=== PATIENT | female | born 1935 | race Caucasian/White ===

== ENCOUNTER 2023-10-03 23:45 | Inpatient (IN) | payer OTHER, SELFPAY ==
[2023-10-03 19:28] VITALS: BP 111/61; BMI 28.6
[2023-10-03 19:31] VITALS: BP 111/61
[2023-10-03 19:58] LABS: % Basophils 0.4 % (0-2); % Eosinophils 1.3 % (0-6); % Immature Granulocytes 0.6 % (0-0.5); % Monocytes 6.9 % (1.7-9.3); % Neutrophils 74.8 % (42.2-75.2); Absolute Eosinophils 0.1 10^3/uL (0-0.7); Absolute Lymphocytes 0.8 10^3/uL (1.2-3.4); Absolute Monocytes 0.3 10^3/uL (0.1-0.6); Absolute Neutrophils 3.6 10^3/uL (1.4-6.5); Hematocrit 34.6 % (37.0-47.0); Hemoglobin 11.5 g/dL (12.0-16.0); Mean Corp Hgb Conc. 33.2 g/dL (33.0-37.0); Mean Corpuscular Hgb 32.3 pg (27.0-31.0); Mean Corpuscular Volume 97.2 fL (81.0-99.0); Mean Platelet Volume 11.4 fL (7.4-10.4); Nucleated Red Blood Cells % 0 %; Platelet Count 108 10^3/uL (130-400); Red Blood Cell Count 3.56 10^6/uL (4.20-5.40); Red Cell Dist. Width 15.3 % (11.5-14.5); White Blood Cell Count 4.8 10^3/uL (4.8-10.8)
[2023-10-03 20:00] VITALS: BP 101/45
[2023-10-03 20:07] LABS: ALT (SGPT) 45 U/L (0-35); AST (SGOT) 56 U/L (14-36); Albumin 3.4 g/dl (3.5-5.0); Alkaline Phosphatase 165 U/L (38-126); Blood Urea Nitrogen 25 mg/dl (7-17); Carbon Dioxide 32 mmol/L (22-30); Chloride 105 mmol/L (98-107); Estimated Creatinine Clearance 69 ml/min; Glucose 90 mg/dl (70-99); Sodium 139 mmol/L (135-145); Total Bilirubin 1.1 mg/dl (0.2-1.3); Total Protein 5.9 g/dl (6.3-8.2); eGFR > 60.00
[2023-10-03 20:33] LABS: Lactic Acid 0.9 mmol/L (0.7-2.0)
[2023-10-03 20:56] VITALS: BP 100/68
[2023-10-03 21:15] LABS: Urine Albumin Negative (Neg - Trace); Urine Bilirubin Negative (Negative); Urine Character Clear (Clear); Urine Color Yellow; Urine Glucose Negative (Negative); Urine Ketone Trace (Negative); Urine Leukocyte Negative (Negative); Urine Nitrite Negative (Negative); Urine Occult Blood Negative (Negative); Urine Specific Gravity 1.025 (<1.030); Urine Urobilinogen 4+ (Neg - 1+)
[2023-10-03 21:28] LABS: Free T4 1.29 ng/dl (0.78-2.19)
[2023-10-03 22:15] VITALS: BP 99/76
[2023-10-03 22:57] LABS: COVID-19 Antigen Negative (Negative)
[2023-10-03 23:01] VITALS: BP 92/78
--- NOTE | 2023-10-03 23:19 | ED.GENMED ---
History of Present Illness
General
Chief Complaint: Change in Mental Status
Source: patient and family
Exam Limitations: none
Time Seen by Provider: 10/03/23 19:54
Nursing documentation reviewed up to this point in time: agreed with
Travel History
Have you had any contact with someone who has COVID-19?: Unable to Answer
Do you have any symptoms of coronavirus? Fever > 100 degrees, chills, cough, shortness of breath, sore throat, loss of taste or smell, muscle aches, or headache?: Unable to Answer
History of Present Illness
History of Present Illness:
88-year-old female presents emergency department due to altered mental status, hallucinating. She has a history of hallucinations, but is seeing different things now, and has declined over the past few days.
Past History
Past History
ED Past Medical History: Arrthythmia (Atrial fibrillation), Cancer (CLL), CHF and Other (Sleep apnea, uses CPAP at night, colon polyps, arthritis, shingles, chronic lymphocytic leukemia, skin cancers)
ED Past Surgical History: Cholecystectomy, Orthopedic (Left TKR) and Other (Lysis of adhesions)
Social History
Tobacco: Non-smoker
Alcohol: Occasional
Drug: None
Personal:
Living: alone
Employment: Employed
Review of Systems
Review of Systems
Allergies reviewed?: Yes
Unable to obtain full review of systems at this time due to: other (Altered mental status)
All Other Systems: Not applicable
Phy Exam
Physical Exam
Physical Exam:
Physical Exam
General: Temperature 92.6
Neck: supple. no meningeal signs. normal posterior pharynx
Heart: s1/s2 regular rate and rhythm, no murmur. equal radial
pulses.
HEENT: Pupils equal round reactive to light, EOMI
Lungs: no acute respiratory distress. clear bilaterally
Abdomen: normal bowel sounds. not tender. no CVAT
Neuro: alert and oriented to person and place. no focal neurological deficits cranial nerves II through XII intact
Skin: no rash
Psychiatric: well kept. interactive and cooperative
Extremities: no edema. no calf tenderness. negative homans. good distal pulses
Course
Orders/Labs/Results
Orders:
Orders
10/03/23 19:43
Complete Blood Count/With Diff Urgent
Comprehensive Metabolic Panel Urgent
Free T4 Urgent
TSH Reflex To Free T4 Urgent
Comment: ADD ON
10/03/23 19:55
Werner Placement- Treatment ONCE
Reason for insertion: I&O's Critical Care
10/03/23 19:56
Add On- LAB Urgent
Tests Added?: tsh w/reflex t4
10/03/23 20:15
Lactic Acid Q4H
Comment: CANCEL 2nd LACTIC ACID IF 1st LACTIC ACID IS LESS THAN 2
Blood Culture Q30M
NORBERTO Source: Blood/Venous
Specimen Description:
10/03/23 20:27
Blood Culture Q30M
NORBERTO Source: Blood/Venous
Specimen Description:
10/03/23 21:07
Urinalysis Reflex To Culture Urgent
Date Specimen was Collected: 10/03/23
Time Specimen was Collected: 21:02
10/03/23 21:36
CR Chest Portable - 1 View Urgent
Comment:
Reason For Exam: hypothermia
Reason Study Needs to be Portable: Patient Unstable
10/03/23 22:21
COVID-19 Antigen Urgent
Source: Nasal Swab
Influenza A+B Rapid Molecular Urgent
NORBERTO Source: Nasal Swab
Specimen Description:
10/03/23 23:05
Admit/Transfer Patient As Directed
Co-Sign Provider:
Level of Care: Inpatient admission
Assign to:: Telemetry
Physician / Group: Nasir
Diagnosis: Hypothermia, Delirium
Reason for Telemetry: Arrhythmia
Date to Stop Telemetry: 10/06/23
Time to Stop Telemetry: 11:00
Reason for Hospitalization: Hypothermia, Delirium
Expected length of stay greater than two midnights?: Yes
ELOS- Estimated Length of Stay in days: 2
I certify the patient meets the requirements for IP care: Yes
10/03/23 23:08
Code Status As Directed
Resuscitation Status: Full Code
10/04/23 00:00
Lactic Acid Q4H
Comment: CANCEL 2nd LACTIC ACID IF 1st LACTIC ACID IS LESS THAN 2
10/06/23 11:00
DC Protocol for Telemetry ONCE
Abnormal Lab Results
10/03/23 10/03/23
19:43 21:07
RBC 3.56 L 10^6/uL
(4.20-5.40)
Hgb 11.5 L g/dL
(12.0-16.0)
Hct 34.6 L %
(37.0-47.0)
MCH 32.3 H pg
(27.0-31.0)
RDW 15.3 H %
(11.5-14.5)
Plt Count 108 L 10^3/uL
(130-400)
MPV 11.4 H fL
(7.4-10.4)
Absolute Lymphs (auto) 0.8 L 10^3/uL
(1.2-3.4)
Immature Gran % 0.6 H %
(0-0.5)
Lymphocytes % 16.0 L %
(20.5-51.1)
Carbon Dioxide 32 H mmol/L
(22-30)
BUN 25 H mg/dl
(7-17)
AST 56 H U/L
(14-36)
ALT 45 H U/L
(0-35)
Alkaline Phosphatase 165 H U/L
(38-126)
Total Protein 5.9 L g/dl
(6.3-8.2)
Albumin 3.4 L g/dl
(3.5-5.0)
TSH (Reflex) 13.30 H uIU/ml
(0.47-4.68)
Urine Ketones Trace A
(Negative)
Urine Urobilinogen 4+ A
(Neg - 1+)
10/03/23 19:43
10/03/23 19:43
Vital Signs
Initial and Last Documented VS:
Initial Vital Signs
Pulse Resp
63 19
10/03/23 19:27 10/03/23 19:27
Last Documented Vital Signs
Temp Pulse Resp BP Pulse Ox
92.6 F L 72 18 100/68 97
10/03/23 22:24 10/03/23 21:15 10/03/23 21:15 10/03/23 20:56 10/03/23 21:15
MDM/Problems Addressed
Differential Diagnosis Includes:
Sepsis, hypothyroidism
MDM/Problems Addressed:
88-year-old female with hypothermia, unclear etiology, altered mental status. Admit to hospitalist for further workup. No source of infection found.
Chronic conditions affecting care: Cardiomyopathy and Arrhythmia
Acute Exacerbation and/or Progression of Chronic Illness: Cardiomyopathy and Arrhythmia
*Radiology
Radiology exam reviewed: radiology read reviewed (Chest x-ray no acute findings)
*Pulse Oximetry
Patient hypoxic: no
*EKG
Interpreted by ED Provider?: NA
*Shoe Trimmer Interpretation
Rate: Shoe Trimmer- N/A
*Critical Care Note
Total Time (30-74mins, 75-104mins- exclusive of procedures): 30
comment:
Critical care statement: A total of 30 minutes of critical care time was provided for this patient. This includes management of unstable vital signs, evaluation of the patient at bedside, reviewing the patient's pertinent medical records, discussion
with consultants, review of old EKGs and review of pertinent medical records. This time with separate from time utilized to perform the aforementioned documented procedures
Data Reviewed
Review of Other/Old Records Reveals: Labs (Prior hemoglobin 12.3, prior TSH 0.7 2020)
Source: records
Patient Management
Social determinants of health affecting care: Living situation
Discussion with other providers: Hospitalist
Escalation/DeEscalation of care consider admission/obs:
Admit indicated
ED Attending Note
-
Portions of this chart may have been created with voice recognition software.� Occasional wrong word or��sound alike� substitutions may have occurred due to the inherent limitations of voice recognition software.
Discharge Plan
Departure
Patient Disposition: Admit
Date of Disposition: 10/03/23
Time of Disposition: 21:35
Admit to: ICU
Presentation/result/management discussed w/ accepting MD/DO: Hospitalist
Patient with high blood pressure during this ER visit?: No
Condition: Fair
Discharge Problem:
Hypothermia, Hypothyroidism
Prescriptions:
No Action
ascorbic acid (vitamin C) [Vitamin C] 500 MG tablet
500 mg PO DAILY Qty: 0
multivitamin with folic acid [Tab-A-Mandy] 1 TABLET tablet
1 tab PO DAILY Qty: 0
alendronate 70 MG tablet
70 mg PO MEMBRENO
Eliquis 5 MG tablet
5 mg PO BID Qty: 60 3RF
furosemide 40 MG tablet
40 mg PO DAILY Qty: 30 11RF
pyridoxine (vitamin B6) [Vitamin B-6] 100 MG tablet
100 mg PO DAILY
cholecalciferol (vitamin D3) 1,000 UNITS tablet
2,000 units PO DAILY
metoprolol succinate 50 MG tablet extended release 24 hr
50 mg PO BID Qty: 60 0RF
atorvastatin 10 mg Tablet
10 mg PO DAILY
PreserVision Lutein 226-90-0.8-5 mg Capsule
1 cap PO BID
amiodarone [Pacerone] 200 MG tablet
100 mg PO DAILY
clopidogrel 75 mg Tablet
75 mg PO DAILY Qty: 90 5RF
pantoprazole 40 mg Tablet,Delayed Release (Dr/Ec)
40 mg PO DAILY Qty: 90 5RF
calcium carbonate [Calcium 600] 600 mg calcium (1,500 mg) Tablet
600 mg PO BID
trazodone 50 mg Tablet
50 mg PO HS
Referrals:
UNKNOWN - PT DOES,NOT KNOW [Family Provider] -
Interventions
Interventions:
*Risk Screen - Suicide Last Done: 10/03/23 19:28
*General Assessment Last Done: 10/03/23 19:28
*Neglect/Abuse Screening Last Done: 10/03/23 19:28
ED- Fall Risk Assessment Last Done: 10/03/23 19:28
*ED COVID-19 Vaccine History Last Done: 10/03/23 19:28
ED- Neurological Assessment Last Done: 10/03/23 19:28
ED Swallowing Screen Last Done: 10/03/23 19:40
--- NOTE | 2023-10-03 23:38 | HPS.HSE ---
Family Physician
-
Family Physician: NOT KNOW UNKNOWN - PT DOES
Chief Complaint
-
Confusion
History of Present Illness
Patient is an 88y F with PMH significant for ASCVD, aortic stenosis, A-Fib and CHF who presents to ED for evaluation of confusion. History obtained from family via phone. Spoke with son and daughter who describe general decline in function
since January 2023. Patient lived on her own until 07/2023 when she moved in with her daughter. At that time, family noted that she had bouts of insomnia, hallucinations and confusion. These were very intermittent. Patient has had much more
significant decline over the past week or so - and especially over the past 4 days.
Patient had a fall at home about 2 weeks ago. As she developed increasing confusion, she was seen by her PCP and a CT scan, labs, etc were performed. These were essentially unremarkable.
Patient was then seen by Neurology (Dr. De La Rosa) and additional testing was ordered which has yet to be completed.
Patient began to have more consistent insomnia, hallucinations and sharp decline in cognition over the past several days.
last PM, she took her first dose of trazodone in an attempt to get some sleep. Today her symptoms seemed the same or worse and patient was brought to the ED for evaluation.
In the ED, patient is noted to be hypothermic with temp = 92.0. She is awake and interactive, but delirious and unable to answer questions appropriately.
Medical History
Past Medical History
Past Medical History: Reports Other
Additional Past Medical History:
ASCVD (CAD and CVA)
Severe Aortic Stenosis
Chronic HFpEF
Permanent Atrial Fibrillation
Hypothyroidism
CLL
Uterine Cancer (s/p surgery, chemo, XRT)
EFRAIN on CPAP
Past Surgical History: Reports Other
Additional Past Surgical History:
Complicated PTCA with Stents (08/2023)
JOSEPH
Cholecystectomy
Appendectomy
D&C
Bilateral TKA
Mohs Surgery
Social History
Tobacco: Former Smoker (Quit > 10 years ago.)
Alcohol: Occasional
Living: With Family
Family History
Family History: Other (Father: CAD, DM Brother: Prostate Cancer)
Allergies / Home Medications
Allergies reflects when Allergies were last updated in [facility].
Home Medications with original date entered in [facility]
Allergy/Medication List:
Allergies
Allergy/AdvReac Type Severity Reaction Status Date / Time
amoxicillin Allergy Nausea / Verified 10/03/23 19:40
Vomiting
loratadine [From Claritin] Allergy Nausea / Verified 10/03/23 19:40
Vomiting
Home Medications
ascorbic acid (vitamin C) 500 mg tablet (Vitamin C) 500 mg PO DAILY Supplement ##0 01/05/12
multivitamin with folic acid 400 mcg tablet (Tab-A-Mandy) 1 tab PO DAILY Supplement ##0 01/05/12
alendronate 70 mg tablet 70 mg PO MEMBRENO OSTEOPOROSIS 11/20/17
apixaban 5 mg tablet (Eliquis) 5 mg PO BID ##60 11/22/17
furosemide 40 mg tablet 40 mg PO DAILY #30 tabs 12/01/17
cholecalciferol (vitamin D3) 25 mcg (1,000 unit) tablet 2,000 units PO DAILY Supplement 05/18/21
pyridoxine (vitamin B6) 100 mg tablet (Vitamin B-6) 100 mg PO DAILY Supplement 05/18/21
metoprolol succinate 50 mg tablet,extended release 24 hr 50 mg PO BID #60 tabs 05/23/21
amiodarone 200 mg tablet (Pacerone) 100 mg PO DAILY 06/25/23
atorvastatin 10 mg tablet 10 mg PO DAILY 06/25/23
vit C 226 mg-vit E 90 mg-copper 0.8 mg-zinc oxide-lutein 5 mg capsule (PreserVision Lutein) 1 cap PO BID 06/25/23
clopidogrel 75 mg tablet 75 mg PO DAILY #90 tabs 08/22/23
pantoprazole 40 mg tablet,delayed release 40 mg PO DAILY #90 tabs 08/22/23
calcium carbonate 600 mg calcium (1,500 mg) tablet (Calcium) 600 mg PO BID 10/03/23
trazodone 50 mg tablet 50 mg PO HS 10/03/23
Review of Systems
-
History Source: Family
A 12 point ROS was completed and negative except as noted: Yes
Constitutional: Denies Fever
Respiratory: Denies Cough or Trouble Breathing
Cardiac: Denies Chest Pain or Palpitations
Abdomen/GI: Denies Nausea, Vomiting or Diarrhea
Neurological: Reports Weakness
Psych: Reports Dementia, Audio or Visual Hallucinations and Other (Insomnia, confusion)
Physical Exam
Vital Signs
Vital Signs
Temp Pulse Resp BP Pulse Ox
92.6 F L 80 20 92/78 94
10/03/23 22:24 10/03/23 23:15 10/03/23 23:15 10/03/23 23:01 10/03/23 23:15
Physical Exam
General: Other (88y F in no acute distress. Awake and interactive, but delirious and not able to appropriately answer questions. Follows some simple commands.)
HEENT: Other (Dry MM.)
Respiratory: Other (Decreased at bases - otherwise clear.)
Cardiac: S1/S2, Irregular Rhythm and Murmur (III/ JANNETTE)
GI: Soft, Non Tender, Non Distended and Normal Bowel Sounds
Musculoskeletal: No Clubbing, No Cyanosis, No Edema and Other (Some superficial crusted lesions to the LLE - No bleeding / discharge. Palpable cords posterior calf.)
Neuro: Awake; No Oriented
Psych: Apparent Dementia
Laboratory Results
-
10/03/23 19:43
10/03/23 19:43
Laboratory Results
Lactic Acid 0.9 mmol/L (0.7-2.0) 10/03/23 20:15
Total Bilirubin 1.1 mg/dl (0.2-1.3) 10/03/23 19:43
AST 56 U/L (14-36) H 10/03/23 19:43
ALT 45 U/L (0-35) H 10/03/23 19:43
Alkaline Phosphatase 165 U/L (38-126) H 10/03/23 19:43
Impression/Plan
-
A/P: Patient is an 88y F with PMH significant for ASCVD, CHF, and A-Fib who presents to ED for evaluation of progressive confusion and hallucinations.
Acute Delirium
Senile Dementia
- Admit for further evaluation and treatment.
- Seems as if chronic issue is present with more recent precipitous decline.
- Only new med is trazodone (started after symptoms worsened) - will hold for now.
- Had PTCA with stenting done in 08/2023, had fall about 2 weeks ago.
- CT head unremarkable on 09/26/23.
- No evidence of active infection or other systemic process.
- Check MR brain in the AM.
- Neurology evaluation for additional recommendations.
- Symptoms seem most c/w rapidly progressive form of dementia - rule out other possible etiologies.
- Follow for changes in exam.
- Quetiapine PRN for agitation.
- Adjust medications as needed to control symptoms / mood destabilization.
Hypothermia
Hypothyroidism
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
- TSH mildly increased with normal T4.
- Patient has a listed dx of hypothyroidism - but is on no medication.
- Begin T4 supplementation. Repeat TFTs in 4-6 weeks.
- ? mild hypothyroidism could explain hypothermia on its own.
ASCVD
Severe Aortic Stenosis
Permanent Atrial Fibrillation
- Stable. s/p recent coronary stents (08/2023).
- Continue current CV med regimen including Eliquis / Plavix.
- In the process of TAVR work-up - may need to re-evaluate this given apparent / significant progression in dementia.
COPD without Acute Exacerbation
EFRAIN on CPAP
- Stable. No wheezing on exam. No noted recent cough, etc.
- DuoNebs PRN.
- Continue usual CPAP at HS.
LE Skin Changes
LE Cords
- Wound Care eval for local care of superficial skin breakdown.
- Palpable cords on exam - patient is on Eliquis, but will check US to rule out DVT given exam findings.
DVT Prophylaxis: Continue Eliquis for now.
Code Status: Full
[2023-10-04] VITALS (9 sets, daily range): BP systolic 86–158; BP diastolic 47–103; PULSE 83–104; BMI 30.1
[2023-10-04] MEDS: NSS 500 IV (00:26)
--- NOTE | 2023-10-04 01:14 | PTCARENOTE ---
Pt received from ED to [id number]. Pt oriented to room and call [place].
[2023-10-04 01:52] LABS: Glucose - Point of Care 72 mg/dl (70-99)
[2023-10-04] MEDS: SYNTHROID 50 MCG PO (06:08)
[2023-10-04 06:45] LABS: Glucose - Point of Care 68 mg/dl (70-99)
[2023-10-04 07:55] LABS: Hematocrit 32.1 % (37.0-47.0); Hemoglobin 10.9 g/dL (12.0-16.0); Mean Corpuscular Hgb 32.2 pg (27.0-31.0); Mean Corpuscular Volume 94.7 fL (81.0-99.0); Platelet Count 108 10^3/uL (130-400); Red Blood Cell Count 3.39 10^6/uL (4.20-5.40); Red Cell Dist. Width 15.3 % (11.5-14.5); White Blood Cell Count 4.7 10^3/uL (4.8-10.8)
--- NOTE | 2023-10-04 08:15 | CON.NEURO4 ---
Addendum entered and electronically signed by Bony Obrien MD 10/04/23 14:53:
I saw and evaluated the patient I reviewed the note by Violeta Salcedo agree the findings the following comments:
88-year-old woman with a past ministry of atrial fibrillation, congestive heart failure, CLL, peripheral neuropathy presented to hospital because of confusion hallucinations and ambulatory dysfunction.
Patient has had some confusion and visual hallucinations starting at least 9 to 12 months ago. There has been significant insomnia at home and the patient takes trazodone for this. She follows with a local neurologist Dr. De La Rosa who is brought in both
lab testing, is pursuing EMG and MRI lumbar spine as well.
Patient was unable to tolerate MRI at this time is rather irritable and mildly agitated not cooperative with my questions.
Patient also had significant hypothermia in the ED
At baseline patient takes Eliquis 5 mg twice daily and clopidogrel 75 mg once a day.
Neurologic examination shows an awake and alert patient, irritated mild confusion, generally speaks in support phrases, cranial nerve shows mild dysarthria, midline gaze at rest, no facial asymmetry, patient not quite overt tremor is seen and no
motor asymmetry and spontaneous arms and legs seen.
CT head noncontrast shows moderate to severe microangiopathy and small lacunar infarcts in the cerebellum without acute abnormality or hemorrhage.
Assessment: Patient likely to have a vascular dementia versus Lewy body dementia given significant visual hallucinations along with confusion and cognitive deficit. A small stroke or metabolic abnormality or polypharmacy may have worsened things,
but also could be the case that this is the natural history of a progressive neurodegenerative disease. Hypothermia not entirely clear of the cause, thyroid function does not show severe derangement, patient not showing signs of sepsis.
Recommendations
-Continue the existing Eliquis and clopidogrel
-Reasonable to give 1 mg IV lorazepam to try and tolerate MRI brain, but if she is not able to tolerate with this dose then I would not provide further doses of benzodiazepines as this would likely worsen her mental status
-If agitation is a problem then for prefer Zyprexa or Seroquel as needed at low-dose to start rather than further benzodiazepines
Original Note:
Consultation - Neurology 4
-
CONSULTING PHYSICIAN: Dev Obrien MD
REFERRING PHYSICIAN: Hospitalists/Dr. Best
DICTATED BY: MICHELLE Ward
DATE/TIME OF REQUEST: 10/04/23
DATE/TIME OF CONSULTATION: 10/04/23
Reason for Consultation: Delirium
History of Present Illness:
This is an 88-year-old female who has presented to the hospital on 10/03/23 with report of increased confusion, hallucinations, and ambulatory dysfunction. This information is obtained from medical records as the patient is unable to provide any
information. Per medical records, patient has had multiple falls over the past two years. She has had increased confusion and visual hallucinations starting about one year ago. She has had difficultly ambulating and a shuffled gait since January 2023
and started using a rolling walker then. She moved in with her daughter in 07/2023 and has had intermittent episodes of insomnia, hallucinations, and confusion since then. Two weeks ago she had another fall at home with slight head trauma. She had a
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 She was evaluated by her outpatient
Neurologist Dr. De La Rosa, who ordered a CPK, aldolase, acetylcholine receptor antibodies, EMG, and MRI lumbar spine; but the EMG and MRI lumbar spine aren't scheduled until November. On 10/02/23 she took a trazodone and had worsened symptoms and insomnia,
prompting her family to bring her to the ER for evaluation. Rectal temperature on arrival was 92.6, no clear signs of infection. Patient is currently confused and agitated after MRI attempt, and she is unable to provide answers to most questions.
She is taking Eliquis 5mg BID and plavix 75mg daily for Afib and recent cardiac stent.
Past Medical History: Afib (Eliquis), CHF, ASCVD, aortic stenosis, dementia, CLL in remission, [place], hypothyroidism, bilateral carpal tunnel syndrome, peripheral polyneuropathy following chemotherapy, EFRAIN (cpap), osteoarthritis, right rotator cuff
tear, endometrial cancer,
Surgical History: Cardiac stent 08/2023, cholecystectomy, appendectomy, D&C, bilateral knee replacement, hysterectomy, Mohs
Family History: Reviewed and noncontributory.
Social History: Former tobacco, occasional alcohol, no illicit drug use.
Allergies: Amoxicillin, Loratadine.
Home Medications: See below.
Review of Symptoms:
Per the HPI. I am unable to obtain a complete review of systems�because of patient's inability to provide history.
Physical Exam:
The patient is afebrile, abdomen is nondistended, breathing is unlabored, skin is warm and dry, LLE scabbed, no edema.
Neurologic Examination:
The patient is awake and alert. Restless, anxious, agitated. She is able to follow a rare one-step command and answer a simple question. There is no aphasia or dysarthria. On cranial nerve assessment, pupils are 3 mm bilateral, round and reactive
to light and accommodation. [place] visual gaming and EOMS. There is no facial asymmetry. Hearing is intact bilaterally to normal conversation volume. [place] tongue palate and uvula. Moves all extremities spontaneously. No involuntary movement noted. [place]
sensation, double simultaneous, and coordination.
Lab Results: See below.
Neuro Imaging:
1. CT Head 09/26/23: There is no acute intracranial process. Mild to moderate diffuse volume loss. Moderate to severe leukoaraiosis. Small lacunar infarcts in the cerebellum unchanged.
Differentials for the patient's presentation include:
1. TME of unclear source in the setting of likely underlying vascular or Lewy body dementia
2. Small stroke possible
3. Hypothermia
4. Recent cardiac stent surgery
Recommendations:
-Provide lorazepam 1mg x1 prior to MRI brain noncontrast due to agitation/restlessness
-Would avoid benzodiazepines for sedation as much as possible. Seroquel or zyprexa PRN agitation.
-Continue home Eliquis and Plavix
-Neurological checks per unit guidelines.
-Needs outpatient neuropsychological testing
-Case management consult for home support for family.
-PT/OT/ST evaluations
-DVT prophylaxis
-Will follow pending results.
Discussed patient care with: Dr. Obrien, the patient
Vital Signs and Labs
-
Vital Signs and Labs:
Vital Signs
Temp Pulse Resp BP Pulse Ox
97.7 F 95 24 138/96 97
10/04/23 08:20 10/04/23 08:20 10/04/23 08:20 10/04/23 08:20 10/04/23 08:30
Lab Results
10/04/23 06:15
10/04/23 06:15
Sodium 139 mmol/L (135-145) 10/04/23 06:15
Potassium 4.2 mmol/L (3.5-5.1) 10/04/23 06:15
BUN 24 mg/dl (7-17) H 10/04/23 06:15
Glucose 63 mg/dl (70-99) L 10/04/23 06:15
Calcium 8.8 mg/dl (8.4-10.2) 10/04/23 06:15
Vitamin B12 685 pg/ml (239-931) 10/04/23 06:15
Medications
-
Active Medications
Generic Name Dose Route Start Last Admin
Trade Name Freq PRN Reason Stop Dose Admin
Acetaminophen 650 mg 10/04/23 02:16
Acetaminophen 325 Mg Tablet PO 11/01/23 02:15
Q4HPRN PRN
Mild Pain / Temp > 101
Albuterol/Ipratropium 3 ml 10/04/23 02:16
Ipratropium 0.5/Albuterol 3 Mg (3 Ml Ampul) INH 11/01/23 02:15
R Q4HPRN PRN
SOB
Protocol
Amiodarone HCl 100 mg 10/04/23 08:00 10/04/23 08:30
Amiodarone 100 Mg Tablet PO 11/01/23 07:59 100 mg
DAILY DEE Administration
Apixaban 5 mg 10/04/23 08:00 10/04/23 08:30
Apixaban (Eliquis) 5 Mg Tablet PO 11/01/23 07:59 5 mg
BID DEE Administration
Clopidogrel Bisulfate 75 mg 10/04/23 08:00 10/04/23 08:29
Clopidogrel 75 Mg Tablet PO 11/01/23 07:59 75 mg
DAILY DEE Administration
Dextrose 12.5 grams 10/04/23 06:50
Dextrose 50% (0.5 Grams/Ml) 50 Ml Syringe IV 11/01/23 06:49
[id number] PRN
for BS < 70
Levothyroxine Sodium 50 mcg 10/04/23 07:00 10/04/23 06:08
Levothyroxine 50 Mcg Tablet PO 11/01/23 06:59 50 mcg
DAILY AT 0700 DEE Administration
Lorazepam 1 mg 10/04/23 12:10
Lorazepam 2 Mg/Ml Vial IV 10/04/23 23:59
ONCE PRN
mri
Metoprolol Succinate 25 mg 10/04/23 08:00 10/04/23 08:29
Metoprolol 25 Mg Extended Release Tablet PO 11/01/23 07:59 25 mg
BID DEE Administration
Miconazole Nitrate 0 applic 10/04/23 08:00 10/04/23 08:29
Miconazole Powder Bottle TOPICAL 11/01/23 07:59 1 applic
BID DEE Administration
Quetiapine Fumarate 12.5 mg 10/04/23 02:16
Quetiapine 25 Mg Tablet PO 11/01/23 02:15
Q8HPRN PRN
Agitation
Sodium Chloride 0 flush 10/04/23 01:00
Sodium Chloride 0.9% (Flush) Syringe IV 11/01/23 00:59
PER PROTOCOL DEE
Sodium Chloride 0.5 ml 10/04/23 12:22
Nss (Pf) 10 Ml Vial For Ativan 1 Mg Dose IV 10/04/23 23:59
ONCE PRN
DILUTE LORAZEPAM
Home Medications
Medication Instructions Recorded
ascorbic acid (vitamin C) 500 mg 500 mg PO DAILY Supplement ##0 01/05/12
tablet (Vitamin C)
multivitamin with folic acid 400 1 tab PO DAILY Supplement ##0 01/05/12
mcg tablet (Tab-A-Mandy)
alendronate 70 mg tablet 70 mg PO MEMBRENO OSTEOPOROSIS 11/20/17
apixaban 5 mg tablet (Eliquis) 5 mg PO BID ##60 11/22/17
furosemide 40 mg tablet 40 mg PO DAILY #30 tabs 12/01/17
cholecalciferol (vitamin D3) 25 2,000 units PO DAILY Supplement 05/18/21
mcg (1,000 unit) tablet
pyridoxine (vitamin B6) 100 mg 100 mg PO DAILY Supplement 05/18/21
tablet (Vitamin B-6)
metoprolol succinate 50 mg 50 mg PO BID #60 tabs 05/23/21
tablet,extended release 24 hr
amiodarone 200 mg tablet (Pacerone) 100 mg PO DAILY Arrhythmia 06/25/23
atorvastatin 10 mg tablet 10 mg PO DAILY High Cholesterol 06/25/23
vit C 226 mg-vit E 90 mg-copper 1 cap PO BID Supplement 06/25/23
0.8 mg-zinc oxide-lutein 5 mg
capsule (PreserVision Lutein)
clopidogrel 75 mg tablet 75 mg PO DAILY #90 tabs 08/22/23
pantoprazole 40 mg tablet,delayed 40 mg PO DAILY #90 tabs 08/22/23
release
calcium carbonate 600 mg calcium 600 mg PO BID Supplement 10/03/23
(1,500 mg) tablet (Calcium)
trazodone 50 mg tablet 50 mg PO HS Sleep 10/03/23
[2023-10-04] MEDS: TOPROL XL 25 MG PO (08:29)
[2023-10-04] MEDS: PLAVIX 75 MG PO (08:29)
[2023-10-04] MEDS: DESENEX/MITRAZOL/ZEASORB 1 APPLIC TOPICAL ×2 (08:29→19:50)
[2023-10-04] MEDS: ELIQUIS 5 MG PO (08:30)
[2023-10-04] MEDS: PACERONE 100 MG PO (08:30)
--- NOTE | 2023-10-04 08:30 | PTCARENOTE ---
10/04- FBS=74. Patient not displaying any S/S of Hypoglycemia. No dextrose to be given at this time as per MD. Continue to monitor.
[2023-10-04 08:35] LABS: Glucose - Point of Care 74 mg/dl (70-99)
--- NOTE | 2023-10-04 08:35 | PTCARENOTE ---
10/04- Patient is cognitively unable to perform simple tasks like taking her pills. She eventually did without issue. But referred to speech for further eval. Advised Physician patient may be unable to regularly take oral medication at this time.
[2023-10-04 08:37] LABS: Blood Urea Nitrogen 24 mg/dl (7-17); Calcium 8.8 mg/dl (8.4-10.2); Carbon Dioxide 25 mmol/L (22-30); Chloride 110 mmol/L (98-107); Estimated Creatinine Clearance 64 ml/min; Glucose 63 mg/dl (70-99); Potassium 4.2 mmol/L (3.5-5.1); Sodium 139 mmol/L (135-145); eGFR > 60.00
[2023-10-04 09:54] LABS: Vitamin B12 685 pg/ml (239-931)
[2023-10-04 09:57] LABS: Cortisol, Random 12.8 ug/dl
--- NOTE | 2023-10-04 10:00 | WOUNDNOTE ---
SACRAL/COCCYX CREASE
--- NOTE | 2023-10-04 10:00 | WOUNDNOTE ---
[facility] RN note: Patient admitted with hypothermia, delirium. Gradual decline since January. Patient lives with her daughter.
See H&P for complete history.
PMH: ASCVD, aortic stenosis, a fib (Eliquis), CHF, CLL, uterine ca s/p JOSEPH, chemo, XRT, EFRAIN (CPAP), PTCA with stents, cholecystectomy, appendectomy, bilateral TKA, Mohs.
Wound Location and type/assessment: Patient admitted with: dermal LE wounds suspect r/t trauma, possible scratching and venous insufficiency. No to trace LE edema.+Hemosiderosis and varicosities. +Palpable pedal pulses. 05/16/23 Arterial Doppler R
FORREST 1.04, R toe .76; L FORREST 1.26, L toe .73. R plantar mid medical foot dry black/yellow callus. No drainage, no erythema. Sacral/coccyx MASD.
Appetite: currently NPO.
Pressure redistribution devices in place: [facility] Accumax. Patient tries to move legs out of bed at times as per nursing however, patient does not understand need for frequent turning. RICHIE Patel to coordinate switching bed to an air bed.
Plan: Dressing changed LLE. Silicone foam applied to R lateral calf. No sting skin prep applied to R plantar callus.
Will confirm orders with Dr. Voss; defer to hospitalist re: inpatient vs outpatient podiatry for callus removal. Discussed with RICHIE Hargrove.
Care plan to be updated and will follow as needed.
Recommend follow up at wound care center if needed upon discharge.
--- NOTE | 2023-10-04 10:00 | WOUNDNOTE ---
SALVADOR (R MEDIAL, L ANTERIOR)
--- NOTE | 2023-10-04 10:00 | WOUNDNOTE ---
R CALF (LATERAL)(with photo flash)
--- NOTE | 2023-10-04 10:00 | WOUNDNOTE ---
R PLANTAR FOOT (MID MEDIAL)
--- NOTE | 2023-10-04 10:00 | WOUNDNOTE ---
SALVADOR (with photo flash)
--- NOTE | 2023-10-04 10:07 | WOUNDNOTE ---
L CALF (MEDIAL LOWER)
[2023-10-04 12:34] LABS: Glucose - Point of Care 73 mg/dl (70-99)
--- NOTE | 2023-10-04 13:13 | W.PN.HOSP.TC ---
Today's Communication/Plan
-
f/u cultures
mri
neuro eval
Assessment / Plan
Assessment / Plan
Physical Exam
General: Other (88y F in no acute distress.� Awake and interactive, but delirious and not able to appropriately answer questions.� Follows some simple commands.)
HEENT: Other (Dry MM.)
Respiratory: Other (Decreased at bases - otherwise clear.)
Cardiac: S1/S2, Irregular Rhythm and Murmur (III/ JANNETTE)
GI: Soft, Non Tender, Non Distended and Normal Bowel Sounds
Musculoskeletal: No Clubbing, No Cyanosis, No Edema and Other (Some superficial crusted lesions to the LLE - No bleeding / discharge.� Palpable cords posterior calf.) Foot callous.
Neuro: Awake; No Oriented
Psych: Apparent Dementia
A/P:� Patient is an 88y F with PMH significant for ASCVD, CHF, and A-Fib who presents to ED for evaluation of progressive confusion and hallucinations.
Acute Delirium
Senile Dementia
�- Seems as if chronic issue is present with more recent precipitous decline.
�- Only new med is trazodone (started after symptoms worsened) - will hold for now.
�- Had PTCA with stenting done in 08/2023, had fall about 2 weeks ago.
�- No evidence of active infection or other systemic process. F/u Cultures
�- Check MR brain in the AM. - May need ativan prior
�- Neurology evaluation for additional recommendations.
�- Symptoms seem most c/w rapidly progressive form of dementia
�- Quetiapine PRN for agitation.
Hypothermia
Hypothyroidism
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
�- TSH mildly increased with normal T4.
�- Patient has a listed dx of hypothyroidism - but is on no medication.
�- Begin T4 supplementation.� Repeat TFTs in 4-6 weeks.
�- ? mild hypothyroidism could explain hypothermia on its own.
ASCVD
Severe Aortic Stenosis
Permanent Atrial Fibrillation
�- Stable.� s/p recent coronary stents (08/2023).
�- Continue current CV med regimen including Eliquis / Plavix.
�- In the process of TAVR work-up - may need to re-evaluate this given apparent / significant progression in dementia.
COPD without Acute Exacerbation
EFRAIN on CPAP
�- Stable.� No wheezing on exam.� No noted recent cough, etc.
�- DuoNebs PRN.
�- Continue usual CPAP at HS.
LE Skin Changes
LE Cords
�- Wound Care eval for local care of superficial skin breakdown.
�- Palpable cords on exam - patient is on Eliquis, but will check US to rule out DVT given exam findings.
Foot Callous
-f/u podiatry outpatient
DVT Prophylaxis:� Continue Eliquis for now.
Code Status:� Full
Anticipated Discharge: Within 24 hours
Subjective/Interval History
-
Date of Service: October 04, 2023
No acute events, patient unable to appropriately respond to any questions
Objective Data
-
Labs:
Laboratory Results
10/04/23
06:15
WBC 4.7 L
Hgb 10.9 L
Hct 32.1 L
Plt Count 108 L
Sodium 139
Potassium 4.2
Chloride 110 H
Carbon Dioxide 25
BUN 24 H
Creatinine 0.6
Glucose 63 L
Calcium 8.8
Vital Signs:
Vital Signs
Temp Pulse Resp BP Pulse Ox
97.7 F 95 24 138/96 97
10/04/23 08:20 10/04/23 08:20 10/04/23 08:20 10/04/23 08:20 10/04/23 08:30
I&O
10/03/23 10/04/23 10/05/23
06:59 06:59 06:59
Output Total 150 / 150
Balance -150 / -150
Review of Systems
-
History Source: Patient
All other systems: Not reviewed unless documented
Data Reviewed
-
Diagnostic Radiology: Image personally visualized and interpreted and Report Reviewed by me
CT Scan: Image personally visualized and interpreted and Report Reviewed by me
Labs: Labs Reviewed by me
--- NOTE | 2023-10-04 15:22 | WOUNDNOTE ---
[facility] RN note: Spoke with patient's daughter Maria Elena Whipple who stated the small dry black scabs on her legs are Basel cell cancer. And the open areas are more recent. Suggested to daughter to have patient follow up with her cut out and marking machine operator who is Dr. Carrizales.
Daughter thinks she last saw Dr. Carrizales last June. Colt also stated he is followed by Dr. Adkins (photographer lithographic) for her R plantar foot callus.
[2023-10-04 16:39] LABS: Glucose - Point of Care 62 mg/dl (70-99)
[2023-10-04] MEDS: DEXTROSE 50% SYRINGE 12.5 GRAMS IV (16:46)
[2023-10-04 17:20] LABS: Glucose - Point of Care 124 mg/dl (70-99)
[2023-10-04] MEDS: D5W 1000 IV (17:29)
[2023-10-04] MEDS: ELIQUIS PO (19:45)
[2023-10-04] MEDS: TOPROL XL PO (19:45)
--- NOTE | 2023-10-04 21:17 | W.PN.POD ---
Addendum entered and electronically signed by Jean-Claude Adkins DPM 10/05/23 10:07:
excisional debridement was performed on right foot lesion plantar aspect of navicular bone
all hyperkeratotic, devitalized tissue was excised with # 312 scalpel blade
callous tissue removed epidermis layer only. approx. 1'x3/4'
no drainage, no infection
no ulceration
Original Note:
Today's Communication
- Today's Communication
podiatry consult for discolored, thick callous bottom of right foot
Assessment / Plan
- -
large hyperkeratotic lesion sub navicular right foot
area pre-ulcerous
midtarsal osteoarthritis right foot
selective debridement of all callous tissue overlying plantar navicular
no viable tissue, no bleeding
Suggest: continue application of silicone border foam right foot daily
when ambulatory wear patient's orthopedic shoes with molded orthotics to accommodative
her bony deformity
followup in our office in 2 months
Subjective/Objective
- Subjective
88 y/o female presented to hospital with confusion, hallucinations, and ambulatory disfunction.
decline over last 6 months but significant last few days
PMH: afib ascvd cad cva chf peripheral neuropathy dementia
upon exam large callous noted per nursing bottom right foot
- Objective
Temp Pulse Resp BP Pulse Ox
97.7 F 95 20 138/96 96
10/04/23 08:20 10/04/23 08:20 10/04/23 19:35 10/04/23 08:20 10/04/23 19:35
10/04/23 06:15
10/04/23 06:15
Vital Signs and Lab results were reviewed.
large hyperkeratotic lesion plantar navicular right foot
chronic lesion from prominent plantar navicular due to complete
collapse of medial column of right foot
history of peripheral neuropathy and posterior tibial dysfunction
saenz hyperkeratotic tissue mixed with dark necrotic tissue under and surrounding callous
no sign of any infection or drainage
[2023-10-05 01:27] LABS: Glucose - Point of Care 99 mg/dl (70-99)
[2023-10-05 03:59] VITALS: BP 162/83
[2023-10-05] MEDS: ATIVAN 0.5 MG IV (04:18)
[2023-10-05] MEDS: NSS (PRESERVATIVE FREE) 0.25 ML IV (04:18)
--- NOTE | 2023-10-05 04:45 | PTCARENOTE ---
Pt very agitated, removing telemetry, pulling at romo cath and IV site. Pt with blood noted on teeth and lips but will not allow staff to perform any mouth care. Pt uncooperative and unable to take prn seroquel for agitation. House PROGRAM MANAGEMENT INTERN made aware
and order for IV ativan received. Pt medicated per order.
[2023-10-05 04:59] VITALS: BMI 29.2
[2023-10-05] MEDS: SYNTHROID PO (05:30)
[2023-10-05 05:56] LABS: Glucose - Point of Care 128 mg/dl (70-99)
[2023-10-05] MEDS: ELIQUIS PO ×2 (07:20→21:15)
[2023-10-05] MEDS: TOPROL XL PO (07:21)
[2023-10-05] MEDS: PACERONE PO (07:21)
[2023-10-05] MEDS: PLAVIX PO (07:21)
[2023-10-05 07:25] VITALS: BMI 29.2
--- NOTE | 2023-10-05 07:27 | PTCARENOTE ---
2/2- Patient is more confused, combative, attempts to bite. She has dried blood on her mouth, reportedly from last night from being combative that she will not allow this RN to clean. She is unable to take any PO medications at this time. Notified
Physician. Patient is AFib on Telemetry with HR=73.
--- NOTE | 2023-10-05 08:19 | W.PN.NEURO.1 ---
Addendum entered and electronically signed by Bony Obrien MD 10/05/23 12:14:
I saw and evaluate the patient reviewed the note by Violeta Salcedo agree the findings the following comments:
88-year-old woman with past medical history of dementia presented to hospital with increased confusion hallucinations and visual manner ambulatory dysfunction and hypothermia.
Brain MRI demonstrates no acute findings she has significant white matter microangiopathy in both hemispheres as well as chronic strokes as well as generalized atrophy and volume loss greatest in the temporal lobes.
Neurologic examination shows awake patient confused and agitated poorly cooperative, cranial nerve shows mild dysarthria no otherwise no significant cranial nerve abnormalities motor function is symmetric with no significant rigidity or parkinsonism
Assessment: Most likely progressing dementia with additional possible metabolic contributors of trazodone as well as hypothermia. Dementia is felt to be most likely a vascular type given significant microangiopathy and chronic strokes on the brain
MRI, it is common for vascular dementia to cooccur with Alzheimer's disease as well as the 2 most common forms of dementia.
Recommendations
-Minimize invasive interventions for the patient, attempt to keep awake during the day with some line stimulation to keep adequate sleep-wake cycle
-Antipsychotic as needed for agitation, avoid benzodiazepines
-Goals of care given significant neurologic disability from dementia
-No changes to the home regimen of Eliquis and clopidogrel
Will follow as needed call with questions and concerns
Original Note:
Today's Communication / Plan
-
.
Neuro Assessment/Plan
Assessment
This is an 88-year-old female who has presented to the hospital on 10/03/23 with report of increased confusion, hallucinations, and ambulatory dysfunction. On 10/02/23 she took a trazodone and had worsened symptoms and insomnia, prompting her family
to bring her to the ER for evaluation. Rectal temperature on arrival was 92.6, no clear signs of infection. She is taking Eliquis 5mg BID and plavix 75mg daily for Afib and recent cardiac stent 08/2023.
-MRI brain 10/05/23: Moderate diffuse cerebral and cerebellar volume loss (greatest in the temporal lobes) consistent with a chronic neurodegenerative disease (possibly Alzheimer's dementia). Severe white matter leukoaraiosis in the frontal and
parietal lobes. Multiple small chronic infarcts in both cerebellar hemispheres (left greater than right). Small chronic lacunar infarcts in the caudate nuclei. Moderate to large amount of fluid in the left mastoid air cells. Severe bilateral
hyperostosis frontalis interna. Severe discogenic degenerative disease in the cervical spine with multilevel disc-osteophyte complexes causing mild spinal cord compression and central canal stenosis.
I. Likely vascular or Lewy body dementia with acute encephalopathy possibly due to polypharmacy or just progression of disease.
II. Multiple chronic ischemic infarcts in bilateral cerebellar hemispheres and the caudate nuclei.
III.� Hypothermia, unclear cause
IV.� �Recent cardiac stent surgery
Plan
-Goals of care discussion to be had with patient's family.
-Would avoid benzodiazepines. Would use Seroquel or zyprexa PRN sparingly for agitation.
-Continue home Eliquis 5mg BID and Plavix 75mg daily.
-Neurological checks per unit guidelines.
-PT/OT/ST evaluations when/if able.
-DVT prophylaxis.
Subjective/Objective
Subjective Data
Date of Service: October 05, 2023
Patient agitation, combative overnight. Mouth with dried blood this morning from biting. Refusing medications. Very protective, resisting any exam efforts and not providing any answers to questions.
Objective Data
Vital Signs
Temp Pulse Resp BP Pulse Ox
97.5 F 80 20 162/83 97
10/05/23 03:59 10/05/23 03:59 10/05/23 03:59 10/05/23 03:59 10/05/23 03:59
Sodium 139 mmol/L (135-145) 10/04/23 06:15
Potassium 4.2 mmol/L (3.5-5.1) 10/04/23 06:15
BUN 24 mg/dl (7-17) H 10/04/23 06:15
Glucose 63 mg/dl (70-99) L 10/04/23 06:15
Calcium 8.8 mg/dl (8.4-10.2) 10/04/23 06:15
Vitamin B12 685 pg/ml (239-931) 10/04/23 06:15
Patient Allergies
amoxicillin Allergy (Verified 10/03/23 19:40)
Nausea / Vomiting
loratadine [From Claritin] Allergy (Verified 10/03/23 19:40)
Nausea / Vomiting
Review of Systems
-
Unable to obtain full review of systems at this time due to: Dementia and Patient Non-verbal
Physical Exam
-
General: Appears in Distress and Appears Chronically Ill
Eyes: Unable to Assess
HEENT: Normocephalic and Atraumatic
Neck: Unable to Assess
Respiratory: No Dyspnea
GI: Non-distended
Extremities: No Clubbing, No Cyanosis and No Edema
Psych: Agitated and Apparent Dementia
Extended Neurological Exam
Mood & Affect: Unable to Assess
Attention Span & Concentration: Unable to assess
Memory: Unable to Assess
Tremor: Hand Tremor Absent and Head Tremor Absent
Involuntary Movement: None
Speech: Unable to Assess
Cranial Nerve II: Left Eye: Unable to Assess
Cranial Nerve II: Right Eye: Unable to Assess
Cranial Nerves III, IV, : Extraocular Movement: Unable to Assess
Cranial Nerve V: Facial Sensation: Unable to Assess
Cranial Nerve VII: Facial Symmetry: Normal Facial Symmetry (at rest)
Cranial Nerve VIII: Hearing: Unable to Assess
Cranial Nerves IX, X: Palate Movement: Unable to Assess
Cranial Nerve XI: Shoulder Shrug: Unable to Assess
Cranial Nerve XII: Tongue Protusion: Unable to Assess
Muscle Strength, Overall: Spontaneously Moves (all extremities full strength)
Muscle Bulk & Tone: Increased Tone
Pronator Drift: Unable to Assess
Deep Tendon Reflexes: Unremarkable Throughout
Cold Sensation: Unable to Assess
Vibration Sensation: Unable to Assess
Touch Sensation: Withdrawal to Pain
Coordination: Unable to Assess
Babinski Sign: Absent Bilaterally
Gait & Station: Unable to Assess
Modified Forrest Score (MRS)
-
MRS Score:
Data Reviewed
-
CT Head: Report Reviewed and Image Reviewed
MRI Head: Report Reviewed and Image Reviewed
Labs: Report Reviewed
Lipid Profile: Report Reviewed
P2Y12: Report Reviewed
Reviewed with: Physician and Nurse
Medications
-
Active Medications
Generic Name Dose Route Start Last Admin
Trade Name Freq PRN Reason Stop Dose Admin
Acetaminophen 650 mg 10/04/23 02:16
Acetaminophen 325 Mg Tablet PO 11/01/23 02:15
Q4HPRN PRN
Mild Pain / Temp > 101
Albuterol/Ipratropium 3 ml 10/04/23 02:16
Ipratropium 0.5/Albuterol 3 Mg (3 Ml Ampul) INH 11/01/23 02:15
R Q4HPRN PRN
SOB
Protocol
Amiodarone HCl 100 mg 10/04/23 08:00 10/05/23 07:21
Amiodarone 100 Mg Tablet PO 11/01/23 07:59 Not Given
DAILY DEE
Apixaban 5 mg 10/04/23 08:00 10/05/23 07:20
Apixaban (Eliquis) 5 Mg Tablet PO 11/01/23 07:59 Not Given
BID DEE
Clopidogrel Bisulfate 75 mg 10/04/23 08:00 10/05/23 07:21
Clopidogrel 75 Mg Tablet PO 11/01/23 07:59 Not Given
DAILY DEE
Dextrose 12.5 grams 10/04/23 06:50 10/04/23 16:46
Dextrose 50% (0.5 Grams/Ml) 50 Ml Syringe IV 11/01/23 06:49 12.5 grams
[id number] PRN Administration
for BS < 70
Haloperidol Lactate 2 mg 10/05/23 08:59 10/05/23 09:46
Haloperidol 5 Mg/Ml 1 Ml Vial IV 11/02/23 08:57 2 mg
Q4HPRN PRN Administration
agitation
Dextrose 1,000 mls @ 50 mls/hr 10/04/23 17:00 10/04/23 17:29
D5w IV 1,000 mls
.Q20H DEE Administration
Levothyroxine Sodium 50 mcg 10/04/23 07:00 10/05/23 05:30
Levothyroxine 50 Mcg Tablet PO 11/01/23 06:59 Not Given
DAILY AT 0700 DEE
Metoprolol Succinate 25 mg 10/04/23 08:00 10/05/23 07:21
Metoprolol 25 Mg Extended Release Tablet PO 11/01/23 07:59 Not Given
BID DEE
Miconazole Nitrate 0 applic 10/04/23 08:00 10/05/23 11:17
Miconazole Powder Bottle TOPICAL 11/01/23 07:59 1 applic
BID DEE Administration
Quetiapine Fumarate 12.5 mg 10/04/23 02:16
Quetiapine 25 Mg Tablet PO 11/01/23 02:15
Q8HPRN PRN
Agitation
Sodium Chloride 0 flush 10/04/23 01:00
Sodium Chloride 0.9% (Flush) Syringe IV 11/01/23 00:59
PER PROTOCOL DEE
Home Medications
Medication Instructions Recorded
ascorbic acid (vitamin C) 500 mg 500 mg PO DAILY Supplement ##0 01/05/12
tablet (Vitamin C)
multivitamin with folic acid 400 1 tab PO DAILY Supplement ##0 01/05/12
mcg tablet (Tab-A-Mandy)
alendronate 70 mg tablet 70 mg PO MEMBRENO OSTEOPOROSIS 11/20/17
apixaban 5 mg tablet (Eliquis) 5 mg PO BID ##60 11/22/17
furosemide 40 mg tablet 40 mg PO DAILY #30 tabs 12/01/17
cholecalciferol (vitamin D3) 25 2,000 units PO DAILY Supplement 05/18/21
mcg (1,000 unit) tablet
pyridoxine (vitamin B6) 100 mg 100 mg PO DAILY Supplement 05/18/21
tablet (Vitamin B-6)
metoprolol succinate 50 mg 50 mg PO BID #60 tabs 05/23/21
tablet,extended release 24 hr
amiodarone 200 mg tablet (Pacerone) 100 mg PO DAILY Arrhythmia 06/25/23
atorvastatin 10 mg tablet 10 mg PO DAILY High Cholesterol 06/25/23
vit C 226 mg-vit E 90 mg-copper 1 cap PO BID Supplement 06/25/23
0.8 mg-zinc oxide-lutein 5 mg
capsule (PreserVision Lutein)
clopidogrel 75 mg tablet 75 mg PO DAILY #90 tabs 08/22/23
pantoprazole 40 mg tablet,delayed 40 mg PO DAILY #90 tabs 08/22/23
release
calcium carbonate 600 mg calcium 600 mg PO BID Supplement 10/03/23
(1,500 mg) tablet (Calcium)
trazodone 50 mg tablet 50 mg PO HS Sleep 10/03/23
[2023-10-05 08:28] LABS: Mean Corp Hgb Conc. 33.3 g/dL (33.0-37.0); Mean Corpuscular Volume 95.9 fL (81.0-99.0); Mean Platelet Volume 11.2 fL (7.4-10.4); Platelet Count 104 10^3/uL (130-400); Red Blood Cell Count 3.44 10^6/uL (4.20-5.40); Red Cell Dist. Width 15.6 % (11.5-14.5)
[2023-10-05 08:38] VITALS: BP 111/70
[2023-10-05 08:47] LABS: ALT (SGPT) 35 U/L (0-35); AST (SGOT) 45 U/L (14-36); Albumin 2.8 g/dl (3.5-5.0); Alkaline Phosphatase 143 U/L (38-126); Blood Urea Nitrogen 23 mg/dl (7-17); Calcium 8.3 mg/dl (8.4-10.2); Carbon Dioxide 26 mmol/L (22-30); Chloride 111 mmol/L (98-107); Estimated Creatinine Clearance 63 ml/min; Glucose 93 mg/dl (70-99); Potassium 3.7 mmol/L (3.5-5.1); Sodium 138 mmol/L (135-145); Total Bilirubin 1.2 mg/dl (0.2-1.3); Total Protein 5.1 g/dl (6.3-8.2); eGFR > 60.00
--- NOTE | 2023-10-05 09:43 | PN.CDI ---
CDI
- -
CDI:
Physician Documentation Request
Admit Date: 10/03/23 23:45
Dear Doctor Jed,
Please review the following and provide your response in the progress notes.
Clinical Indicators:
- 10/04 Podiatry note 'selective debridement of all callous tissue overlying plantar navicular'
- 'no viable tissue, no bleeding'
Could you provide, in the progress notes further clarification regarding the debridement.
Please specify the type of debridement performed:
1. Excisional Debridement - defined as removal by excision of devitalized tissue, necrosis or slough
2. Non-excisional debridement - defined as removal of devitalized tissue, necrosis or slough by such methods as irrigation, brushing, scrubbing or washing.
If the debridement was excisional, please also include:
1. Type of instrument used (#11 blade, #15 blade etc.)
2. What was excised (necrotic tissue, gangrenous tissue, slough etc.)
For excisional or non-excisional, please also include:
1. Depth of debridement (skin, subcutaneous tissue, fascia, muscle, bone etc)
2. Size and appearance of the wound (L, W, D, color of wound, drainage)
Use of terms such as suspected, likely, concern for, or probable (associated with a specific diagnosis that is being evaluated, monitored, or treated as if it exists) are acceptable and can be coded in the inpatient setting, when documented at the
time of discharge.
Thank you,
Michi Alexander RN
CDI Specialist
Please use your independent medical judgment in providing your response.
[2023-10-05] MEDS: DESENEX/MITRAZOL/ZEASORB TOPICAL (09:45)
[2023-10-05] MEDS: HALDOL 2 MG IV (09:46)
--- NOTE | 2023-10-05 10:12 | PTOTSP ---
Speech Therapy Initial Evaluation
Severe dysphagia i/s/o current altered mental status and baseline dementia. Oral defensiveness.
Continue NPO with meds via non-oral route. Strict aspiration precautions with oral care as needed. Consider short term enteral access via DHT if aligned with pt/family desires, per physician. ALIGNER following.
--- NOTE | 2023-10-05 11:00 | PTCARENOTE ---
2/2- Patient is lethargic and calmer since Haldol Administration. She was able to complete her MRI without issue. Upon return, completed EKG, wound care and some mouth care without issue. Patient became combative and attempted biting again with
mouth care.
[2023-10-05] MEDS: DESENEX/MITRAZOL/ZEASORB 1 APPLIC TOPICAL ×2 (11:17→21:15)
--- NOTE | 2023-10-05 11:30 | WOUNDNOTE ---
WO RN Note: Patient is on a [employer] air bed. Appreciate nursing switching patient's bed to an air bed yesterday. LE dressings changed. L medial calf wounds bakeshop cleaner. Patient seen by Dr. Adkins to pare down R plantar callus. Current wound care
appropriate. Knee high Tubigrip applied. Heels off bed with air chair cushion. Patient remains very confused. Discussed with RICHIE Hargrove. Will follow as needed.
--- NOTE | 2023-10-05 11:35 | WOUNDNOTE ---
WO RN Note: Patient is on a [employer] air bed. Appreciate nursing switching patient's bed to an air bed yesterday. LE dressings changed. L medial calf wounds die cleaner. Current wound care appropriate. Knee high Tubigrip applied. Heels off bed with
air chair cushion. Patient remains very confused. Discussed with RICHIE Hargrove. Will follow as needed.
--- NOTE | 2023-10-05 11:35 | WOUNDNOTE ---
R CALF/ANKLE (LATERAL)
--- NOTE | 2023-10-05 11:35 | WOUNDNOTE ---
L CALF (MEDIA LOWER)
--- NOTE | 2023-10-05 11:36 | WOUNDNOTE ---
R PLANTAR HEEL (s/p callus debridement by podiatry done yesterday)
[2023-10-05] MEDS: D5W 1000 IV (12:04)
--- NOTE | 2023-10-05 15:02 | W.PN.HOSP.TC ---
Today's Communication/Plan
-
GOC Convo
transitiong to IV meds if not tolerating PO
Assessment / Plan
Assessment / Plan
Physical Exam
General: Other (88y F in no acute distress.� Awake and interactive, but delirious and not able to appropriately answer questions.� Follows some simple commands.)
HEENT: Other (Dry MM.)
Respiratory: Other (Decreased at bases - otherwise clear.)
Cardiac: S1/S2, Irregular Rhythm and Murmur (III/ JANNETTE)
GI: Soft, Non Tender, Non Distended and Normal Bowel Sounds
Musculoskeletal: No Clubbing, No Cyanosis, No Edema and Other (Some superficial crusted lesions to the LLE - No bleeding / discharge.� Palpable cords posterior calf.) Foot callous.
Neuro: Awake; No Oriented
Psych: Apparent Dementia
A/P:� Patient is an 88y F with PMH significant for ASCVD, CHF, and A-Fib who presents to ED for evaluation of progressive confusion and hallucinations.
Acute Delirium
Senile Dementia
�- Seems as if chronic issue is present with more recent precipitous decline.
�- Only new med is trazodone (started after symptoms worsened) - will hold for now.
�- Had PTCA with stenting done in 08/2023, had fall about 2 weeks ago.
�- No evidence of active infection or other systemic process. F/u Cultures
�-MRI Brain - no acute cva - Moderate diffuse cerebral and cerebellar volume loss (greatest in the temporal lobes) consistent with a chronic neurodegenerative disease (possibly Alzheimer's dementia).
�- Neurology evaluation for additional recommendations.
�- Symptoms seem most c/w rapidly progressive form of dementia
�- Quetiapine PRN for agitation. Haldol if not taking PO
-Tentative GOC convo today
Hypothermia
Hypothyroidism
�- Unclear etiology, but suspect secondary to [employer] dysfunction.
�- TSH mildly increased with normal T4.
�- Patient has a listed dx of hypothyroidism - but is on no medication.
�- Begin T4 supplementation.� Repeat TFTs in 4-6 weeks.
�- ? mild hypothyroidism could explain hypothermia on its own.
ASCVD
Severe Aortic Stenosis
Permanent Atrial Fibrillation
�- Stable.� s/p recent coronary stents (08/2023).
�- Continue current CV med regimen including Eliquis / Plavix.
�- In the process of TAVR work-up - may need to re-evaluate this given apparent / significant progression in dementia.
-May need to switch to IV meds as not tolerating PO
COPD without Acute Exacerbation
EFRAIN on CPAP
�- Stable.� No wheezing on exam.� No noted recent cough, etc.
�- DuoNebs PRN.
�- Continue usual CPAP at HS.
LE Skin Changes
LE Cords
�- Wound Care eval for local care of superficial skin breakdown.
�- Palpable cords on exam - patient is on Eliquis, but will check US to rule out DVT given exam findings.
Foot Callous
-f/u podiatry
-excisional debridement was performed on right foot lesion plantar aspect of navicular bone
DVT Prophylaxis:� Continue Eliquis for now.
Code Status:� Full
Dispo: [facility] convo today
Total time spent on today's encounter was 54 minutes which included time spent in counseling the patient/family regarding diagnosis and treatment plan as listed above, goals of care, and symptom management. Case was discussed with nursing staff,
specialists, and care coordinators/case management. All labs and imaging personally reviewed by me. Remainder the time spent in detailed review of previous records, lab data, imaging, and other medical provider documentation.
Anticipated Discharge: Within 24 hours
Subjective/Interval History
-
Date of Service: October 05, 2023
patient not taking PO meds; combative
Objective Data
-
Labs:
Laboratory Results
10/05/23
08:03
WBC 7.0
Hgb 11.0 L
Hct 33.0 L
Plt Count 104 L
Sodium 138
Potassium 3.7
Chloride 111 H
Carbon Dioxide 26
BUN 23 H
Creatinine 0.6
Glucose 93
Calcium 8.3 L
Total Bilirubin 1.2
AST 45 H
ALT 35
Alkaline Phosphatase 143 H
Vital Signs:
Vital Signs
Temp Pulse Resp BP Pulse Ox
97.6 F 80 24 111/70 96
10/05/23 08:38 10/05/23 08:38 10/05/23 08:38 10/05/23 08:38 10/05/23 08:38
I&O
10/04/23 10/05/23 10/06/23
06:59 06:59 06:59
Intake Total 680 / 680
Output Total 150 / 150 650 / 650
Balance -150 / -150 30 / 30
Review of Systems
-
History Source: Patient
All other systems: Not reviewed unless documented
Data Reviewed
-
Diagnostic Radiology: Image personally visualized and interpreted and Report Reviewed by me
CT Scan: Image personally visualized and interpreted and Report Reviewed by me
Labs: Labs Reviewed by me
--- NOTE | 2023-10-05 15:10 | CM ---
Addendum entered by Concetta Hernandez 10/05/23 16:23:
Family met with physician and reviewed patient and they are agreeable to hospice, hospice options reviewed and they have selected [facility]. Referral sent to [facility].
Original Note:
er manager reviewed patient's chart and met with patient and patient has been staying with patient's daughter since Thanksgiving, in a one story home with 12 steps to enter home, patient was independent with adl's and used a walker with
ambulation, per daughter patient was requiring w/c. Patient has a prescription plan and patient uses [facility] pharmacy.
PCP: Dr. Payne
Plan; To follow with patient progress and assist with discharge planning.
[2023-10-05 15:48] VITALS: BP 91/56
[2023-10-05] MEDS: LOPRESSOR 5 MG IV (16:25)
[2023-10-05 16:47] LABS: Glucose - Point of Care 99 mg/dl (70-99)
[2023-10-05 19:29] VITALS: BP 107/56
[2023-10-05 23:07] VITALS: BP 117/71
[2023-10-05 23:30] LABS: Glucose - Point of Care 95 mg/dl (70-99)
[2023-10-06] MEDS: LOPRESSOR 5 MG IV ×2 (00:14→06:13)
[2023-10-06 03:08] VITALS: BP 121/81
[2023-10-06 03:54] VITALS: BMI 29.0
[2023-10-06] MEDS: D5W 1000 IV (06:15)
[2023-10-06 06:26] LABS: Glucose - Point of Care 79 mg/dl (70-99)
[2023-10-06 07:28] LABS: Hematocrit 36.3 % (37.0-47.0); Hemoglobin 11.8 g/dL (12.0-16.0); Mean Corp Hgb Conc. 32.5 g/dL (33.0-37.0); Mean Corpuscular Hgb 31.6 pg (27.0-31.0); Mean Corpuscular Volume 97.3 fL (81.0-99.0); Mean Platelet Volume 11.6 fL (7.4-10.4); Platelet Count 107 10^3/uL (130-400); Red Blood Cell Count 3.73 10^6/uL (4.20-5.40); Red Cell Dist. Width 15.5 % (11.5-14.5); White Blood Cell Count 6.7 10^3/uL (4.8-10.8)
[2023-10-06 07:47] VITALS: BP 102/69
[2023-10-06 07:48] LABS: ALT (SGPT) 34 U/L (0-35); AST (SGOT) 42 U/L (14-36); Albumin 2.9 g/dl (3.5-5.0); Alkaline Phosphatase 158 U/L (38-126); Blood Urea Nitrogen 16 mg/dl (7-17); Calcium 8.6 mg/dl (8.4-10.2); Carbon Dioxide 28 mmol/L (22-30); Chloride 107 mmol/L (98-107); Estimated Creatinine Clearance 62 ml/min; Glucose 89 mg/dl (70-99); Magnesium 2.1 mg/dl (1.6-2.3); Potassium 3.7 mmol/L (3.5-5.1); Sodium 137 mmol/L (135-145); Total Bilirubin 1.3 mg/dl (0.2-1.3); Total Protein 5.3 g/dl (6.3-8.2); eGFR > 60.00
[2023-10-06 11:37] VITALS: BP 104/71
[2023-10-06 11:49] LABS: Glucose - Point of Care 89 mg/dl (70-99)
[2023-10-06] MEDS: PACERONE 100 MG PO (11:51)
[2023-10-06] MEDS: ELIQUIS 5 MG PO ×2 (11:52→21:47)
[2023-10-06] MEDS: PLAVIX 75 MG PO (11:52)
--- NOTE | 2023-10-06 12:05 | W.PN.HOSP.TC ---
Today's Communication/Plan
-
hospice
can dc on meds if tolerates
Initiated Synthroid, change toprol to 25mg BID
Assessment / Plan
Assessment / Plan
Physical Exam
General: Other (88y F in no acute distress.� Awake and interactive, but delirious and not able to appropriately answer questions.� Follows some simple commands.)
HEENT: Other (Dry MM.)
Respiratory: Other (Decreased at bases - otherwise clear.)
Cardiac: S1/S2, Irregular Rhythm and Murmur (III/ JANNETTE)
GI: Soft, Non Tender, Non Distended and Normal Bowel Sounds
Musculoskeletal: No Clubbing, No Cyanosis, No Edema and Other (Some superficial crusted lesions to the LLE - No bleeding / discharge.� Palpable cords posterior calf.) Foot callous.
Neuro: Awake; No Oriented
Psych: Apparent Dementia
A/P:� Patient is an 88y F with PMH significant for ASCVD, CHF, and A-Fib who presents to ED for evaluation of progressive confusion and hallucinations.
Acute Delirium
Senile Dementia
�- Seems as if chronic issue is present with more recent precipitous decline.
�- Only new med is trazodone (started after symptoms worsened) - will hold for now.
�- Had PTCA with stenting done in 08/2023, had fall about 2 weeks ago.
�- No evidence of active infection or other systemic process. F/u Cultures
�-MRI Brain - no acute cva - Moderate diffuse cerebral and cerebellar volume loss (greatest in the temporal lobes) consistent with a chronic neurodegenerative disease (possibly Alzheimer's dementia).
�- Neurology evaluation for additional recommendations.
�- Symptoms seem most c/w rapidly progressive form of dementia
�- Quetiapine PRN for agitation. Haldol if not taking PO; DC on haldol BID prn
-Tentative [facility] convo agreed with hospice - - hospice consulted
Hypothermia
Hypothyroidism
�- Unclear etiology, but suspect secondary to [employer] MGR dysfunction.
�- TSH mildly increased with normal T4.
�- Patient has a listed dx of hypothyroidism - but is on no medication.
�- Begin T4 supplementation.� Repeat TFTs in 4-6 weeks if desired
�- ? mild hypothyroidism could explain hypothermia on its own.
ASCVD
Severe Aortic Stenosis
Permanent Atrial Fibrillation
�- Stable.� s/p recent coronary stents (08/2023).
�- Continue current CV med regimen including Eliquis / Plavix.
�- In the process of TAVR work-up - may need to re-evaluate this given apparent / significant progression in dementia.
-May need to switch to IV meds as not tolerating PO
COPD without Acute Exacerbation
EFRAIN on CPAP
�- Stable.� No wheezing on exam.� No noted recent cough, etc.
�- DuoNebs PRN.
�- Continue usual CPAP at HS.
LE Skin Changes
LE Cords
�- Wound Care eval for local care of superficial skin breakdown.
�- Palpable cords on exam - patient is on Eliquis, but will check US to rule out DVT given exam findings.
Foot Callous
-f/u podiatry
-excisional debridement was performed on right foot lesion plantar aspect of navicular bone
DVT Prophylaxis:� Continue Eliquis for now.
Code Status:� Full
Dispo: Hospice
More than 30 minutes spent in discharge including
Final examination of the patient
Summarizing hospital stay
Instructions for continuing care to all relevant caregivers
Preparation of discharge records, prescriptions, and referral forms
Total time spent (35 in minutes):
Anticipated Discharge: Today
Subjective/Interval History
-
Date of Service: October 06, 2023
bit more alert today
Objective Data
-
Labs:
Laboratory Results
10/06/23
06:17
WBC 6.7
Hgb 11.8 L
Hct 36.3 L
Plt Count 107 L
Sodium 137
Potassium 3.7
Chloride 107
Carbon Dioxide 28
BUN 16
Creatinine 0.5 L
Glucose 89
Calcium 8.6
Total Bilirubin 1.3
AST 42 H
ALT 34
Alkaline Phosphatase 158 H
Vital Signs:
Vital Signs
Temp Pulse Resp BP Pulse Ox
97.4 F 50 14 104/71 100
10/06/23 11:37 10/06/23 11:51 10/06/23 11:37 10/06/23 11:51 10/06/23 11:37
I&O
10/05/23 10/06/23 10/07/23
06:59 06:59 06:59
Intake Total 680 / 680 500 / 500
Output Total 650 / 650 1300 / 1300
Balance 30 / 30 -800 / -800
Review of Systems
-
History Source: Patient
All other systems: Not reviewed unless documented
Data Reviewed
-
Diagnostic Radiology: Image personally visualized and interpreted and Report Reviewed by me
CT Scan: Image personally visualized and interpreted and Report Reviewed by me
Labs: Labs Reviewed by me
--- NOTE | 2023-10-06 12:08 | W.DS.TRANS ---
DC Summary - Formula Bottler
-
Discharge Instructions:
Sleep Apnea Risk Intermediate
Discharge Diagnosis/Procedures
Acute Delirium
Senile Dementia
Activity As tolerated
Instructions:
Stand-Alone Forms:
Changes to Home Medications: Yes
Discharge Medications:
DC Medications w/original date entered in [employer]
ascorbic acid (vitamin C) 500 mg tablet (Vitamin C) 500 mg PO DAILY Supplement ##0 01/05/12
multivitamin with folic acid 400 mcg tablet (Tab-A-Mandy) 1 tab PO DAILY Supplement ##0 01/05/12
alendronate 70 mg tablet 70 mg PO MEMBRENO OSTEOPOROSIS 11/20/17
apixaban 5 mg tablet (Eliquis) 5 mg PO BID ##60 11/22/17
furosemide 40 mg tablet 40 mg PO DAILY #30 tabs 12/01/17
cholecalciferol (vitamin D3) 25 mcg (1,000 unit) tablet 2,000 units PO DAILY Supplement 05/18/21
pyridoxine (vitamin B6) 100 mg tablet (Vitamin B-6) 100 mg PO DAILY Supplement 05/18/21
amiodarone 200 mg tablet (Pacerone) 100 mg PO DAILY Arrhythmia 06/25/23
atorvastatin 10 mg tablet 10 mg PO DAILY High Cholesterol 06/25/23
vit C 226 mg-vit E 90 mg-copper 0.8 mg-zinc oxide-lutein 5 mg capsule (PreserVision Lutein) 1 cap PO BID Supplement 06/25/23
clopidogrel 75 mg tablet 75 mg PO DAILY #90 tabs 08/22/23
pantoprazole 40 mg tablet,delayed release 40 mg PO DAILY #90 tabs 08/22/23
calcium carbonate 600 mg calcium (1,500 mg) tablet (Calcium) 600 mg PO BID Supplement 10/03/23
levothyroxine 50 mcg tablet (Synthroid) 50 mcg PO DAILY #30 tabs 10/06/23
metoprolol succinate 25 mg tablet,extended release 24 hr 25 mg PO BID 30 days #60 tabs 10/06/23
miconazole nitrate 2 % topical powder 1 applic topical BID #85 grams 10/06/23
quetiapine 25 mg tablet 12.5 mg PO BID PRN Agitation #60 tabs 10/06/23
Home Medication Changes
levothyroxine 50 mcg tablet (Synthroid) 50 mcg PO DAILY #30 tabs 10/06/23
metoprolol succinate 25 mg tablet,extended release 24 hr 25 mg PO BID 30 days #60 tabs 10/06/23
miconazole nitrate 2 % topical powder 1 applic topical BID #85 grams 10/06/23
quetiapine 25 mg tablet 12.5 mg PO BID PRN Agitation #60 tabs 10/06/23
Pending Results: No
--- NOTE | 2023-10-06 12:34 | HOSPNOTE ---
Referral received. Patient is hospice appropriate. Spoke to patients daughter and son over the phone. They reviewed that patient has increased alertness as of last night and this morning. Daughter also reports patient is asking for food and drink
this am. Family has asked for a speech evaluation to provide diet order. They stated this would then determine placement for hospice, home vs SNF. Attending placed speech evaluation order. [place] text sent to speech therapy to evaluate geri. CM and
primary nurse aware. Will continue to follow for potential dc today once evaluated by speech.
--- NOTE | 2023-10-06 13:21 | PTOTSP ---
Dysphagia Follow Up
Chart reviewed. Being discharged to hospice services later today. Family requested speech re-evaluation to provide diet order re: patient currently NPO. Per chart review, patient asking for food and drink this morning.
Patient received lying in bed asleep. Agreeable to swallow re-assessment. Oriented to person and place. Pleasant. Xerostomia. Voice is soft at baseline.
Administered PO trials of mildly thick liquid via cup sip (IDDSI 2), thin liquid via straw (IDDSI 0), puree (IDDSI 4), and regular solid (IDDSI 0)
Oral phase: Good bolus acceptance of all trials this date, which is a change from initial swallow evaluation. Partial feeding assistance required at times. Prolonged, but functional mastication of regular solid with mild oral residue that required
verbal cues for thin liquid wash.
Pharyngeal phase: Cough x1 s/p trials of mildly thick liquid. No other s/s of aspiration or penetration observed. Denies s/s of globus sensation.
Given current transition to hospice services within the next day, recommend regular solids (IDDSI 7) and thin liquids (IDDSI 0). Consider opting for softer/easy to chew foods for endurance purposes. Meds whole in puree. Aspiration precautions. Full
supervision with meals.
--- NOTE | 2023-10-06 13:43 | HOSPNOTE ---
Addendum: Speech therapy saw patient and provided diet order. Spoke to son and daughter, they now are asking about patients ambulation status and have requested that PT evaluate patient. PT order has been placed and PT will attempt to see patient
today. CM, Attending, and Primary nurse updated. Also discussed with family about patient being ready for discharge, they do not feel patient is ready for discharge today. They also want to know ambulation status to determine if patient would return
to her apartment vs one of their homes with paid caregivers vs SNF. Explained hospice and its philosophy and coverage at home vs at SNF. Understanding verbalized. Will continue to follow and provide assistance.
--- NOTE | 2023-10-06 15:02 | CM ---
Patient family spoke with hospice nurse.
CM spoke with patients daughter, per daughter patient seems better today and not sure if she needs hospice.
Patient daughter requested speech eval today and would like her evaluated by PT/OT for final d/c plan.
Plan: home with hospice vs skilled rehab
[2023-10-06 15:38] VITALS: BP 88/48
[2023-10-06 17:51] LABS: Glucose - Point of Care 142 mg/dl (70-99)
[2023-10-06] MEDS: DESENEX/MITRAZOL/ZEASORB 1 APPLIC TOPICAL ×2 (18:35→21:53)
[2023-10-06 19:45] VITALS: BP 115/57
[2023-10-06] MEDS: TOPROL XL 25 MG PO (21:47)
[2023-10-06 21:55] LABS: Glucose - Point of Care 110 mg/dl (70-99)
[2023-10-06 23:52] VITALS: BP 108/55
[2023-10-07] VITALS (8 sets, daily range): BP systolic 90–164; BP diastolic 53–100; PULSE 83–100; O2SAT 96; BMI 29.2
[2023-10-07] MEDS: D5W 1000 IV (01:58)
[2023-10-07 07:30] LABS: Glucose - Point of Care 102 mg/dl (70-99)
[2023-10-07 08:00] LABS: ALT (SGPT) 34 U/L (0-35); AST (SGOT) 35 U/L (14-36); Albumin 2.9 g/dl (3.5-5.0); Alkaline Phosphatase 172 U/L (38-126); Blood Urea Nitrogen 12 mg/dl (7-17); Calcium 9.4 mg/dl (8.4-10.2); Carbon Dioxide 25 mmol/L (22-30); Chloride 105 mmol/L (98-107); Estimated Creatinine Clearance 63 ml/min; Glucose 109 mg/dl (70-99); Sodium 138 mmol/L (135-145); Total Bilirubin 1.3 mg/dl (0.2-1.3); Total Protein 5.4 g/dl (6.3-8.2); eGFR > 60.00
[2023-10-07] MEDS: PLAVIX 75 MG PO (09:46)
[2023-10-07] MEDS: TOPROL XL 25 MG PO ×2 (09:46→19:58)
[2023-10-07] MEDS: PACERONE 100 MG PO (09:46)
[2023-10-07] MEDS: ELIQUIS 5 MG PO ×2 (09:46→19:59)
[2023-10-07] MEDS: DESENEX/MITRAZOL/ZEASORB 1 APPLIC TOPICAL ×2 (09:47→20:00)
--- NOTE | 2023-10-07 10:48 | HOSPNOTE ---
Reviewed chart and see that PT evaluation is still pending. Also saw case management manager note from yesterday that stated family was not sure if hospice was even warranted. Will await PT evaluation and then follow up with family regarding plan of care. Will
plan to follow up tomorrow. Attending made aware and in agreement.
--- NOTE | 2023-10-07 12:22 | CM ---
CM continues to follow for d/c needs.
Hospice following.
PT/OT evals (P).
Plan: hospice vs home vs skilled rehab
--- NOTE | 2023-10-07 13:07 | W.PN.HOSP.TC ---
Today's Communication/Plan
-
pending placement
Assessment / Plan
Assessment / Plan
Physical Exam
General: Other (88y F in no acute distress.� Awake and interactive, but delirious and not able to appropriately answer questions.� Follows some simple commands.)
HEENT: Other (Dry MM.)
Respiratory: Other (Decreased at bases - otherwise clear.)
Cardiac: S1/S2, Irregular Rhythm and Murmur (III/ JANNETTE)
GI: Soft, Non Tender, Non Distended and Normal Bowel Sounds
Musculoskeletal: No Clubbing, No Cyanosis, No Edema and Other (Some superficial crusted lesions to the LLE - No bleeding / discharge.� Palpable cords posterior calf.) Foot callous.
Neuro: Awake; No Oriented
Psych: Apparent Dementia
A/P:� Patient is an 88y F with PMH significant for ASCVD, CHF, and A-Fib who presents to ED for evaluation of progressive confusion and hallucinations.
Acute Delirium
Senile Dementia
�- Seems as if chronic issue is present with more recent precipitous decline.
�- Only new med is trazodone (started after symptoms worsened) - will hold for now.
�- Had PTCA with stenting done in 08/2023, had fall about 2 weeks ago.
�- No evidence of active infection or other systemic process.
�-MRI Brain - no acute cva - Moderate diffuse cerebral and cerebellar volume loss (greatest in the temporal lobes) consistent with a chronic neurodegenerative disease (possibly Alzheimer's dementia).
�- Neurology evaluation for additional recommendations.
�- Symptoms seem most c/w rapidly progressive form of dementia
�- Quetiapine PRN for agitation. Haldol if not taking PO; DC on haldol BID prn
-Tentative [facility] convo agreed with hospice - - then retracted as patient now able to eat; Pending PT eval - anticipate SNF
Hypothermia
Hypothyroidism
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
�- TSH mildly increased with normal T4.
�- Patient has a listed dx of hypothyroidism - but is on no medication.
�- Begin T4 supplementation.� Repeat TFTs in 4-6 weeks if desired
�- ? mild hypothyroidism could explain hypothermia on its own.
ASCVD
Severe Aortic Stenosis
Permanent Atrial Fibrillation
�- Stable.� s/p recent coronary stents (08/2023).
�- Continue current CV med regimen including Eliquis / Plavix.
�- In the process of TAVR work-up - may need to re-evaluate this given apparent / significant progression in dementia.
-May need to switch to IV meds as not tolerating PO
COPD without Acute Exacerbation
EFRAIN on CPAP
�- Stable.� No wheezing on exam.� No noted recent cough, etc.
�- DuoNebs PRN.
�- Continue usual CPAP at HS.
LE Skin Changes
LE Cords
�- Wound Care eval for local care of superficial skin breakdown.
�- Palpable cords on exam - patient is on Eliquis, but will check US to rule out DVT given exam findings.
Foot Callous
-f/u podiatry
-excisional debridement was performed on right foot lesion plantar aspect of navicular bone
DVT Prophylaxis:� Continue Eliquis for now.
Code Status:� Full
Dispo: Family retracted Hospice as now eating; Pending PT and anticipate skilled placmeent
Anticipated Discharge: Within 24 hours
Subjective/Interval History
-
Date of Service: October 07, 2023
No acute events, sitting in bed
Objective Data
-
Labs:
Laboratory Results
10/07/23
06:38
Sodium 138
Potassium 4.0
Chloride 105
Carbon Dioxide 25
BUN 12
Creatinine 0.6
Glucose 109 H
Calcium 9.4
Total Bilirubin 1.3
AST 35
ALT 34
Alkaline Phosphatase 172 H
Vital Signs:
Vital Signs
Temp Pulse Resp BP Pulse Ox
98.0 F 86 16 107/62 96
10/07/23 11:20 10/07/23 11:20 10/07/23 11:20 10/07/23 11:20 10/07/23 11:20
I&O
10/06/23 10/07/23 10/08/23
06:59 06:59 06:59
Intake Total 500 / 500 1180 / 1180
Output Total 1300 / 1300 1000 / 1000
Balance -800 / -800 180 / 180
Review of Systems
-
History Source: Patient
All other systems: Not reviewed unless documented
Data Reviewed
-
Diagnostic Radiology: Image personally visualized and interpreted and Report Reviewed by me
CT Scan: Image personally visualized and interpreted and Report Reviewed by me
Labs: Labs Reviewed by me
[2023-10-07 18:55] LABS: Glucose - Point of Care 126 mg/dl (70-99)
[2023-10-07] MEDS: SEROQUEL 12.5 MG PO (22:20)
[2023-10-07 22:28] LABS: Glucose - Point of Care 111 mg/dl (70-99)
[2023-10-08] VITALS (9 sets, daily range): BP systolic 87–120; BP diastolic 49–70; BMI 29.1
[2023-10-08 07:54] LABS: Glucose - Point of Care 90 mg/dl (70-99)
[2023-10-08] MEDS: DESENEX/MITRAZOL/ZEASORB 1 APPLIC TOPICAL ×2 (08:35→19:41)
[2023-10-08] MEDS: ELIQUIS 5 MG PO ×2 (08:40→21:10)
[2023-10-08] MEDS: TOPROL XL 25 MG PO ×2 (08:41→21:10)
[2023-10-08] MEDS: PLAVIX 75 MG PO (08:41)
[2023-10-08] MEDS: PACERONE 100 MG PO (08:41)
--- NOTE | 2023-10-08 10:20 | W.PN.HOSP.TC ---
Addendum entered and electronically signed by Chucky Kitchen MD 10/08/23 17:57:
Addendum
d/w family at bed side
code status changed to DNR/DNI
family is aware that pt is in decline
will try IVF to help with dehydration as pt was sleeping all day and did not eat or drink
End
Original Note:
Today's Communication/Plan
-
.
Assessment / Plan
Assessment / Plan
Physical Exam
General: Other (88y F in no acute distress.� Awake and interactive, but delirious and not able to appropriately answer questions.� Follows some simple commands.)
HEENT: Other (Dry MM.)
Respiratory: Other (Decreased at bases - otherwise clear.)
Cardiac: S1/S2, Irregular Rhythm and Murmur (III/ JANNETTE)
GI: Soft, Non Tender, Non Distended and Normal Bowel Sounds
Musculoskeletal: No Clubbing, No Cyanosis, No Edema and Other (Some superficial crusted lesions to the LLE - No bleeding / discharge.� Palpable cords posterior calf.) Foot callous.
Neuro: Awake; No Oriented
Psych: Apparent Dementia
A/P:� Patient is an 88y F with PMH significant for ASCVD, CHF, and A-Fib who presents to ED for evaluation of progressive confusion and hallucinations.
Acute Delirium
Senile Dementia
�- Seems as if chronic issue is present with more recent precipitous decline.
�- Only new med is trazodone (started after symptoms worsened) - will hold for now.
�- Had PTCA with stenting done in 08/2023, had fall about 2 weeks ago.
�- No evidence of active infection or other systemic process.
�-MRI Brain - no acute cva - Moderate diffuse cerebral and cerebellar volume loss (greatest in the temporal lobes) consistent with a chronic neurodegenerative disease (possibly Alzheimer's dementia).
�- Neurology evaluation for additional recommendations.
�- Symptoms seem most c/w rapidly progressive form of dementia
�- Quetiapine PRN for agitation. Haldol if not taking PO; DC on haldol BID prn
-Tentative [facility] convo agreed with hospice - - then retracted as patient now able to eat; Pending PT eval - anticipate SNF
Hypothermia
Hypothyroidism
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
�- TSH mildly increased with normal T4.
�- Patient has a listed dx of hypothyroidism - but is on no medication.
�- Begin T4 supplementation.� Repeat TFTs in 4-6 weeks if desired
�- ? mild hypothyroidism could explain hypothermia on its own.
ASCVD
Severe Aortic Stenosis
Permanent Atrial Fibrillation
�- Stable.� s/p recent coronary stents (08/2023).
�- Continue current CV med regimen including Eliquis / Plavix.
�- In the process of TAVR work-up - may need to re-evaluate this given apparent / significant progression in dementia.
-May need to switch to IV meds as not tolerating PO
COPD without Acute Exacerbation
EFRAIN on CPAP
�- Stable.� No wheezing on exam.� No noted recent cough, etc.
�- DuoNebs PRN.
�- Continue usual CPAP at HS.
LE Skin Changes
LE Cords
�- Wound Care eval for local care of superficial skin breakdown.
�- Palpable cords on exam - patient is on Eliquis, but will check US to rule out DVT given exam findings.
Foot Callous
-f/u podiatry
-excisional debridement was performed on right foot lesion plantar aspect of navicular bone
DVT Prophylaxis:� Continue Eliquis for now.
Code Status:� Full
Dispo: Family retracted Hospice as now eating; Pending PT and anticipate skilled placmeent
Anticipated Discharge: Today
Subjective/Interval History
-
Date of Service: October 08, 2023
No chest pain
No sob
No fevers
Objective Data
-
Vital Signs:
Vital Signs
Temp Pulse Resp BP Pulse Ox
97.8 F 93 18 111/49 95
10/08/23 07:55 10/08/23 07:55 10/08/23 07:55 10/08/23 07:55 10/08/23 07:55
I&O
10/07/23 10/08/23 10/09/23
06:59 06:59 06:59
Intake Total 1180 / 1180 1080 / 1080
Output Total 1000 / 1000 2300 / 2300
Balance 180 / 180 -1220 / -1220
[2023-10-08 12:38] LABS: Glucose - Point of Care 80 mg/dl (70-99)
--- NOTE | 2023-10-08 12:48 | CM ---
Addendum entered by Kena Mendez 10/08/23 15:33:
CM met with daughter bedside, patients son on phone, discussed [facility] would like financial application if potential LTC resident. Daughter agreeable, CM awaiting email with financial application to give to daughter. Daughter provided email as well
([email or web address]) Patients family asking for additional referral to be sent to [place], CM will send in [facility]. Per daughter and son, they are agreeable to patient transitioning to LTC, however, if patient does well at SNF, daughter would have
patient return to her home and live with her. CM will continue to follow for discharge planning needs.
Plan; SNF pending accepting facility, will require auth, family to complete financial application for possible LTC
Original Note:
CM spoke with Roberta from [facility], unable to accept patient. CM spoke with patients daughter and son on the phone, updated in regards to [facility]. Daughter and son very hopeful for [facility], CM reached out to [facility] again,
unfortunately per [facility], not able to accept facility. Per Liz at [facility], would like to see a financial application if possible LTC resident. Patients daughter reports she will be at hospital later this afternoon, CM will discuss update with
patient/daughter. CM will continue to follow for discharge planning needs.
Plan; SNF pending accepting facility, will require auth.
--- NOTE | 2023-10-08 16:22 | PTCARENOTE ---
Addendum entered by Ivania Guadalupe RN 10/08/23 17:49:
Pt received 500ml NS bolus an B/P after is 94/56. Pt is talking some, but still with confused conversation. Dr Kitchen speaking with the family. Pt now a DNR.
Original Note:
When changing pt, pt noted to have a bloody stool heme(+) and urine has been blood tinged since yesterday at least. Pt's B/P at present 87/[address] Kitchen made aware.
[2023-10-08 16:43] LABS: Glucose - Point of Care 92 mg/dl (70-99)
[2023-10-08] MEDS: NSS 500 IV (17:06)
[2023-10-08] MEDS: LEVOTHROID 35 MCG IV (17:06)
[2023-10-08] MEDS: NSS 1000 IV (18:29)
[2023-10-08 21:39] LABS: Glucose - Point of Care 78 mg/dl (70-99)
[2023-10-09] VITALS (7 sets, daily range): BP systolic 94–127; BP diastolic 51–68; PULSE 76; O2SAT 95; BMI 28.8
[2023-10-09] MEDS: NSS 1000 IV ×2 (06:51→18:04)
[2023-10-09 07:48] LABS: Glucose - Point of Care 61 mg/dl (70-99)
[2023-10-09] MEDS: DEXTROSE 50% SYRINGE 12.5 GRAMS IV (07:48)
[2023-10-09] MEDS: DESENEX/MITRAZOL/ZEASORB 1 APPLIC TOPICAL ×2 (07:55→20:46)
[2023-10-09] MEDS: ELIQUIS 5 MG PO ×2 (07:58→20:44)
[2023-10-09] MEDS: PLAVIX 75 MG PO (07:59)
[2023-10-09] MEDS: TOPROL XL 25 MG PO (07:59)
[2023-10-09] MEDS: PACERONE 100 MG PO (07:59)
[2023-10-09 08:20] LABS: Glucose - Point of Care 107 mg/dl (70-99)
--- NOTE | 2023-10-09 08:51 | W.PN.HOSP.TC ---
Today's Communication/Plan
-
.
Assessment / Plan
Assessment / Plan
Physical Exam
General: Other (88y F in no acute distress.� Awake and interactive, but delirious and not able to appropriately answer questions.� Follows some simple commands.)
HEENT: Other (Dry MM.)
Respiratory: Other (Decreased at bases - otherwise clear.)
Cardiac: S1/S2, Irregular Rhythm and Murmur (III/ JANNETTE)
GI: Soft, Non Tender, Non Distended and Normal Bowel Sounds
Musculoskeletal: No Clubbing, No Cyanosis, No Edema and Other (Some superficial crusted lesions to the LLE - No bleeding / discharge.� Palpable cords posterior calf.) Foot callous.
Neuro: Awake; No Oriented
Psych: Apparent Dementia
A/P:� Patient is an 88y F with PMH significant for ASCVD, CHF, and A-Fib who presents to ED for evaluation of progressive confusion and hallucinations.
# Hypoglycemia, given dextrose
# Acute dehydration due to poor oral intake
she is more alert today with IVF
Acute Delirium
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
�- Only new med is trazodone (started after symptoms worsened) - will hold for now.
�- Had PTCA with stenting done in 08/2023, had fall about 2 weeks ago.
�- No evidence of active infection or other systemic process.
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
(possibly Alzheimer's dementia). Severe white matter leukoaraiosis in the frontal and parietal lobes.
�- Neurology evaluation for additional recommendations.
�- Symptoms seem most c/w rapidly progressive form of dementia
�- Quetiapine PRN for agitation. Haldol if not taking PO; DC on haldol BID prn
-Tentative [facility] convo agreed with hospice - - then retracted as patient now able to eat; Pending PT eval - anticipate SNF
Hypothermia
Hypothyroidism
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
�- TSH is increased with normal T4.
�- Patient has a listed dx of hypothyroidism - but is on no medication.
�- Begin T4 supplementation.� Repeat TFTs in 4-6 weeks if desired
- Normal cortisone in am
�- ? mild hypothyroidism could explain hypothermia on its own.
ASCVD
Severe Aortic Stenosis
Permanent Atrial Fibrillation
�- Stable.� s/p recent coronary stents (08/2023).
�- Continue current CV med regimen including Eliquis / Plavix.
�- In the process of TAVR work-up - may need to re-evaluate this given apparent / significant progression in dementia.
COPD without Acute Exacerbation
EFRAIN on CPAP
�- Stable.� No wheezing on exam.� No noted recent cough, etc.
�- DuoNebs PRN.
�- Continue usual CPAP at HS.
LE Skin Changes
LE Cords
�- Wound Care eval for local care of superficial skin breakdown.
�- Palpable cords on exam - patient is on Eliquis, US no DVT
Foot Callous
-f/u podiatry
-excisional debridement was performed on right foot lesion plantar aspect of navicular bone
DVT Prophylaxis:� Continue Eliquis for now.
Code Status:� DNR
Total time spent to see the patient, examine the patient on the floor, review data and lab results, discuss treatment plan with patient, family, and nursing staff around 55 minutes
Anticipated Discharge: Within 24 hours
Subjective/Interval History
-
Date of Service: October 09, 2023
More alert, answering questions
Objective Data
-
Labs:
Laboratory Results
10/09/23
08:27
WBC Pending
Hgb Pending
Hct Pending
Plt Count Pending
Sodium Pending
Potassium Pending
Chloride Pending
Carbon Dioxide Pending
BUN Pending
Creatinine Pending
Glucose Pending
Calcium Pending
Vital Signs:
Vital Signs
Temp Pulse Resp BP Pulse Ox
98.3 F 88 18 101/52 94
10/09/23 08:02 10/09/23 08:02 10/09/23 08:02 10/09/23 08:02 10/09/23 08:02
I&O
10/08/23 10/09/23 10/10/23
06:59 06:59 06:59
Intake Total 1080 / 1080 1660 / 1660
Output Total 2300 / 2300 700 / 700
Balance -1220 / -1220 960 / 960
[2023-10-09 09:31] LABS: Hematocrit 33.4 % (37.0-47.0); Hemoglobin 11.1 g/dL (12.0-16.0); Mean Corp Hgb Conc. 33.2 g/dL (33.0-37.0); Mean Corpuscular Hgb 32.4 pg (27.0-31.0); Mean Corpuscular Volume 97.4 fL (81.0-99.0); Mean Platelet Volume 11.1 fL (7.4-10.4); Platelet Count 112 10^3/uL (130-400); Red Blood Cell Count 3.43 10^6/uL (4.20-5.40); Red Cell Dist. Width 15.2 % (11.5-14.5)
[2023-10-09 09:58] LABS: Blood Urea Nitrogen 21 mg/dl (7-17); Calcium 8.3 mg/dl (8.4-10.2); Carbon Dioxide 23 mmol/L (22-30); Chloride 109 mmol/L (98-107); Estimated Creatinine Clearance 62 ml/min; Glucose 107 mg/dl (70-99); Potassium 3.7 mmol/L (3.5-5.1); Sodium 139 mmol/L (135-145); eGFR > 60.00
[2023-10-09 12:09] LABS: Glucose - Point of Care 165 mg/dl (70-99)
--- NOTE | 2023-10-09 14:29 | CM ---
Chart review, plan is for skilled placement at [facility], will need updated PT/OT notes, casework manager will also need financial application paperwork completed by family for skilled placement.
Plan; Skilled placement. Need updated PT/OT to obtain Auth.
[2023-10-09 17:00] LABS: Glucose - Point of Care 92 mg/dl (70-99)
[2023-10-09] MEDS: LEVOTHROID 35 MCG IV (17:09)
[2023-10-09] MEDS: TOPROL XL PO (20:41)
[2023-10-09 21:23] LABS: Glucose - Point of Care 107 mg/dl (70-99)
[2023-10-10] VITALS (7 sets, daily range): BP systolic 94–132; BP diastolic 53–77; PULSE 76–100; BMI 29.4
[2023-10-10] MEDS: NSS 1000 IV ×2 (05:23→17:35)
--- NOTE | 2023-10-10 06:04 | PTCARENOTE ---
Patient observed with foul smelling, light brown, soft stool in AM. Urine output is blood tinged. Provider notified. Pt. is in for a CBC/BMP this AM. Last hgb was 11.1., will monitor AM labs and follow up with AM nurse.
[2023-10-10 07:49] LABS: % Basophils 0.3 % (0-2); % Eosinophils 2.5 % (0-6); % Immature Granulocytes 0.9 % (0-0.5); % Monocytes 7.7 % (1.7-9.3); % Neutrophils 72.6 % (42.2-75.2); Absolute Eosinophils 0.2 10^3/uL (0-0.7); Absolute Immature Granulocytes 0.1 10^3/uL (0-0.05); Absolute Lymphocytes 1.1 10^3/uL (1.2-3.4); Absolute Monocytes 0.5 10^3/uL (0.1-0.6); Hematocrit 32.6 % (37.0-47.0); Hemoglobin 10.7 g/dL (12.0-16.0); Mean Corp Hgb Conc. 32.8 g/dL (33.0-37.0); Mean Corpuscular Hgb 31.9 pg (27.0-31.0); Mean Corpuscular Volume 97.3 fL (81.0-99.0); Mean Platelet Volume 10.5 fL (7.4-10.4); Nucleated Red Blood Cells % 0 %; Platelet Count 125 10^3/uL (130-400); Red Blood Cell Count 3.35 10^6/uL (4.20-5.40); Red Cell Dist. Width 15.1 % (11.5-14.5); White Blood Cell Count 6.9 10^3/uL (4.8-10.8)
[2023-10-10 08:12] LABS: Glucose - Point of Care 85 mg/dl (70-99)
[2023-10-10 08:27] LABS: Blood Urea Nitrogen 17 mg/dl (7-17); Calcium 8.1 mg/dl (8.4-10.2); Carbon Dioxide 26 mmol/L (22-30); Chloride 107 mmol/L (98-107); Estimated Creatinine Clearance 63 ml/min; Glucose 81 mg/dl (70-99); Potassium 3.8 mmol/L (3.5-5.1); Sodium 138 mmol/L (135-145); eGFR > 60.00
--- NOTE | 2023-10-10 08:31 | W.PN.HOSP.TC ---
Today's Communication/Plan
-
possible dc
Assessment / Plan
Assessment / Plan
Physical Exam
General: Other (88y F in no acute distress.� Awake and interactive, but delirious and not able to appropriately answer questions.� Follows some simple commands.)
HEENT: no deformities. Ectropion of both lower eyelids noted.
Respiratory: Other (Decreased at bases - otherwise clear.)
Cardiac: S1/S2, Irregular Rhythm and Murmur (III/ JANNETET)
GI: Soft, Non Tender, Non Distended and Normal Bowel Sounds
Musculoskeletal: No Clubbing, No Cyanosis, No Edema and Other (Some superficial crusted lesions to the LLE - No bleeding / discharge.� Palpable cords posterior calf.) Foot callous.
Neuro: Awake; No Oriented
Psych: Apparent Dementia, calm and no agitation.
A/P:� Patient is an 88y F with PMH significant for ASCVD, CHF, and A-Fib who presents to ED for evaluation of progressive confusion and hallucinations.
# Hypoglycemia, given dextrose
# Acute dehydration due to poor oral intake
she is more alert today with IVF
Acute Delirium
She is not agitated, pleasant, follows commands.
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
�- Only new med is trazodone (started after symptoms worsened) - will hold for now.
�- Had PTCA with stenting done in 08/2023, had fall about 2 weeks ago.
�- No evidence of active infection or other systemic process.
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
(possibly Alzheimer's dementia). Severe white matter leukoaraiosis in the frontal and parietal lobes.
�- Neurology evaluation for additional recommendations.
�- Symptoms seem most c/w rapidly progressive form of dementia
�- Quetiapine PRN for agitation. Haldol if not taking PO; DC on haldol BID prn
-Tentative [facility] convo agreed with hospice - - then retracted as patient now able to eat; Pending PT eval - anticipate SNF
Hypothermia
Hypothyroidism
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
�- TSH is increased with normal T4.
�- Patient has a listed dx of hypothyroidism - but is on no medication.
�- Begin T4 supplementation.� Repeat TFTs in 4-6 weeks if desired
- Normal cortisone in am
�- ? mild hypothyroidism could explain hypothermia on its own.
ASCVD
Severe Aortic Stenosis
Permanent Atrial Fibrillation
�- Stable.� s/p recent coronary stents (08/2023).
�- Continue current CV med regimen including Eliquis / Plavix.
�- In the process of TAVR work-up - may need to re-evaluate this given apparent / significant progression in dementia.
COPD without Acute Exacerbation
EFRAIN on CPAP
�- Stable.� No wheezing on exam.� No noted recent cough, etc.
�- DuoNebs PRN.
�- Continue usual CPAP at HS.
LE Skin Changes
LE Cords
�- Wound Care eval for local care of superficial skin breakdown.
�- Palpable cords on exam - patient is on Eliquis, US no DVT
Foot Callous
-f/u podiatry
-excisional debridement was performed on right foot lesion plantar aspect of navicular bone
DVT Prophylaxis:� Continue Eliquis for now.
Code Status:� DNR
Total time spent to see the patient, examine the patient on the floor, review data and lab results, discuss treatment plan with patient, family, and nursing staff around 45 minutes
Anticipated Discharge: Today
Subjective/Interval History
-
Date of Service: October 10, 2023
no fevers
no chest pain
no sob
Objective Data
-
Labs:
Laboratory Results
10/10/23
06:17
WBC 6.9
Hgb 10.7 L
Hct 32.6 L
Plt Count 125 L
Sodium 138
Potassium 3.8
Chloride 107
Carbon Dioxide 26
BUN 17
Creatinine 0.6
Glucose 81
Calcium 8.1 L
Vital Signs:
Vital Signs
Temp Pulse Resp BP Pulse Ox
98.3 F 87 18 96/51 95
10/10/23 03:22 10/09/23 23:41 10/10/23 03:22 10/09/23 23:41 10/10/23 03:22
I&O
10/09/23 10/10/23 10/11/23
06:59 06:59 06:59
Intake Total 1660 / 1660 1720 / 1720
Output Total 700 / 700 900 / 900
Balance 960 / 960 820 / 820
[2023-10-10] MEDS: DESENEX/MITRAZOL/ZEASORB 1 APPLIC TOPICAL ×2 (10:01→20:23)
[2023-10-10] MEDS: PLAVIX 75 MG PO (10:02)
[2023-10-10] MEDS: ELIQUIS 5 MG PO ×2 (10:02→20:24)
[2023-10-10] MEDS: TOPROL XL 25 MG PO ×2 (10:02→20:30)
[2023-10-10] MEDS: PACERONE 100 MG PO (10:03)
[2023-10-10 11:20] LABS: Glucose - Point of Care 137 mg/dl (70-99)
--- NOTE | 2023-10-10 13:02 | CM ---
Addendum entered by Concetta Hernandez 10/10/23 16:04:
Patient has been accepted at [facility] 2nd floor, patient will need Auth for skilled placement.
[facility]
Report [phone]

Original Note:
Chart reviewed and plan is a short skilled stay at [facility] and then home with patient's daughter. Patient's daughter was working for [employer] a private home care agency. Patient's daughter plans on taking care of patient after discharge from
rehab. Financial application completed and sent to [facility] for review. Referral also sent to [facility] but there are no beds.
Plan; Await determination from [facility] admissions.
[2023-10-10 16:43] LABS: Glucose - Point of Care 83 mg/dl (70-99)
[2023-10-10] MEDS: LEVOTHROID 35 MCG IV (17:36)
[2023-10-11 03:00] VITALS: BP 139/79
[2023-10-11 04:25] VITALS: BMI 29.4
[2023-10-11] MEDS: NSS 1000 IV (05:40)
[2023-10-11 07:00] VITALS: BP 132/73
--- NOTE | 2023-10-11 08:47 | W.PN.HOSP.TC ---
Today's Communication/Plan
-
dc
Assessment / Plan
Assessment / Plan
Physical Exam
General: Other (88y F in no acute distress.� Awake and interactive, but delirious and not able to appropriately answer questions.� Follows some simple commands.)
HEENT: no deformities. Ectropion of both lower eyelids noted.
Respiratory: Other (Decreased at bases - otherwise clear.)
Cardiac: S1/S2, Irregular Rhythm and Murmur (III/ JANNETTE)
GI: Soft, Non Tender, Non Distended and Normal Bowel Sounds
Musculoskeletal: No Clubbing, No Cyanosis, No Edema and Other (Some superficial crusted lesions to the LLE - No bleeding / discharge.� Palpable cords posterior calf.) Foot callous.
Neuro: Awake; No Oriented
Psych: Apparent Dementia, calm and no agitation.
A/P:� Patient is an 88y F with PMH significant for ASCVD, CHF, and A-Fib who presents to ED for evaluation of progressive confusion and hallucinations.
# Hypoglycemia, given dextrose
# Acute dehydration due to poor oral intake
she is more alert today with IVF
Acute Delirium
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
�- Only new med is trazodone (started after symptoms worsened) - will hold for now.
�- Had PTCA with stenting done in 08/2023, had fall about 2 weeks ago.
�- No evidence of active infection or other systemic process.
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
(possibly Alzheimer's dementia). Severe white matter leukoaraiosis in the frontal and parietal lobes.
�- Neurology input appreciated, c/w with PRN Antipsychotic meds for agitation.
�- Quetiapine PRN for agitation.
-Tentative [facility] convo agreed with hospice if worsens - - then retracted as patient now able to eat; Pending PT eval - anticipate SNF
Hypothyroidism
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
�- TSH is increased with normal T4.
�- Patient has a listed dx of hypothyroidism - but is on no medication.
�- Begin T4 supplementation.� Repeat TFTs in 4-6 weeks if desired
- Normal cortisone in am
�- ? mild hypothyroidism could explain hypothermia on its own.
ASCVD
Severe Aortic Stenosis
Permanent Atrial Fibrillation
�- Stable.� s/p recent coronary stents (08/2023).
�- Continue current CV med regimen including Eliquis / Plavix.
�- In the process of TAVR work-up - may need to re-evaluate this given apparent / significant progression in dementia.
COPD without Acute Exacerbation
EFRAIN on CPAP
�- Stable.� No wheezing on exam.� No noted recent cough, etc.
�- DuoNebs PRN.
�- Continue usual CPAP at HS.
LE Skin Changes
LE Cords
�- Wound Care eval for local care of superficial skin breakdown.
�- Palpable cords on exam - patient is on Eliquis, US no DVT
Foot Callous
-f/u podiatry
-excisional debridement was performed on right foot lesion plantar aspect of navicular bone
DVT Prophylaxis:� Continue Eliquis for now.
Code Status:� DNR
Total discharge time spent to see the patient, examine the patient on the floor, review data and lab results, discuss discharge plan with patient, family, and nursing staff around 65 minutes
Anticipated Discharge: Today
Subjective/Interval History
-
Date of Service: October 11, 2023
Restless last night, did not sleep well
No pain issues
no fevers
Objective Data
-
Vital Signs:
Vital Signs
Temp Pulse Resp BP Pulse Ox
97.4 F 84 18 132/73 100
10/11/23 07:00 10/11/23 07:00 10/11/23 07:00 10/11/23 07:00 10/11/23 07:00
I&O
10/10/23 10/11/23 10/12/23
06:59 06:59 06:59
Intake Total 1720 / 1720 960 / 960
Output Total 900 / 900 2200 / 2200
Balance 820 / 820 -1240 / -1240
[2023-10-11] MEDS: ELIQUIS 5 MG PO (09:04)
[2023-10-11] MEDS: SEROQUEL 12.5 MG PO (09:04)
[2023-10-11] MEDS: PLAVIX 75 MG PO (09:05)
[2023-10-11] MEDS: PACERONE 100 MG PO (09:06)
[2023-10-11] MEDS: TOPROL XL 25 MG PO (09:06)
[2023-10-11] MEDS: DESENEX/MITRAZOL/ZEASORB 1 APPLIC TOPICAL (09:07)
--- NOTE | 2023-10-11 10:39 | CM ---
Addendum entered by Concetta Hernandez 10/11/23 14:20:
skilled Auth 7 days skilled level 1, 10/11 to 10/17 Auth [id number]
Ambulance Auth [id number]
Original Note:
Chart reviewed and behavioral health case manager needs updated physical therapy notes in order to obtain Auth for skilled placement at [facility]. Physical therapy made aware.
[facility]
Report [phone]
--- NOTE | 2023-10-11 11:37 | W.DCSUMMARY ---
Discharge Summary
Discharge Data
Date of Admission: 10/03/23
Date of Discharge: 10/11/23
-
Pending Results: No
Hospital Course
88-year-old female admitted with worsening confusion. Patient had history of progressive cognitive decline over several months. Patient moved in with her daughter for close observation and care. Patient was noted to have more confusion and
hallucination over several days. She was seen by neurologist in the outpatient setting and she was given trazodone. Patient did not have signs of active infection. No fever. No leukocytosis. She was evaluated by neurologist. Patient had head
imaging studies including brain magnetic resonance imaging (MRI) that showed no acute stroke but multiple chronic lacunar infarcts in the brain with moderate diffuse cerebral and cerebellar volume loss consistent with chronic neurodegenerative
disease. She has severe white matter leukoaraiosis in the frontal and parietal lobes. Her clinical examination and studies were consistent with progressive vascular dementia with possible underlying Alzheimer dementia. Neurologist recommended
to continue with antipsychotic medication for agitation with supportive care. Patient was noted to have hypothyroidism. She was started on low-dose Synthroid and recommendation to monitor thyroid-stimulating hormone level in few weeks. Patient
had history of severe aortic stenosis with permanent atrial fibrillation. She was maintained on her cardiac medications with no changes. Patient was noted to have poor oral intake and she was given intravenous fluid to improve volume status. Goal
of care was discussed with the family. initially, the agreement was to do hospice but patient started to show less confusion and more oral diet intake. Family wanted [facility] knowing that chances
of patient going back to baseline and being functional were very slim. Code status was discussed with family and based on patient wishes, she was DO NOT RESUSCITATE/DO NOT INTUBATE. Patient remained hemodynamically stable. project manager/team coach was
involved in discharge planning. [facility] in a [facility].
Discharge Plan
-
Patient Disposition: [facility]/SNF
Discharge Diagnosis/Procedures:
Acute Delirium
Progressive vascular Dementia
Hypothyroidism
Condition: Fair
Diet: As tolerated and Other diet
Additional Diets: Recommend regular solids and thin liquids w/ hospice transition. might want to consider softer foods when able for endurance purposes
Activity: As tolerated
Activity Restrictions/Additional Instructions:
Wound Care Instructions
Le's (open wounds) -clean with saline, honey gel prn fibrin slough, silicone border foam or adaptic, gauze and natalie, change daily and prn drainage.
Moisture cream to dry skin daily.
Bilateral knee high Tubigrip (LATEX) size E as tolerated; may remove q hs; re-apply q am.
R plantar foot callus-no sting skin prep daily (allow to dry), cover with silicone border foam, change daily. If drainage occurs, swab with Betadine instead of no sting barrier wipe. When ambulatory, Orthopedic shoes with molded orthotics to
accommodative bony deformity.
Miconazole powder to sacral/coccyx crease, affected areas bid.
Elevate heels off bed with pillow/s
Pressure redistributing chair cushion (i.e. Air chair cushion).
Make appointment with podiatry for R plantar callus.
Follow up with your information assurance officer Dr. Hodan Carrizales.
Follow up at wound care center if needed, call for an appointment.
Referrals:
UNKNOWN - PT DOES,NOT KNOW [Family Provider] -
Prescriptions:
New
miconazole nitrate 2 % Powder
1 applic topical BID Qty: 85 0RF
quetiapine 25 mg Tablet
12.5 mg PO BID PRN (Reason: Agitation) Qty: 60 0RF
metoprolol succinate 25 mg Tablet Extended Release 24 Hr
25 mg PO BID 30 Days Qty: 60 0RF
levothyroxine [Synthroid] 50 mcg tablet
50 mcg PO DAILY Qty: 30 0RF
Continued
multivitamin with folic acid [Tab-A-Mandy] 1 TABLET tablet
1 tab PO DAILY Qty: 0
Eliquis 5 MG tablet
5 mg PO BID Qty: 60 3RF
cholecalciferol (vitamin D3) 1,000 UNITS tablet
2,000 units PO DAILY
PreserVision Lutein 226-90-0.8-5 mg Capsule
1 cap PO BID
amiodarone [Pacerone] 200 MG tablet
100 mg PO DAILY
clopidogrel 75 mg Tablet
75 mg PO DAILY Qty: 90 5RF
pantoprazole 40 mg Tablet,Delayed Release (Dr/Ec)
40 mg PO DAILY Qty: 90 5RF
calcium carbonate [Calcium 600] 600 mg calcium (1,500 mg) Tablet
600 mg PO BID
Discontinued
ascorbic acid (vitamin C) [Vitamin C] 500 MG tablet
500 mg PO DAILY Qty: 0
alendronate 70 MG tablet
70 mg PO MEMBRENO
furosemide 40 MG tablet
40 mg PO DAILY Qty: 30 11RF
pyridoxine (vitamin B6) [Vitamin B-6] 100 MG tablet
100 mg PO DAILY
metoprolol succinate 50 MG tablet extended release 24 hr
50 mg PO BID Qty: 60 0RF
atorvastatin 10 mg Tablet
10 mg PO DAILY
trazodone 50 mg Tablet
50 mg PO HS
Discharge Orders:
Discharge Patient (As Directed); Ordered 10/06/23
Ordered By: Rocky Voss
Discharge Date and Time
Discharge Date/Time: 10/11/23 20:13
== END 2023-10-11 20:13 | DRG 876 ==
LOC: 4 WEST ACU 23:45
PROVIDERS: Internal Medicine; Nurse Practitioner Family; Podiatrist Primary Podiatric Medicine; ADMITTING PHYSICIAN Hospitalist; ATTENDING PHYSICIAN Internal Medicine; EMERGENCY PHYSICIAN Emergency Medicine; OTHER PHYSICIAN Student in an Organized Health Care Education/Training Program
PROC: 0QBL0ZZ Excision of Right Tarsal, Open Approach (ICD-10-PCS; 2023-10-04)
DX: F05 Delirium due to known physiological condition (principal); F01.511 Vascular dementia, unspecified severity, with agitation; I48.21 Permanent atrial fibrillation; Z11.52 Encounter for screening for COVID-19; E03.9 Hypothyroidism, unspecified; Z87.891 Personal history of nicotine dependence; I25.10 Atherosclerotic heart disease of native coronary artery without angina pectoris; I35.0 Nonrheumatic aortic (valve) stenosis; Z95.5 Presence of coronary angioplasty implant and graft; J44.9 Chronic obstructive pulmonary disease, unspecified; Z79.01 Long term (current) use of anticoagulants; G47.33 Obstructive sleep apnea (adult) (pediatric); Z79.02 Long term (current) use of antithrombotics/antiplatelets; Z66 Do not resuscitate; G30.1 Alzheimer's disease with late onset
CPT/HCPCS: 51701; 70551; 71045; 76700; 80048; 80053; 81003; 82533; 82607; 82962; 83605; 83735; 84439; 84443; 85025; 85027; 87040; 87070; 87502; 87811; 92526; 92610; 93005; 93971; 94660; 97116; 97163; 97166; 97530; 97535; 99291

== ENCOUNTER → 2023-10-15 12:31 | Outpatient (REF) | payer OTHER, SELFPAY ==
[2023-10-15 14:16] LABS: % Basophils 0.5 % (0-2); % Eosinophils 1.7 % (0-6); % Immature Granulocytes 0.7 % (0-0.5); % Lymphocytes 18.3 % (20.5-51.1); % Monocytes 5.8 % (1.7-9.3); Absolute Eosinophils 0.1 10^3/uL (0-0.7); Absolute Lymphocytes 1.1 10^3/uL (1.2-3.4); Absolute Monocytes 0.3 10^3/uL (0.1-0.6); Absolute Neutrophils 4.3 10^3/uL (1.4-6.5); Hematocrit 35.1 % (37.0-47.0); Hemoglobin 11.5 g/dL (12.0-16.0); Mean Corp Hgb Conc. 32.8 g/dL (33.0-37.0); Mean Corpuscular Hgb 31.4 pg (27.0-31.0); Mean Corpuscular Volume 95.9 fL (81.0-99.0); Mean Platelet Volume 10.1 fL (7.4-10.4); Nucleated Red Blood Cells % 0 %; Platelet Count 251 10^3/uL (130-400); Red Blood Cell Count 3.66 10^6/uL (4.20-5.40); Red Cell Dist. Width 15.1 % (11.5-14.5); White Blood Cell Count 5.9 10^3/uL (4.8-10.8)
[2023-10-15 14:39] LABS: Blood Urea Nitrogen 13 mg/dl (7-17); Calcium 8.6 mg/dl (8.4-10.2); Carbon Dioxide 26 mmol/L (22-30); Chloride 108 mmol/L (98-107); Glucose 85 mg/dl (70-99); Potassium 3.9 mmol/L (3.5-5.1); Sodium 138 mmol/L (135-145); eGFR > 60.00
== END ==
LOC: OLABP 12:31
PROVIDERS: ATTENDING PHYSICIAN Family Medicine
DX: I48.91 Unspecified atrial fibrillation (principal); C91.90 Lymphoid leukemia, unspecified not having achieved remission
CPT/HCPCS: 36415; 80048; 85025

== ENCOUNTER → 2023-10-17 11:42 | Outpatient (REF) | payer OTHER, SELFPAY ==
[2023-10-17 12:25] LABS: % Basophils 0.7 % (0-2); % Eosinophils 3.8 % (0-6); % Immature Granulocytes 0.9 % (0-0.5); % Lymphocytes 23.5 % (20.5-51.1); % Monocytes 6.8 % (1.7-9.3); % Neutrophils 64.3 % (42.2-75.2); Absolute Eosinophils 0.2 10^3/uL (0-0.7); Absolute Monocytes 0.3 10^3/uL (0.1-0.6); Absolute Neutrophils 2.8 10^3/uL (1.4-6.5); Hematocrit 31.8 % (37.0-47.0); Hemoglobin 10.5 g/dL (12.0-16.0); Mean Corpuscular Hgb 31.4 pg (27.0-31.0); Mean Corpuscular Volume 95.2 fL (81.0-99.0); Mean Platelet Volume 10.2 fL (7.4-10.4); Nucleated Red Blood Cells % 0 %; Platelet Count 253 10^3/uL (130-400); Red Blood Cell Count 3.34 10^6/uL (4.20-5.40); Red Cell Dist. Width 15.3 % (11.5-14.5); White Blood Cell Count 4.4 10^3/uL (4.8-10.8)
[2023-10-17 12:27] LABS: Blood Urea Nitrogen 14 mg/dl (7-17); Calcium 8.5 mg/dl (8.4-10.2); Carbon Dioxide 27 mmol/L (22-30); Chloride 110 mmol/L (98-107); Glucose 80 mg/dl (70-99); Potassium 4.3 mmol/L (3.5-5.1); Sodium 138 mmol/L (135-145); eGFR > 60.00
== END ==
LOC: OLABP 11:42
PROVIDERS: ATTENDING PHYSICIAN Family Medicine
DX: I48.19 Other persistent atrial fibrillation (principal); F01.50 Vascular dementia, unspecified severity, without behavioral disturbance, psychotic disturbance, mood disturbance, and anxiety; C91.90 Lymphoid leukemia, unspecified not having achieved remission
CPT/HCPCS: 36415; 80048; 85025

== ENCOUNTER 2023-12-30 11:18 | Inpatient (IN) | payer OTHER, SELFPAY ==
[2023-12-30] VITALS (40 sets, daily range): BP systolic 66–144; BP diastolic 33–93; PULSE 2–94; BMI 32.6
--- NOTE | 2023-12-30 08:47 | ED.GENMED ---
History of Present Illness
<Patrice Valdez PA-C - Last Filed: 12/30/23 13:32>
General
Chief Complaint: Change in Mental Status
Source: family
Time Seen by Provider: 12/30/23 08:26
Travel History
Have you had any contact with someone who has COVID-19?: No
Do you have any symptoms of coronavirus? Fever > 100 degrees, chills, cough, shortness of breath, sore throat, loss of taste or smell, muscle aches, or headache?: No
History of Present Illness
History of Present Illness:
88-year-old female with past medical history of atrial fibrillation, aortic stenosis, hypertension, previous leukemia and uterine cancer presenting to the emergency department for evaluation of generalized weakness, 3 falls in 3 days, her mental
status with daughter stating that patient is very confused and has been unable to care for herself at home. Daughter notes patient had a similar presentation about 3 months ago where patient was found to be hypothermic and ultimately admitted for
continued evaluation and treatment. Patient has been undergoing a workup with neurology for her weakness and is scheduled to have a nerve conduction study done next week with the possibility of a diagnosis of myasthenia gravis. Patient has no
specific concerns at this time, denying any pain, headache, visual change or focal weakness or numbness. Daughter notes that the last fall was yesterday evening while in the bathroom striking the right side of her head against a plastic kitchen
aide garbage can. No other concerns at this time.
Past History
<Patrice Valdez PA-C - Last Filed: 12/30/23 13:32>
Past History
ED Past Medical History: Arrthythmia (Atrial fibrillation), Cancer (CLL), CHF, HTN and Other (Sleep apnea, uses CPAP at night, colon polyps, arthritis, shingles, chronic lymphocytic leukemia, skin cancers)
ED Past Surgical History: Appendectomy, Cholecystectomy, Orthopedic (Left TKR) and Other (Lysis of adhesions)
Social History
Tobacco: Non-smoker
Alcohol: Occasional
Drug: None
Personal:
Living: alone
Employment: Employed
Review of Systems
<KHUSHI Atwood Last Filed: 12/30/23 13:32>
Review of Systems
All Other Systems: ROS reviewed and negative except as documented in HPI and ROS
Phy Exam
<KHUSHI Atwood Last Filed: 12/30/23 13:32>
Physical Exam
Physical Exam:
GENERAL: Alert , in no apparent distress
EYE: Slightly injected conjunctiva
NECK: Supple, no midline tenderness
ENT: o/p clr, mmm.
CARDIAC: Irregularly irregular rate and rhythm, rate controlled
LUNGS: Clear breath sounds bilaterally, no acute respiratory distress, no wheezes/rales/rhonchi
ABDOMEN: Soft, without focal tenderness, no r/g, no cvat
NEUROLOGICAL: Alert and oriented x 3, moves all extremities but does have some rigidity to the upper extremities bilateral
SKIN: Cool to the touch and dry, skin intact.
MUSCULOSKELETAL: Trace edema bilateral ankles
PSYCH: Normal and appropriate interaction.
Scores
<KHUSHI Atwood Last Filed: 12/30/23 13:32>
Heart Failure Risk
Heart Failure Risk Score: Not Applicable
Heart Score for Chest Pain Patients
STEMI patient?: Not applicable
Withdrawal Assessment of Alcohol
Withdrawal Assessment Completed?: Not applicable
Course
<KHUSHI Atwood Last Filed: 12/30/23 13:32>
Orders/Labs/Results
Orders:
Orders
12/30/23
Electrocardiogram (*1) Stat
Reason for Study: Chest Pain
Comment: DONE NO ORDER ENTERED
12/30/23 08:35
Electrocardiogram (*1) Urgent
Reason for Study: Fatigue / Weakness
EKG- Treatment ONCE
12/30/23 08:36
CT Head W/o Iv Contrast Urgent
Comment:
Reason For Exam: 3 falls, small abrasion right parietal, AMS
12/30/23 08:37
CR Chest - 2 Views Urgent
Comment:
Reason For Exam: AMS
12/30/23 08:46
Marvin Hugger [Marvin Hugger-Treatment] ONCE
Patient's goal temperature:: 97 F
Additional Instructions:: Temperature and skin assessment per unit protocol
12/30/23 08:51
Complete Blood Count/With Diff Urgent
Comprehensive Metabolic Panel Urgent
Cortisol, Random Urgent
Comment: ADD ON
Lactic Acid Q4H
Comment: CANCEL 2nd LACTIC ACID IF 1st LACTIC ACID IS LESS THAN 2
TSH Urgent
Blood Culture Q30M
NORBERTO Source: Blood/Venous
Specimen Description:
12/30/23 08:57
Blood Culture Q30M
NORBERTO Source: Blood/Venous
Specimen Description:
12/30/23 09:06
Urinalysis Reflex To Culture Urgent
Date Specimen was Collected: 12/30/23
Time Specimen was Collected: 08:58
12/30/23 09:42
EKG- Treatment ONCE
12/30/23 09:45
0.9% Sodium Chloride 1000 ml [Nss] 1,000 ml IV BOLUS
NORepinephrine 4 MG/250 ML [Levophed] 4 mg in 250 ml IV PER PROTOCOL
Initial dose in mcg/min, then titrate:: 4
Titrate to keep:: MAP > 65 mmHg
Titrate by mcg/min:: 1-2 mcg/min
Frequency of titrations (minutes):: 5
Maximum dose in ICU in mcg/min:: 30
Maximum dose in IMU in mcg/min:: 8
Maximum dose in IVU in mcg/min:: 4
Begin to taper infusion when:: Remained at goal for 4hrs
Taper by mcg/min:: 1-2 mcg/min
Frequency of taper (minutes) if patient maintains goal:: 30
Taper to off?: Yes
If infusion off & no longer maintaining goal:: Contact Provider
12/30/23 09:57
Piperacillin/Tazo 3.375 Gram [Zosyn] 3.375 gram in 50 ml IV NOW
12/30/23 Lunch
Regular
At Your Request: Non-Participating
12/30/23 10:07
Vancomycin [Vancocin] 2,000 mg 0.9% Sodium Chloride 500 ml [Nss] 500 ml IV NOW
12/30/23 10:49
Admit/Transfer Patient As Directed
Co-Sign Provider:
Level of Care: Inpatient admission
Assign to:: IMU- Intermediate Care
Physician / Group: Hospitalist
Diagnosis: Shock
Reason for Hospitalization: Shock
Expected length of stay greater than two midnights?: Yes
ELOS- Estimated Length of Stay in days: 4
I certify the patient meets the requirements for IP care: Yes
12/30/23 10:51
Code Status As Directed
Resuscitation Status: Limited DNR
Limited DNR: -No intubation
12/30/23 11:00
Apixaban [Eliquis] 5 mg PO BID
Levothyroxine [Synthroid] 50 mcg PO DAILY@0600
12/30/23 11:03
Speech Therapy Eval & Treat Routine
12/30/23 11:51
Troponin I Q6H
12/30/23 12:00
Flush (0.9% Sodium Chloride) [Flush (Nss)] See Dose Instructions IV PER PROTOCOL
Levothyroxine [Synthroid] 75 mcg PO DAILY @ 0600
Pantoprazole [Protonix] 40 mg PO DAILY
12/30/23 12:58
0.9% Sodium Chloride 1000 ml [Nss] 1,000 ml IV 75 mls/hr
Acetaminophen [Tylenol] 650 mg PO Q4HPRN PRN
Bisacodyl [Dulcolax] 10 mg RECTAL [id number] PRN
Trazodone [Desyrel] 50 mg PO HS PRN
12/30/23 12:58
Acetylcholine Receptor Bind Ab [S] Routine
Respiratory Culture/Gram Stain Urgent
NORBERTO Source: Sputum
Specimen Description:
Activity As Directed
Activity Level: Encourage Progressive Amb
Vital Signs As Directed
Frequency: Per unit guidelines
Cpap [RESP] Routine
Patient to use own unit?: Yes
US Chest - Right Routine
Comment:
Reason For Exam: effusion
12/30/23 13:00
Carboxymethylcellulose [Refresh Celluvisc Gel] 1 drops BOTH EYES QID
12/30/23 14:00
Clotrimazole [Lotrimin 1% Cream] See Dose Instructions TOPICAL BID
Doxycycline [Vibramycin] 100 mg PO Q12
12/30/23 16:00
Piperacillin/Tazo 3.375 Gram [Zosyn] 3.375 gram in 50 ml IV Q6H
12/30/23 17:15
Troponin I Q6H
12/30/23 20:00
Docusate Sodium [Colace] 100 mg PO BID
Sennosides [Senokot] 8.6 mg PO BID
Vit C/Vit E/Lutein/Min/Gilbert-3 [Ocuvite Softgel] 1 cap PO BID
12/30/23 22:00
Melatonin 3 mg PO HS
12/30/23 23:15
Troponin I Q6H
12/31/23 06:00
Basic Metabolic Panel IN AM
Complete Blood Count/No Diff IN AM
Magnesium IN AM
Vitamin B12 IN AM
12/31/23 08:00
Amiodarone [Pacerone] 100 mg PO DAILY
Ascorbic Acid [Vitamin C] 500 mg PO DAILY
Atorvastatin [Lipitor] 10 mg PO DAILY
Cholecalciferol (Vitamin D3) [VITAMIN D3 (cholecalciferol)] 50 mcg PO DAILY
Clopidogrel Bisulfate [Plavix] 75 mg PO DAILY
Multivitamin [Theragran] 1 tablet PO DAILY
Polyethylene Glycol Powder [Miralax] 17 grams PO DAILY
Pyridoxine [Vitamin B-6] 100 mg PO DAILY
Abnormal Lab Results
12/30/23 12/30/23
08:51 09:06
RBC 3.60 L 10^6/uL
(4.20-5.40)
Hgb 11.4 L g/dL
(12.0-16.0)
Hct 35.6 L %
(37.0-47.0)
MCH 31.7 H pg
(27.0-31.0)
MCHC 32.0 L g/dL
(33.0-37.0)
RDW 16.2 H %
(11.5-14.5)
Plt Count 125 L 10^3/uL
(130-400)
MPV 11.5 H fL
(7.4-10.4)
Absolute Lymphs (auto) 0.8 L 10^3/uL
(1.2-3.4)
Neutrophils % 83.8 H %
(42.2-75.2)
Lymphocytes % 11.3 L %
(20.5-51.1)
Carbon Dioxide 32 H mmol/L
(22-30)
BUN 34 H mg/dl
(7-17)
Glucose 108 H mg/dl
(70-99)
AST 46 H U/L
(14-36)
Alkaline Phosphatase 154 H U/L
(38-126)
Total Protein 5.8 L g/dl
(6.3-8.2)
Albumin 3.4 L g/dl
(3.5-5.0)
TSH 5.61 H uIU/ml
(0.47-4.68)
Urine Urobilinogen 2+ A
(Neg - 1+)
12/30/23 08:51
12/30/23 08:51
Vital Signs
Initial and Last Documented VS:
Initial Vital Signs
Pulse Resp BP Pulse Ox
65 18 99/62 96
12/30/23 08:13 12/30/23 08:13 12/30/23 08:13 12/30/23 08:13
Last Documented Vital Signs
Temp Pulse Resp BP Pulse Ox
96.6 F L 83 22 122/67 92
12/30/23 13:12 12/30/23 13:10 12/30/23 13:10 12/30/23 13:10 12/30/23 14:17
<Will Crabtree, DO - Last Filed: 12/30/23 14:22>
Orders/Labs/Results
Orders:
Orders
12/30/23
Electrocardiogram (*1) Stat
Reason for Study: Chest Pain
Comment: DONE NO ORDER ENTERED
12/30/23 08:35
Electrocardiogram (*1) Urgent
Reason for Study: Fatigue / Weakness
EKG- Treatment ONCE
12/30/23 08:36
CT Head W/o Iv Contrast Urgent
Comment:
Reason For Exam: 3 falls, small abrasion right parietal, AMS
12/30/23 08:37
CR Chest - 2 Views Urgent
Comment:
Reason For Exam: AMS
12/30/23 08:46
Marvin Hugger [Marvin Hugger-Treatment] ONCE
Patient's goal temperature:: 97 F
Additional Instructions:: Temperature and skin assessment per unit protocol
12/30/23 08:51
Complete Blood Count/With Diff Urgent
Comprehensive Metabolic Panel Urgent
Cortisol, Random Urgent
Comment: ADD ON
Lactic Acid Q4H
Comment: CANCEL 2nd LACTIC ACID IF 1st LACTIC ACID IS LESS THAN 2
TSH Urgent
Blood Culture Q30M
NORBERTO Source: Blood/Venous
Specimen Description:
12/30/23 08:57
Blood Culture Q30M
NORBERTO Source: Blood/Venous
Specimen Description:
12/30/23 09:06
Urinalysis Reflex To Culture Urgent
Date Specimen was Collected: 12/30/23
Time Specimen was Collected: 08:58
12/30/23 09:42
EKG- Treatment ONCE
12/30/23 09:45
0.9% Sodium Chloride 1000 ml [Nss] 1,000 ml IV BOLUS
NORepinephrine 4 MG/250 ML [Levophed] 4 mg in 250 ml IV PER PROTOCOL
Initial dose in mcg/min, then titrate:: 4
Titrate to keep:: MAP > 65 mmHg
Titrate by mcg/min:: 1-2 mcg/min
Frequency of titrations (minutes):: 5
Maximum dose in ICU in mcg/min:: 30
Maximum dose in IMU in mcg/min:: 8
Maximum dose in IVU in mcg/min:: 4
Begin to taper infusion when:: Remained at goal for 4hrs
Taper by mcg/min:: 1-2 mcg/min
Frequency of taper (minutes) if patient maintains goal:: 30
Taper to off?: Yes
If infusion off & no longer maintaining goal:: Contact Provider
12/30/23 09:57
Piperacillin/Tazo 3.375 Gram [Zosyn] 3.375 gram in 50 ml IV NOW
12/30/23 Lunch
Regular
At Your Request: Non-Participating
12/30/23 10:07
Vancomycin [Vancocin] 2,000 mg 0.9% Sodium Chloride 500 ml [Nss] 500 ml IV NOW
12/30/23 10:49
Admit/Transfer Patient As Directed
Co-Sign Provider:
Level of Care: Inpatient admission
Assign to:: IMU- Intermediate Care
Physician / Group: Hospitalist
Diagnosis: Shock
Reason for Hospitalization: Shock
Expected length of stay greater than two midnights?: Yes
ELOS- Estimated Length of Stay in days: 4
I certify the patient meets the requirements for IP care: Yes
12/30/23 10:51
Code Status As Directed
Resuscitation Status: Limited DNR
Limited DNR: -No intubation
12/30/23 11:00
Apixaban [Eliquis] 5 mg PO BID
Levothyroxine [Synthroid] 50 mcg PO DAILY@0600
12/30/23 11:03
Speech Therapy Eval & Treat Routine
12/30/23 11:51
Troponin I Q6H
12/30/23 12:00
Flush (0.9% Sodium Chloride) [Flush (Nss)] See Dose Instructions IV PER PROTOCOL
Levothyroxine [Synthroid] 75 mcg PO DAILY @ 0600
Pantoprazole [Protonix] 40 mg PO DAILY
12/30/23 12:58
0.9% Sodium Chloride 1000 ml [Nss] 1,000 ml IV 75 mls/hr
Acetaminophen [Tylenol] 650 mg PO Q4HPRN PRN
Bisacodyl [Dulcolax] 10 mg RECTAL [id number] PRN
Trazodone [Desyrel] 50 mg PO HS PRN
12/30/23 12:58
Acetylcholine Receptor Bind Ab [S] Routine
Respiratory Culture/Gram Stain Urgent
NORBERTO Source: Sputum
Specimen Description:
Activity As Directed
Activity Level: Encourage Progressive Amb
Vital Signs As Directed
Frequency: Per unit guidelines
Cpap [RESP] Routine
Patient to use own unit?: Yes
US Chest - Right Routine
Comment:
Reason For Exam: effusion
12/30/23 13:00
Carboxymethylcellulose [Refresh Celluvisc Gel] 1 drops BOTH EYES QID
12/30/23 14:00
Clotrimazole [Lotrimin 1% Cream] See Dose Instructions TOPICAL BID
Doxycycline [Vibramycin] 100 mg PO Q12
12/30/23 16:00
Piperacillin/Tazo 3.375 Gram [Zosyn] 3.375 gram in 50 ml IV Q6H
12/30/23 17:15
Troponin I Q6H
12/30/23 20:00
Docusate Sodium [Colace] 100 mg PO BID
Sennosides [Senokot] 8.6 mg PO BID
Vit C/Vit E/Lutein/Min/Gilbert-3 [Ocuvite Softgel] 1 cap PO BID
12/30/23 22:00
Melatonin 3 mg PO HS
12/30/23 23:15
Troponin I Q6H
12/31/23 06:00
Basic Metabolic Panel IN AM
Complete Blood Count/No Diff IN AM
Magnesium IN AM
Vitamin B12 IN AM
12/31/23 08:00
Amiodarone [Pacerone] 100 mg PO DAILY
Ascorbic Acid [Vitamin C] 500 mg PO DAILY
Atorvastatin [Lipitor] 10 mg PO DAILY
Cholecalciferol (Vitamin D3) [VITAMIN D3 (cholecalciferol)] 50 mcg PO DAILY
Clopidogrel Bisulfate [Plavix] 75 mg PO DAILY
Multivitamin [Theragran] 1 tablet PO DAILY
Polyethylene Glycol Powder [Miralax] 17 grams PO DAILY
Pyridoxine [Vitamin B-6] 100 mg PO DAILY
Abnormal Lab Results
12/30/23 12/30/23
08:51 09:06
RBC 3.60 L 10^6/uL
(4.20-5.40)
Hgb 11.4 L g/dL
(12.0-16.0)
Hct 35.6 L %
(37.0-47.0)
MCH 31.7 H pg
(27.0-31.0)
MCHC 32.0 L g/dL
(33.0-37.0)
RDW 16.2 H %
(11.5-14.5)
Plt Count 125 L 10^3/uL
(130-400)
MPV 11.5 H fL
(7.4-10.4)
Absolute Lymphs (auto) 0.8 L 10^3/uL
(1.2-3.4)
Neutrophils % 83.8 H %
(42.2-75.2)
Lymphocytes % 11.3 L %
(20.5-51.1)
Carbon Dioxide 32 H mmol/L
(22-30)
BUN 34 H mg/dl
(7-17)
Glucose 108 H mg/dl
(70-99)
AST 46 H U/L
(14-36)
Alkaline Phosphatase 154 H U/L
(38-126)
Total Protein 5.8 L g/dl
(6.3-8.2)
Albumin 3.4 L g/dl
(3.5-5.0)
TSH 5.61 H uIU/ml
(0.47-4.68)
Urine Urobilinogen 2+ A
(Neg - 1+)
12/30/23 08:51
12/30/23 08:51
Vital Signs
Initial and Last Documented VS:
Initial Vital Signs
Pulse Resp BP Pulse Ox
65 18 99/62 96
12/30/23 08:13 12/30/23 08:13 12/30/23 08:13 12/30/23 08:13
Last Documented Vital Signs
Temp Pulse Resp BP Pulse Ox
96.6 F L 83 22 122/67 92
12/30/23 13:12 12/30/23 13:10 12/30/23 13:10 12/30/23 13:10 12/30/23 14:17
<Patrice Valdez PA-C - Last Filed: 12/30/23 13:32>
MDM/Problems Addressed
Differential Diagnosis Includes:
Patient found to be hypothermic on rectal exam 92.5, sepsis/bacteremia, urinary tract infection, pneumonia, intracranial bleeding, delirium
MDM/Problems Addressed:
88-year-old female presenting the emergency department for evaluation of altered mental status, generalized weakness and multiple falls over the last few days. Similar presentation a few months ago requiring admission. Patient found to be
hypothermic. Sepsis workup initiated. Marvin hugger ordered for temperature control. CT of the head ordered given the right-sided abrasion and on Eliquis after experiencing multiple falls. Anticipate admission
Chronic conditions affecting care: Arrhythmia and Neurological disorder
Acute Exacerbation and/or Progression of Chronic Illness: Arrhythmia and Neurological disorder
<Patrice Valdez PA-C - Last Filed: 12/30/23 13:32>
*Radiology
Radiology exam reviewed: radiology read reviewed
*Pulse Oximetry
Patient hypoxic: no
*EKG
Interpreted by ED Provider?: Yes
Comparison EKG: no changes
Heart Rate: 56
Rate: bradycardiac
Rhythm: a-fib
[place]: normal axis
Ischemia: no ischemia
*Football Scout Interpretation
Rate: normal
Rhythm: a-fib
*Critical Care Note
Total Time (30-74mins, 75-104mins- exclusive of procedures): 32
comment:
Critical care statement: A total of 32 minutes of critical care time was provided for this patient. This includes management of unstable vital signs, evaluation of the patient at bedside, reviewing the patient's pertinent medical records, discussion
with consultants, review of old EKGs and review of pertinent medical records. This time with separate from time utilized to perform the aforementioned documented procedures
Data Reviewed
Review of Other/Old Records Reveals: Labs, Records and Discharge Summary
<Patrice Valdez PA-C - Last Filed: 12/30/23 13:32>
Patient Management
Discussion with other providers: Hospitalist and [employer] Optics Jointer
Escalation/DeEscalation of care consider admission/obs:
9:40 AM: Informed by nursing staff that patient's blood pressure now dropping at 72/47. Pressure bag of normal saline was ordered and given. Shortly thereafter patient was noted to have a transient heart rate in the 30s. We were going to give a
dose of atropine however patient's heart rate responded spontaneously went back to between 55 and 72 bpm. Due to the continued hypotension Levophed to be initiated. Patient to be admitted to the ICU. Hospitalist team and hose suspender cutter were notified.
ED Attending Note
<Patrice Valdez PA-C - Last Filed: 12/30/23 13:32>
-
Portions of this chart may have been created with voice recognition software.� Occasional wrong word or��sound alike� substitutions may have occurred due to the inherent limitations of voice recognition software.
<Will Crabtree DO - Last Filed: 12/30/23 14:22>
ED Attending Note
Patient seen and examined by attending physician: Yes
ED Attending Note:
I have reviewed and agree with patient treatment plan by Juanito Valdez. My exam revealed hypothermia, patient alert and oriented with hypotension. No clear source of infection, however concern for sepsis. Similar presentation in the past. Admit
to ICU for further monitoring and treatment.
Discharge Plan
Departure
Patient Disposition: Admit
Date of Disposition: 12/30/23
Time of Disposition: 09:46
Presentation/result/management discussed w/ accepting MD/DO: Hospitalist
Discharge Problem:
Hypothermia, Septic shock
Interventions
Interventions:
*Risk Screen - Suicide Last Done: 12/30/23 08:26
*General Assessment Last Done: 12/30/23 08:25
*Neglect/Abuse Screening Last Done: 12/30/23 08:25
ED- Fall Risk Assessment Last Done: 12/30/23 08:26
*ED COVID-19 Vaccine History Last Done: 12/30/23 08:25
*Nursing Disposition Last Done: 12/30/23 12:40
ED- Pulmonary Assessment Last Done: 12/30/23 09:00
ED- Neurological Assessment Last Done: 12/30/23 09:00
ED- Cardiac Assessment Last Done: 12/30/23 09:00
Discharge Date and Time
Discharge Date/Time: 12/30/23 12:40
[2023-12-30 09:08] LABS: % Basophils 0.1 % (0-2); % Eosinophils 0.3 % (0-6); % Immature Granulocytes 0.4 % (0-0.5); % Lymphocytes 11.3 % (20.5-51.1); % Monocytes 4.1 % (1.7-9.3); % Neutrophils 83.8 % (42.2-75.2); Absolute Lymphocytes 0.8 10^3/uL (1.2-3.4); Absolute Monocytes 0.3 10^3/uL (0.1-0.6); Absolute Neutrophils 5.9 10^3/uL (1.4-6.5); Hematocrit 35.6 % (37.0-47.0); Hemoglobin 11.4 g/dL (12.0-16.0); Mean Corpuscular Hgb 31.7 pg (27.0-31.0); Mean Corpuscular Volume 98.9 fL (81.0-99.0); Mean Platelet Volume 11.5 fL (7.4-10.4); Nucleated Red Blood Cells % 0 %; Platelet Count 125 10^3/uL (130-400); Red Cell Dist. Width 16.2 % (11.5-14.5); White Blood Cell Count 7.1 10^3/uL (4.8-10.8)
[2023-12-30 09:14] LABS: Lactic Acid 1.2 mmol/L (0.7-2.0)
[2023-12-30 09:20] LABS: ALT (SGPT) 34 U/L (0-35); AST (SGOT) 46 U/L (14-36); Albumin 3.4 g/dl (3.5-5.0); Alkaline Phosphatase 154 U/L (38-126); Blood Urea Nitrogen 34 mg/dl (7-17); Calcium 9.8 mg/dl (8.4-10.2); Carbon Dioxide 32 mmol/L (22-30); Chloride 105 mmol/L (98-107); Estimated Creatinine Clearance 64 ml/min; Glucose 108 mg/dl (70-99); Sodium 141 mmol/L (135-145); Total Bilirubin 0.6 mg/dl (0.2-1.3); Total Protein 5.8 g/dl (6.3-8.2); eGFR > 60.00
[2023-12-30 09:45] LABS: Urine Albumin Negative (Neg - Trace); Urine Bilirubin Negative (Negative); Urine Character Clear (Clear); Urine Color Yellow; Urine Glucose Negative (Negative); Urine Ketone Negative (Negative); Urine Leukocyte Negative (Negative); Urine Nitrite Negative (Negative); Urine Occult Blood Negative (Negative); Urine Urobilinogen 2+ (Neg - 1+)
[2023-12-30] MEDS: NSS 1000 IV ×2 (09:48→13:30)
[2023-12-30] MEDS: LEVOPHED 250 IV (09:49)
[2023-12-30 09:50] LABS: TSH 5.61 uIU/ml (0.47-4.68)
[2023-12-30] MEDS: ZOSYN 50 IV ×3 (10:08→23:03)
--- NOTE | 2023-12-30 10:14 | HPS.HSE ---
Family Physician
-
Family Physician: Joce Payne
Chief Complaint
-
Change in mental status
History of Present Illness
Generalized weakness and falls and also mental status change with confusion and unable to take care of herself at home. Per daughter there was a similar presentation 3 months ago. She was advised to go on hospice at that time. Daughter states
that she made appointment and got home after 1 week. She is been functional at home, then started getting really weak and not able to care for herself. She has been undergoing workup with neurology and is scheduled to get a nerve conduction study
next week patient denies any pain or any other symptoms. She also had a fall yesterday evening in the bathroom , head against the plastic garbage can.
Medical History
Past Medical History
Past Medical History: Reports Other
Additional Past Medical History:
Sleep apnea-aortic stenosis, atrial fibrillation, history of constipation, history of uterine cancer, osteoarthritis, history of shingles, evaluation, CLL, hypothyroidism, according to dysfunction, history of delirium, history of hypothermia,
osteoporosis, COPD, history of CVA on Previous MRI
Past Surgical History: Reports Other
Additional Past Surgical History:
Cholecystectomy, lysis of adhesions, appendectomy, bilateral total knee replacement, hysterectomy, right hip injection, cardia catheterization, stent in LAD and RCA
Social History
Tobacco: Former Smoker
Family History
Family History: CAD (father) and Diabetes (father)
Allergies / Home Medications
Allergies reflects when Allergies were last updated in [facility].
Home Medications with original date entered in [facility]
Allergy/Medication List:
Allergies
Allergy/AdvReac Type Severity Reaction Status Date / Time
amoxicillin Allergy Nausea / Verified 12/30/23 08:12
Vomiting
loratadine [From Claritin] Allergy Nausea / Verified 12/30/23 08:12
Vomiting
Home Medications
multivitamin with folic acid 400 mcg tablet (Tab-A-Mandy) 1 tab PO DAILY Supplement ##0 0504/12
apixaban 5 mg tablet (Eliquis) 5 mg PO BID ##60 11/22/17
cholecalciferol (vitamin D3) 25 mcg (1,000 unit) tablet 2,000 units PO DAILY Supplement 05/18/21
amiodarone 200 mg tablet (Pacerone) 100 mg PO DAILY Arrhythmia 06/25/23
vit C 226 mg-vit E 90 mg-copper 0.8 mg-zinc oxide-lutein 5 mg capsule (PreserVision Lutein) 1 cap PO BID Supplement 06/25/23
clopidogrel 75 mg tablet 75 mg PO DAILY #90 tabs 08/22/23
pantoprazole 40 mg tablet,delayed release 40 mg PO DAILY #90 tabs 08/22/23
calcium carbonate (Calcium 600) 600 mg PO BID Supplement 10/03/23
levothyroxine 75 mcg tablet (Synthroid) 50 mcg PO DAILY #30 tabs 10/06/23
metoprolol succinate 25 mg tablet,extended release 24 hr 25 mg PO BID 30 days #60 tabs 10/06/23
Benefiber (guar gum) 2 tsp PO DAILY 12/30/23
ascorbic acid (vitamin C) 500 mg tablet (Vitamin C) 500 mg PO DAILY 12/30/23
atorvastatin 10 mg tablet 10 mg PO DAILY 12/30/23
furosemide 40 mg tablet (Lasix) 40 mg PO DAILY 12/30/23
melatonin 3 mg tablet 3 mg PO HS 12/30/23
pyridoxine (vitamin B6) 100 mg tablet (Vitamin B-6) 100 mg PO DAILY 12/30/23
trazodone 50 mg tablet 50 mg PO HS PRN as directed 12/30/23
Review of Systems
-
Unable to obtain full review of systems at this time due to: Dementia
Physical Exam
Vital Signs
Vital Signs
Temp Pulse Resp BP Pulse Ox
92.5 F L 61 17 77/33 93
12/30/23 08:40 12/30/23 09:55 12/30/23 09:55 12/30/23 09:55 12/30/23 09:50
Physical Exam
General: No Apparent Distress
HEENT: Other (ectropion B/L)
Respiratory: Decreased Breath Sounds (right base)
Cardiac: S1/S2 and Irregular Rhythm
GI: Soft, Non Tender and Normal Bowel Sounds
Skin: Ulcers (walsh) and Other (Multiple areas of small ecchymosis on bilateral lower extremities and face, fungal rash inguinal area)
Neuro: Awake; No No Motor Deficits, Slurred Speech or Facial Droop
Psych: Confused
Laboratory Results
-
12/30/23 08:51
12/30/23 08:51
Laboratory Results
Lactic Acid 1.2 mmol/L (0.7-2.0) 12/30/23 08:51
Total Bilirubin 0.6 mg/dl (0.2-1.3) 12/30/23 08:51
AST 46 U/L (14-36) H 12/30/23 08:51
ALT 34 U/L (0-35) 12/30/23 08:51
Alkaline Phosphatase 154 U/L (38-126) H 12/30/23 08:51
Data Reviewed
-
Diagnostic Radiology: Image Personally Visualized and interpreted (Right-sided pleural effusion/consolidation, cardiomegaly)
CT Scan: Report Reviewed by me (Head CT-no evidence of acute intracranial hemorrhageMultiple small chronic ischemic infarctions evident, severe white matter leukoaraiosis, mild diffuse hypertensive in the morning dose, severe bilateral hyperostosis
frontalis interna)
MRI: Report Reviewed by me (MRI of the brain 10/05/2023-moderate diffuse cerebral and cerebellar volume loss greatest in the temporal lobes consistent with chronic neurodegenerative disease possible Alzheimer's dementia. Severe white matter
leukoaraiosis in the frontal and details. Multiple small chronic infarcts in the both c)
Medical Tests (Nuc Med, Echo, EKG etc): Image Personally Visualized and interpreted (EKG-atrial fibrillation with rate of [address]-T changes)
Impression/Plan
-
IMPRESSION/PLAN:
# Hypothermia, hypotension-shock
Possibly secondary to pneumonia and septic shock
Levophed
IV fluids
Warming blanket on-continue
Lactic acid normal
Hold Lasix
# Right lower lobe effusion/consolidation
CXR reviewed by me.
Treat as pneumonia with Zosyn and doxycycline
Speech evaluation to rule out aspiration-daughter did notice patient cough with eating
Ultrasound of the chest to rule out effusion if so Do thoracentesis
Check echo
# Patient was getting workup for myasthenia as outpatient. Check acetylcholine receptor antibody
# Cognitive dysfunction-dementia likely vascular versus other
History of delirium last hospitalization
At risk again this admission
# Hypothyroidism-on 75 mcg of Synthroid with slightly elevated TSH.
Daughter states that Synthroid was adjusted 3 weeks ago therefore will not make any further adjustments now.
# Coronary artery disease with history of stents to LAD and RCA August 2023-check troponin, echo
Continue Plavix, statin. Hold metoprolol given hypotension
# Aortic stenosis and MR
# Persistent atrial fibrillation-on amiodarone, Eliquis, metoprolol as outpatient
Hold metoprolol. Continue amiodarone and Eliquis
# Mild thrombocytopenia-watch
# Sleep apnea-CPAP
# History of strokes per previous MRI-continue Plavix, statin
# CLL
# Insomnia-trazodone at bedtime as needed
# Ectropion-Artificial tears
# History of uterine cancer
# osteoarthritis/Ambulatory dysfunction/osteoporosis
# Ex-smoker
# DVT prophylaxis-Eliquis
# CODE STATUS-addressed with the daughter. She wants her to be DNI this admission
I reviewed about the MRI brain findings. We discussed about vascular dementia. Daughter feels that last admission she was advised to be hospice however she got better and got home able to function. Therefore she wants to keep her is DNI.
Discussed with daughter at bedside
Discussed with ER nursing
cc time 55 min
[2023-12-30] MEDS: VANCOCIN 540 MG IV (10:55)
[2023-12-30 12:27] LABS: Troponin I < 0.012 ng/ml
[2023-12-30] MEDS: PROTONIX 40 MG PO (13:28)
[2023-12-30] MEDS: REFRESH CELLUVISC GEL 1 DROPS BOTH EYES ×3 (13:29→20:01)
[2023-12-30] MEDS: SYNTHROID 75 MCG PO (13:29)
[2023-12-30] MEDS: ELIQUIS 5 MG PO ×2 (13:29→20:00)
[2023-12-30] MEDS: LOTRIMIN 1% CREAM 1 APPLIC TOPICAL ×2 (15:08→20:10)
[2023-12-30] MEDS: VIBRAMYCIN 100 MG PO ×2 (15:08→20:00)
[2023-12-30 17:54] LABS: Troponin I < 0.012 ng/ml
[2023-12-30] MEDS: COLACE PO (20:10)
[2023-12-30] MEDS: OCUVITE SOFTGEL PO (20:11)
[2023-12-30] MEDS: SENOKOT PO (20:11)
[2023-12-30] MEDS: MELATONIN PO (20:12)
[2023-12-31] VITALS (37 sets, daily range): BP systolic 81–132; BP diastolic 53–117; PULSE 2–88; BMI 33.5
[2023-12-31] MEDS: NSS 1000 IV ×2 (02:29→15:28)
[2023-12-31] MEDS: LEVOPHED 250 IV (02:29)
[2023-12-31] MEDS: ZOSYN 50 IV ×4 (04:33→21:27)
--- NOTE | 2023-12-31 05:50 | PTCARENOTE ---
Patient able to take pills with applesauce. Pt needs reminding to keep eyes open; eyes appear very red with yellow drainage. Pt restless at times. Spray Pilot onto bed side rails. This morning pt swinging arms at staff when staff attempting to draw
morning labs and provide víctor care. Oriented to place, time and situation. Pt unable to comprehend. Pt appears to have visual hallucinations, reaching out in the air with her arms.
Tolerated CPAP HS. Voiding via purewick. Repositioned throughout the night, heels floated. Skin appears fragile and very ecchymotic all over, both hands are red in color. Tele showing Afib HR 70-110s.
Titrating Levophed per protocol for MAP >65.
RN sitting outside closest nursing station. Bed alarm set. Call del valle within reach, reminded how to use if need assistance.
[2023-12-31 05:55] LABS: Hematocrit 35.3 % (37.0-47.0); Hemoglobin 11.7 g/dL (12.0-16.0); Mean Corp Hgb Conc. 33.1 g/dL (33.0-37.0); Mean Corpuscular Hgb 32.3 pg (27.0-31.0); Mean Corpuscular Volume 97.5 fL (81.0-99.0); Platelet Count 119 10^3/uL (130-400); Red Blood Cell Count 3.62 10^6/uL (4.20-5.40); Red Cell Dist. Width 17.1 % (11.5-14.5); White Blood Cell Count 5.9 10^3/uL (4.8-10.8)
[2023-12-31 06:13] LABS: Blood Urea Nitrogen 25 mg/dl (7-17); Calcium 9.4 mg/dl (8.4-10.2); Carbon Dioxide 28 mmol/L (22-30); Chloride 109 mmol/L (98-107); Estimated Creatinine Clearance 65 ml/min; Glucose 97 mg/dl (70-99); Magnesium 1.7 mg/dl (1.6-2.3); Potassium 4.1 mmol/L (3.5-5.1); Sodium 142 mmol/L (135-145); eGFR > 60.00
[2023-12-31 07:03] LABS: Vitamin B12 638 pg/ml (239-931)
--- NOTE | 2023-12-31 09:32 | W.PN.HOSP.TC ---
Addendum entered and electronically signed by Harsh Manzano MD 12/31/23 15:58:
Right coccyx/buttocks stage 2 PI, POA
Original Note:
Today's Communication/Plan
-
see bold
Assessment / Plan
Assessment / Plan
Gen: NAD, awake, minimally alert, NCAT
Eyes: EOMI, PERRLA, no scleral icterus.
Neck: supple.
CV: RRR, +S1/S2, no m/r/g.
Resp: CTAB anteriorly, no rales, wheezes, or rhonchi.
Abd: +BS, soft, NT, ND
Skin: No rashes. firm lesion L leg.
Neuro: CN 2-12 intact, non-focal.
Psych: flat affect
CXR:
1. MODERATE-SIZED RIGHT PLEURAL EFFUSION and adjacent large right lower and middle lobe airspace consolidations which have increased in size since 10/03/2023.
2. Moderate to severe cardiomegaly with evidence for mild cardiogenic pulmonary edema.
3. Severe calcific atherosclerotic plaque in the coronary arteries and thoracic aorta.
4. 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
Septic shock due to R-sided PNA:
-just weaned off Levophed
-cont IVFs
-c/s IR for Dx R thoracentesis
-cont Zosyn/Doxy
-speech eval, recs NPO
-check echo
CAD:
-with h/o stents to LAD and RCA August 2023
-troponin NEG x 2
-check echo
-cont Plavix/statin
-BB on hold with hypotension
LLE lesion:
-wound care with concern for OM
-check MRI LLE
Other problems:
Patient was getting workup for myasthenia as outpatient. acetylcholine receptor antibody pending.
Cognitive dysfunction (likely dementia, unknown type)
Hypothyroidism: cont Synthroid
MR
Persistent atrial fibrillation: cont amiodarone/Eliquis. BB on hold.
Mild thrombocytopenia
EFRAIN: cont CPAP
h/o CVAs per previous MRI: continue Plavix/statin
h/o CLL
h/o uterine cancer
Osteoarthritis
Ambulatory dysfunction
Osteoporosis
DNI/Eliquis
Anticipated Discharge: > 48 hours
Subjective/Interval History
-
Date of Service: December 31, 2023
Objective Data
-
Labs:
Laboratory Results
12/31/23
05:31
WBC 5.9
Hgb 11.7 L
Hct 35.3 L
Plt Count 119 L
Sodium 142
Potassium 4.1
Chloride 109 H
Carbon Dioxide 28
BUN 25 H
Creatinine 0.6
Glucose 97
Calcium 9.4
Vital Signs:
Vital Signs
Temp Pulse Resp BP Pulse Ox
96.3 F L 71 18 95/64 93
12/31/23 07:25 12/31/23 08:45 12/31/23 08:45 12/31/23 08:33 12/31/23 08:45
I&O
12/30/23 12/31/23 01/01/24
06:59 06:59 06:59
Intake Total 855 / 855
Output Total 300 / 300
Balance 555 / 555
[2023-12-31] MEDS: SYNTHROID PO (09:55)
[2023-12-31] MEDS: ELIQUIS PO (09:56)
[2023-12-31] MEDS: COLACE PO ×2 (09:56→21:26)
[2023-12-31] MEDS: LIPITOR PO (09:56)
[2023-12-31] MEDS: LOTRIMIN 1% CREAM 1 APPLIC TOPICAL ×2 (09:57→21:27)
[2023-12-31] MEDS: MIRALAX PO (09:58)
[2023-12-31] MEDS: OCUVITE SOFTGEL PO ×2 (09:58→21:27)
[2023-12-31] MEDS: PLAVIX PO (09:58)
[2023-12-31] MEDS: PROTONIX PO (09:58)
[2023-12-31] MEDS: PACERONE PO (09:58)
[2023-12-31] MEDS: REFRESH CELLUVISC GEL 1 DROPS BOTH EYES ×4 (10:00→21:29)
[2023-12-31] MEDS: VIBRAMYCIN PO (10:00)
[2023-12-31] MEDS: THERAGRAN PO (10:00)
[2023-12-31] MEDS: SENOKOT PO ×2 (10:00→21:27)
--- NOTE | 2023-12-31 10:00 | WOUNDNOTE ---
L CALF (LOWER MEDIAL ANTERIOR)(with photo flash)
--- NOTE | 2023-12-31 10:00 | WOUNDNOTE ---
L CALF (MEDIAL ANTERIOR)
--- NOTE | 2023-12-31 10:00 | WOUNDNOTE ---
L CALF (LOWER ANTERIOR MEDIAL)
[2023-12-31] MEDS: VITAMIN C PO (10:01)
[2023-12-31] MEDS: VITAMIN D3 (cholecalciferol) PO (10:01)
[2023-12-31] MEDS: VITAMIN B-6 PO (10:01)
--- NOTE | 2023-12-31 10:02 | PTCARENOTE ---
Addendum entered by Liz Stevens RN 12/31/23 10:44:
Patient was able to take a few pills by mouth with apple sauce. Speech assessed and patient is NPO at this time except for oral medications.
Original Note:
Patient is now off bipap , pulse ox 93% on room air. Weaned off levophed, MAP is 81, 117/69. However patient has eyes open and is not able follow commands, nonverbal at this time. Unsafe to eat or take oral medications at this time. Kept NPO and
speech eval in progress.
[2023-12-31] MEDS: ELIQUIS 5 MG PO ×2 (10:32→20:42)
[2023-12-31] MEDS: PLAVIX 75 MG PO (10:33)
[2023-12-31] MEDS: VIBRAMYCIN 100 MG PO ×2 (10:33→20:42)
[2023-12-31] MEDS: PROTONIX 40 MG PO (10:33)
[2023-12-31] MEDS: LIPITOR 10 MG PO (10:35)
[2023-12-31] MEDS: SYNTHROID 75 MCG PO (10:37)
[2023-12-31] MEDS: PACERONE 100 MG PO (10:38)
[2023-12-31] MEDS: ERYTHROMYCIN 0.5% OPHTHALMIC OINTMENT 1 APPLIC OPHTH ×3 (10:40→21:29)
--- NOTE | 2023-12-31 10:46 | PTCARENOTE ---
Patients eyes have yellow discharge with reddened conjuctiva. Dr. Manzano notified. Eyes cleansed and new order for eye drops obtained.
--- NOTE | 2023-12-31 10:50 | WOUNDNOTE ---
[facility] RN note: Patient seen around 10:00am. Patient admitted with shock, R lower lobe effusion, weakness, falls. Patient lives with her daughter.
See H&P for complete history.
PMH: sleep apnea, aortic stenosis, a fib (Eliquis), constipation, Shingles, CLL, osteoporosis, COPD, CVA, bilateral TKR, R hip injection, cardiac stents, former smoker, dementia, aortic stenosis, uterine cancer, basal cell cancer removal LLE 3
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
Wound Location and type/assessment: Patient admitted with: chronic L medial calf small ulcers with 1 deeper small ulcer, mostly pink with some bleeding. Skin dull red with induration around ulcers. R walsh small scabbed area. +Palpable pedal pulses.
05/16/23 arterial Doppler R FORREST 1.04, R toe .76; L FORREST 1.26, L toe .73. LLE venous Doppler negative for DVT. R coccyx/buttocks scabbed stage 2 pressure injury, sacrum blanchable red. R plantar foot neuropathic dry liner pink dermal ulcer. L
flank bruise. L upper ear bruise and abrasion. MASD L abdominal/groin.
Appetite: currently NPO.
Pressure redistribution devices in place: Centrella Max air bed. Patient does not assist with turning.
Plan: Patient incontinent of loose brown stool. Vandana care given. Silicone border foam applied to sacrum and R plantar foot ulcer. LLE dressing changed. Patient turned to R semi side lying position with help from RICHIE Hill. Heels off bed with pillow.
Air chair cushion given.
Updated and confirm orders with Dr. Manzano who will evaluate LLE; patient's daughter stated she thinks patient's basal cell cancer removal on LLE about 3 yrs ago and patient has not followed up with Dr. Carrizales. Dr. Manzano approved local care and
bilateral knee high Tubigrip. Patient wears Tubigrip at home.
Updated care plan and will follow as needed.
Note to case management requested for discharge: VN if goes home.
Recommend follow up at wound care center upon discharge.
--- NOTE | 2023-12-31 10:55 | PTOTSP ---
ST Acute Care Evaluation
Pt currently presents with mild to moderate oropharyngeal dysphagia characterized by reduced oral acceptance, reduced labial control around edge of cup, reduced sucking strength, reduced oral awareness, and possible reduced oral containment
resulting in posterior loss - unable to confirm at bedside. Pt is at an increased risk for aspiration given current altered mental status.
Recommendations:
- NPO x meds crushed in puree
- ARHP - ice chips and thin liquids via tsp as requested only AFTER oral care has been completed.
- Strict aspiration precautions: HOB upright as often as possible, oral care q2 hours, prompt pt to swallow if she is pooling secretions in her mouth or use suctioning as needed.
- No immediate need for entec/dobhoff - pt appears to be improving and hopefully a PO diet will be able to be initiated within the next day or two.
- INSURANCE ACCOUNT EXECUTIVE will continue to follow closely.
--- NOTE | 2023-12-31 13:41 | PTCARENOTE ---
Patients temperature is 94.8 rectally. Marvin dsouza applied, Dr. Manzano notified. In addition patients heart rate dropped to 30s and then increased back up to baseline. Dr. Manzano notified. Spoke to IR about temperature and heart rate, stated they will
come up to do procedure at bedside. MRI to be completed today as well.
--- NOTE | 2023-12-31 14:46 | PN.CDI ---
CDI
- -
CDI:
Physician Documentation Request
Admit Date: 12/30/23 11:18
Dear Doctor Natacha,
Please review the following and provide your response in the progress notes.
Clinical Indicators:
12/31/23 10:50 (created 12/31/23 11:06) - Wound Note
Wound Location and type/assessment:
#Patient admitted with: chronic L medial calf small ulcers with 1 deeper small ulcer,
#...mostly pink with some bleeding.
#...Skin dull red with induration around ulcers. R walsh small scabbed area.
#...+Palpable pedal pulses. 05/16/23 arterial Doppler R FORREST 1.04, R toe .76; L FORREST 1.26,
#...L toe .73. LLE venous Doppler negative for DVT.
#R coccyx/buttocks scabbed stage 2 pressure injury, sacrum blanchable red.
#R plantar foot neuropathic dry liner pink dermal ulcer.
#L flank bruise.
#L upper ear bruise and abrasion.
#MASD L abdominal/groin.
Physician documentation of the type and location of wounds is required for compliant documentation. Based on the above clinical findings and your assessment, please provide the following in your progress note:
Yes, Right coccyx/buttocks stage 2 PI, POA
No, Right coccyx/buttocks stage 2 PI
Other (please specify all clinical findings)
1. Location of the ulcer/wound, including laterality.
2. Type (etiology) of ulcer/wound:
- Diabetic ulcer
- Arterial (ischemic) ulcer
- Traumatic wound
- Venous stasis ulcer
- Pressure (decubitus) ulcer
3. For a non-pressure ulcer, please indicate the depth/severity:
- Limited to the breakdown of skin
- With fat layer exposed
- With necrosis of muscle
- With necrosis of bone
4. If a pressure ulcer, please also include the stage* of the ulcer:
- Stage 1 - Skin intact, non-blanchable redness
- Stage 2 - Partial thickness loss of dermis, includes intact or open blister
- Stage 3 - Full thickness tissue not including bone, tendon or muscle
- Stage 4 - Full thickness tissue loss, including exposed bone, tendon or muscle
Use of terms such as suspected, likely, concern for, or probable (associated with a specific diagnosis that is being evaluated, monitored, or treated as if it exists) are acceptable and can be coded in the inpatient setting, when documented at the
time of discharge.
Thank you,
Maria Elena Chowdary RN BSN CCDS
CDI Specialist
please contact via tiger text
Please use your independent medical judgment in providing your response.
*Source: National Pressure Ulcer Advisory Panel (NPUAP)
--- NOTE | 2023-12-31 16:49 | CM ---
Patient with Dx Septic shock due to R-sided PNA, LLE lesion. O2 2L. NPO. Receiving IV Abx. Per nurse assessment; confused, forgetful. Marvin dsouza. Seen by wound care nurse.
Met with patient who appeared drowsy & not conversational.
Spoke with patient's daughter Maria Elena Whipple;
the patient resides with her daughter and grandson in a one story house with 12 [address].
The patient has been assisted with ADLs such as dressing by her daughter, and ambulates independently using her RW.
The patient has a hospital bed but doesn't like it so sleeps in her recliner.
Other DME - w/c, shower chair, raised toilet seat
VN - recent [facility] for SN & PT
SNF - prior [facility] and [facility]
PCP - Joce Payne
Pharmacy - [facility]
If SNF is needed for rehab daughter would like [facility] again.
Patient will benefit from PT/OT Evals when less medically acute.
Plan follow patient's progress, O2 needs, mobility.
Plan TBD.
[2023-12-31 17:18] LABS: LDH 252 U/L (120-246); Total Protein 4.9 g/dl (6.3-8.2)
[2023-12-31] MEDS: MELATONIN PO (21:29)
[2024-01-01] VITALS (17 sets, daily range): BP systolic 88–119; BP diastolic 55–83; PULSE 2–90; BMI 32.8
--- NOTE | 2024-01-01 01:39 | PTCARENOTE ---
In beginning of shift Pt appearing to be much more alert then previous night. Around 2100 pt appearing to be drowsy, responding to vocal and tactile stimulation. Pt able to get down only some of her night time medications. Mouth care provided and
BiPAP placed on. Pt temp dropping to 96.6 with goal of 97.0. Marvin hugger placed on Pt, temp rising to 97.4. Marvin hugger now on hold. pt having softer Bp's, 90/60's, asymptomatic when woken from sleep. Call del valle placed within reach. bed in lowest
position. Assessment care and vitals as charted.
[2024-01-01] MEDS: ZOSYN 50 IV ×4 (03:57→21:23)
[2024-01-01] MEDS: NSS 1000 IV ×2 (03:58→17:04)
[2024-01-01] MEDS: VITAMIN C PO (08:06)
[2024-01-01] MEDS: THERAGRAN PO (08:06)
[2024-01-01] MEDS: VITAMIN B-6 PO (08:06)
[2024-01-01] MEDS: REFRESH CELLUVISC GEL 1 DROPS BOTH EYES ×4 (08:07→20:32)
[2024-01-01] MEDS: SENOKOT PO (08:07)
[2024-01-01] MEDS: PACERONE 100 MG PO (08:07)
[2024-01-01] MEDS: ELIQUIS 5 MG PO ×2 (08:07→20:32)
[2024-01-01] MEDS: LOTRIMIN 1% CREAM 1 APPLIC TOPICAL ×2 (08:08→20:38)
[2024-01-01] MEDS: MIRALAX PO (08:08)
[2024-01-01] MEDS: OCUVITE SOFTGEL PO (08:08)
[2024-01-01] MEDS: COLACE PO (08:09)
[2024-01-01] MEDS: ERYTHROMYCIN 0.5% OPHTHALMIC OINTMENT 1 APPLIC OPHTH ×4 (08:09→20:33)
[2024-01-01] MEDS: VIBRAMYCIN 100 MG PO ×2 (08:10→20:32)
[2024-01-01] MEDS: VITAMIN D3 (cholecalciferol) PO (08:10)
[2024-01-01] MEDS: PROTONIX 40 MG PO (08:10)
[2024-01-01] MEDS: LIPITOR 10 MG PO (08:10)
[2024-01-01] MEDS: PLAVIX 75 MG PO (08:10)
[2024-01-01] MEDS: SYNTHROID 75 MCG PO (08:16)
--- NOTE | 2024-01-01 11:17 | W.PN.HOSP.TC ---
Today's Communication/Plan
-
see bold
Assessment / Plan
Assessment / Plan
Gen: NAD, awake, minimally alert, NCAT
Eyes: EOMI, PERRLA, no scleral icterus.
Neck: supple.
CV: RRR, +S1/S2, no m/r/g.
Resp: CTAB anteriorly, no rales, wheezes, or rhonchi.
Abd: +BS, soft, NT, ND
Skin: No rashes. firm lesion L leg.
Neuro: CN 2-12 intact, non-focal.
Psych: flat affect
12/30/23 08:57 Blood/Venous Blood Culture - Preliminary
No Growth in 48 hours- Final report to follow
12/30/23 08:51 Blood/Venous Blood Culture - Preliminary
No Growth in 48 hours- Final report to follow
CXR:
1. MODERATE-SIZED RIGHT PLEURAL EFFUSION and adjacent large right lower and middle lobe airspace consolidations which have increased in size since 10/03/2023.
2. Moderate to severe cardiomegaly with evidence for mild cardiogenic pulmonary edema.
3. Severe calcific atherosclerotic plaque in the coronary arteries and thoracic aorta.
4. 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
Echo: Normal left ventricular size and systolic function. Mild to moderate
concentric left ventricular hypertrophy. No regional wall motion abnormalities
are seen. LV ejection fraction is 65-70% by José's method of discs.
Diastolic function indeterminate due to atrial fibrillation.
Thickened mitral valve leaflets. Posterior mitral annular calcification. Mild
to moderate mitral regurgitation.
Severely dilated left atrium.
Trileaflet aortic valve. Thickened aortic valve with restricted leaflet motion.
Calcified aortic valve. Peak/mean gradients across the aortic valve are 43/24
mmHg. The aortic valve by the Continuity equation is calculated at 0.7 cm sq
using an LVOT diameter of 1.9 cm. Trace aortic regurgitation.
Tricuspid valve opens normally. Moderate tricuspid regurgitation. PA systolic
60 mmHg assuming right atrial pressure of 8 mmHg.
Severely dilated right atrium.
Enlarged right ventricular size. Normal right ventricular systolic function.
Since echocardiogram May 2023, there is little change.
Septic shock due to R-sided PNA:
-was on Levophed, now off
-cont IVFs (increase to 125cc/hr with hypotension)
-IR to Dx R thoracentesis once pt is hemodynamically stable enough for the procedure
-cont Zosyn/Doxy
-speech eval, recs NPO
-echo above, unchanged from prior
-c/s ID
CAD:
-with h/o stents to LAD and RCA August 2023
-troponin NEG x 2
-echo above, unchanged from prior
-cont Plavix/statin
-BB on hold with hypotension
LLE lesion:
-wound care with concern for OM
-check MRI LLE (once stable enough for this study)
Other problems:
Patient was getting workup for myasthenia as outpatient. acetylcholine receptor antibody pending.
Cognitive dysfunction (likely dementia, unknown type)
Hypothyroidism: cont Synthroid
MR
Persistent atrial fibrillation: cont amiodarone/Eliquis. BB on hold.
Mild thrombocytopenia
EFRAIN: cont CPAP
h/o CVAs per previous MRI: continue Plavix/statin
h/o CLL
h/o uterine cancer
Osteoarthritis
Ambulatory dysfunction
Osteoporosis
DNI/Eliquis
Case discussed at length with the daughter over the phone. I explained that the patient's overall prognosis is extremely poor. I did encourage that she either choose full code or DNR as opposed to limited DNR at this time. Many questions were
asked and answered.
Total time spent on today's encounter was 50 minutes which included time spent in counseling the patient/family regarding diagnosis and treatment plan as listed above, goals of care, and symptom management. Case was discussed with nursing staff,
specialists, and care coordinators/case management. All labs and imaging personally reviewed by me. Remainder the time spent in detailed review of previous records, lab data, imaging, and other medical provider documentation.
Anticipated Discharge: > 48 hours
Subjective/Interval History
-
Date of Service: January 01, 2024
Objective Data
-
Labs:
Laboratory Results
01/01/24
11:14
WBC Pending
Hgb Pending
Hct Pending
Plt Count Pending
Sodium Pending
Potassium Pending
Chloride Pending
Carbon Dioxide Pending
BUN Pending
Creatinine Pending
Glucose Pending
Calcium Pending
Vital Signs:
Vital Signs
Temp Pulse Resp BP Pulse Ox
98.1 F 91 22 88/59 93
01/01/24 07:21 01/01/24 06:14 01/01/24 06:14 01/01/24 06:14 01/01/24 06:14
I&O
12/31/23 01/01/24 01/02/24
06:59 06:59 06:59
Intake Total 855 / 855 1924
Output Total 300 / 300
Balance 555 / 555 1924
--- NOTE | 2024-01-01 14:05 | PTOTSP ---
Speech Language Pathology
Pt seen for dysphagia tx. Awake upon arrival. Pleasant and cooperative with some confused conversation. P.O. trials of puree, regular solids, and thin liquids via cup/straw provided. Adequate mastication, bolus formation, and A-P transit noted
with trace diffuse oral residue of regular solids, which cleared with a liquid wash. With first trial of consecutive sips of thin liquids, coughing episode noted. Trialed again at end of session with no overt signs of aspiration.
Recommend:
(1) Initiate regular solids/thin liquids
(2) Aspiration precautions: single sips, slow rate, partial supervision
(3) Meds whole in puree
(4) Will consider VSE as needed
(5) EXPLOSIVE ORDNANCE SPECIALIST to continue to follow
[2024-01-01 16:41] LABS: % Basophils 0.4 % (0-2); % Eosinophils 1.1 % (0-6); % Immature Granulocytes 1.8 % (0-0.5); % Lymphocytes 15.8 % (20.5-51.1); % Monocytes 7.9 % (1.7-9.3); Absolute Eosinophils 0.1 10^3/uL (0-0.7); Absolute Immature Granulocytes 0.1 10^3/uL (0-0.05); Absolute Lymphocytes 0.7 10^3/uL (1.2-3.4); Absolute Monocytes 0.4 10^3/uL (0.1-0.6); Absolute Neutrophils 3.3 10^3/uL (1.4-6.5); Hematocrit 34.9 % (37.0-47.0); Hemoglobin 11.1 g/dL (12.0-16.0); Mean Corp Hgb Conc. 31.8 g/dL (33.0-37.0); Mean Corpuscular Hgb 32.4 pg (27.0-31.0); Mean Corpuscular Volume 101.7 fL (81.0-99.0); Mean Platelet Volume 11.2 fL (7.4-10.4); Nucleated Red Blood Cells % 0 %; Platelet Count 101 10^3/uL (130-400); Red Blood Cell Count 3.43 10^6/uL (4.20-5.40); Red Cell Dist. Width 17.2 % (11.5-14.5); White Blood Cell Count 4.6 10^3/uL (4.8-10.8)
[2024-01-01 17:02] LABS: Blood Urea Nitrogen 21 mg/dl (7-17); Calcium 8.8 mg/dl (8.4-10.2); Carbon Dioxide 24 mmol/L (22-30); Chloride 111 mmol/L (98-107); Estimated Creatinine Clearance 64 ml/min; Glucose 101 mg/dl (70-99); Potassium 3.6 mmol/L (3.5-5.1); Sodium 139 mmol/L (135-145); eGFR > 60.00
[2024-01-01] MEDS: COLACE 100 MG PO (20:32)
[2024-01-01] MEDS: SENOKOT 8.59999999999999964 MG PO (20:32)
[2024-01-01] MEDS: OCUVITE SOFTGEL 1 CAP PO (20:33)
[2024-01-01] MEDS: MELATONIN 3 MG PO (20:33)
[2024-01-02] VITALS (30 sets, daily range): BP systolic 67–160; BP diastolic 57–107; PULSE 2–83; BMI 33.6
[2024-01-02] MEDS: NSS 1000 IV ×4 (02:01→22:04)
[2024-01-02] MEDS: SYNTHROID 75 MCG PO (04:38)
[2024-01-02] MEDS: ZOSYN 50 IV ×2 (04:38→09:33)
[2024-01-02 04:45] LABS: Hematocrit 32.7 % (37.0-47.0); Hemoglobin 10.7 g/dL (12.0-16.0); Mean Corp Hgb Conc. 32.7 g/dL (33.0-37.0); Mean Corpuscular Hgb 32.4 pg (27.0-31.0); Mean Corpuscular Volume 99.1 fL (81.0-99.0); Mean Platelet Volume 11.2 fL (7.4-10.4); Platelet Count 94 10^3/uL (130-400); Red Cell Dist. Width 16.8 % (11.5-14.5); White Blood Cell Count 5.2 10^3/uL (4.8-10.8)
[2024-01-02 05:12] LABS: Blood Urea Nitrogen 20 mg/dl (7-17); Calcium 8.5 mg/dl (8.4-10.2); Carbon Dioxide 26 mmol/L (22-30); Chloride 112 mmol/L (98-107); Estimated Creatinine Clearance 65 ml/min; Glucose 77 mg/dl (70-99); Potassium 3.7 mmol/L (3.5-5.1); Sodium 138 mmol/L (135-145); eGFR > 60.00
[2024-01-02] MEDS: PACERONE 100 MG PO (09:31)
[2024-01-02] MEDS: PLAVIX 75 MG PO (09:31)
[2024-01-02] MEDS: PROTONIX 40 MG PO (09:31)
[2024-01-02] MEDS: ELIQUIS 5 MG PO ×2 (09:31→20:12)
[2024-01-02] MEDS: LIPITOR 10 MG PO (09:32)
[2024-01-02] MEDS: VIBRAMYCIN 100 MG PO (09:33)
[2024-01-02] MEDS: REFRESH CELLUVISC GEL 1 DROPS BOTH EYES ×4 (09:35→20:11)
[2024-01-02] MEDS: ERYTHROMYCIN 0.5% OPHTHALMIC OINTMENT 1 APPLIC OPHTH ×4 (09:35→20:11)
[2024-01-02] MEDS: SENOKOT 8.59999999999999964 MG PO (09:55)
[2024-01-02] MEDS: OCUVITE SOFTGEL 1 CAP PO ×2 (09:55→20:12)
[2024-01-02] MEDS: COLACE 100 MG PO ×2 (09:56→20:11)
[2024-01-02] MEDS: VITAMIN B-6 100 MG PO (09:56)
[2024-01-02] MEDS: THERAGRAN 1 TABLET PO (09:56)
[2024-01-02] MEDS: VITAMIN C 500 MG PO (09:56)
[2024-01-02] MEDS: VITAMIN D3 (cholecalciferol) 50 MCG PO (09:56)
[2024-01-02] MEDS: MIRALAX 17 GRAMS PO (09:57)
[2024-01-02] MEDS: LOTRIMIN 1% CREAM 1 APPLIC TOPICAL ×2 (09:57→20:11)
--- NOTE | 2024-01-02 10:00 | W.PN.HOSP.TC ---
Today's Communication/Plan
-
see bold
Assessment / Plan
Assessment / Plan
Gen: NAD, awake and alert NCAT
Eyes: EOMI, PERRLA, no scleral icterus.
Neck: supple.
CV: irreg/irreg, +S1/S2
Resp: CTAB anteriorly, no rales, wheezes, or rhonchi.
Abd: +BS, soft, NT, ND
Skin: No rashes
Neuro: CN 2-12 intact, non-focal.
Psych: flat affect
12/30/23 08:57 Blood/Venous Blood Culture - Preliminary
No Growth in 48 hours- Final report to follow
12/30/23 08:51 Blood/Venous Blood Culture - Preliminary
No Growth in 48 hours- Final report to follow
CXR:
1. MODERATE-SIZED RIGHT PLEURAL EFFUSION and adjacent large right lower and middle lobe airspace consolidations which have increased in size since 10/03/2023.
2. Moderate to severe cardiomegaly with evidence for mild cardiogenic pulmonary edema.
3. Severe calcific atherosclerotic plaque in the coronary arteries and thoracic aorta.
4. 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
Echo: Normal left ventricular size and systolic function. Mild to moderate
concentric left ventricular hypertrophy. No regional wall motion abnormalities
are seen. LV ejection fraction is 65-70% by José's method of discs.
Diastolic function indeterminate due to atrial fibrillation.
Thickened mitral valve leaflets. Posterior mitral annular calcification. Mild
to moderate mitral regurgitation.
Severely dilated left atrium.
Trileaflet aortic valve. Thickened aortic valve with restricted leaflet motion.
Calcified aortic valve. Peak/mean gradients across the aortic valve are 43/24
mmHg. The aortic valve by the Continuity equation is calculated at 0.7 cm sq
using an LVOT diameter of 1.9 cm. Trace aortic regurgitation.
Tricuspid valve opens normally. Moderate tricuspid regurgitation. PA systolic
60 mmHg assuming right atrial pressure of 8 mmHg.
Severely dilated right atrium.
Enlarged right ventricular size. Normal right ventricular systolic function.
Since echocardiogram May 2023, there is little change.
Septic shock due to R-sided PNA:
-was on Levophed, now off
-cont IVFs (at 125cc/hr with recent SBPs)
-IR to Dx R thoracentesis today
-cont Zosyn/Doxy
-speech following, now advanced to regular diet
-echo above, unchanged from prior
-c/s ID
CAD:
-with h/o stents to LAD and RCA August 2023
-troponin NEG x 2
-echo above, unchanged from prior
-cont Plavix/statin
-BB on hold with hypotension
LLE lesion:
-wound care with concern for OM
-check MRI LLE (once stable enough for this study)
Other problems:
Patient was getting workup for myasthenia as outpatient. acetylcholine receptor antibody pending.
Cognitive dysfunction (likely dementia, unknown type)
Hypothyroidism: cont Synthroid
MR
Persistent atrial fibrillation: cont amiodarone/Eliquis. BB on hold.
Mild thrombocytopenia
EFRAIN: cont CPAP
h/o CVAs per previous MRI: continue Plavix/statin
h/o CLL
h/o uterine cancer
Osteoarthritis
Ambulatory dysfunction
Osteoporosis
DNI/Eliquis
Case discussed at length with the daughter over the phone on 12/22/23. I explained that the patient's overall prognosis is extremely poor. I did encourage that she either choose full code or DNR as opposed to limited DNR at this time. Many
questions were asked and answered.
Discussed with RN
Anticipated Discharge: > 48 hours
Subjective/Interval History
-
Date of Service: January 02, 2024
No new complaints.
Objective Data
-
Labs:
Laboratory Results
01/02/24
04:18
WBC 5.2
Hgb 10.7 L
Hct 32.7 L
Plt Count 94 L
Sodium 138
Potassium 3.7
Chloride 112 H
Carbon Dioxide 26
BUN 20 H
Creatinine 0.6
Glucose 77
Calcium 8.5
Vital Signs:
Vital Signs
Temp Pulse Resp BP Pulse Ox
97.6 F 98 15 115/87 96
01/02/24 07:20 01/02/24 09:31 01/02/24 06:00 01/02/24 09:31 01/02/24 06:00
I&O
01/01/24 01/02/24 01/03/24
06:59 06:59 06:59
Intake Total 1924 1720 / 1720
Balance 1924 1720 / 1720
[2024-01-02 11:44] LABS: Body Fluid pH 7.42
[2024-01-02 12:17] LABS: Body Fluid Mononuclear 80.5 %; Body Fluid Polymorphonuclear 19.5 %; Body Fluid WBC 993 /CUMM
[2024-01-02 12:19] LABS: Body Fluid Second Tech EF
[2024-01-02 13:06] LABS: Body Fluid LDH 93 U/L; Body Fluid Protein < 2.0 g/dl
--- NOTE | 2024-01-02 14:21 | PTCARENOTE ---
Patient back from IR s/p thoracentesis. Hypothermic at 94.8. Marvin hugger applied. Patient is in afib, heart rate dropped into the 30s but came back up to the 70s. Patient asymptomatic of hypothermia and heart rate. She ate majority of lunch with
daughter at bedside.
--- NOTE | 2024-01-02 14:36 | CON.ID ---
Consultation
-
Date/Time Consultation Requested: 01/02/2024 1004
Date/Time Consultation Performed: 01/02/2024 1230
Requesting Provider: Dr. Manzano
Performing Provider: Dr. Galvez
Reason for Consultation: Pneumonia
Chief Complaint / Past History
History of Present Illness
Ceci Bird is an 88-year-old female being evaluated at the request of Dr. Manzano regarding pneumonia. History is obtained from chart review along with patient interview, although patient was found to provide very little in the way of history.
The patient recently was hospitalized at [facility] in early October for hypothermia. At that time, hospice was discussed, and the patient was discharged.
She presents back to [facility] ER on 12/30/2023 secondary to generalized weakness, and 3 episodes of fall over the prior 3 days. She was also noted to have confusion at home, and unable to perform usual ADLs. Workup in the ER revealed a
moderate right-sided pleural effusion, with right lower lobe airspace consolidation. The patient was started on empiric antibiotics. Since admission, she has undergone thoracentesis, and Infectious Diseases is asked to comment upon further
antimicrobial management.
At this time, the patient denies any fevers or chills. She denies any pain. She denies any cough or congestion. She denies any abdominal discomfort. She denies any dysuria.
Past History
Additional Past Medical History:
A-fib
Aortic stenosis
HTN
CLL
Hx uterine cancer
EFRAIN
Arthritis
Additional Past Surgical History:
Appendectomy
Cholecystectomy
Left total knee replacement
Lysis of adhesions
Allergy History:
amoxicillin Allergy (Verified 12/30/23 08:12)
Nausea / Vomiting
loratadine [From Claritin] Allergy (Verified 12/30/23 08:12)
Nausea / Vomiting
Medications Reviewed: Yes
Current Antibiotics:
Zosyn 3.375 g IV every 6 hours
Doxycycline
Social History
Tobacco: Non-Smoker
Alcohol: Occasional
Drug: None
Personal:
Living: Alone
Employment: Retired
Review of Systems
Vital Signs
Temp Pulse Resp BP Pulse Ox
95.9 F L 76 18 117/83 97
01/02/24 14:24 01/02/24 14:00 01/02/24 14:00 01/02/24 14:00 01/02/24 14:00
Physical Exam
Physical Exam
Constitutional: No Acute Distress, Comfortable and Non-toxic
Eyes: No Conjunctival Hemorrhage and Erythema
Cardiovascular: Irregular Rate and S1/S2; Negative S3/S4 or Murmur
Pulmonary: Non Labored; Negative Wheezes or Rales
Gastrointestinal: Soft, Non Tender, Non Distended, Normal Bowel Sounds, No Rebound and No Guarding
Extremities: Edema; Negative Cyanosis, Erythema, Splinter Hemorrhage or Janeway Lesions
Musculoskeletal: Negative Joint Swelling or Joint Effusion
Skin: Warm and Dry; Negative Rash
Wound: Other (Multiple very superficial wounds noted bilateral lower extremities. Right plantar callus noted without drainage.)
Neurological: Awake and Alert
Psychological: Calm
Lab / Diagnostic Study Results
01/02/24 04:18
01/02/24 04:18
Abs Immat Gran (auto) 0.1 10^3/uL (0-0.05) H 01/01/24 16:30
Absolute Neuts (auto) 3.3 10^3/uL (1.4-6.5) 01/01/24 16:30
Absolute Lymphs (auto) 0.7 10^3/uL (1.2-3.4) L 01/01/24 16:30
Absolute Monos (auto) 0.4 10^3/uL (0.1-0.6) 01/01/24 16:30
Absolute Basos (auto) 0.0 10^3/uL (0-0.2) 01/01/24 16:30
Immature Gran % 1.8 % (0-0.5) H 01/01/24 16:30
Neutrophils % 73.0 % (42.2-75.2) 01/01/24 16:30
Lymphocytes % 15.8 % (20.5-51.1) L 01/01/24 16:30
Monocytes % 7.9 % (1.7-9.3) 01/01/24 16:30
Eosinophils % 1.1 % (0-6) 01/01/24 16:30
Basophils % 0.4 % (0-2) 01/01/24 16:30
Lactic Acid Cancelled 12/30/23 12:45
Microbiology Results
Micro:
01/02/24 11:17 Body Fluid Culture - Pending
Pleural Fluid Gram Stain - Preliminary
01/02/24 11:17 Fungal Smear - Pending
Pleural Fluid Fungal Culture - Pending
01/02/24 11:17 Acid Fast Bacilli Smear - Pending
Pleural Fluid Acid Fast Bacilli Culture - Pending
12/30/23 08:57 Blood Culture - Preliminary
Blood/Venous No Growth in 72 hours- Final report to follow
12/30/23 08:51 Blood Culture - Preliminary
Blood/Venous No Growth in 72 hours- Final report to follow
Imaging:
12/30/2023 CXR (2 view): Moderate-sized right pleural effusion and adjacent large right lower and middle lobe airspace consolidations, which have increased in size since 10/03/2023. Moderate to severe cardiomegaly with evidence for mild cardiogenic
pulmonary edema is noted. Severe calcific atherosclerotic plaque in the coronary arteries and thoracic aorta. Please see full dictation for additional detail.
Assessment / Plan
Pleural effusion; status post thoracentesis
Pulmonary infiltrates;
- compressive atelectasis versus pneumonia
- Pt without significant symptoms of PNA
Right plantar callus/wound
Prior hypotension
-Patient may have been intravascularly depleted. Resolved, and pressor therapy previously discontinued.
A-fib
Aortic stenosis
HTN
CLL
Hx uterine cancer
EFRAIN
Arthritis
Recommendations:
Pleural fluid analysis noted. Not specifically consistent with bacterial process; suspect transudative effusion. Will check adenosine deaminase. Cultures are pending.
Check x-ray right foot
Given normal white count and lack of fever, can likely discontinue further antibiotics at present with close clinical observation.
--- NOTE | 2024-01-02 15:19 | CON.CAR ---
Addendum entered and electronically signed by Nash Greene MD 01/02/24 16:29:
Patient seen, interviewed and examined by me.
Elderly woman, fatigued appearing laying in bed. No acute distress.
Irregular rate and rhythm with normal S1 and S2, no S3 no S4. There is a grade 2/6 apical holosystolic murmur and no rubs.
Lungs are clear to auscultation bilaterally without wheezes rales or rhonchi.
Abdomen soft nontender nondistended with normoactive bowel sounds
Extremities show trace pretibial edema bilaterally no clubbing or cyanosis.
Neurologic exam is grossly nonfocal.
Admitted with hypothermia. She has persistent atrial fibrillation. This hospital stay she has demonstrated some mild asymptomatic bradycardia at times. Overall trends of heart rates show good heart rate control with average heart rates of
approximately 65 to 70 bpm. There are no pauses greater than 3 seconds.
It is likely that her hypothermia is playing a role in some of her asymptomatic bradycardic episodes.
There is yet to be a clear etiology for her hypothermia. Currently undergoing medical evaluation. Of note, TSH is high.
Review of records show that she essentially has had permanent atrial fibrillation. Amiodarone has been used for rate control.
However given her mild bradycardic episodes I favor stopping amiodarone. Once hypothermia resolved would reinitiate amiodarone which has been effective for rate control as an outpatient. Can simply resume at her outpatient current dose of 100 mg
daily once hypothermia resolved. I discussed this with the patient as well as her daughter who is at bedside and we are in agreement.
Otherwise no unstable cardiac issues so we will sign off. Of note it would not be surprising that as hypothermia resolves her heart rate might get faster at which point reinitiation of amiodarone as well as beta-janeth would be reasonable next
steps.
Original Note:
Consultation
Consultation Request
Date/Time Consultation Requested: 01/02/24
Date/Time Consultation Performed: 01/02/24
Requesting Provider: Dr. Manzano
Performing Provider: Dr. Nash Greene
Reason for Consultation: Bradycardia
Medical History
-
History of Present Illness:
Patient came to [facility] Sunday night after a fall at home and was admitted with recurrent hypothermia, cardiology is now consulted for bradycardia. Patient has a h/o persistent Afib and is chronically on Toprol XL 50 mg daily and amiodarone 100 mg
daily. Patient also takes Eliquis 5 mg BID. Patient had complex LAD and RCA PCI 08/2023. Patient was then scheduled to have TAVR 10/2023, but had an admission prior to that in 09/2023 for confusion and TAVR was pushed off indefinitely. Patient came
back now with hypothermia and cardiology has been consulted for bradycardia. Tele reviewed and no evidence of heart block. Talked with nursing and bradycardia correlates with episodic hypothermia. Toprol XL was held on admission for hypotension.
Patient was also briefly on Levophed, but this was weaned. Per patient's daughter the patient is getting worked up for a neurologic condition, possibly myasthenia gravis, by Dr. De La Rosa as an outpatient.
PMH:
Chronic HFpEF
Persistent Afib
s/p STEPHANIE/CV 11/20/17
Chronic Eliquis OAC
Previously stopped amiodarone due to hair loss, but now patient has no recollection and currently tolerating
CAD s/p 3.0 mm Xience to mid LAD and orbital atherectomy and shockwave lithotripsy with 3.5 mm Xience to ostial RCA 08/21/23
Severe with mean gradient 40 by echo 05/23/23
Osteoporosis
Hypertension
Chronic lymphocytic leukemia
Sleep apnea
Hx superficial thrombophlebitis
Hx endometrial cancer, treated with XRT and chemotherapy
s/p skin cancer resection left medial ankle 01/2021
CLL
h/o CVA 07/2023
Past Medical History
Past Medical History: Other (in HPI)
Past Surgical History: Appendectomy, Cardiac (LAD and RCA PCI 08/21/23), Cholecystectomy and Orthopedic
Social History
Tobacco: Former Smoker
Alcohol: Occasional
Drug: None
Personal:
Living: Alone
Family History
Family History: CAD, Cancer and Diabetes
Allergies / Home Medications
Allergy/AdvReac Type Severity Reaction Status Date / Time
amoxicillin Allergy Nausea / Verified 12/30/23 08:12
Vomiting
loratadine [From Claritin] Allergy Nausea / Verified 12/30/23 08:12
Vomiting
�Medication �Instructions �Recorded �Confirmed �Type
multivitamin with folic acid 400 1 tab PO DAILY Supplement ##0 01/05/12 12/30/23 History
mcg tablet (Tab-A-Mandy)
apixaban 5 mg tablet (Eliquis) 5 mg PO BID ##60 11/22/17 12/30/23 Rx
cholecalciferol (vitamin D3) 25 2,000 units PO DAILY Supplement 05/18/21 12/30/23 History
mcg (1,000 unit) tablet
amiodarone 200 mg tablet (Pacerone) 100 mg PO DAILY Arrhythmia 06/25/23 12/30/23 History
vit C 226 mg-vit E 90 mg-copper 1 cap PO BID Supplement 06/25/23 12/30/23 History
0.8 mg-zinc oxide-lutein 5 mg
capsule (PreserVision Lutein)
clopidogrel 75 mg tablet 75 mg PO DAILY #90 tabs 08/22/23 12/30/23 Rx
pantoprazole 40 mg tablet,delayed 40 mg PO DAILY #90 tabs 08/22/23 12/30/23 Rx
release
calcium carbonate (Calcium 600) 600 mg PO BID Supplement 10/03/23 12/30/23 History
Benefiber (guar gum) 2 tsp PO DAILY constipation 12/30/23 12/30/23 History
alendronate 70 mg tablet (Fosamax) 70 mg PO MEMBRENO osteoporosis 12/30/23 12/30/23 History
ascorbic acid (vitamin C) 500 mg 500 mg PO DAILY Supplement 12/30/23 12/30/23 History
tablet (Vitamin C)
atorvastatin 10 mg tablet 10 mg PO DAILY High Cholesterol 12/30/23 12/30/23 History
furosemide 40 mg tablet (Lasix) 40 mg PO DAILYPRN PRN fluid 12/30/23 12/30/23 History
retention
levothyroxine 75 mcg tablet 75 mcg PO DAILY Thyroid 12/30/23 12/30/23 History
(Synthroid)
melatonin 3 mg tablet 3 mg PO HS Sleep 12/30/23 12/30/23 History
pyridoxine (vitamin B6) 100 mg 100 mg PO DAILY Supplement 12/30/23 12/30/23 History
tablet (Vitamin B-6)
trazodone 50 mg tablet 50 mg PO HS PRN sleep 12/30/23 12/30/23 History
metoprolol succinate 25 mg 25 mg PO BID Blood Pressure 12/31/23 12/30/23 History
tablet,extended release 24 hr
Review of Systems
-
History Source: Patient and Family (daughter in room helping with HPI)
All other systems: Negative unless noted
Physical Exam
Vital Signs
Temp Pulse Resp BP Pulse Ox
95.9 F L 76 18 117/83 97
01/02/24 14:24 01/02/24 14:00 01/02/24 14:00 01/02/24 14:00 01/02/24 14:00
GEN: NAD. AAO to person, place and situation
HEENT: EOMI, MMM
LUNGS: No audible wheeze
CV: Afib on tele
ABD: soft, BS+, NT, ND
EXT: No clubbing, cyanosis, lesions or edema B/L
NEURO: Gross non-focal
SKIN: No rash
Lab Results
01/02/24 04:18
01/02/24 04:18
Troponin I Cancelled 12/30/23 23:15
Impression / Plan
-
PCP: Dr. Payne
Primary Baton Twirler: Dr Karon Greene
Impression:
Sepsis and shock
RLL PNA
Chronic HFpEF
Bradycardia associated with hypothermia
Persistent Afib
s/p STEPHANIE/CV 11/20/17
Chronic Eliquis OAC
Previously stopped amiodarone due to hair loss, but now patient has no recollection and is now tolerating
CAD s/p 3.0 mm Xience to mid LAD and orbital atherectomy and shockwave lithotripsy with 3.5 mm Xience to ostial RCA 08/21/23
Severe with mean gradient 40 by echo 05/23/23
Osteoporosis
Hypertension
Chronic lymphocytic leukemia
Sleep apnea
Hx superficial thrombophlebitis
Hx endometrial cancer, treated with XRT and chemotherapy
s/p skin cancer resection left medial ankle 01/2021
CLL
h/o CVA 07/2023
Echo 10/2016: EF 65-70%, peak/mean gradient 42/24 mmHg, aortic valve area 1.3 cm�, pulmonary artery systolic pressure 35-40 mmHg
Echo 11/19/17: shows mild concentric LVH, EF 55-60%, moderate aortic stenosis with trace to mild aortic insufficiency. Peak gradients occasionally greater than 40. Mild mitral regurgitation, dilated left atrium, mild tricuspid regurgitation, mild to
moderate pulmonary hypertension with PA pressures 42-52
Echo 12/22/20: EF 50-55%, moderate MR, moderate to severe with peak/mean 35/24 mmHg and LIANNE 0.8 cm sq
Echo 05/23/23: EF 65-70%, mod MR, severe peak/mean 70/40 mmHg and LIANNE 0.8 cm sq
Echo 12/31/23: EF 65-70%, mild to mod MR, severe peak/mean 43/24 mmHg and LIANNE 0.7 cm sq
Plan:
-[facility] after a fall at home and was admitted with recurrent hypothermia, cardiology is now consulted for bradycardia. Patient has a h/o persistent Afib and is chronically on Toprol XL 50 mg daily and amiodarone 100 mg
daily. Patient also takes Eliquis 5 mg BID. Patient had complex LAD and RCA PCI 08/2023. Patient was then scheduled to have TAVR 10/2023, but had an admission prior to that in 09/2023 for confusion and TAVR was pushed off indefinitely. Patient came
back now with hypothermia and cardiology has been consulted for bradycardia. Tele reviewed and no evidence of heart block. Talked with nursing and bradycardia correlates with episodic hypothermia. Toprol XL was held on admission for hypotension.
Patient was also briefly on Levophed, but this was weaned. Per patient's daughter the patient is getting worked up for a neurologic condition, possibly myasthenia gravis, by Dr. De La Rosa as an outpatient.
-Tele reviewed by me and show atrial fibrillation with occasional less than 2 seconds 'pauses' and no evidence of heart block.
-Outpatient dose of Toprol XL 50 mg daily on hold since admission.
-Outpatient dose of amiodarone 100 mg daily has been administered throughout admission, but will place on hold until hypothermia resolved. Recommend resuming amiodarone once hypothermia has improved or at the time of discharge.
-Patient with known severe and was previously going to have TAVR 10/2023, but this is indefinitely postponed due to recurrent admissions for changes in mental status.
-Cont outpatient dose of Eliquis 5 mg BID
-Cont outpatient dose of Plavix 75 mg daily following LAD and RCA PCI 08/2023
--- NOTE | 2024-01-02 16:05 | CM ---
Patient with Hx 3 episodes of fall over the prior 3 days with Dx Septic shock due to R-sided PNA, LLE lesion. O2 2L. BiPAP. Hypothermic at 94.8 - Marvin hugger per nursing. Thoracentesis today. Per nurse assessment; confused, forgetful. Seen by
wound care nurse.
Patient may benefit from PT/OT Evals---> message to Dr Manzano.
Plan follow patient's O2 needs.
Plan follow up after seen by PT/OT.
[2024-01-02] MEDS: SENOKOT PO (20:11)
[2024-01-02] MEDS: MELATONIN 3 MG PO (20:12)
[2024-01-03] VITALS (16 sets, daily range): BP systolic 98–136; BP diastolic 53–96; PULSE 2–86; O2SAT 98; BMI 35.0
[2024-01-03] MEDS: SYNTHROID 75 MCG PO (04:33)
[2024-01-03 05:16] LABS: Hematocrit 32.2 % (37.0-47.0); Hemoglobin 10.9 g/dL (12.0-16.0); Mean Corp Hgb Conc. 33.9 g/dL (33.0-37.0); Mean Corpuscular Hgb 32.1 pg (27.0-31.0); Mean Corpuscular Volume 94.7 fL (81.0-99.0); Mean Platelet Volume 11.2 fL (7.4-10.4); Platelet Count 94 10^3/uL (130-400); Red Cell Dist. Width 16.4 % (11.5-14.5); White Blood Cell Count 4.9 10^3/uL (4.8-10.8)
[2024-01-03 05:27] LABS: Blood Urea Nitrogen 14 mg/dl (7-17); Calcium 8.3 mg/dl (8.4-10.2); Carbon Dioxide 24 mmol/L (22-30); Chloride 114 mmol/L (98-107); Estimated Creatinine Clearance 66 ml/min; Glucose 99 mg/dl (70-99); Potassium 3.6 mmol/L (3.5-5.1); Sodium 137 mmol/L (135-145); eGFR > 60.00
--- NOTE | 2024-01-03 06:12 | PTCARENOTE ---
Took care of pt overnight. No assessment changes from previous shift. Remains on 2LNC & bipap HS. IVF. Q2T. Afib. No other issues, will monitor.
--- NOTE | 2024-01-03 06:16 | PTCARENOTE ---
Pt placed on bairhugger for a short amount of time overnight. When she was hypothermic her HR dropped to 30's. Once temp was up her HR was steady.
--- NOTE | 2024-01-03 08:43 | W.PN.HOSP.TC ---
Today's Communication/Plan
-
see bold
Assessment / Plan
Assessment / Plan
Gen: NAD, awake and alert NCAT
Eyes: EOMI, PERRLA, no scleral icterus.
Neck: supple.
CV: remains irreg/irreg, +S1/S2
Resp: remains CTAB anteriorly, no rales, wheezes, or rhonchi.
Abd: +BS, soft, NT, ND
Skin: No rashes
Neuro: CN 2-12 intact, non-focal.
Psych: normal mood and affect
01/02/24 11:17 Pleural Fluid Gram Stain - Preliminary
12/30/23 08:57 Blood/Venous Blood Culture - Preliminary
No Growth in 72 hours- Final report to follow
12/30/23 08:51 Blood/Venous Blood Culture - Preliminary
No Growth in 72 hours- Final report to follow
CXR:
1. MODERATE-SIZED RIGHT PLEURAL EFFUSION and adjacent large right lower and middle lobe airspace consolidations which have increased in size since 10/03/2023.
2. Moderate to severe cardiomegaly with evidence for mild cardiogenic pulmonary edema.
3. Severe calcific atherosclerotic plaque in the coronary arteries and thoracic aorta.
4. 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
Echo: Normal left ventricular size and systolic function. Mild to moderate
concentric left ventricular hypertrophy. No regional wall motion abnormalities
are seen. LV ejection fraction is 65-70% by José's method of discs.
Diastolic function indeterminate due to atrial fibrillation.
Thickened mitral valve leaflets. Posterior mitral annular calcification. Mild
to moderate mitral regurgitation.
Severely dilated left atrium.
Trileaflet aortic valve. Thickened aortic valve with restricted leaflet motion.
Calcified aortic valve. Peak/mean gradients across the aortic valve are 43/24
mmHg. The aortic valve by the Continuity equation is calculated at 0.7 cm sq
using an LVOT diameter of 1.9 cm. Trace aortic regurgitation.
Tricuspid valve opens normally. Moderate tricuspid regurgitation. PA systolic
60 mmHg assuming right atrial pressure of 8 mmHg.
Severely dilated right atrium.
Enlarged right ventricular size. Normal right ventricular systolic function.
Since echocardiogram May 2023, there is little change.
CXR 01/02/24: Suspected moderate right lower lobe pneumonia. Small right pleural effusion. Much improved. New findings suggesting mild left lower lobe pneumonia. New minimal left lower lobe atelectasis versus scarring. Cardiomegaly. Stable
Septic shock due to R-sided PNA:
-was on Levophed, now off
-has been on IVFs. Stop IVFs with improved BPs and oral intake.
-s/p R thoracentesis 01/02/24, transudative
-was on Zosyn/Doxy, stopped by ID On 01/02/24 as pt afebrile, without leukocytosis, and transudative pleural fluid
-check adenosine deaminase
-speech following, now advanced to regular diet
-echo above, unchanged from prior
Recurrent hypothermia:
-TSH minimally elevated, check fT4
-fasting cortisol normal
CAD:
-with h/o stents to LAD and RCA August 2023
-troponin NEG x 2
-echo above, unchanged from prior
-cont Plavix/statin
-BB on hold with hypotension
LLE lesion:
-client application support specialist had concern for OM
-check MRI LLE (once stable enough for this study)
Other problems:
Patient was getting workup for myasthenia as outpatient. acetylcholine receptor antibody pending.
Cognitive dysfunction (likely dementia, unknown type)
Hypothyroidism: cont Synthroid
MR
Persistent atrial fibrillation: cont amiodarone/Eliquis. BB on hold.
Mild thrombocytopenia
EFRAIN: cont CPAP
h/o CVAs per previous MRI: continue Plavix/statin
h/o CLL
h/o uterine cancer
Osteoarthritis
Ambulatory dysfunction
Osteoporosis
DNI/Eliquis
Case discussed at length with the daughter over the phone on 01/01/24. I explained that the patient's overall prognosis is extremely poor. I did encourage that she either choose full code or DNR as opposed to limited DNR at this time. Many
questions were asked and answered.
Pt is hospice appropriate.
Discussed with RN
Anticipated Discharge: > 48 hours
Subjective/Interval History
-
Date of Service: January 03, 2024
Denies chest pain, shortness of breath, abdominal pain.
Objective Data
-
Labs:
Laboratory Results
01/03/24
04:46
WBC 4.9
Hgb 10.9 L
Hct 32.2 L
Plt Count 94 L
Sodium 137
Potassium 3.6
Chloride 114 H
Carbon Dioxide 24
BUN 14
Creatinine 0.5 L
Glucose 99
Calcium 8.3 L
Vital Signs:
Vital Signs
Temp Pulse Resp BP Pulse Ox
96.9 F L 75 18 131/91 98
01/03/24 07:27 01/03/24 06:00 01/03/24 06:00 01/03/24 06:00 01/03/24 06:00
I&O
01/02/24 01/03/24 01/04/24
06:59 06:59 06:59
Intake Total 1720 / 1720 320 / 320
Output Total 250 / 250
Balance 1720 / 1720 70 / 70
[2024-01-03] MEDS: ERYTHROMYCIN 0.5% OPHTHALMIC OINTMENT 1 APPLIC OPHTH ×4 (09:04→21:37)
[2024-01-03] MEDS: COLACE 100 MG PO (09:04)
[2024-01-03] MEDS: ELIQUIS 5 MG PO ×2 (09:04→21:35)
[2024-01-03] MEDS: LIPITOR 10 MG PO (09:05)
[2024-01-03] MEDS: LOTRIMIN 1% CREAM 1 APPLIC TOPICAL ×2 (09:07→21:37)
[2024-01-03] MEDS: MIRALAX 17 GRAMS PO (09:07)
[2024-01-03] MEDS: PLAVIX 75 MG PO (09:08)
[2024-01-03] MEDS: OCUVITE SOFTGEL 1 CAP PO ×2 (09:08→21:35)
[2024-01-03] MEDS: REFRESH CELLUVISC GEL 1 DROPS BOTH EYES ×4 (09:09→21:35)
[2024-01-03] MEDS: PROTONIX 40 MG PO (09:09)
[2024-01-03] MEDS: SENOKOT 8.59999999999999964 MG PO (09:10)
[2024-01-03] MEDS: VITAMIN B-6 100 MG PO (09:10)
[2024-01-03] MEDS: THERAGRAN 1 TABLET PO (09:10)
[2024-01-03] MEDS: VITAMIN D3 (cholecalciferol) 50 MCG PO (09:11)
[2024-01-03] MEDS: VITAMIN C 500 MG PO (09:11)
[2024-01-03] MEDS: NSS IV (10:18)
--- NOTE | 2024-01-03 11:33 | W.PN.ID1 ---
Date of Service
Date of Service: January 03, 2024
Today's Communication
Observe off antibiotics.
Assessment / Plan
Pleural effusion; status post thoracentesis
Pulmonary infiltrates;
- compressive atelectasis versus pneumonia
- Pt without significant symptoms of PNA
Right plantar callus/wound (chronic)
Left pretibial wounds (superficial)
Prior hypotension
-Patient may have been intravascularly depleted. Resolved, and pressor therapy previously discontinued.
A-fib
Aortic stenosis
HTN
CLL
Hx uterine cancer
EFRAIN
Arthritis
Recommendations:
Pleural fluid analysis noted. Not specifically consistent with bacterial process; suspect transudative effusion. Will check adenosine deaminase. Cultures are pending.
X-ray right foot pending.
Given normal white count and lack of fever, observe off antibiotics.
Chief Complaint
-: Other (Pleural effusion)
Subjective / Review of Systems
Review of Systems: No Fever and No Chills
Vital Signs / Physical Exam
Vital Signs
Vital Signs
Temp Pulse Resp BP Pulse Ox
96.9 F L 85 19 124/86 97
01/03/24 07:27 01/03/24 10:00 01/03/24 10:00 01/03/24 10:00 01/03/24 10:00
Physical Exam
Constitutional: No Acute Distress, Comfortable, Chronically Ill and Non-toxic
Cardiovascular: S1/S2; Negative S3/S4
Pulmonary: Non Labored
Gastrointestinal: Soft, Non Tender and Non Distended
Wound: Other (Left pretibial area with superficial wounds. Right plantar area with chronic callus)
Neurological: Awake and Alert
Psychological: Calm
Objective Data
Lab Data
Lab Results
01/03/24 04:46
01/03/24 04:46
Estimated Creat Clear 66 ml/min 01/03/24 04:46
Lactic Acid Cancelled 12/30/23 12:45
Total Bilirubin 0.6 mg/dl (0.2-1.3) 12/30/23 08:51
AST 46 U/L (14-36) H 12/30/23 08:51
ALT 34 U/L (0-35) 12/30/23 08:51
Alkaline Phosphatase 154 U/L (38-126) H 12/30/23 08:51
Most recent labs reviewed.
Micro Results:
01/02/24 11:17 Body Fluid Culture - Preliminary
Pleural Fluid No Growth After 18-24 Hours
Gram Stain - Preliminary
12/30/23 08:57 Blood Culture - Preliminary
Blood/Venous No Growth in 4 days- Final report to follow
12/30/23 08:51 Blood Culture - Preliminary
Blood/Venous No Growth in 4 days- Final report to follow
01/02/24 11:17 Fungal Smear - Pending
Pleural Fluid Fungal Culture - Pending
01/02/24 11:17 Acid Fast Bacilli Smear - Pending
Pleural Fluid Acid Fast Bacilli Culture - Pending
Imaging:
12/30/2023 CXR (2 view): Moderate-sized right pleural effusion and adjacent large right lower and middle lobe airspace consolidations, which have increased in size since 10/03/2023. Moderate to severe cardiomegaly with evidence for mild cardiogenic
pulmonary edema is noted. Severe calcific atherosclerotic plaque in the coronary arteries and thoracic aorta. Please see full dictation for additional detail.
[2024-01-03 16:00] LABS: Free T4 1.91 ng/dl (0.78-2.19)
--- NOTE | 2024-01-03 17:06 | PTCARENOTE ---
Pt presents as assessed. Aox2-3, drowsy and forgetful. Afib on tele monitor. On and off richelle hugger to maintain goal temp of 97 degrees- see intervention. Pt for MRI, d/w Dr. Manzano and advised hold until tomorrow due to labile temp. Family at bedside
and updated on plan of care. Bed alarm in place for safety.
[2024-01-03] MEDS: MELATONIN 3 MG PO (21:35)
[2024-01-03] MEDS: COLACE PO (21:36)
[2024-01-03] MEDS: SENOKOT PO (21:37)
[2024-01-04] VITALS (14 sets, daily range): BP systolic 116–149; BP diastolic 75–100; PULSE 2–95; O2SAT 92–95; BMI 34.6
[2024-01-04 05:03] LABS: Hematocrit 32.5 % (37.0-47.0); Hemoglobin 10.9 g/dL (12.0-16.0); Mean Corp Hgb Conc. 33.5 g/dL (33.0-37.0); Mean Corpuscular Hgb 32.1 pg (27.0-31.0); Mean Corpuscular Volume 95.6 fL (81.0-99.0); Platelet Count 88 10^3/uL (130-400); Red Cell Dist. Width 16.4 % (11.5-14.5); White Blood Cell Count 5.7 10^3/uL (4.8-10.8)
--- NOTE | 2024-01-04 05:20 | PTCARENOTE ---
Daughter, Maria Elena Whipple, wants patient's code status to match what is in patient's advanced directive; directive in the chart which states DNR/DNI. SET UP MOLD TECHNICIAN Isabela made aware and will sign out to primary provider to update code status.
Pt able to swallow pills one a time w/o issues. Marvin hugger has been off. Warm blankets provided to maintain temp.
Pt had large incontinent BM; complete linen change, víctor care and barrier cream applied. Repositioned throughout the night; heels floated. Pt stated she was awake all night and couldnt sleep.
Tele showing Afib heart rate 70-90s. Tolerated Bipap.
Call del valle and tray table within reach. Family brought in cell phone last night which is at bedside.
[2024-01-04 05:24] LABS: Blood Urea Nitrogen 10 mg/dl (7-17); Calcium 8.7 mg/dl (8.4-10.2); Carbon Dioxide 25 mmol/L (22-30); Chloride 112 mmol/L (98-107); Estimated Creatinine Clearance 66 ml/min; Glucose 91 mg/dl (70-99); Potassium 3.4 mmol/L (3.5-5.1); Sodium 141 mmol/L (135-145); eGFR > 60.00
[2024-01-04] MEDS: SYNTHROID 75 MCG PO (05:48)
[2024-01-04] MEDS: COLACE PO ×2 (07:45→20:37)
[2024-01-04] MEDS: MIRALAX PO (07:45)
[2024-01-04] MEDS: SENOKOT PO ×2 (07:46→20:37)
--- NOTE | 2024-01-04 07:48 | W.PN.ID1 ---
Date of Service
Date of Service: January 04, 2024
Today's Communication
Observe off antibiotics. Await pending studies
Assessment / Plan
Pleural effusion; status post thoracentesis
-Suspect transudate.
Pulmonary infiltrates;
- compressive atelectasis versus pneumonia
- Pt without significant symptoms of PNA
Right plantar callus/wound (chronic)
Left pretibial wounds (superficial)
Prior hypotension
-Resolved
A-fib
Aortic stenosis
HTN
CLL
Hx uterine cancer
EFRAIN
Arthritis
Recommendations:
Pleural fluid analysis noted. Not specifically consistent with bacterial process; suspect transudative effusion.
Pleural fluid adenosine deaminase pending.
Pleural fluid cultures : NGTD.
X-ray right foot pending.
Given normal white count and lack of fever, observe off antibiotics.
����������������������������������������������������������
Chief Complaint
-: Other (Pleural effusion)
Subjective / Review of Systems
Patient seen and examined. Nursing reports some right forearm swelling, noting a IV was in the right forearm recently. Patient denies significant discomfort in the area.
Review of Systems: No Fever and No Chills
Vital Signs / Physical Exam
Vital Signs
Vital Signs
Temp Pulse Resp BP Pulse Ox
97.1 F 83 25 124/100 95
01/04/24 04:28 01/04/24 06:00 01/04/24 06:00 01/04/24 06:00 01/04/24 06:00
Physical Exam
Constitutional: No Acute Distress, Comfortable and Non-toxic
Eyes: No Conjunctival Hemorrhage and Sclera Anicteric
Cardiovascular: S1/S2; Negative S3/S4
Pulmonary: Non Labored; Negative Wheezes
Gastrointestinal: Soft, Non Tender, Non Distended and Normal Bowel Sounds
Extremities: Edema (Right forearm with edema; mild erythema, no tenderness. No cord.) and Venous Insufficiency
Neurological: Awake and Alert
Objective Data
Lab Data
Lab Results
01/04/24 04:45
01/04/24 04:45
Estimated Creat Clear 66 ml/min 01/04/24 04:45
Lactic Acid Cancelled 12/30/23 12:45
Total Bilirubin 0.6 mg/dl (0.2-1.3) 12/30/23 08:51
AST 46 U/L (14-36) H 12/30/23 08:51
ALT 34 U/L (0-35) 12/30/23 08:51
Alkaline Phosphatase 154 U/L (38-126) H 12/30/23 08:51
Most recent labs reviewed.
Micro Results:
01/02/24 11:17 Acid Fast Bacilli Smear - Preliminary
Pleural Fluid Acid Fast Bacilli Culture - Preliminary
01/02/24 11:17 Fungal Smear - Pending
Pleural Fluid Fungal Culture - Preliminary
Culture in progress.
Positive cultures are reported as soon as detected.
Final report to follow in four to five weeks.
01/02/24 11:17 Body Fluid Culture - Preliminary
Pleural Fluid No Growth After 18-24 Hours
Gram Stain - Preliminary
12/30/23 08:57 Blood Culture - Preliminary
Blood/Venous No Growth in 4 days- Final report to follow
12/30/23 08:51 Blood Culture - Preliminary
Blood/Venous No Growth in 4 days- Final report to follow
Imaging:
MRI Left LE : ordered
X-Ray Right foot : ordered
12/30/2023 CXR (2 view): Moderate-sized right pleural effusion and adjacent large right lower and middle lobe airspace consolidations, which have increased in size since 10/03/2023. Moderate to severe cardiomegaly with evidence for mild cardiogenic
pulmonary edema is noted. Severe calcific atherosclerotic plaque in the coronary arteries and thoracic aorta. Please see full dictation for additional detail.
[2024-01-04] MEDS: REFRESH CELLUVISC GEL 1 DROPS BOTH EYES ×4 (08:10→21:59)
[2024-01-04] MEDS: PROTONIX 40 MG PO (08:10)
[2024-01-04] MEDS: PLAVIX 75 MG PO (08:10)
[2024-01-04] MEDS: THERAGRAN 1 TABLET PO (08:10)
[2024-01-04] MEDS: OCUVITE SOFTGEL 1 CAP PO ×2 (08:10→20:41)
[2024-01-04] MEDS: ERYTHROMYCIN 0.5% OPHTHALMIC OINTMENT 1 APPLIC OPHTH ×4 (08:11→22:00)
[2024-01-04] MEDS: LIPITOR 10 MG PO (08:11)
[2024-01-04] MEDS: VITAMIN B-6 100 MG PO (08:11)
[2024-01-04] MEDS: VITAMIN D3 (cholecalciferol) 50 MCG PO (08:11)
[2024-01-04] MEDS: VITAMIN C 500 MG PO (08:11)
[2024-01-04] MEDS: ELIQUIS 5 MG PO ×2 (08:11→20:41)
[2024-01-04] MEDS: LOTRIMIN 1% CREAM 1 APPLIC TOPICAL ×2 (08:12→20:41)
--- NOTE | 2024-01-04 08:51 | W.PN.HOSP.TC ---
Addendum entered and electronically signed by Harsh Manzano MD 01/04/24 12:51:
Correction: Pt now off Amio.
Original Note:
Today's Communication/Plan
-
see bold
Assessment / Plan
Assessment / Plan
Gen: remains NAD, awake and alert NCAT
Eyes: EOMI, PERRLA, no scleral icterus.
Neck: supple.
CV: continues to remain irreg/irreg, +S1/S2
Resp: continues to remain CTAB anteriorly, no rales, wheezes, or rhonchi.
Abd: +BS, soft, NT, ND
Skin: No rashes
Neuro: CN 2-12 intact, non-focal.
Psych: normal mood and affect
01/02/24 11:17 Pleural Fluid Gram Stain - Preliminary
12/30/23 08:57 Blood/Venous Blood Culture - Preliminary
No Growth in 72 hours- Final report to follow
12/30/23 08:51 Blood/Venous Blood Culture - Preliminary
No Growth in 72 hours- Final report to follow
CXR:
1. MODERATE-SIZED RIGHT PLEURAL EFFUSION and adjacent large right lower and middle lobe airspace consolidations which have increased in size since 10/03/2023.
2. Moderate to severe cardiomegaly with evidence for mild cardiogenic pulmonary edema.
3. Severe calcific atherosclerotic plaque in the coronary arteries and thoracic aorta.
4. 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
Echo: Normal left ventricular size and systolic function. Mild to moderate
concentric left ventricular hypertrophy. No regional wall motion abnormalities
are seen. LV ejection fraction is 65-70% by José's method of discs.
Diastolic function indeterminate due to atrial fibrillation.
Thickened mitral valve leaflets. Posterior mitral annular calcification. Mild
to moderate mitral regurgitation.
Severely dilated left atrium.
Trileaflet aortic valve. Thickened aortic valve with restricted leaflet motion.
Calcified aortic valve. Peak/mean gradients across the aortic valve are 43/24
mmHg. The aortic valve by the Continuity equation is calculated at 0.7 cm sq
using an LVOT diameter of 1.9 cm. Trace aortic regurgitation.
Tricuspid valve opens normally. Moderate tricuspid regurgitation. PA systolic
60 mmHg assuming right atrial pressure of 8 mmHg.
Severely dilated right atrium.
Enlarged right ventricular size. Normal right ventricular systolic function.
Since echocardiogram May 2023, there is little change.
01/02/24 11:17 Pleural Fluid Acid Fast Bacilli Smear - Preliminary
01/02/24 11:17 Pleural Fluid Acid Fast Bacilli Culture - Preliminary
01/02/24 11:17 Pleural Fluid Fungal Culture - Preliminary
Culture in progress.
Positive cultures are reported as soon as detected.
Final report to follow in four to five weeks.
01/02/24 11:17 Pleural Fluid Body Fluid Culture - Preliminary
No Growth After 18-24 Hours
01/02/24 11:17 Pleural Fluid Gram Stain - Preliminary
12/30/23 08:57 Blood/Venous Blood Culture - Preliminary
No Growth in 4 days- Final report to follow
12/30/23 08:51 Blood/Venous Blood Culture - Preliminary
No Growth in 4 days- Final report to follow
CXR 01/02/24: Suspected moderate right lower lobe pneumonia. Small right pleural effusion. Much improved. New findings suggesting mild left lower lobe pneumonia. New minimal left lower lobe atelectasis versus scarring. Cardiomegaly. Stable
Septic shock due to R-sided PNA:
-was on Levophed, now off
-was on IVFs which were stopped 01/03/24AM with improved BPs and oral intake
-s/p R thoracentesis 01/02/24, transudative
-was on Zosyn/Doxy, stopped by ID On 01/02/24 as pt afebrile, without leukocytosis, and transudative pleural fluid
-pleural fluid adenosine deaminase pending
-speech following, now advanced to regular diet
-echo above, unchanged from prior
Recurrent hypothermia:
-TSH minimally elevated, fT4 normal
-fasting cortisol normal
CAD:
-with h/o stents to LAD and RCA August 2023
-troponin NEG x 2
-echo above, unchanged from prior
-cont Plavix/statin
-BB on hold with hypotension
LLE lesion:
-inclusion specialist had concern for OM
-check MRI LLE
Other problems:
Patient was getting workup for myasthenia as outpatient. acetylcholine receptor antibody NEG
Cognitive dysfunction (likely dementia, unknown type)
Hypothyroidism: cont Synthroid
MR
Persistent atrial fibrillation: cont amiodarone/Eliquis. BB on hold.
Mild thrombocytopenia
EFRAIN: cont CPAP
h/o CVAs per previous MRI: continue Plavix/statin
h/o CLL
h/o uterine cancer
Osteoarthritis
Ambulatory dysfunction
Osteoporosis
DNI/Eliquis
Case discussed at length with the daughter over the phone on 01/01/24. I explained that the patient's overall prognosis is extremely poor. I did encourage that she either choose full code or DNR as opposed to limited DNR at this time. Many
questions were asked and answered.
Case discussed at length with the son over the phone on 01/03/24. I explained that the patient's overall prognosis is extremely poor. I did encourage that she either choose full code or DNR as opposed to limited DNR at this time. Many questions
were asked and answered.
Pt is hospice appropriate.
Discussed with RN
Anticipated Discharge: > 48 hours
Subjective/Interval History
-
Date of Service: January 04, 2024
Denies CP/SOB/abd pain.
Objective Data
-
Labs:
Laboratory Results
01/04/24
04:45
WBC 5.7
Hgb 10.9 L
Hct 32.5 L
Plt Count 88 L
Sodium 141
Potassium 3.4 L
Chloride 112 H
Carbon Dioxide 25
BUN 10
Creatinine 0.4 L
Glucose 91
Calcium 8.7
Vital Signs:
Vital Signs
Temp Pulse Resp BP Pulse Ox
97 F 83 25 124/100 95
01/04/24 08:42 01/04/24 06:00 01/04/24 06:00 01/04/24 06:00 01/04/24 06:00
I&O
01/03/24 01/04/24 01/05/24
06:59 06:59 06:59
Intake Total 320 / 320 760 / 760
Output Total 250 / 250 1250 / 1250
Balance 70 / 70 -490 / -490
--- NOTE | 2024-01-04 09:13 | PTCARENOTE ---
Pt transported to MRI and X ray off monitor per Dr. Manzano.
[2024-01-04] MEDS: KCL 40 MEQ PO (11:01)
--- NOTE | 2024-01-04 15:00 | CM ---
Patient with Hx falls with Dx Septic shock due to R-sided PNA, recurrent hypothermia, LLE lesion. O2 2L. BiPAP. MRI LLE, right foot xray today. Per nurse assessment; confused, forgetful. Seen by wound care nurse. PT/OT recommend skilled rehab.
Met with patient and spoke with daughter Maria Elena Whipple on speaker phone in patient's room; patient alert, seemed able to follow the conversation & oriented at this time. Patient/daughter agreed to short term SNF at [facility].
SNF referral placed.
Plan follow up SNF referral.
--- NOTE | 2024-01-04 20:36 | PTCARENOTE ---
Received pt from [facility]. Pt is AAOx3, confused/forgetful. Pt placed on richelle hugger for temp of 96.0 ax. Afib on the monitor. Pt weaned from 2L NC to RA O2 sat 96%, bipap HS, lungs diminished. Incont of loose stool. Wound care provided (see
worklist). Pt assisted back to bed x2 from the chair. Pt is laying comfortable in bed with call del valle in reach.
[2024-01-04] MEDS: MELATONIN 3 MG PO (21:59)
[2024-01-05] VITALS (15 sets, daily range): BP systolic 131–158; BP diastolic 74–117; PULSE 2–101
[2024-01-05] MEDS: SYNTHROID 75 MCG PO (04:42)
[2024-01-05 04:57] LABS: Hematocrit 33.8 % (37.0-47.0); Hemoglobin 11.3 g/dL (12.0-16.0); Mean Corp Hgb Conc. 33.4 g/dL (33.0-37.0); Mean Corpuscular Hgb 32.4 pg (27.0-31.0); Mean Corpuscular Volume 96.8 fL (81.0-99.0); Mean Platelet Volume 11.6 fL (7.4-10.4); Platelet Count 93 10^3/uL (130-400); Red Blood Cell Count 3.49 10^6/uL (4.20-5.40); White Blood Cell Count 8.6 10^3/uL (4.8-10.8)
[2024-01-05 05:19] LABS: Blood Urea Nitrogen 9 mg/dl (7-17); Calcium 8.7 mg/dl (8.4-10.2); Carbon Dioxide 27 mmol/L (22-30); Chloride 110 mmol/L (98-107); Estimated Creatinine Clearance 66 ml/min; Glucose 100 mg/dl (70-99); Potassium 3.9 mmol/L (3.5-5.1); Sodium 137 mmol/L (135-145); eGFR > 60.00
[2024-01-05] MEDS: ERYTHROMYCIN 0.5% OPHTHALMIC OINTMENT 1 APPLIC OPHTH ×4 (08:30→22:38)
[2024-01-05] MEDS: COLACE PO ×2 (08:41→20:14)
[2024-01-05] MEDS: ELIQUIS 5 MG PO ×2 (08:41→20:20)
[2024-01-05] MEDS: VITAMIN B-6 100 MG PO (08:42)
[2024-01-05] MEDS: REFRESH CELLUVISC GEL 1 DROPS BOTH EYES ×4 (08:42→22:38)
[2024-01-05] MEDS: VITAMIN C 500 MG PO (08:42)
[2024-01-05] MEDS: PLAVIX 75 MG PO (08:42)
[2024-01-05] MEDS: LIPITOR 10 MG PO (08:42)
[2024-01-05] MEDS: SENOKOT PO ×2 (08:43→20:14)
[2024-01-05] MEDS: OCUVITE SOFTGEL 1 CAP PO ×2 (08:43→20:20)
[2024-01-05] MEDS: THERAGRAN 1 TABLET PO (08:43)
[2024-01-05] MEDS: VITAMIN D3 (cholecalciferol) 50 MCG PO (08:43)
[2024-01-05] MEDS: PROTONIX 40 MG PO (08:44)
[2024-01-05] MEDS: MIRALAX PO (08:44)
[2024-01-05] MEDS: LOTRIMIN 1% CREAM 1 APPLIC TOPICAL ×2 (08:45→20:22)
--- NOTE | 2024-01-05 13:52 | W.PN.HOSP.TC ---
Addendum entered and electronically signed by Дмитрий Francis MD 01/05/24 15:14:
Discussed with daughter. They want patient to be full DNR changed
Original Note:
Today's Communication/Plan
-
Watch off AB
Encourage OOB in a chair.
One billingsley of Lasix today
Assessment / Plan
Assessment / Plan
01/02/24 11:17 Pleural Fluid Gram Stain - Preliminary
12/30/23 08:57 Blood/Venous Blood Culture - Preliminary
No Growth in 72 hours- Final report to follow
12/30/23 08:51 Blood/Venous Blood Culture - Preliminary
No Growth in 72 hours- Final report to follow
CXR:
1. MODERATE-SIZED RIGHT PLEURAL EFFUSION and adjacent large right lower and middle lobe airspace consolidations which have increased in size since 10/03/2023.
2. Moderate to severe cardiomegaly with evidence for mild cardiogenic pulmonary edema.
3. Severe calcific atherosclerotic plaque in the coronary arteries and thoracic aorta.
4. 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
Echo: Normal left ventricular size and systolic function. Mild to moderate
concentric left ventricular hypertrophy. No regional wall motion abnormalities
are seen. LV ejection fraction is 65-70%
Diastolic function indeterminate due to atrial fibrillation.
Thickened mitral valve leaflets. Posterior mitral annular calcification. Mild MR
Severely dilated left atrium.
Trileaflet aortic valve. Thickened aortic valve with restricted leaflet motion.
Calcified aortic valve. Peak/mean gradients across the aortic valve are 43/24
mmHg. The aortic valve by the Continuity equation is calculated at 0.7 cm sq
using an LVOT diameter of 1.9 cm. Trace aortic regurgitation.
Tricuspid valve opens normally. Moderate tricuspid regurgitation. PA systolic
60 mmHg assuming right atrial pressure of 8 mmHg.
Severely dilated right atrium.
Enlarged right ventricular size. Normal right ventricular systolic function.
Since echocardiogram May 2023, there is little change.
01/02/24 11:17 Pleural Fluid Acid Fast Bacilli Smear - Preliminary
01/02/24 11:17 Pleural Fluid Acid Fast Bacilli Culture - Preliminary
01/02/24 11:17 Pleural Fluid Fungal Culture - Preliminary
Culture in progress.
Positive cultures are reported as soon as detected.
Final report to follow in four to five weeks.
01/02/24 11:17 Pleural Fluid Body Fluid Culture - Preliminary
No Growth After 18-24 Hours
01/02/24 11:17 Pleural Fluid Gram Stain - Preliminary
12/30/23 08:57 Blood/Venous Blood Culture - Preliminary
No Growth in 4 days- Final report to follow
12/30/23 08:51 Blood/Venous Blood Culture - Preliminary
No Growth in 4 days- Final report to follow
CXR 01/02/24: Suspected moderate right lower lobe pneumonia. Small right pleural effusion. Much improved. New findings suggesting mild left lower lobe pneumonia. New minimal left lower lobe atelectasis versus scarring. Cardiomegaly. Stable
MRI LLE -SEVERE DIFFUSE CELLULITIS throughout the LEFT LEG.No MRI evidence for acute osteomyelitis.
X Ray foot-There is a 7 cm in length radiolucent (? Plastic) device/bandage over the medial plantar aspect of the midfoot
There is degenerative joint disease with mild degenerative spurring at the intertarsal and tarsometatarsal joints
There is dystrophic calcification in subcutaneous tissues such as may be seen with chronic cellulitis.

CVS: S1-S2 irregular, Sm at apex and AA
Chest: CTA B/L
Abdomen: Soft, NT / Bowel sounds present
Extremities: Left leg ulcer-no evidence of infection-looks stable. Small area of redness on the inner right leg mid leg
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 She notes that at times she gets confused.
#Septic shock due to R-sided PNA:
-Was on Levophed, now off
-was on IVFs which were stopped 01/03/24AM with improved BPs and oral intake
-s/p R thoracentesis 01/02/24, transudative
-was on Zosyn/Doxy, stopped by ID On 01/02/24 as pt afebrile, without leukocytosis, and transudative pleural fluid
-pleural fluid adenosine deaminase pending
-speech following, now advanced to regular diet
-echo above, unchanged from prior
# Delirium-sundowning likely secondary to cognitive dysfunction-discussed with family
#Recurrent hypothermia:
-TSH minimally elevated, fT4 normal
-fasting cortisol normal
#CAD:
-with h/o stents to LAD and RCA August 2023
-troponin NEG x 2
-echo above, unchanged from prior
-cont Plavix/statin
-BB on hold with hypotension
#LLE lesion:
-digital marketing specialist had concern for OM
- MRI LLE -SEVERE DIFFUSE CELLULITIS throughout the LEFT LEG.No MRI evidence for acute osteomyelitis.
-ID eval appreciated.
#mild asymptomatic bradycardia -Cards eval appreciated-metoprolol and amiodarone stopped.
# Hypokalemia-resolved
#Patient was getting workup for myasthenia as outpatient. acetylcholine receptor antibody NEG
#Cognitive dysfunction (likely dementia, unknown type)
#Hypothyroidism: cont Synthroid
#Severe /MR
#Persistent atrial fibrillation: cont Eliquis. BB on hold.
#Mild thrombocytopenia
#EFRAIN: cont CPAP
#h/o CVAs per previous MRI: continue Plavix/statin
#h/o CLL
#h/o uterine cancer
#Osteoarthritis
#Ambulatory dysfunction
#Osteoporosis
#DNI
#DVT Prophylaxis-Eliquis
-
'Case discussed at length with the daughter over the phone on 01/01/24. I explained that the patient's overall prognosis is extremely poor. I did encourage that she either choose full code or DNR as opposed to limited DNR at this time. Many
questions were asked and answered.
Case discussed at length with the son over the phone on 01/03/24. I explained that the patient's overall prognosis is extremely poor. I did encourage that she either choose full code or DNR as opposed to limited DNR at this time. Many questions
were asked and answered.'
Discussed with RN
D/W Cards
Discussed with multiple family members at bedside and also with daughter separately outside the room. Reviewed patient's MRI findings and the fact that she may have severe cognitive dysfunction according to that. Daughter admits that she has not
seen Dr. De La Rosa since the MRI. I will contact on Sunday and review the MRI findings and plan of workup which was planned as outpatient. I also reviewed with the daughter that patient has advanced aortic stenosis (no plans for arctic valve
replacement that I know) and also really abnormal MRI of the brain.
I also wonder if she has Lewy body dementia which could explain her hypothermia/bradycardia also if she has autonomic dysfunction
I briefly reviewed about discharge to rehab'
time spent over 50 min
Anticipated Discharge: 24 - 48 hours
Subjective/Interval History
-
Date of Service: January 05, 2024
Objective Data
-
Labs:
Laboratory Results
01/05/24
04:38
WBC 8.6
Hgb 11.3 L
Hct 33.8 L
Plt Count 93 L
Sodium 137
Potassium 3.9
Chloride 110 H
Carbon Dioxide 27
BUN 9
Creatinine 0.5 L
Glucose 100 H
Calcium 8.7
Vital Signs:
Vital Signs
Temp Pulse Resp BP Pulse Ox
97.6 F 93 24 131/90 96
01/05/24 07:40 01/05/24 10:00 01/05/24 10:00 01/05/24 10:00 01/05/24 11:48
I&O
01/04/24 01/05/24 01/06/24
06:59 06:59 06:59
Intake Total 760 / 760 890 / 890
Output Total 1250 / 1250 600 / 600
Balance -490 / -490 290 / 290
[2024-01-05 14:50] LABS: ALT (SGPT) 24 U/L (0-35); AST (SGOT) 29 U/L (14-36); Albumin 2.7 g/dl (3.5-5.0); Alkaline Phosphatase 168 U/L (38-126); Direct Bilirubin 0.4 mg/dl (0.0-0.4); Total Bilirubin 0.8 mg/dl (0.2-1.3)
[2024-01-05 15:48] LABS: TSH 6.12 uIU/ml (0.47-4.68)
--- NOTE | 2024-01-05 16:00 | PTCARENOTE ---
Patient is alert and oriented. Poor short term memory. She knows she is at [facility] and 1 minute later thinks she is at home in her kitchen. Patient using bedpan today for urine but was INC x2 of soft brown stool. Bowel medications
were held today. Patient groin and rectum excoriated. Calazime and antifungal cream applied. Afib with pvc's on monitor. Vital signs stable. Temperatures were normal today. Family in room at bedside. Nursing updates provided.
[2024-01-05] MEDS: LASIX 20 MG PO (16:25)
--- NOTE | 2024-01-05 20:52 | PTCARENOTE ---
Received pt from leo RN. Pt is AAOx3, confused and forgetful conversation. Afib on the monitor. Pt weaned from 2L NC to RA O2 sat 98%, bipap HS, lungs diminished. Pt with large incont of urine and incont of loose stool. Hygiene provided, sheets
changed. Bed alarm in place. Pt is laying comfortable in bed with call del valle in reach.
[2024-01-05] MEDS: MELATONIN 3 MG PO (22:38)
[2024-01-06] VITALS (17 sets, daily range): BP systolic 75–142; BP diastolic 61–112; PULSE 2–112
[2024-01-06] MEDS: SYNTHROID 75 MCG PO (05:06)
[2024-01-06 05:21] LABS: Hematocrit 33.3 % (37.0-47.0); Hemoglobin 11.2 g/dL (12.0-16.0); Mean Corp Hgb Conc. 33.6 g/dL (33.0-37.0); Mean Corpuscular Hgb 32.1 pg (27.0-31.0); Mean Corpuscular Volume 95.4 fL (81.0-99.0); Platelet Count 98 10^3/uL (130-400); Red Blood Cell Count 3.49 10^6/uL (4.20-5.40); Red Cell Dist. Width 16.1 % (11.5-14.5); White Blood Cell Count 8.8 10^3/uL (4.8-10.8)
[2024-01-06 05:47] LABS: Blood Urea Nitrogen 8 mg/dl (7-17); Calcium 8.8 mg/dl (8.4-10.2); Carbon Dioxide 31 mmol/L (22-30); Chloride 103 mmol/L (98-107); Estimated Creatinine Clearance 66 ml/min; Glucose 92 mg/dl (70-99); Potassium 3.6 mmol/L (3.5-5.1); Sodium 136 mmol/L (135-145); eGFR > 60.00
--- NOTE | 2024-01-06 10:19 | W.PN.HOSP.TC ---
Today's Communication/Plan
-
Discharge planning
Assessment / Plan
Assessment / Plan
01/02/24 11:17 Pleural Fluid Gram Stain - Preliminary
12/30/23 08:57 Blood/Venous Blood Culture - Preliminary
No Growth in 72 hours- Final report to follow
12/30/23 08:51 Blood/Venous Blood Culture - Preliminary
No Growth in 72 hours- Final report to follow
CXR:
1. MODERATE-SIZED RIGHT PLEURAL EFFUSION and adjacent large right lower and middle lobe airspace consolidations which have increased in size since 10/03/2023.
2. Moderate to severe cardiomegaly with evidence for mild cardiogenic pulmonary edema.
3. Severe calcific atherosclerotic plaque in the coronary arteries and thoracic aorta.
4. 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
Echo: Normal left ventricular size and systolic function.Mild to moderate concentric LVH.No regional wall motion abnormalities EF 65-70% .Diastolic function indeterminate due to atrial fibrillation.Thickened MV, Mild MR
Severely dilated LA,Calcified aortic valve. Peak/mean gradients across the aortic valve are 43/24 mmHg. The aortic valve by the Continuity equation is calculated at 0.7 cm sq
using an LVOT diameter of 1.9 cm. Trace AI. Moderate TR. PA systolic 60 mmHg assuming right atrial pressure of 8 mmHg.Severely dilated RA.Enlarged RV size. Normal RVSF.
01/02/24 11:17 Pleural Fluid Acid Fast Bacilli Smear - Preliminary
01/02/24 11:17 Pleural Fluid Acid Fast Bacilli Culture - Preliminary
01/02/24 11:17 Pleural Fluid Fungal Culture - Preliminary
Culture in progress.
Positive cultures are reported as soon as detected.
Final report to follow in four to five weeks.
01/02/24 11:17 Pleural Fluid Body Fluid Culture - Preliminary
No Growth After 18-24 Hours
01/02/24 11:17 Pleural Fluid Gram Stain - Preliminary
12/30/23 08:57 Blood/Venous Blood Culture - Preliminary
No Growth in 4 days- Final report to follow
12/30/23 08:51 Blood/Venous Blood Culture - Preliminary
No Growth in 4 days- Final report to follow
CXR 01/02/24: Suspected moderate right lower lobe pneumonia. Small right pleural effusion. Much improved. New findings suggesting mild left lower lobe pneumonia. New minimal left lower lobe atelectasis versus scarring. Cardiomegaly. Stable
MRI LLE -SEVERE DIFFUSE CELLULITIS throughout the LEFT LEG.No MRI evidence for acute osteomyelitis.
X Ray foot-There is a 7 cm in length radiolucent (? Plastic) device/bandage over the medial plantar aspect of the midfoot
There is degenerative joint disease with mild degenerative spurring at the intertarsal and tarsometatarsal joints
There is dystrophic calcification in subcutaneous tissues such as may be seen with chronic cellulitis.

CVS: S1-S2 irregular, Sm at apex and AA
Chest: CTA B/L
Abdomen: Soft, NT / Bowel sounds present
Extremities: Left leg ulcer-no evidence of infection-looks stable. Small area of redness on the inner right leg mid leg-looks better with Lasix no edema
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 She notes that at times she gets confused.
#Septic shock due to R-sided PNA:
-Was on Levophed, now off
-was on IVFs which were stopped 01/03/24AM with improved BPs and oral intake
-s/p R thoracentesis 01/02/24, transudative
-was on Zosyn/Doxy, stopped by ID On 01/02/24 as pt afebrile, without leukocytosis, and transudative pleural fluid
-pleural fluid adenosine deaminase pending
-speech following, now advanced to regular diet
-echo above, unchanged from prior
# Delirium-ing likely secondary to cognitive dysfunction-discussed with family
#Recurrent hypothermia:
-TSH minimally elevated, fT4 normal
-fasting cortisol normal
#CAD:
-with h/o stents to LAD and RCA August 2023
-troponin NEG x 2
-echo above, unchanged from prior
-cont Plavix/statin
-BB on hold with hypotension
#LLE lesion:
-apartment leasing specialist had concern for OM
- MRI LLE -SEVERE DIFFUSE CELLULITIS throughout the LEFT LEG.No MRI evidence for acute osteomyelitis.
-ID eval appreciated.
#mild asymptomatic bradycardia -Cards eval appreciated-metoprolol and amiodarone stopped.
# Hypokalemia-resolved
#Patient was getting workup for myasthenia as outpatient. acetylcholine receptor antibody NEG
#Cognitive dysfunction (likely dementia, unknown type)
#Hypothyroidism: cont Synthroid
#Severe /MR
#Persistent atrial fibrillation: cont Eliquis. BB on hold.
#Mild thrombocytopenia
#EFRAIN: cont CPAP
#h/o CVAs per previous MRI: continue Plavix/statin
#h/o CLL
#h/o uterine cancer
#Osteoarthritis
#Ambulatory dysfunction
#Osteoporosis
#DNI
#DVT Prophylaxis-Eliquis
-
'Case discussed at length with the daughter over the phone on 01/01/24. I explained that the patient's overall prognosis is extremely poor. I did encourage that she either choose full code or DNR as opposed to limited DNR at this time. Many
questions were asked and answered.
Case discussed at length with the son over the phone on 01/03/24. I explained that the patient's overall prognosis is extremely poor. I did encourage that she either choose full code or DNR as opposed to limited DNR at this time. Many questions
were asked and answered.'
Discussed with RN
Discussed with multiple family members at bedside and also with daughter separately outside the room. Reviewed patient's MRI findings and the fact that she may have severe cognitive dysfunction according to that. Daughter admits that
she has not seen Dr. De La Rosa since the MRI. I will contact on Sunday and review the MRI findings and plan of workup which was planned as outpatient. I also reviewed with the daughter that patient has advanced aortic stenosis (no plans for arctic
valve replacement that I know) and also really abnormal MRI of the brain.
D/W Case management
Anticipated Discharge: Within 24 hours
Subjective/Interval History
-
Date of Service: January 06, 2024
Objective Data
-
Labs:
Laboratory Results
01/06/24
05:05
WBC 8.8
Hgb 11.2 L
Hct 33.3 L
Plt Count 98 L
Sodium 136
Potassium 3.6
Chloride 103
Carbon Dioxide 31 H
BUN 8
Creatinine 0.4 L
Glucose 92
Calcium 8.8
Vital Signs:
Vital Signs
Temp Pulse Resp BP Pulse Ox
97.7 F 100 17 112/81 95
01/06/24 03:00 01/06/24 06:00 01/06/24 06:00 01/06/24 06:00 01/06/24 06:00
I&O
01/05/24 01/06/24 01/07/24
06:59 06:59 06:59
Intake Total 890 / 890 1250 / 1250
Output Total 600 / 600
Balance 290 / 290 1250 / 1250
[2024-01-06] MEDS: VITAMIN B-6 100 MG PO (10:24)
[2024-01-06] MEDS: PLAVIX 75 MG PO (10:24)
[2024-01-06] MEDS: OCUVITE SOFTGEL 1 CAP PO ×2 (10:24→19:59)
[2024-01-06] MEDS: ELIQUIS 5 MG PO ×2 (10:24→19:59)
[2024-01-06] MEDS: PROTONIX 40 MG PO (10:24)
[2024-01-06] MEDS: REFRESH CELLUVISC GEL 1 DROPS BOTH EYES ×4 (10:25→19:59)
[2024-01-06] MEDS: VITAMIN D3 (cholecalciferol) 50 MCG PO (10:25)
[2024-01-06] MEDS: LIPITOR 10 MG PO (10:25)
[2024-01-06] MEDS: THERAGRAN 1 TABLET PO (10:26)
[2024-01-06] MEDS: VITAMIN C 500 MG PO (10:26)
[2024-01-06] MEDS: SENOKOT PO ×2 (10:27→19:59)
[2024-01-06] MEDS: LOTRIMIN 1% CREAM 1 APPLIC TOPICAL ×2 (10:27→20:00)
[2024-01-06] MEDS: MIRALAX PO (10:27)
[2024-01-06] MEDS: ERYTHROMYCIN 0.5% OPHTHALMIC OINTMENT 1 APPLIC OPHTH ×4 (10:28→19:59)
[2024-01-06] MEDS: COLACE PO ×2 (10:28→19:58)
--- NOTE | 2024-01-06 18:00 | PTCARENOTE ---
Patient out of bed to chair with heavy assistance x 2 with rolling walker. Tolerated the chair for a few hours. Chair and bed alarm in use. Vital signs stable. Family provided with nursing update.
[2024-01-06] MEDS: MELATONIN 3 MG PO (19:59)
[2024-01-07] VITALS (9 sets, daily range): BP systolic 102–121; BP diastolic 62–103; PULSE 99–100
[2024-01-07] MEDS: SYNTHROID PO ×2 (05:03→05:04)
[2024-01-07 05:57] LABS: Hematocrit 32.8 % (37.0-47.0); Hemoglobin 11.3 g/dL (12.0-16.0); Mean Corp Hgb Conc. 34.5 g/dL (33.0-37.0); Mean Corpuscular Hgb 32.5 pg (27.0-31.0); Mean Corpuscular Volume 94.3 fL (81.0-99.0); Mean Platelet Volume 11.2 fL (7.4-10.4); Platelet Count 125 10^3/uL (130-400); Red Blood Cell Count 3.48 10^6/uL (4.20-5.40); Red Cell Dist. Width 16.3 % (11.5-14.5); White Blood Cell Count 7.1 10^3/uL (4.8-10.8)
[2024-01-07 06:20] LABS: Blood Urea Nitrogen 14 mg/dl (7-17); Calcium 8.8 mg/dl (8.4-10.2); Carbon Dioxide 30 mmol/L (22-30); Chloride 105 mmol/L (98-107); Estimated Creatinine Clearance 66 ml/min; Glucose 102 mg/dl (70-99); Potassium 3.8 mmol/L (3.5-5.1); Sodium 137 mmol/L (135-145); eGFR > 60.00
[2024-01-07] MEDS: MIRALAX PO (07:42)
[2024-01-07] MEDS: SENOKOT PO (07:42)
[2024-01-07] MEDS: COLACE PO (07:42)
[2024-01-07] MEDS: ERYTHROMYCIN 0.5% OPHTHALMIC OINTMENT 1 APPLIC OPHTH ×2 (08:16→14:13)
[2024-01-07] MEDS: LOTRIMIN 1% CREAM 1 APPLIC TOPICAL (08:16)
[2024-01-07] MEDS: PLAVIX 75 MG PO (08:17)
[2024-01-07] MEDS: VITAMIN D3 (cholecalciferol) 50 MCG PO (08:17)
[2024-01-07] MEDS: OCUVITE SOFTGEL 1 CAP PO (08:17)
[2024-01-07] MEDS: REFRESH CELLUVISC GEL 1 DROPS BOTH EYES ×2 (08:17→14:13)
[2024-01-07] MEDS: PROTONIX 40 MG PO (08:17)
[2024-01-07] MEDS: LIPITOR 10 MG PO (08:17)
[2024-01-07] MEDS: ELIQUIS 5 MG PO (08:17)
[2024-01-07] MEDS: THERAGRAN 1 TABLET PO (08:17)
[2024-01-07] MEDS: VITAMIN B-6 100 MG PO (08:17)
[2024-01-07] MEDS: VITAMIN C 500 MG PO (08:17)
--- NOTE | 2024-01-07 09:16 | CM ---
Addendum [facility] 01/07/24 15:14:
[facility]
Report # [phone]

Addend[facility] 01/07/24 14:01:
ambulance hand picker changed to [phone]
Addendum entered by [facility] 01/07/24 13:29:
Plan: Discharge to [facility] today via ambulance
scanner supervisor scheduled @ 1645; daughter notified
Addendum entered by Shila [facility] 01/07/24 12:47:
Insurance Authorization approved for 8 days Skilled Level 1; (01/06 -01/14 2024)
Authorization # [id number]
Authorization# [id number] for Ambulance
Ambulance scanner supervisor Time pending
Addendum entered by [facility] 01/07/24 12:27:
IMM benefit explained and signed @ 1225
Addendum entered by Shila [facility] 01/07/24 10:55:
Spoke via phone with daughter; agreeable with discharge plan
Addendum entered by [facility] 01/07/24 09:59:
[facility] has a bed available for patient today pending Authorization approval
Authorization will be submitted to [place] [id number] by Beata liajeremy
[facility] NPI # [id number]
[facility] Provider is Dr. Olson NPI # [id number]
Contacted patient's daughter, Maria Elena Whipple; Left a voice mail to call to discuss DC plan
Original Note:
Plan: discharge to [facility] today if bed is available; Beata patient; Authorization needed
--- NOTE | 2024-01-07 10:26 | W.PN.HOSP.TC ---
Addendum entered and electronically signed by Дмитрий Francis MD 01/07/24 15:12:
Dictation- [id number]
Addendum entered and electronically signed by Дмитрий Francis MD 01/07/24 11:39:
Spoke to son .
Discussed about my conversation with Dr. De La Rosa today.
Discussed about repeating thyroid function test in 4 to 6 weeks before changes made to Synthroid as it was recently changed
Discussed about low platelets and also hematology follow-up
Discussed about severe arctic stenosis-
Discussed about MRI findings
All questions were answered.
Original Note:
Today's Communication/Plan
-
Discharge to rehab
Assessment / Plan
Assessment / Plan
01/02/24 11:17 Pleural Fluid Gram Stain - Preliminary
12/30/23 08:57 Blood/Venous Blood Culture - Preliminary
No Growth in 72 hours- Final report to follow
12/30/23 08:51 Blood/Venous Blood Culture - Preliminary
No Growth in 72 hours- Final report to follow
CXR:
1. MODERATE-SIZED RIGHT PLEURAL EFFUSION and adjacent large right lower and middle lobe airspace consolidations which have increased in size since 10/03/2023.
2. Moderate to severe cardiomegaly with evidence for mild cardiogenic pulmonary edema.
3. Severe calcific atherosclerotic plaque in the coronary arteries and thoracic aorta.
4. 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
Echo: Normal left ventricular size and systolic function.Mild to moderate concentric LVH.No regional wall motion abnormalities EF 65-70% .Diastolic function indeterminate due to atrial fibrillation.Thickened MV, Mild MR
Severely dilated LA,Calcified aortic valve. Peak/mean gradients across the aortic valve are 43/24 mmHg. The aortic valve by the Continuity equation is calculated at 0.7 cm sq
using an LVOT diameter of 1.9 cm. Trace AI. Moderate TR. PA systolic 60 mmHg assuming right atrial pressure of 8 mmHg.Severely dilated RA.Enlarged RV size. Normal RVSF.
01/02/24 11:17 Pleural Fluid Acid Fast Bacilli Smear - Preliminary
01/02/24 11:17 Pleural Fluid Acid Fast Bacilli Culture - Preliminary
01/02/24 11:17 Pleural Fluid Fungal Culture - Preliminary
Culture in progress.
Positive cultures are reported as soon as detected.
Final report to follow in four to five weeks.
01/02/24 11:17 Pleural Fluid Body Fluid Culture - Preliminary
No Growth After 18-24 Hours
01/02/24 11:17 Pleural Fluid Gram Stain - Preliminary
12/30/23 08:57 Blood/Venous Blood Culture - Preliminary
No Growth in 4 days- Final report to follow
12/30/23 08:51 Blood/Venous Blood Culture - Preliminary
No Growth in 4 days- Final report to follow
CXR 01/02/24: Suspected moderate right lower lobe pneumonia. Small right pleural effusion. Much improved. New findings suggesting mild left lower lobe pneumonia. New minimal left lower lobe atelectasis versus scarring. Cardiomegaly. Stable
MRI LLE -SEVERE DIFFUSE CELLULITIS throughout the LEFT LEG.No MRI evidence for acute osteomyelitis.
X Ray foot-There is a 7 cm in length radiolucent (? Plastic) device/bandage over the medial plantar aspect of the midfoot
There is degenerative joint disease with mild degenerative spurring at the intertarsal and tarsometatarsal joints
There is dystrophic calcification in subcutaneous tissues such as may be seen with chronic cellulitis.

CVS: S1-S2 irregular, Sm at apex and AA
Chest: CTA B/L
Abdomen: Soft, NT / Bowel sounds present
Extremities: Left leg ulcer-no evidence of infection-looks stable. Small area of redness on the inner right leg mid leg-looks better with Lasix no edema
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
At times
#Septic shock due to R-sided PNA:
-Was on Levophed, now off
-was on IVFs which were stopped 01/03/24AM with improved BPs and oral intake
-s/p R thoracentesis 01/02/24, transudative
-was on Zosyn/Doxy, stopped by ID On 01/02/24 as pt afebrile, without leukocytosis, and transudative pleural fluid
-Pleural fluid adenosine deaminase pending
-speech following, now advanced to regular diet
-echo above, unchanged from prior
# Delirium-ing likely secondary to cognitive dysfunction-discussed with family
#Recurrent hypothermia:
-TSH minimally elevated, fT4 normal
-fasting cortisol normal
#CAD:
-with h/o stents to LAD and RCA August 2023
-troponin NEG x 2
-echo above, unchanged from prior
-cont Plavix/statin
-BB on hold with hypotension
#LLE lesion:
-account development specialist had concern for OM
- MRI LLE -SEVERE DIFFUSE CELLULITIS throughout the LEFT LEG.No MRI evidence for acute osteomyelitis.
-ID eval appreciated.
#Mild asymptomatic bradycardia -Cards eval appreciated-metoprolol and amiodarone stopped.
# Hypokalemia-resolved
#Patient was getting workup for myasthenia as outpatient. acetylcholine receptor antibody NEG
#Cognitive dysfunction (likely dementia, unknown type)
#Hypothyroidism: cont Synthroid
#Severe /MR
#Persistent atrial fibrillation: cont Eliquis. BB on hold.
#Mild thrombocytopenia
#EFRAIN: cont CPAP
#h/o CVAs per previous MRI: continue Plavix/statin
#h/o CLL
#h/o uterine cancer
#Osteoarthritis
#Ambulatory dysfunction
#Osteoporosis
#DNI
#DVT Prophylaxis-Eliquis
Add Midodrine as BP may run low with
-
'Case discussed at length with the daughter over the phone on 01/01/24. I explained that the patient's overall prognosis is extremely poor. I did encourage that she either choose full code or DNR as opposed to limited DNR at this time. Many
questions were asked and answered.
Case discussed at length with the son over the phone on 01/03/24. I explained that the patient's overall prognosis is extremely poor. I did encourage that she either choose full code or DNR as opposed to limited DNR at this time. Many questions
were asked and answered.'
Discussed with RN
Discussed with multiple family members at bedside and also with daughter separately outside the room. Reviewed patient's MRI findings and the fact that she may have severe cognitive dysfunction according to that. Daughter admits that
she has not seen Dr. De La Rosa since the MRI. I will contact on Sunday and review the MRI findings and plan of workup which was planned as outpatient. I also reviewed with the daughter that patient has advanced aortic stenosis (no plans for arctic
valve replacement that I know) and also really abnormal MRI of the brain.
D/W Case management
01/07/24- Spoke to Dr. De La Rosa . Discussed that acetylcholine receptor antibody was negative here. Suspicion for myasthenia was not high but she wanted to repeat the antibody test anyways.
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
Reviewed MRI. Dr. De La Rosa agrees that patient may have vascular dementia or Alzheimer's. Patient has had cerebellar infarcts therefore may have difficulty with gait.
No further intervention testing. will see the patient as outpatient and follow-up on testing as needed.
Left a message for patient's daughter to discuss this.
Anticipated Discharge: Today
Subjective/Interval History
-
Date of Service: January 07, 2024
Objective Data
-
Labs:
Laboratory Results
01/07/24
05:09
WBC 7.1
Hgb 11.3 L
Hct 32.8 L
Plt Count 125 L D
Sodium 137
Potassium 3.8
Chloride 105
Carbon Dioxide 30
BUN 14
Creatinine 0.5 L
Glucose 102 H
Calcium 8.8
Vital Signs:
Vital Signs
Temp Pulse Resp BP Pulse Ox
97.7 F 103 14 121/81 95
01/07/24 07:15 01/07/24 10:00 01/07/24 10:00 01/07/24 06:00 01/07/24 10:17
I&O
01/06/24 01/07/24 01/08/24
06:59 06:59 06:59
Intake Total 1250 / 1250 565 / 565
Output Total 400 / 400
Balance 1250 / 1250 165 / 165
--- NOTE | 2024-01-07 11:11 | W.PN.ID1 ---
Date of Service
Date of Service: January 07, 2024
Today's Communication
Observe off antibiotics. Await pending labs.
Assessment / Plan
Pleural effusion; status post thoracentesis
-Suspect transudate.
Pulmonary infiltrates;
- compressive atelectasis versus pneumonia
- Pt without significant symptoms of PNA
Right plantar callus/wound (chronic)
Left pretibial wounds (superficial)
Prior hypotension
-Resolved
A-fib
Aortic stenosis
HTN
CLL
Hx uterine cancer
EFRAIN
Arthritis
Recommendations:
Pleural fluid analysis noted. Not specifically consistent with bacterial process; suspect transudative effusion.
Pleural fluid adenosine deaminase pending.
Pleural fluid cultures : NGTD.
Continue with local care to the left leg wounds.
Observe off antibiotics.
����������������������������������������������������������
Chief Complaint
-: Other (Pleural effusion)
Subjective / Review of Systems
Review of Systems: No Fever and No Chills
Vital Signs / Physical Exam
Vital Signs
Vital Signs
Temp Pulse Resp BP Pulse Ox
97.7 F 103 14 121/81 95
01/07/24 07:15 01/07/24 10:00 01/07/24 10:00 01/07/24 06:00 01/07/24 10:17
Physical Exam
Constitutional: No Acute Distress, Comfortable, Chronically Ill and Non-toxic
Cardiovascular: S1/S2; Negative S3/S4
Pulmonary: Non Labored and Other (Few scattered expiratory crackles.)
Gastrointestinal: Soft and Non Tender
Extremities: Edema (Tubigrips in place.)
Wound: Other (Superficial left prepatellar wounds noted. Currently covered.)
Neurological: Awake and Alert
Psychological: Calm
Objective Data
Lab Data
Lab Results
01/07/24 05:09
01/07/24 05:09
Estimated Creat Clear 66 ml/min 01/07/24 05:09
Lactic Acid Cancelled 12/30/23 12:45
Total Bilirubin 0.8 mg/dl (0.2-1.3) 01/05/24 04:38
AST 29 U/L (14-36) 01/05/24 04:38
ALT 24 U/L (0-35) 01/05/24 04:38
Alkaline Phosphatase 168 U/L (38-126) H 01/05/24 04:38
Most recent labs reviewed.
Micro Results:
01/02/24 11:17 Body Fluid Culture - Final
Pleural Fluid No Growth After 72 Hours
Gram Stain - Final
01/02/24 11:17 Fungal Smear - Final
Pleural Fluid No yeast or fungal elements seen.
Fungal Culture - Preliminary
Culture in progress.
Positive cultures are reported as soon as detected.
Final report to follow in four to five weeks.
12/30/23 08:57 Blood Culture - Final
Blood/Venous No Growth - Final Report
12/30/23 08:51 Blood Culture - Final
Blood/Venous No Growth - Final Report
01/02/24 11:17 Acid Fast Bacilli Smear - Preliminary
Pleural Fluid Acid Fast Bacilli Culture - Preliminary
Imaging:
01/04/2024 MRI Left LE : Reported severe diffuse cellulitis throughout the left leg. No evidence for osteomyelitis.
01/04/2020 form X-Ray Right foot : No evidence of osteomyelitis
12/30/2023 CXR (2 view): Moderate-sized right pleural effusion and adjacent large right lower and middle lobe airspace consolidations, which have increased in size since 10/03/2023. Moderate to severe cardiomegaly with evidence for mild cardiogenic
pulmonary edema is noted. Severe calcific atherosclerotic plaque in the coronary arteries and thoracic aorta. Please see full dictation for additional detail.
--- NOTE | 2024-01-07 12:11 | PTCARENOTE ---
Pt extremely confused and attempting to climb OOB when first received this morning. Able to be reoriented. More alert and oriented as the day goes on. Family at bedside. For d/c to [facility] later today. Bed alarm remains in place for safety.
[2024-01-07] MEDS: ProAmatine 2.5 MG PO (14:11)
--- NOTE | 2024-01-07 15:15 | W.DS.TRANS ---
DC Summary - [employer]
-
Discharge Instructions:
Discharge Diagnosis/Procedures Septic shock, pneumonia, delirium, recurrent
hypothermia, coronary artery disease, ulcer left
leg, asymptomatic bradycardia, hypokalemia,
cognitive dysfunction, hypothyroidism, severe
, mitral regurgitation, persistent atrial
fibrillation, mild thrombocytopenia, sleep apnea
not on CPAP, history of CVA, history of CLL,
history of uterine cancer, ambulatory
dysfunction
Diet Restrict fluids to 64 oz,2 Gram Sodium
Activity With assistance,As tolerated
Driving Restrictions No driving
Blood Work TSH
Others Tests Chest x-ray 4 to 6 weeks
Other Services PT,OT
Specialty Instructions Weigh Daily
Instructions:
Stand-Alone Forms:
Changes to Home Medications: Yes
Discharge Medications:
DC Medications w/original date entered in [email or web address]
multivitamin with folic acid 400 mcg tablet (Tab-A-Mandy) 1 tab PO DAILY Supplement ##0 01/05/12
cholecalciferol (vitamin D3) 25 mcg (1,000 unit) tablet 2,000 units PO DAILY Supplement 05/18/21
vit C 226 mg-vit E 90 mg-copper 0.8 mg-zinc oxide-lutein 5 mg capsule (PreserVision Lutein) 1 cap PO BID Supplement 06/25/23
calcium carbonate (Calcium 600) 600 mg PO BID Supplement 10/03/23
Benefiber (guar gum) 2 tsp PO DAILY constipation 12/30/23
alendronate 70 mg tablet (Fosamax) 70 mg PO MEMBRENO osteoporosis 12/30/23
ascorbic acid (vitamin C) 500 mg tablet (Vitamin C) 500 mg PO DAILY Supplement 12/30/23
atorvastatin 10 mg tablet 10 mg PO DAILY High Cholesterol 12/30/23
furosemide 40 mg tablet (Lasix) 40 mg PO DAILYPRN PRN fluid retention 12/30/23
levothyroxine 75 mcg tablet (Synthroid) 75 mcg PO DAILY Thyroid 12/30/23
melatonin 3 mg tablet 3 mg PO HS Sleep 12/30/23
pyridoxine (vitamin B6) 100 mg tablet (Vitamin B-6) 100 mg PO DAILY Supplement 12/30/23
trazodone 50 mg tablet 50 mg PO HS PRN sleep 12/30/23
apixaban 5 mg tablet (Eliquis) 5 mg PO BID Blood clot prevention/tx #0 tabs 01/06/24
carboxymethylcellulose sodium 1 % eye gel in a dropperette (TheraTears) 1 drops BOTH EYES QID Eye condition #0 ea 01/06/24
clopidogrel 75 mg tablet 75 mg PO DAILY Blood clot prevention/tx #90 tabs 01/06/24
clotrimazole 1 % topical cream (Athlete's Foot (clotrimazole)) 1 applic topical BID Skin issues #15 grams 01/06/24
docusate sodium 100 mg capsule 100 mg PO BID Constipation #0 caps 01/06/24
erythromycin 5 mg/gram (0.5 %) eye ointment 1 applic ophthalmic (eye) QID Eye condition #0 grams 01/06/24
pantoprazole 40 mg tablet,delayed release 40 mg PO DAILY Gastrointestinal issue #90 tabs 01/06/24
polyethylene glycol 3350 17 gram oral powder packet (HealthyLax) 17 g PO DAILY Gastrointestinal issue #0 ea 01/06/24
sennosides 8.6 mg tablet (Senna Laxative) 8.6 mg PO BID Constipation #0 tabs 01/06/24
midodrine 5 mg tablet 2.5 mg (1/2 x 5 mg) PO TID@0800,1300,1800 Blood pressure #0 tabs 01/07/24
Home Medication Changes
new
Midodrine is new
Metoprolol and amiodarone stopped
Pending Results: Yes
Total time spent discharging patient (in min): Adenosine deaminase pending at discharge
--- NOTE | 2024-01-07 15:53 | PTCARENOTE ---
Pt for d/c to [facility]. Report called to facility. IV and monitor sites removed. Belongings collected from room. Daughter at bedside. D/c via [facility].
== END 2024-01-07 16:02 | DRG 871 ==
LOC: IMU 11:18
PROVIDERS: Internal Medicine; Physician Assistant Medical; Radiology Vascular & Interventional Radiology; ADMITTING PHYSICIAN Hospitalist; EMERGENCY PHYSICIAN Emergency Medicine; FAMILY PHYSICIAN Family Medicine; OTHER PHYSICIAN Internal Medicine Cardiovascular Disease; OTHER PHYSICIAN Internal Medicine Infectious Disease
PROC: 0W993ZZ Drainage of Right Pleural Cavity, Percutaneous Approach (ICD-10-PCS; 2024-01-02)
DX: A41.9 Sepsis, unspecified organism (principal); J18.9 Pneumonia, unspecified organism; R65.21 Severe sepsis with septic shock; I48.19 Other persistent atrial fibrillation; I50.32 Chronic diastolic (congestive) heart failure; Z87.891 Personal history of nicotine dependence; I11.0 Hypertensive heart disease with heart failure; Z79.01 Long term (current) use of anticoagulants; Z82.49 Family history of ischemic heart disease and other diseases of the circulatory system; Z95.5 Presence of coronary angioplasty implant and graft; I25.10 Atherosclerotic heart disease of native coronary artery without angina pectoris; Z66 Do not resuscitate; E03.9 Hypothyroidism, unspecified; E87.6 Hypokalemia; L89.312 Pressure ulcer of right buttock, stage 2
CPT/HCPCS: 88305; 32555; 51701; 70450; 71045; 71046; 73620; 73720; 76604; 80048; 80053; 81003; 82248; 82533; 82607; 83605; 83615; 83735; 83986; 84155; 84157; 84439; 84443; 84484; 85025; 85027; 86041; 87015; 87040; 87070; 87102; 87116; 87205; 87206; 88112; 88341; 88342; 89051; 92526; 92610; 93005; 93306; 94660; 96361; 96365; 97163; 97167; 97530; 97535; 99291; A9575

== ENCOUNTER → 2024-01-14 09:25 | Outpatient (REF) | payer OTHER, SELFPAY ==
[2024-01-14 10:13] LABS: Hematocrit 32.6 % (37.0-47.0); Hemoglobin 10.7 g/dL (12.0-16.0); Mean Corp Hgb Conc. 32.8 g/dL (33.0-37.0); Mean Corpuscular Hgb 32.2 pg (27.0-31.0); Mean Corpuscular Volume 98.2 fL (81.0-99.0); Mean Platelet Volume 10.3 fL (7.4-10.4); Platelet Count 273 10^3/uL (130-400); Red Blood Cell Count 3.32 10^6/uL (4.20-5.40); Red Cell Dist. Width 15.9 % (11.5-14.5); White Blood Cell Count 4.4 10^3/uL (4.8-10.8)
[2024-01-14 10:34] LABS: Blood Urea Nitrogen 11 mg/dl (7-17); Calcium 9.2 mg/dl (8.4-10.2); Carbon Dioxide 28 mmol/L (22-30); Chloride 107 mmol/L (98-107); Glucose 89 mg/dl (70-99); Potassium 3.7 mmol/L (3.5-5.1); Sodium 141 mmol/L (135-145); eGFR > 60.00
== END ==
LOC: OLABP 09:25
PROVIDERS: ATTENDING PHYSICIAN Family Medicine
DX: J44.9 Chronic obstructive pulmonary disease, unspecified (principal); J18.9 Pneumonia, unspecified organism; I25.10 Atherosclerotic heart disease of native coronary artery without angina pectoris; L03.116 Cellulitis of left lower limb; I34.0 Nonrheumatic mitral (valve) insufficiency; I35.0 Nonrheumatic aortic (valve) stenosis; D69.6 Thrombocytopenia, unspecified; M62.81 Muscle weakness (generalized); F01.50 Vascular dementia, unspecified severity, without behavioral disturbance, psychotic disturbance, mood disturbance, and anxiety; E16.2 Hypoglycemia, unspecified; I50.9 Heart failure, unspecified; C91.90 Lymphoid leukemia, unspecified not having achieved remission; I48.0 Paroxysmal atrial fibrillation
CPT/HCPCS: 36415; 80048; 85027

== ENCOUNTER → 2024-04-17 15:11 | Outpatient (REF) | payer OTHER, SELFPAY | LOC: RAD 15:11 | PROVIDERS: ATTENDING PHYSICIAN Family Medicine | DX: E03.9 Hypothyroidism, unspecified (principal); J18.9 Pneumonia, unspecified organism | CPT/HCPCS: 71046 ==

== ENCOUNTER → 2024-05-01 15:47 | Outpatient (REF) | payer OTHER, SELFPAY | LOC: RCS 15:47 | PROVIDERS: ATTENDING PHYSICIAN Family Medicine | DX: I35.0 Nonrheumatic aortic (valve) stenosis (principal); R26.2 Difficulty in walking, not elsewhere classified; R53.83 Other fatigue | CPT/HCPCS: 93306 ==

== ENCOUNTER 2024-08-15 06:39 | Emergency (ER) | payer OTHER, SELFPAY ==
[2024-08-15 06:40] VITALS: BP 92/56
--- NOTE | 2024-08-15 07:54 | ED.MUSCINJ ---
HPI-Injury
General
Chief Complaint: Fall
Source: patient
Exam Limitations: none
Time Seen by Provider: 08/15/24 07:29
History of Present Illness-Injury
Initial Injury comments:
89-year-old female presents after a tumble in the bathroom. She bent over to pick something up and lost her balance and rubbed her arm against the edge of the trash can. She has skin tears to the arm. She did not hit her head. She is on Eliquis.
Family has been dressing this at home but the wounds continue to bleed. No other at this time
Past History
Past History
ED Past Medical History: Arrthythmia (Atrial fibrillation), Cancer (CLL), CHF, HTN and Other (Sleep apnea, uses CPAP at night, colon polyps, arthritis, shingles, chronic lymphocytic leukemia, skin cancers)
ED Past Surgical History: Appendectomy, Cholecystectomy, Orthopedic (Left TKR) and Other (Lysis of adhesions)
Social History
Tobacco: Non-smoker
Alcohol: Occasional
Drug: None
Personal:
Living: alone
Employment: Employed
Phy Exam
Physical Exam
Physical Exam:
General: Well-appearing female no acute distress
HEENT: Normocephalic atraumatic
Skin: Skin tear is noted to the left arm. There are 3 separate skin tears 1 overlying lateral aspect of left shoulder is approximately 2 x 4 cm superficial nature mild oozing. There is 1 on the left elbow that is 1 x 3 cm with mild oozing. There
is 1 over the left forearm that is flap in nature superficial still some bleeding and this 1 measures approximately 2 x 4 cm.
Musculoskeletal exam: The spine is nontender the elbow has good range of motion
Neurologic exam: Alert normal gait. No signs of head trauma
MDM/Problems Addressed
Differential Diagnosis Includes:
Skin tears to left arm. Consider x-rays of arm however she is nontender with good range of motion. Not indicated this time. The wounds were cleansed with saline solution and dried. The wounds were then dressed with Surgicel Telfa gauze wrap and
Coban. Wound care instructions were given to the patient and family. Stable for discharge
*Critical Care Note
Total Time (30-74mins, 75-104mins- exclusive of procedures): Not Applicable
ED Attending Note
-
Portions of this chart may have been created with voice recognition software.� Occasional wrong word or��sound alike� substitutions may have occurred due to the inherent limitations of voice recognition software.
Discharge Plan
Departure
Patient Disposition: Home (Routine Discharge)
Date of Disposition: 08/15/24
Time of Disposition: 08:08
Patient with high blood pressure during this ER visit?: No
Discharge Problem:
Skin tear
Instructions: Wound Care (DC)
Prescriptions:
No Action
multivitamin with folic acid [Tab-A-Mandy] 1 TABLET tablet
1 tab PO DAILY Qty: 0
cholecalciferol (vitamin D3) 1,000 UNITS tablet
2,000 units PO DAILY
PreserVision Lutein 226-90-0.8-5 mg Capsule
1 cap PO BID
calcium carbonate [Calcium 600] 600 mg calcium (1,500 mg) Tablet
600 mg PO BID
furosemide [Lasix] 40 mg Tablet
40 mg PO DAILYPRN PRN (Reason: fluid retention )
trazodone 50 mg Tablet
50 mg PO HS PRN (Reason: sleep )
atorvastatin 10 mg Tablet
10 mg PO DAILY
melatonin 3 mg Tablet
3 mg PO HS
ascorbic acid (vitamin C) [Vitamin C] 500 mg Tablet
500 mg PO DAILY
pyridoxine (vitamin B6) [Vitamin B-6] 100 mg Tablet
100 mg PO DAILY
Benefiber (guar gum)
2 tsp PO DAILY
alendronate [Fosamax] 70 mg Tablet
70 mg PO MEMBRENO
levothyroxine [Synthroid] 75 mcg Tablet
75 mcg PO DAILY
clopidogrel 75 mg Tablet
75 mg PO DAILY Qty: 90 5RF
erythromycin 5 mg/gram (0.5 %) Ointment
1 applic ophthalmic (eye) QID Qty: 0 0RF
docusate sodium 100 mg Capsule
100 mg PO BID Qty: 0 0RF
Eliquis 5 mg Tablet
5 mg PO BID Qty: 0 0RF
clotrimazole [Athlete's Foot (clotrimazole)] 1 % Cream
1 applic topical BID Qty: 15 0RF
sennosides [Senna Laxative] 8.6 mg Tablet
8.6 mg PO BID Qty: 0 0RF
polyethylene glycol 3350 [HealthyLax] 17 gram Powder In Packet
17 g PO DAILY Qty: 0 0RF
carboxymethylcellulose sodium [TheraTears] 1 % Dropperette,Gel
1 drops BOTH EYES QID Qty: 0 0RF
pantoprazole 40 mg Tablet,Delayed Release (Dr/Ec)
40 mg PO DAILY Qty: 90 5RF
midodrine 5 mg Tablet
2.5 mg PO TID@0800,1300,1800 Qty: 0 0RF
Activity Restrictions/Additional Instructions:
Keep dressing clean. Change as needed starting tomorrow. Return if needed otherwise follow-up with your doctor
Discharge Date and Time
Print Language: LATVIAN
[2024-08-15 08:21] VITALS: BP 91/63
[2024-08-15 08:22] VITALS: BP 91/63
== END 2024-08-15 08:30 | disposition home or self-care (01) ==
LOC: EMR 06:39
PROVIDERS: EMERGENCY PHYSICIAN Emergency Medicine; FAMILY PHYSICIAN Family Medicine
DX: S41.112A Laceration without foreign body of left upper arm, initial encounter (principal); W18.09XA Striking against other object with subsequent fall, initial encounter; I48.91 Unspecified atrial fibrillation; I11.0 Hypertensive heart disease with heart failure; I50.9 Heart failure, unspecified; Z79.01 Long term (current) use of anticoagulants; Z85.828 Personal history of other malignant neoplasm of skin; Z85.6 Personal history of leukemia; G47.30 Sleep apnea, unspecified
CPT/HCPCS: 99282

== ENCOUNTER → 2024-09-12 10:32 | Outpatient (REF) | payer OTHER, SELFPAY | LOC: EMG 10:32 | PROVIDERS: ATTENDING PHYSICIAN Orthopaedic Surgery Hand Surgery; FAMILY PHYSICIAN Family Medicine | DX: R20.0 Anesthesia of skin (principal); G56.01 Carpal tunnel syndrome, right upper limb; G56.02 Carpal tunnel syndrome, left upper limb | CPT/HCPCS: 95886; 95911 ==

== ENCOUNTER 2024-12-05 22:07 | Emergency (ER) | payer OTHER, SELFPAY ==
[2024-12-05 22:10] VITALS: BP 96/61
--- NOTE | 2024-12-05 22:51 | ED.GENMED ---
History of Present Illness
General
Chief Complaint: Head Injury
Source: patient
Time Seen by Provider: 12/05/24 22:45
History of Present Illness
History of Present Illness:
89-year-old female with past medical history of atrial fibrillation, aortic stenosis, previous uterine cancer and CLL presenting to the emergency department for evaluation after she excellently lost her balance while getting up from her chair at the
kitchen table earlier this evening, fell forward landing on her right elbow and head. Patient's main concern is she has moderate to severe swelling of the posterior elbow/olecranon but also that she is on Eliquis due to the atrial fibrillation.
Patient has no other concerns at this time. She denies any headache, LOC, vomiting, visual disturbances, any chest pain or any other extremity related concerns.
Past History
Past History
ED Past Medical History: Arrthythmia (Atrial fibrillation), Cancer (CLL), CHF, HTN and Other (Sleep apnea, uses CPAP at night, colon polyps, arthritis, shingles, chronic lymphocytic leukemia, skin cancers)
ED Past Surgical History: Appendectomy, Cholecystectomy, Orthopedic (Left TKR) and Other (Lysis of adhesions)
Social History
Tobacco: Non-smoker
Alcohol: Occasional
Drug: None
Personal:
Living: with family
Employment: Employed
Review of Systems
Review of Systems
All Other Systems: ROS reviewed and negative except as documented in HPI and ROS
Phy Exam
Physical Exam
Physical Exam:
GENERAL: Alert , in no apparent distress
EYE: conjunctiva clear
Head: Normocephalic atraumatic
NECK: Supple,
ENT: mmm.
LUNGS: no acute respiratory distress
NEUROLOGICAL: Alert and oriented
SKIN: Warm and dry, curvilinear skin tear to the olecranon. There is moderate edema to the right posterior elbow
MUSCULOSKELETAL: well perfused. Patient allows for full range of motion of upper and lower extremities. No focal tenderness
PSYCH: Normal and appropriate interaction.
Scores
Heart Failure Risk
Heart Failure Risk Score: Not Applicable
Heart Score for Chest Pain Patients
STEMI patient?: Not applicable
Withdrawal Assessment of Alcohol
Withdrawal Assessment Completed?: Not applicable
Course
Orders/Labs/Results
Orders:
Orders
12/05/24 22:09
CT Head W/o Iv Contrast Urgent
Comment:
Reason For Exam: fall
12/05/24 22:14
CR Elbow - Right Min 3 Views Urgent
Comment:
Reason For Exam: injury
Vital Signs
Initial and Last Documented VS:
Initial Vital Signs
Temp Pulse Resp BP Pulse Ox
98.7 F 56 15 96/61 99
12/05/24 22:10 12/05/24 22:10 12/05/24 22:10 12/05/24 22:10 12/05/24 22:10
Last Documented Vital Signs
Temp Pulse Resp BP Pulse Ox
98.7 F 56 15 96/61 99
12/05/24 22:10 12/05/24 22:10 12/05/24 22:10 12/05/24 22:10 12/05/24 22:10
Procedures
Laceration Closure
Right Posterior Elbow:
Status of Wound: clean
Size of Wound in cm: 1
Description of Wound Edges: sharp
Preparation: cleaned with saline
Revision/Debridement: routine- no revision
Type of Closure: other (Steri-Strips with dressing applied)
MDM/Problems Addressed
Differential Diagnosis Includes:
Contusion, bursitis, fracture, intracranial bleeding, concussion
MDM/Problems Addressed:
89-year-old female presenting to the ER for evaluation after she accidentally tripped and fell resulting in right elbow and head injury. Patient with no other injuries and has no other concerns at this time. CT of the head and x-ray of the right
elbow were ordered and there is no acute intracranial pathology and the x-ray of the right elbow shows no fracture but concerns for an olecranon bursitis. Skin tear repaired as above without any difficulty patient and family advised on wound care.
Aware of return precautions to the ER.
Chronic conditions affecting care: Arrhythmia
*Radiology
Radiology exam reviewed: radiology read reviewed
*Pulse Oximetry
Patient hypoxic: no
*Critical Care Note
Total Time (30-74mins, 75-104mins- exclusive of procedures): Not Applicable
ED Attending Note
-
Portions of this chart may have been created with voice recognition software.� Occasional wrong word or��sound alike� substitutions may have occurred due to the inherent limitations of voice recognition software.
Discharge Plan
Departure
Patient Disposition: Home (Routine Discharge)
Date of Disposition: 12/05/24
Time of Disposition: 23:14
Patient with high blood pressure during this ER visit?: No
Discharge Problem:
Accidental fall, Contusion of elbow, right, Minor head injury
Instructions: Minor Head Injury (DC)
Prescriptions:
No Action
multivitamin with folic acid [Tab-A-Mandy] 1 TABLET tablet
1 tab PO DAILY Qty: 0
cholecalciferol (vitamin D3) 1,000 UNITS tablet
2,000 units PO DAILY
PreserVision Lutein 226-90-0.8-5 mg Capsule
1 cap PO BID
calcium carbonate [Calcium 600] 600 mg calcium (1,500 mg) Tablet
600 mg PO BID
furosemide [Lasix] 40 mg Tablet
40 mg PO DAILYPRN PRN (Reason: fluid retention )
trazodone 50 mg Tablet
50 mg PO HS PRN (Reason: sleep )
atorvastatin 10 mg Tablet
10 mg PO DAILY
melatonin 3 mg Tablet
3 mg PO HS
ascorbic acid (vitamin C) [Vitamin C] 500 mg Tablet
500 mg PO DAILY
pyridoxine (vitamin B6) [Vitamin B-6] 100 mg Tablet
100 mg PO DAILY
Benefiber (guar gum)
2 tsp PO DAILY
alendronate [Fosamax] 70 mg Tablet
70 mg PO MEMBRENO
levothyroxine [Synthroid] 75 mcg Tablet
75 mcg PO DAILY
clopidogrel 75 mg Tablet
75 mg PO DAILY Qty: 90 5RF
erythromycin 5 mg/gram (0.5 %) Ointment
1 applic ophthalmic (eye) QID Qty: 0 0RF
docusate sodium 100 mg Capsule
100 mg PO BID Qty: 0 0RF
Eliquis 5 mg Tablet
5 mg PO BID Qty: 0 0RF
clotrimazole [Athlete's Foot (clotrimazole)] 1 % Cream
1 applic topical BID Qty: 15 0RF
sennosides [Senna Laxative] 8.6 mg Tablet
8.6 mg PO BID Qty: 0 0RF
polyethylene glycol 3350 [HealthyLax] 17 gram Powder In Packet
17 g PO DAILY Qty: 0 0RF
carboxymethylcellulose sodium [TheraTears] 1 % Dropperette,Gel
1 drops BOTH EYES QID Qty: 0 0RF
pantoprazole 40 mg Tablet,Delayed Release (Dr/Ec)
40 mg PO DAILY Qty: 90 5RF
midodrine 5 mg Tablet
2.5 mg PO TID@0800,1300,1800 Qty: 0 0RF
Interventions
Interventions:
*Risk Screen - Suicide Last Done: 12/05/24 23:45
*General Assessment Last Done: 12/05/24 22:10
*Neglect/Abuse Screening Last Done: 12/05/24 22:10
*ED- Fall Risk Assessment Last Done: 12/05/24 23:45
*ED COVID-19 Vaccine History Last Done: 12/05/24 22:10
*Nursing Disposition Last Done: 12/05/24 23:45
ED- Neurological Assessment Last Done: 12/05/24 22:20
ED-Skin Assessment Last Done: 12/05/24 23:44
Discharge Date and Time
Discharge Date/Time: 12/05/24 23:45
Print Language: ROMANIAN
== END 2024-12-05 23:45 | disposition home or self-care (01) ==
LOC: EMR 22:07
PROVIDERS: EMERGENCY PHYSICIAN Student in an Organized Health Care Education/Training Program; FAMILY PHYSICIAN Family Medicine
DX: S50.01XA Contusion of right elbow, initial encounter (principal); S09.90XA Unspecified injury of head, initial encounter; W01.0XXA Fall on same level from slipping, tripping and stumbling without subsequent striking against object, initial encounter; I48.91 Unspecified atrial fibrillation
CPT/HCPCS: 99285; 70450; 73080

== ENCOUNTER 2024-12-11 19:27 | Inpatient (IN) | payer OTHER, SELFPAY ==
[2024-12-11] VITALS (31 sets, daily range): BP systolic 66–150; BP diastolic 49–93
[2024-12-11 13:51] LABS: Glucose - Point of Care 49 mg/dl (70-99)
[2024-12-11] MEDS: DEXTROSE 50% SYRINGE 25 GRAMS IV (13:52)
[2024-12-11 14:05] LABS: % Basophils 0.3 % (0-2); % Eosinophils 1.1 % (0-6); % Immature Granulocytes 0.7 % (0-0.5); % Lymphocytes 20.8 % (20.5-51.1); % Monocytes 9.1 % (1.7-9.3); Absolute Eosinophils 0.1 10^3/uL (0-0.7); Absolute Immature Granulocytes 0.1 10^3/uL (0-0.05); Absolute Lymphocytes 1.6 10^3/uL (1.2-3.4); Absolute Monocytes 0.7 10^3/uL (0.1-0.6); Absolute Neutrophils 5.1 10^3/uL (1.4-6.5); Hematocrit 35.6 % (37.0-47.0); Hemoglobin 11.4 g/dL (12.0-16.0); Mean Corpuscular Hgb 31.5 pg (27.0-31.0); Mean Corpuscular Volume 98.3 fL (81.0-99.0); Mean Platelet Volume 11.8 fL (7.4-10.4); Nucleated Red Blood Cells % 0 %; Platelet Count 128 10^3/uL (130-400); Red Blood Cell Count 3.62 10^6/uL (4.20-5.40); Red Cell Dist. Width 17.1 % (11.5-14.5); White Blood Cell Count 7.4 10^3/uL (4.8-10.8)
[2024-12-11] MEDS: NSS 1000 IV ×3 (14:08→19:20)
[2024-12-11 14:09] LABS: Glucose - Point of Care 209 mg/dl (70-99)
[2024-12-11 14:10] LABS: INR 1.59; PT 19.4 Sec (11.4-14.6)
[2024-12-11 14:17] LABS: ALT (SGPT) 31 U/L (0-35); AST (SGOT) 46 U/L (14-36); Albumin 3.3 g/dl (3.5-5.0); Alkaline Phosphatase 134 U/L (38-126); Blood Urea Nitrogen 25 mg/dl (7-17); Calcium 9.1 mg/dl (8.4-10.2); Carbon Dioxide 34 mmol/L (22-30); Chloride 105 mmol/L (98-107); Glucose 87 mg/dl (70-99); Potassium 3.7 mmol/L (3.5-5.1); Sodium 145 mmol/L (135-145); Total Bilirubin 1.2 mg/dl (0.2-1.3); Total Protein 5.6 g/dl (6.3-8.2); eGFR > 60.00
--- NOTE | 2024-12-11 14:20 | EDRN ---
Does not follow command- eyelids are red and swollen, unable to open to see pupils. Moves both arms but does not follow command to squeeze hands. + sensation distally. Moving legs
[2024-12-11 14:27] LABS: NT-proBNP 551 pg/ml; Troponin I < 0.012 ng/ml
[2024-12-11 14:44] LABS: Urine Albumin 1+ (Neg - Trace); Urine Bilirubin Negative (Negative); Urine Character Clear (Clear); Urine Color Yellow; Urine Glucose Negative (Negative); Urine Ketone Negative (Negative); Urine Leukocyte Negative (Negative); Urine Nitrite Negative (Negative); Urine Occult Blood Negative (Negative); Urine Urobilinogen Negative (Neg - 1+)
[2024-12-11 15:11] LABS: Urine Calcium Oxalate Crystals Present
[2024-12-11 15:12] LABS: Urine Bacteria Few (Negative); Urine White Cell 0-2 /HPF (0-5)
--- NOTE | 2024-12-11 15:57 | ED.GENMED ---
History of Present Illness
General
Chief Complaint: Change in Mental Status
Time Seen by Provider: 12/11/24 13:59
History of Present Illness
History of Present Illness:
89-year-old female with history of atrial fibrillation, aortic stenosis, CLL presenting to the emergency department for decreased responsiveness. Patient arrives from home, lives with daughter. Patient's daughter had noted that patient was
relatively unresponsive. When medics arrived, patient was found on the toilet. Patient unable to comply with any questioning given her condition. Sugar en route was within normal limits. Patient had reportedly been seen in the hospital on Sunday
after a fall, discharged home after negative workup. Patient on arrival is hypotensive and minimally responsive. She arrives with a POLST form. On review of EMR, patient seen in the hospital on 12/05 after fall, CT brain negative, found to have an
olecranon bursitis of the left elbow.
On daughter's arrival, confirms DNR/DNI. She notes in the past week since the fall, patient has become generally weak with bouts of confusion. She also has been sleeping very well. Today seemed particularly altered. Daughter notes that she has
had similar episodes in the past, unclear etiology, sent to SNF with subsequent improvement in mental status.
Past History
Past History
ED Past Medical History: Arrthythmia (Atrial fibrillation), Cancer (CLL), CHF, HTN and Other (Sleep apnea, uses CPAP at night, colon polyps, arthritis, shingles, chronic lymphocytic leukemia, skin cancers)
ED Past Surgical History: Appendectomy, Cholecystectomy, Orthopedic (Left TKR) and Other (Lysis of adhesions)
Social History
Tobacco: Non-smoker
Alcohol: Occasional
Drug: None
Personal:
Living: with family
Employment: Employed
Phy Exam
Physical Exam
Physical Exam:
General: Dry mucous membranes, minimally responsive
HEENT: protecting airway
Neck: appears supple
CV: Normal heart rate, regular rhythm, no evidence of cyanosis
Resp: No accessory muscle use, no increased work of breathing, rhonchorous breath sounds bilaterally
Abd: Soft and non-distended, no tenderness to palpation
Extremities: No deformities, no swelling. Scattered ecchymosis to extremities, small wound to the left elbow status post a fall on 12/05
Neuro: Awake, however not alert, following minimal commands. No verbal response
: deferred
Rectal: deferred
Psych: Normal affect
Skin: Intact
Sepsis
Sepsis Screening
Sepsis Assessment: Severe Sepsis
Sepsis Screening: Hypotension
Sepsis Screen
Sepsis Screen: Severe Sepsis
Date: 12/11/24
Time: 16:50
Course
Orders/Labs/Results
Orders:
Orders
12/11/24 13:48
Electrocardiogram (*1) Urgent
Reason for Study: Other
Other Reason for Exam: Possible Sepsis
Cardiac Monitoring- Treatment ONCE
Straight cath- Treatment ONCE
CR Chest Portable - 1 View Urgent
Comment:
Reason For Exam: change in mental status
Reason Study Needs to be Portable: Patient Unstable
O2 Therapy [RESP] Urgent
Titrate/Wean O2 to maintain O2 sat greater than (%): 93
Special Instructions: TO MAINTAIN CONTINUOUS O2 SATS > OR = 93%
Pulse Ox/cont/shift [RESP] Urgent
Quantity: 1
Special Instructions: CONTINUOUS
12/11/24 13:49
Electrocardiogram (*1) Urgent
Reason for Study: Fatigue / Weakness
CT Head & Neck Angio W/wo IV Urgent
Comment:
Reason For Exam: change in ms
12/11/24 13:51
Complete Blood Count/With Diff Urgent
Comprehensive Metabolic Panel Urgent
Lactic Acid Q4H
Comment: ON ICE, CANCEL 2ND ORDER IF FIRST LACTIC ACID LEVEL <2
Dextrose 50%-Water [Dextrose 50% Syringe] 25 grams .ROUTE .STK-MED ONE
12/11/24 13:53
NT-proBNP Urgent
Prothrombin Time Urgent
Troponin I Urgent
12/11/24 14:06
Dextrose 50%-Water [Dextrose 50% Syringe] 25 grams IV NOW STA
12/11/24 14:07
0.9% Sodium Chloride 1000 ml [Nss] 1,000 ml IV BOLUS
12/11/24 14:14
Urinalysis Reflex To Culture Urgent
Date Specimen was Collected: 12/11/24
Time Specimen was Collected: 13:48
Urine Microscopic Reflex Cult Urgent
12/11/24 14:54
0.9% Sodium Chloride 1000 ml [Nss] 1,000 ml IV BOLUS
12/11/24 15:56
Cefepime HCl [Maxipime] 2,000 mg IV NOW STA
Vancomycin [Vancocin] 2,000 mg 0.9% Sodium Chloride 500 ml [Nss] 500 ml IV NOW
Abnormal Lab Results
12/11/24 12/11/24 12/11/24
13:50 13:51 13:53
RBC 3.62 L 10^6/uL
(4.20-5.40)
Hgb 11.4 L g/dL
(12.0-16.0)
Hct 35.6 L %
(37.0-47.0)
MCH 31.5 H pg
(27.0-31.0)
MCHC 32.0 L g/dL
(33.0-37.0)
RDW 17.1 H %
(11.5-14.5)
Plt Count 128 L 10^3/uL
(130-400)
MPV 11.8 H fL
(7.4-10.4)
Abs Immat Gran (auto) 0.1 H 10^3/uL
(0-0.05)
Absolute Monos (auto) 0.7 H 10^3/uL
(0.1-0.6)
Immature Gran % 0.7 H %
(0-0.5)
PT 19.4 H Sec
(11.4-14.6)
Carbon Dioxide 34 H mmol/L
(22-30)
BUN 25 H mg/dl
(7-17)
AST 46 H U/L
(14-36)
Alkaline Phosphatase 134 H U/L
(38-126)
Total Protein 5.6 L g/dl
(6.3-8.2)
Albumin 3.3 L g/dl
(3.5-5.0)
Urine RBC
Urine Bacteria (Reflex)
Urine Albumin (Reflex)
POC Glucose 49 L* mg/dl
(70-99)
12/11/24 12/11/24 12/11/24
14:07 14:14 16:39
RBC
Hgb
Hct
MCH
MCHC
RDW
Plt Count
MPV
Abs Immat Gran (auto)
Absolute Monos (auto)
Immature Gran %
PT
Carbon Dioxide
BUN
AST
Alkaline Phosphatase
Total Protein
Albumin
Urine RBC 3-6 A /HPF
(0-2)
Urine Bacteria (Reflex) Few A
(Negative)
Urine Albumin (Reflex) 1+ A
(Neg - Trace)
POC Glucose 209 H mg/dl 109 H mg/dl
(70-99) (70-99)
12/11/24 13:51
12/11/24 13:51
Vital Signs
Initial and Last Documented VS:
Initial Vital Signs
Temp Pulse Resp BP
95.4 F L 89 22 103/70
12/11/24 13:56 12/11/24 13:56 12/11/24 13:56 12/11/24 13:56
Last Documented Vital Signs
Temp Pulse Resp BP Pulse Ox
95.4 F L 74 24 66/53 92
12/11/24 14:00 12/11/24 16:45 12/11/24 16:45 12/11/24 16:30 12/11/24 16:15
MDM/Problems Addressed
MDM/Problems Addressed:
89-year-old female with history of atrial fibrillation, aortic stenosis, CLL presenting for change in mental status, unresponsiveness. Vitals on arrival unstable with hypotension, hypoxia.
On exam, patient is minimally responsive, however is awake. Arrives with POLST form, DNR/DNI. This was confirmed by daughter. Patient placed on supplemental O2 with improvement of saturations. Patient started on IV fluids with improvement of
blood pressure. Appears very dry. Suspect underlying dehydration. [id number] glucose is low at 50, 1 amp of D50 administered. Given her condition, stroke or intracerebral process is a consideration, appears to have had a progressive decline
in the past week however, not tPA candidate. Will plan for CT head imaging. Infectious source is also a consideration, given presenting vital signs and hypothermia. Plan for Marvin hugger. Plan for lactic acid and blood cultures. Will also obtain
chest x-ray imaging, rhonchorous on exam and hypoxic.
Patient's labs without leukocytosis, normal lactic acid. Vitals continue to improve. Chest x-ray is consistent with a pneumonia. Will treat with broad-spectrum antibiotics. CT brain without acute intracranial abnormality. Plan for admission for
sepsis and change in mental status from pneumonia
*EKG
Interpreted by ED Provider?: Yes
EKG Intrepretation Date: 12/11/24
EKG Intrepretation Time: 16:00
Interpretation: normal
Heart Rate: 85
Rate: normal
Rhythm: a-fib
[place]: normal axis
QRS Pattern: normal QRS
Ischemia: non-specific ST changes
*Critical Care Note
Total Time (30-74mins, 75-104mins- exclusive of procedures): 55
comment:
The high probability of a clinically significant, sudden or life threatening deterioration of the cardiopulmonary system(s), sepsis, required my full and direct attention, intervention and personal management. The aggregate critical care time was 55
minutes. This time is in addition to time spent performing reported procedures but includes the following:
[x] Data Review and interpretation
[x] Patient assessment and monitoring of vital signs
[x] Documentation
[x] Medication orders and management
ED Attending Note
-
Portions of this chart may have been created with voice recognition software.� Occasional wrong word or��sound alike� substitutions may have occurred due to the inherent limitations of voice recognition software.
Discharge Plan
Departure
Patient Disposition: Admit
Date of Disposition: 12/11/24
Time of Disposition: 16:40
Presentation/result/management discussed w/ accepting MD/DO: Hospitalist
Condition: Critical
Discharge Problem:
Pneumonia involving right lung, Episode of unresponsiveness
Prescriptions:
No Action
multivitamin with folic acid [Tab-A-Mandy] 1 TABLET tablet
1 tab PO DAILY Qty: 0
cholecalciferol (vitamin D3) 1,000 UNITS tablet
2,000 units PO DAILY
PreserVision Lutein 226-90-0.8-5 mg Capsule
1 cap PO BID
calcium carbonate [Calcium 600] 600 mg calcium (1,500 mg) Tablet
600 mg PO BID
furosemide [Lasix] 40 mg Tablet
40 mg PO DAILYPRN PRN (Reason: fluid retention )
trazodone 50 mg Tablet
50 mg PO HS PRN (Reason: sleep )
atorvastatin 10 mg Tablet
10 mg PO DAILY
melatonin 3 mg Tablet
3 mg PO HS
ascorbic acid (vitamin C) [Vitamin C] 500 mg Tablet
500 mg PO DAILY
pyridoxine (vitamin B6) [Vitamin B-6] 100 mg Tablet
100 mg PO DAILY
Benefiber (guar gum)
2 tsp PO DAILY
alendronate [Fosamax] 70 mg Tablet
70 mg PO MEMBRENO
levothyroxine [Synthroid] 75 mcg Tablet
75 mcg PO DAILY
clopidogrel 75 mg Tablet
75 mg PO DAILY Qty: 90 5RF
erythromycin 5 mg/gram (0.5 %) Ointment
1 applic ophthalmic (eye) QID Qty: 0 0RF
docusate sodium 100 mg Capsule
100 mg PO BID Qty: 0 0RF
Eliquis 5 mg Tablet
5 mg PO BID Qty: 0 0RF
clotrimazole [Athlete's Foot (clotrimazole)] 1 % Cream
1 applic topical BID Qty: 15 0RF
sennosides [Senna Laxative] 8.6 mg Tablet
8.6 mg PO BID Qty: 0 0RF
polyethylene glycol 3350 [HealthyLax] 17 gram Powder In Packet
17 g PO DAILY Qty: 0 0RF
carboxymethylcellulose sodium [TheraTears] 1 % Dropperette,Gel
1 drops BOTH EYES QID Qty: 0 0RF
pantoprazole 40 mg Tablet,Delayed Release (Dr/Ec)
40 mg PO DAILY Qty: 90 5RF
midodrine 5 mg Tablet
2.5 mg PO TID@0800,1300,1800 Qty: 0 0RF
Referrals:
Will Payne MD [Family Provider] -
Interventions
Interventions:
*Risk Screen - Suicide Last Done: 12/11/24 13:56
*General Assessment Last Done: 12/11/24 13:56
*Neglect/Abuse Screening Last Done: 12/11/24 13:56
*ED- Fall Risk Assessment Last Done: 12/11/24 14:18
*ED COVID-19 Vaccine History Last Done: 12/11/24 14:18
ED- Pulmonary Assessment Last Done: 12/11/24 14:21
ED- Neurological Assessment Last Done: 12/11/24 14:19
ED- Cardiac Assessment Last Done: 12/11/24 14:19
ED Swallowing Screen Last Done: 12/11/24 14:18
Discharge Date and Time
Print Language: ERITREAN
[2024-12-11] MEDS: MAXIPIME 2000 MG IV (16:04)
[2024-12-11] MEDS: VANCOCIN 540 MG IV (16:32)
[2024-12-11 16:41] LABS: Glucose - Point of Care 109 mg/dl (70-99)
--- NOTE | 2024-12-11 18:40 | HPS.HSE ---
Addendum entered and electronically signed by Maria Elena Boyer MD 12/11/24 19:50:
I personally performed a history and physical exam of the patient and discussed management with the resident. I reviewed the resident's note and agree with the documented findings and plan of care HPI/CC.
GENERAL: elderly, chronically ill appearing female in no apparent distress
HEENT: NC/AT dry mucus membranes--O2 NC, mouth breathing
HEART: irreg irreg JANNETTE
LUNGS : clear to auscultation bilaterally
ABDOM: soft, nontender, nondistended, + bowel sounds
EXT: no cyanosis, clubbing, or edema
NEUROLOGIC: not verbal, not following commands--venous stasis changes to BL LEs with excoriated areas
: purewick
shock physiology--? septic with hypotension, hypothermia, and possible PNA as source--hypovolemia due to insensible losses?--unclear if adrenal insufficiency contribution or hypothyroid--ADMIT to ICU--consult nut sorter--clements
culture--vanco/cefepime--IVF--pressors--ABG shows mild resp acidosis--? need for BiPAP--check cortisol, TSH
Acute hypoxic respiratory failure--possible to to shock due to PNA--cont O2--consider need for BiPAP--cont abx--Hold all oral medications
agitation--small dose of PRN ativan as not to precipitate worsening respiratory depression
Hypothyroidism--Check TSH with free T4
Persistent atrial fibrillation--Hold Eliquis and amiodarone as patient is minimally responsive
Cognitive dysfunction vs vascular dementia--no signs of acute stroke--History of delirium and prior hospitalization--Hold olanzapine
History of CAD--stent placement to LAD and RCA in August 2023--Hold furosemide, statin
History of prior stroke--Brain MRI 10/05/2023- Multiple small chronic infarcts in both cerebellar hemispheres (left greater than right). Small chronic lacunar infarcts in the caudate nuclei--Hold aspirin
Ambulatory dysfunction--eventually PT/OT when more stable
History of osteoporosis--noted
code status--DNR/DNI
DVT proph--Lovenox
Original Note:
Family Physician
-
Family Physician: Will Payne
Chief Complaint
-
Unresponsiveness
History of Present Illness
89-year-old female with history of persistent atrial fibrillation, CAD, cognitive dysfunction presented with decreased responsiveness. Patient's daughter at bedside who was providing history as patient is minimally responsive. Patient lives with
the daughter and daughter states that patient was relatively unresponsive this morning. She also states that patient was has been restless for the past 2 nights. She had a fall on 12/05/2024 and was seen and endorsed on ED, CT scan was negative for
hemorrhage. She notes in the past week since the fall patient has become generally weak and with bouts of confusion/hallucination. She also has been sleeping very well. Today's temperature really altered. Daughter notes that she has had similar
episodes in the past, unclear etiology, sent to SNF with subsequent improvement in mental status.
Workup done in the ED head/neck CTA shows no intracranial abnormalities, small old infarcts, atherosclerotic plaque within the carotid arterial system bilaterally, No findings to suggest internal carotid artery or vertebral artery dissection.
Patient is currently on IV vancomycin, IV fluids and on 3 L of oxygen. Labs show normal lactic acid, normal WBC.
Medical History
Past Medical History
Past Medical History: Reports Arrhythmia, CAD and Other
Additional Past Medical History:
A-fib
Aortic stenosis
HTN
CLL
Hx uterine cancer
EFRAIN
Arthritis
Past Surgical History: Reports Appendectomy and Cholecystectomy
Additional Past Surgical History:
Left total knee replacement
Lysis of adhesions
Social History
Unable to obtain full social history at this time due to: Patient Non-verbal
Tobacco: Non-smoker
Alcohol: None
Drug: None
Personal:
Living: With Family
Employment: Retired
Family History
Family History: Not pertinent
Allergies / Home Medications
Allergies reflects when Allergies were last updated in [facility].
Home Medications with orig
Allergies
Allergy/AdvReac Type Severity Reaction Status Date / Time
amoxicillin Allergy Nausea / Verified 08/15/24 06:39
Vomiting
loratadine [From Claritin] Allergy Nausea / Verified 08/15/24 06:39
Vomiting
Home Medications
multivitamin with folic acid 400 mcg tablet (Tab-A-Mandy) 1 tab PO DAILY Supplement ##0 01/05/12
vit C 226 mg-vit E 90 mg-copper 0.8 mg-zinc oxide-lutein 5 mg capsule (PreserVision Lutein) 1 cap PO BID Supplement 06/25/23
calcium carbonate (Calcium 600) 600 mg PO DAILY Supplement 10/03/23
alendronate 70 mg tablet (Fosamax) 70 mg PO MEMBRENO osteoporosis 12/30/23
atorvastatin 10 mg tablet 10 mg PO DAILY High Cholesterol 12/30/23
furosemide 40 mg tablet (Lasix) 80 mg PO DAILY 12/30/23
levothyroxine 75 mcg tablet (Synthroid) 75 mcg PO DAILY Thyroid 12/30/23
melatonin 3 mg tablet 3 mg PO HSPRN PRN sleep 12/30/23
apixaban 5 mg tablet (Eliquis) 5 mg PO BID Blood clot prevention/tx #0 tabs 01/06/24
acetaminophen 325 mg tablet (Tylenol) 650 mg PO Q6HPRN PRN mild pain 12/11/24
amiodarone 100 mg tablet 100 mg PO DAILY 12/11/24
carboxymethylcellulose sodium 1 % eye liquid gel drops 1 drp BOTH EYES HS 12/11/24
ipratropium 0.5 mg-albuterol 3 mg (2.5 mg base)/3 mL nebulization soln 3 ml inhalation R BID 12/11/24
midodrine 2.5 mg tablet 2.5 mg PO TID 12/11/24
olanzapine 5 mg tablet 5 mg PO DAILYPRN PRN afternoon reatless 12/11/24
olanzapine 5 mg tablet 5 mg PO HS 12/11/24
inal date entered in [facility]
Allergy/Medication List:
see above
Review of Systems
-
Unable to obtain full review of systems at this time due to: Patient Non-verbal
History Source: Family
Physical Exam
Vital Signs
Vital Signs
Temp Pulse Resp BP Pulse Ox
94.7 F L 89 22 106/89 93
12/11/24 17:13 12/11/24 18:00 12/11/24 18:00 12/11/24 17:45 12/11/24 17:45
Physical Exam
General: Appears Chronically Ill and Other (Minimally responsive)
HEENT: NormoCephalic, Anicteric and Other (Dry mucous membranes)
Respiratory: Decreased Breath Sounds (Bilaterally)
Cardiac: Irregular Rhythm and Murmur (systolic murmur left upper sternal)
GI: Soft, Non Distended and Other
Musculoskeletal: Edema, Right Upper Extremity
Skin: Other (Scattered ecchymosis to extremities, small wound to the left elbow s/p fall on 12/05)
Neuro: Other (Minimally responsive); No Awake, Alert or Oriented
Laboratory Results
-
12/11/24 13:51
12/11/24 13:51
Laboratory Results
PT 19.4 Sec (11.4-14.6) H 12/11/24 13:53
INR 1.59 12/11/24 13:53
Lactic Acid Cancelled 12/11/24 18:00
Total Bilirubin 1.2 mg/dl (0.2-1.3) 12/11/24 13:51
AST 46 U/L (14-36) H 12/11/24 13:51
ALT 31 U/L (0-35) 12/11/24 13:51
Alkaline Phosphatase 134 U/L (38-126) H 12/11/24 13:51
Troponin I < 0.012 ng/ml 12/11/24 13:53
Data Reviewed
-
Diagnostic Radiology: Image Personally Visualized and interpreted, Report Reviewed by me and Discussed with Physician
CT Scan: Report Reviewed by me and Discussed with Physician
Lab Data: Labs Reviewed by me and Discussed with Physician
Impression/Plan
-
IMPRESSION:
Hypothermia/hypotension
Acute hypoxic respiratory failure
Right lower lobe pneumonia
Hypothyroidism
Persistent atrial fibrillation
Cognitive dysfunction/vascular dementia
History of CAD
History of prior stroke
PLAN:
Hypothermia/hypotension-- hypovolemic shock/septic shock?
Secondary to pneumonia?
Admit to ICU
Started IV Levophed
Start IV fluids--sepsis protocol
Started IV antibiotics--IV cefepime plus vancomycin
Check blood cultures
Check urine culture
Check TSH with T4 reflex due to hypothermia, previous TSH on 75 mcg synthroid was 6.1
Check cortisol in a.m.
Monitor temperature curve and WBC
Maintain MAP above 65, SBP above 90
Acute hypoxic respiratory failure
# Right lower lobe pneumonia--possible aspiration pneumonia
On 3 L of oxygen, wean as able
Initiated IV antibiotics
Chest x-ray shows right lower lobe opacities
Hypothyroidism
Check TSH with free T4
Hold all oral medications
Persistent atrial fibrillation
On telemetry
Hold Eliquis and amiodarone as patient is minimally responsive
Cognitive dysfunction vs vascular dementia
History of delirium and prior hospitalization
Hold olanzapine
Closely monitor
History of CAD
History of stent placement to LAD and RCA in August 2023
Hold furosemide, statin
History of prior stroke
Brain MRI 10/05/2023- Multiple small chronic infarcts in both cerebellar hemispheres (left greater than right). Small chronic lacunar infarcts in the caudate nuclei.
Hold aspirin
# Ambulatory dysfunction
#History of osteoporosis
NPO
DNR/DNI
Lovenox
[2024-12-11 18:45] LABS: HCO3 30.4 mmol/L (21-28); PCO2 48 mmHg (32-35); PO2 62 mmHg (83-108); pH 7.41 (7.35-7.45)
[2024-12-11] MEDS: LEVOPHED 250 IV (19:07)
[2024-12-11] MEDS: ATIVAN 0.25 MG IV (19:46)
[2024-12-11 19:49] LABS: Lactic Acid 0.8 mmol/L (0.7-2.0)
[2024-12-11 19:55] LABS: Glucose - Point of Care 79 mg/dl (70-99)
--- NOTE | 2024-12-11 20:19 | PHA.VAN.IN ---
Assessment
- Assessment
Renal Function: Appears elevated from baseline (0.4 - 0.6)
Minimum Temperature: 94.7 F rectal 12/11/24 @ 1713
Concomitant Antimicrobials: cefepime
Plan
- Plan
Initial / Loading Dose: vanc 2000mg administered @ 1632
Maintenance Regimen: dosing by level
Monitoring: random level 12/12 0600
MRSA Screen: Ordered per protocol
Pharmacokinetics Vancomycin I
- -
Patient Age: 89
Patient Sex: Female
Vancomycin Day #: 1
Indication: Pulmonary/Respiratory
Requesting Provider: Dr. Garcia
Pertinent Antimicrobial Allergies:
amoxicillin (nausea/vomiting)
Height / Weight:
Height 5 ft 1 in
Actual Weight 71.8 kg
- Vital Signs / Lab Results
Temp Pulse Resp BP Pulse Ox
97.6 F 87 18 150/89 84
12/11/24 19:33 12/11/24 19:45 12/11/24 19:45 12/11/24 19:45 12/11/24 19:30
Lab Results - Hematology
12/11/24
13:51
WBC 7.4
Lab Results - Chemistry
12/11/24
13:51
BUN 25 H
Creatinine 0.8
Albumin 3.3 L
12/11/24 12/11/24 12/11/24
13:51 18:00 18:57
Lactic Acid 1.0 Cancelled 0.8
Lab Results - Urine
12/11/24
14:14
Urine Nitrite (Reflex) Negative
Leukocyte Esterase Rfl Negative
Urine WBC (Reflex) 0-2
Ur Squamous Epith Cells 3-5
Urine Bacteria (Reflex) Few A
--- NOTE | 2024-12-11 21:00 | PTCARENOTE ---
On arrival pt restless, not following commands, opens eyes, eyes red and irritated, SCHWARZ but very weak, AFIB on the monitor, on levo gtt, 4L NC, NPO, purwick, multiple wounds on B/LLE and B/LUE, bed alarm on and call del valle in reach
[2024-12-11 21:25] LABS: Glucose - Point of Care 81 mg/dl (70-99)
--- NOTE | 2024-12-11 22:00 | PTCARENOTE ---
pt RUE noted to be swollen and ecchymotic upon admission, great blood return through R forearm IV, RUBBER WORKER made aware, US ordered for AM
[2024-12-11 22:05] LABS: INR 1.68; PT 20.3 Sec (11.4-14.6)
[2024-12-11 22:06] LABS: APTT 44.3 Sec (23.4-35.0)
--- NOTE | 2024-12-11 23:29 | PTCARENOTE ---
pt HR dipping to 40s-50s for a short time and going back up to the 70s-90s, DIGITAL ACCOUNT EXECUTIVE aware and at bedside, no new orders at this time
[2024-12-11 23:32] LABS: Glucose - Point of Care 131 mg/dl (70-99)
[2024-12-12] VITALS (71 sets, daily range): BP systolic 79–142; BP diastolic 49–100; PULSE 2–70; BMI 29.5
[2024-12-12] MEDS: MAXIPIME 1000 MG IV ×4 (00:16→17:30)
[2024-12-12] MEDS: STERILE WATER FOR INJECTION 10 ML IV ×4 (00:17→17:30)
[2024-12-12] MEDS: NSS 1000 IV (00:17)
[2024-12-12 03:15] LABS: Glucose - Point of Care 92 mg/dl (70-99)
--- NOTE | 2024-12-12 04:39 | PTCARENOTE ---
pt remains drowsy and unable to follow commands, responds to touch and repositioning, HR sporadically drops to 40s-50s but pt recovers quickly, R arm IV still has blood return and arm elevated on pillow, VIDEO GAME DEVELOPER aware and no new orders at this time, bed
alarm on and call del valle in reach
[2024-12-12 04:45] LABS: Vancomycin Random 14.6 ug/ml
[2024-12-12 04:46] LABS: ALT (SGPT) 28 U/L (0-35); AST (SGOT) 40 U/L (14-36); Alkaline Phosphatase 114 U/L (38-126); Blood Urea Nitrogen 17 mg/dl (7-17); Calcium 8.5 mg/dl (8.4-10.2); Carbon Dioxide 30 mmol/L (22-30); Chloride 111 mmol/L (98-107); Estimated Creatinine Clearance 51 ml/min; Glucose 87 mg/dl (70-99); Magnesium 1.8 mg/dl (1.6-2.3); Potassium 3.5 mmol/L (3.5-5.1); Sodium 147 mmol/L (135-145); Total Bilirubin 0.9 mg/dl (0.2-1.3); Total Protein 5.2 g/dl (6.3-8.2); eGFR > 60.00
[2024-12-12 05:15] LABS: Cortisol, Random 18.7 ug/dl
[2024-12-12] MEDS: LR 1000 IV ×2 (05:33→15:25)
[2024-12-12 05:53] LABS: Glucose - Point of Care 78 mg/dl (70-99)
[2024-12-12] MEDS: KCL 270 MEQ IV (06:12)
[2024-12-12] MEDS: MAGNESIUM SULFATE 100 IV (07:24)
[2024-12-12] MEDS: LEVOPHED 250 IV (07:25)
[2024-12-12 07:59] LABS: % Basophils 0.5 % (0-2); % Eosinophils 2.2 % (0-6); % Immature Granulocytes 1.1 % (0-0.5); % Lymphocytes 17.9 % (20.5-51.1); % Monocytes 8.7 % (1.7-9.3); % Neutrophils 69.6 % (42.2-75.2); Absolute Eosinophils 0.1 10^3/uL (0-0.7); Absolute Immature Granulocytes 0.1 10^3/uL (0-0.05); Absolute Lymphocytes 1.1 10^3/uL (1.2-3.4); Absolute Monocytes 0.6 10^3/uL (0.1-0.6); Absolute Neutrophils 4.4 10^3/uL (1.4-6.5); Hematocrit 33.7 % (37.0-47.0); Hemoglobin 10.8 g/dL (12.0-16.0); Mean Corpuscular Hgb 31.7 pg (27.0-31.0); Mean Corpuscular Volume 98.8 fL (81.0-99.0); Mean Platelet Volume 12.7 fL (7.4-10.4); Nucleated Red Blood Cells % 0.3 %; Platelet Count 130 10^3/uL (130-400); Red Blood Cell Count 3.41 10^6/uL (4.20-5.40); Red Cell Dist. Width 17.1 % (11.5-14.5); White Blood Cell Count 6.3 10^3/uL (4.8-10.8)
[2024-12-12 08:02] LABS: Glucose - Point of Care 100 mg/dl (70-99)
--- NOTE | 2024-12-12 08:20 | CON.INTV ---
Consultation
Consultation Request
Date/Time Consultation Requested: 12/11/2024 19:03
Date/Time Consultation Performed: 12/12/2024 0837
Requesting Provider: Dr. Greg Nieto
Performing Provider: Dr. Azeem Banda, Dr. Mitchell
Reason for Consultation: Shock from unknown etiology
Medical History
-
Chief Complaint: Recent increased unresponsiveness
History of Present Illness:
89 year old female with a history of persistent atrial fibrillation, CAD, cognitive dysfunction presented with decreased responsiveness. Patient lives with the daughter and the daughter said that the patient has been unresponsive since yesterday
morning. Patient had also been restless for the previous two nights. Patient had a recent history of fall on 12/05/2024 and was seen in the ED where imaging with a CT scan did not show any acute abnormalities. The daughter noted that since the fall,
patient has been weaker and generally more confused and hallucinating. As per the daughter, the patient has had similar episodes in the past with shock like symptoms with hypothermia due to unclear etiology. At these previous episodes, patient
improved with treatment and was sent to SNF with subsequent improvement in mental status. In the ED, patient was found to be hypothermic, and in shock and was admitted to the ICU for further management of her hypertension. Patient was started on
empiric antibiotic treatment with Cefepime and Vancomycin and also given IV fluids.
Past Medical History
Past Medical History: Arrhythmias (Persistent A-Fib), Cancer (CLL), CHF, HTN and Other (Sleep Apnea (CPAP at night), Arthritis)
Past Surgical History: Appendectomy, Cholecystectomy, Orthopedic (LEFT TKR) and Other (Lysis of Adhesions)
Social History
Tobacco: Non-smoker
Alcohol: Occasional
Drug: None
Personal:
Living: With Family
Family History
Family History: Reviewed & Not Pertinent
Allergies / Home Medications
Allergies
Allergy/AdvReac Type Severity Reaction Status Date / Time
amoxicillin AdvReac Nausea / Verified 12/11/24 19:05
Vomiting
loratadine [From Claritin] AdvReac Nausea / Verified 12/11/24 19:05
Vomiting
Home Medications
�Medication �Instructions �Recorded �Confirmed �Last Taken �Type
multivitamin with folic acid 400 1 tab PO DAILY Supplement ##0 01/05/12 12/11/24 12/29/23 History
mcg tablet (Tab-A-Mandy)
vit C 226 mg-vit E 90 mg-copper 1 cap PO BID Supplement 06/25/23 12/11/24 12/10/24 History
0.8 mg-zinc oxide-lutein 5 mg
capsule (PreserVision Lutein)
calcium carbonate (Calcium 600) 600 mg PO DAILY Supplement 10/03/23 12/11/24 12/10/24 History
alendronate 70 mg tablet (Fosamax) 70 mg PO MEMBRENO osteoporosis 12/30/23 12/11/24 12/07/24 History
atorvastatin 10 mg tablet 10 mg PO DAILY High Cholesterol 12/30/23 12/11/24 12/10/24 History
furosemide 40 mg tablet (Lasix) 80 mg PO DAILY Fluid 12/30/23 12/11/24 12/10/24 History
Retention/Swelling
levothyroxine 75 mcg tablet 75 mcg PO DAILY Thyroid 12/30/23 12/11/24 12/10/24 History
(Synthroid)
melatonin 3 mg tablet 3 mg PO HSPRN PRN sleep 12/30/23 12/11/24 12/29/23 History
apixaban 5 mg tablet (Eliquis) 5 mg PO BID Blood clot 01/06/24 12/11/24 12/10/24 Rx
prevention/tx #0 tabs
acetaminophen 325 mg tablet 650 mg PO Q6HPRN PRN mild pain 12/11/24 12/11/24 12/10/24 History
(Tylenol)
amiodarone 100 mg tablet 100 mg PO DAILY Arrhythmia 12/11/24 12/11/24 12/10/24 History
carboxymethylcellulose sodium 1 % 1 drp BOTH EYES HS Eye Condition 12/11/24 12/11/24 12/10/24 History
eye liquid gel drops
ipratropium 0.5 mg-albuterol 3 mg 3 ml inhalation R BID 12/11/24 12/11/24 Unknown History
(2.5 mg base)/3 mL nebulization Lung/Breathing Issues
soln
midodrine 2.5 mg tablet 2.5 mg PO TID Blood Pressure 12/11/24 12/11/24 12/10/24 History
olanzapine 5 mg tablet 5 mg PO DAILYPRN PRN afternoon 12/11/24 12/11/24 12/10/24 History
reatless
olanzapine 5 mg tablet 5 mg PO HS Mental Health/Anxiety 12/11/24 12/11/24 12/10/24 History
Review of Systems
-
Unable to Obtain full review of systems at this time due to: Dementia and Patient Non Verbal
History Source: Family
All other systems: Unreviewed
Vitals / Labs / Diagnostic Testing
Vital Signs
Temp Pulse Resp BP Pulse Ox
96.8 F L 82 24 96/62 99
12/12/24 07:24 12/12/24 06:15 12/12/24 06:15 12/12/24 06:00 12/12/24 06:15
Lab Data
12/12/24 07:40
12/12/24 04:00
Laboratory Results
12/11/24 12/11/24 12/11/24
13:53 18:36 21:45
PT 19.4 H 20.3 H
INR 1.59 1.68
APTT 44.3 H
pH 7.41
pCO2 48 H
pO2 62 L
HCO3 30.4 H
O2 Delivery Level
Microbiology
12/12/24 07:47 Urine Legionella Urinary Antigen - Final
Negative for Legionella pneumophila Serogroup 1 antigen.
A negative result does not rule out the possiblity of
Legionella infection due to other serogroups or species of
Legionella. Clinical correlation is recommended.
12/12/24 07:47 Urine Streptococcus pneumoniae Antigen (M - Final
Negative for Streptococcus pneumoniae antigen.
A negative result does not exclude infection with
Streptococcus pneumoniae. Clinical correlation is
recommended.
Diagnostic Testing:
Physical Exam
-
HEENT: Normocephalic and Anicteric
Cardiovascular: S1/S2, Irregular Rhythm and Murmur
Respiratory: Clear and Non-Labored Respirations
GI: Soft and Non Distended
Neurology: Other (Minimally responsive, somnolent)
Skin: Warm, Dry and Other (Excoriations/Wounds seen on bilateral lower extremities, left lower extremity erythematous around ankle)
General: Other (Appears minimally responsive)
Assessment
-
Assessment:
89 year old female with a past medical history of persistent atrial fibrillation, aortic stenosis, CLL, and CHF presented to the hospital due to decreased responsiveness, was found to be hypothermic and in shock and was admitted to the ICU for
further management.
Shock from unknown etiology
Acute hypoxic respiratory failure
Altered mental status
Hypokalemia, mild
Conditions present prior to admission:
Hypothyroidism
Persistent Atrial Fibrillation
Osteoporosis
Obstructive Sleep Apnea
Essential Hypertension
History of CVA with secondary Vascular Dementia
Aortic Valve Stenosis
History of CAD w/ stent placement to LAD+RCA in 08/2023
Plan:
Neuro-
-Somnolent and unresponsive
-Lorazepam as needed for agitation
-Tylenol as needed for pain
-Non-verbal pain scale (CPOT 1)
-Anxious/Nonverbal
-RASS score -4 with goal 0
-Not at previous baseline as per family, will discuss again
Cardiac-
-Persistent AFib
-EKG showed pulmonary disease pattern (rightward [place]) and ST+T wave abnormalities with possible septal infarct
-Amiodarone+Eliquis Held
-Will resume Eliquis once able to tolerate PO medications with DHT
-Hypotensive requiring Levophed, continuing to titrate down the Levophed requirements
-Troponin+Probnp negative
-Severe Aortic Stenosis
-Restrictive filling pattern on previous echo, will repeat Echo
-Will continue LR fluids
Respiratory-
-Requiring supplemental oxygen (3L at the moment)
-CXR yesterday showed chronic elevation of right hemidiaphragm. Hazy opacity at the right lung base, suggestive of subsegmental atelectasis or pneumonia.
2. Small right pleural effusion may also be present
-Possible pneumonia vs CHF exacerbation
-Continue supplementation with O2 as needed
-on Duo/Neb at home, started again
-History of obstructive sleep apnea with questionable compliance with CPAP
-blood gas show resp acidosis with metabolic compensation, most likely chronic process due to sleep apnea
-BiPAP hs and prn ordered
-CT Chest w/o contrast ordered to check status of pleural effusion seen on CXR (Possible pneumonia)
-Awaiting Procalcitonin and D-dimer testing
GI-
-NPO for now, DHT placed
-Had one bowel movement yesterday
-Will resume home oral meds once DHT is in place
Renal/
-requiring bladder scan (600mL) and straight cath
-Mildly Hypernatremic today (maybe due to dehydration)
-Creatinine at baseline of 0.7
-Magnesium at 1.8 (repleted)
-Potassium at 3.5 (Repleted)
-continue monitoring for urinary retention
-Will continue monitoring BMP
ID-
-Wounds present on admission (Coccyx, Left Hand, Bilateral Feet, Bilateral lower leg, Right upper elbow, Right upper arm)
-Lactate within normal range,
-Blood cultures pending, Legionella/Strep Pneumo pending
-No Fevers but persistent hypothermia
-Continue Cefepime until cultures come back
-Vancomycin discontinued due to negative MRSA screen
-Will change from Cefepime to Ceftriaxone + Azithromycin pending CT scan results.
Heme/Onc
-DVT prophylaxis with Lovenox -> Will switch to Eliquis when able
-Chronic anemia
-No Leukocytosis
Endocrine
-TSH normal limits, Will resume Levothyroxine when DHT in place
-Random Cortisol within normal limits (Not high suspicion for Adrenal insufficiency)
-Sugars well controlled, insulin SS as needed
Diagnostic Data:
CT Head & Neck Angio W/wo IV (12/11/2024):
No acute intracranial abnormalities.
Small old infarcts, as detailed above.
Findings again seen compatible with diffuse cortical atrophy with nonspecific white matter changes as described above.
Atherosclerotic plaque within the carotid arterial system bilaterally, left greater than right without findings to suggest hemodynamically significant stenosis.
No findings to suggest internal carotid artery or vertebral artery dissection bilaterally. Mildly dominant right vertebral artery.
Calcified atherosclerotic plaque within the distal left vertebral artery with mild to moderate stenosis.
CR Chest Portable - 1 View
1. Chronic elevation of right hemidiaphragm. Hazy opacity at the right lung base, suggestive of subsegmental atelectasis or pneumonia.
2. Small right pleural effusion may also be present, consider PA and lateral views when possible.
No significant proximal intracranial arterial stenosis bilaterally.
EKG (12/11/2024):
ATRIAL FIBRILLATION
RIGHTWARD AXIS
PULMONARY DISEASE PATTERN
SEPTAL INFARCT , AGE UNDETERMINED
ST and T WAVE ABNORMALITY, CONSIDER INFEROLATERAL ISCHEMIA
ABNORMAL ECG
WHEN COMPARED WITH ECG OF 30-DEC-2023 09:48,
SEPTAL INFARCT IS NOW PRESENT
T WAVE INVERSION NOW EVIDENT IN LATERAL LEADS
Echocardiogram (05/01/2024):
Normal left ventricular size and systolic function. No regional wall motion
abnormalities are seen. LV ejection fraction is 60-65% by José's method of
discs. Mild concentric left ventricular hypertrophy. Stage III diastolic
dysfunction suggestive of restrictive filling pattern and increased filling
pressures.
Normal right ventricular size. Normal right ventricular systolic function.
Structurally normal mitral valve. Mitral valve opens normally. Mild to moderate
mitral regurgitation.
Thickened aortic valve with restricted leaflet motion. Severe aortic stenosis.
Peak/mean gradients are 50/37mmHg. The valve area by continuity equation is
0.6cm sq, using a LVOT of 1.9cm. Trace aortic regurgitation.
Structurally normal tricuspid valve. Tricuspid valve opens normally. Moderate
tricuspid regurgitation. Estimated pulmonary artery pressure of 50-55 mmHg.
Assuming a right atrial pressure of 3 mmHg.
Compared to prior study 12/31/2023 aortic valve gradients have increased from
prior peak/mean 43/24 mmHg to now 50/37 mmHg and aortic valve area has
decreased from prior 0.7 cm2 to now 0.6 cm2
Data Reviewed
-
EKG: Report reviewed by me, Discussed with Physician and Discussed with Nurse
Radiology: Report reviewed by me, Discussed with Physician and Discussed with Nurse
CT Scan: Report reviewed by me, Discussed with Physician and Discussed with Nurse
Medical Tests (Nuc Med, Echo etc): Report reviewed by me, Discussed with Physician and Discussed with Nurse
Labs: Discussed with Physician, Discussed with Nurse, Discussed with Patient and Discussed with Family
--- NOTE | 2024-12-12 10:33 | PTCARENOTE ---
R nare dht placed with some difficulty related to agitation during placement. Pt with exertional wheezing and hypoxia, both settled on third attempt. only able to advance to 65cm, then met with resistance, xray pending.
[2024-12-12 10:36] LABS: Ammonia < 9 umol/L (9-30)
[2024-12-12 10:43] LABS: D-Dimer 3.89 ug/mlFEU (0.00-0.50)
[2024-12-12 11:28] LABS: Procalcitonin < 0.05 ng/ml (0.0-0.25)
--- NOTE | 2024-12-12 11:51 | PTCARENOTE ---
Systems reviewed. Pt taken to ct scan as ordered. Tolerated well, remains lethargic and minimally responsive and agitated with care. Xray called as placement still not reported on dht. Incontinent for small loose/soft brown stool. Vandana care
completed. Pt repositioned in bed.
[2024-12-12 12:03] LABS: Glucose - Point of Care 83 mg/dl (70-99)
--- NOTE | 2024-12-12 12:16 | PTCARENOTE ---
pt sats dropping in to 80s and HR into 30s with sleeping/snoring. Resp therapist called and pt placed on bipap as ordered, sats currently 97%
[2024-12-12] MEDS: ELIQUIS 5 MG TUBE ×2 (12:33→22:26)
[2024-12-12] MEDS: ProAmatine 5 MG PO (12:33)
[2024-12-12] MEDS: REFRESH EYE DROPS (PF) 1 DROPS OPHTH (12:33)
--- NOTE | 2024-12-12 12:49 | W.PN.UPDATE ---
Update Note
Progress Note Update
Update
CT chest reviewed with moderate to large loculated effusion on R
Will place IR consult for diagnostic tap, labs sent
--- NOTE | 2024-12-12 13:33 | PTCARENOTE ---
assisted wound care nurse and repositioned pt. pt agitated with turning. Incontinent small brown stool
--- NOTE | 2024-12-12 14:00 | WOUNDNOTE ---
BILATERAL LOWER LEGS
--- NOTE | 2024-12-12 14:00 | WOUNDNOTE ---
RIGHT ARM SKIN TEARS
--- NOTE | 2024-12-12 14:00 | WOUNDNOTE ---
LEFT MEDIAL LEG
--- NOTE | 2024-12-12 14:00 | WOUNDNOTE ---
[facility] RN note: Patient admitted with change in mental status
See H&P for complete history.
PMH: Per physician note, persistent atrial fibrillation, CAD, cognitive dysfunction presented with decreased responsiveness.
Wound Location and type/assessment: Patient admitted with multiple wounds. See worklist for measurements and description of wounds on admission. Patient has generalize ecchymosis of UE extremities. Right arm elevated on pillow due to edema (patient
is s/p fall). Right arm with skin tear above and below elbow. LE with scattered open areas that appear to be venous related and are at various stages of healing. Per Granddaughter who was at bedside, wounds are of LE are chronic. Patient also has
what appears to be a scabbed or newly healed wound on coccyx. The left coccyx has an unstageable PI that is 100% covered in loose slough. Patient also with stage 1 PI to heels. Patient was agitated throughout assessment and wound care was provided
with assistance from Cristine QUIROZ.
Appetite: NPO
Pressure redistribution devices in place: Heels off-loaded, turning schedule, Centrella Max Air
Plan: Local wound care provided as ordered. Will order Honey Gel for left coccyx wound. Cristine QUIROZ made aware.
Will confirm orders with hospitalist and update nurse. Updated care plan and will follow as needed.
Note to case management of equipment requested for discharge: Air mattress
Recommend follow up at wound care center upon discharge.
--- NOTE | 2024-12-12 14:31 | W.PN.HOSP.TC ---
Addendum entered and electronically signed by Maria Elena Boyer MD 12/12/24 15:04:
I saw and evaluated the patient independently. I reviewed the resident�s note and agree with findings and plan as documented by Dr. Garcia.
GENERAL: elderly, chronically ill appearing female in no apparent distress
HEENT: NC/AT dry mucus membranes--O2 NC, mouth breathing
HEART: irreg irreg JANNETTE
LUNGS : clear to auscultation bilaterally anteriorly
ABDOM: soft, nontender, nondistended, + bowel sounds
EXT: no cyanosis, clubbing, or edema
NEUROLOGIC: not verbal, not following commands--venous stasis changes to BL LEs with excoriated areas
: purewick
shock physiology--? 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
culture--vanco/cefepime--IVF--wean pressors to off--ABG shows mild resp acidosis--? need for BiPAP--CT scan chest with large right pleural effusion--will need IR for thoracentesis (await studies)
Acute hypoxic respiratory failure--possible due to shock due to PNA--cont O2--consider need for BiPAP--cont abx--Hold all oral medications
agitation--small dose of PRN ativan as not to precipitate worsening respiratory depression
Hypothyroidism--WNL
nutrition--Dobhoff placed--can use for meds/tube feeds
Persistent atrial fibrillation-- Eliquis and amiodarone per tube
Cognitive dysfunction vs vascular dementia--no signs of acute stroke--History of delirium and prior hospitalization--restart olanzapine
History of CAD--stent placement to LAD and RCA in August 2023--HOLD furosemide, statin
History of prior stroke--Brain MRI 10/05/2023- Multiple small chronic infarcts in both cerebellar hemispheres (left greater than right). Small chronic lacunar infarcts in the caudate nuclei--restart aspirin
Ambulatory dysfunction--eventually PT/OT when more stable
History of osteoporosis--noted
code status--DNR/DNI
DVT proph--Lovenox
Total Critical Care Time 31 minutes. I was immediately available to the patient and staff. I personally examined, reviewed labs, diagnostic images/reports, interpretations, treatment plans, discussed patient care with other providers and family
or caregivers (if patient is unable to make decisions), entered orders as appropriate and documented the medical record.
Original Note:
Today's Communication/Plan
-
New right-sided pleural effusion
IR consult for thoracentesis
continue pressors
Continue fluids
Replete electrolytes
DHT placement today
Restart Eliquis through DHT
Initiate tube feeds
Consult neurology
Assessment / Plan
Assessment / Plan
IMPRESSION:
Hypothermia/hypotension
Moderate to large right pleural effusion
Acute hypoxic respiratory failure
Right lower lobe pneumonia
Hypothyroidism
Orthostatic hypotension
Persistent atrial fibrillation
Cognitive dysfunction/vascular dementia
History of CAD
History of prior stroke
PLAN:
Hypothermia/hypotension-- unsure if hypovolemic shock/septic shock?
Secondary to pneumonia??
In ICU
Continue pressors and IV fluids--per sepsis protocol
Continue IV cefepime and vancomycin
DHT placement today-restart midodrine
Blood culture pending
TSH and cortisol are unremarkable
Check ammonia
Monitor temperature curve and WBC
Maintain MAP above 65, SBP above 90
Moderate to large pleural effusion
Chest CT shows large right pleural effusion accompanied by compressive partial atelectasis.
Consult IR
Exudative versus transudative ?
Check fluid culture, Gram stain, pleural protein, pH, LDH, glucose, cell count
Acute hypoxic respiratory failure
# Right lower lobe pneumonia--possible aspiration pneumonia
On 5 L of oxygen, wean as able
Continue IV antibiotics
Chest x-ray shows right lower lobe opacities
Strep pneumonia and Legionella urinary antigen are negative
Negative COVID and flu
Pro-Mat pending
New wheeze on exam--- start DuoNeb
Hypothyroidism
TSH 4.20
Hold all oral medications
Orthostatic hypotension
Restart midodrine through DHT
Persistent atrial fibrillation
On telemetry
Restart Eliquis
Hold amiodarone due to hypotension
Cognitive impairment/delirium/encephalopathy
History of delirium and prior hospitalization
Hold olanzapine
Closely monitor consult neuro
History of CAD
History of stent placement to LAD and RCA in August 2023
Hold furosemide, statin
History of prior stroke
Brain MRI 10/05/2023- Multiple small chronic infarcts in both cerebellar hemispheres (left greater than right). Small chronic lacunar infarcts in the caudate nuclei.
Hold aspirin
# Ambulatory dysfunction
#History of osteoporosis
Initiate tube feeds
DNR/DNI
Eliquis
Anticipated Discharge: > 48 hours
Subjective/Interval History
-
Date of Service: December 12, 2024
No overnight events, remains minimally responsive
Objective Data
-
Labs:
Laboratory Results
12/12/24 12/12/24
04:00 07:40
WBC 6.3
Hgb 10.8 L
Hct 33.7 L
Plt Count 130
Sodium 147 H
Potassium 3.5
Chloride 111 H
Carbon Dioxide 30
BUN 17
Creatinine 0.7
Glucose 87
Calcium 8.5
Total Bilirubin 0.9
AST 40 H
ALT 28
Alkaline Phosphatase 114
Vital Signs:
Vital Signs
Temp Pulse Resp BP Pulse Ox
97.6 F 61 22 83/54 97
12/12/24 11:47 12/12/24 12:00 12/12/24 12:00 12/12/24 12:00 12/12/24 12:18
I&O
12/11/24 12/12/24 12/13/24
06:59 06:59 06:59
Intake Total 1255.0 / 1255.0
Output Total 200 / 200 125 / 125
Balance -200 / -10.0 1130.0 / 1130.0
Review of Systems
-
Unable to obtain full review of systems at this time due to: Patient Non-verbal
Physical Exam
-
General: Appears Chronically Ill (Mouth breathing, minimally responsive)
HEENT: Normocephalic and Atraumatic
Respiratory: Wheezes
Cardiac: Irregular Rhythm and Murmur (Systolic left upper sternal)
GI: Soft, Nontender and Nondistended
Musculoskeletal: No Edema
Skin: Other (Left upper extremity swelling with ecchymosis s/p fall /)
Neuro: Negative Awake, Alert or Oriented
Psych: Calm
Data Reviewed
-
CT Scan: Image personally visualized and interpreted, Report Reviewed by me and Discussed with Physician
Labs: Labs Reviewed by me and Discussed with Physician
--- NOTE | 2024-12-12 15:02 | PTCARENOTE ---
IR at bedside for thoracentesis
[2024-12-12] MEDS: ProAmatine 5 MG TUBE ×2 (15:32→22:26)
[2024-12-12 15:47] LABS: Body Fluid pH 7.43
--- NOTE | 2024-12-12 15:50 | PTCARENOTE ---
Systems reviewed. Pt remains lethargic. S/p R thora for 1500ml fluid. Tolerated well. Once xray completed, pt repositioned. Bladder scan as charted. Incontinent of stool as charted. Tube feedings initiated. Daughter at bedside and updated.
--- NOTE | 2024-12-12 15:52 | CON.NEURO ---
Neuro Assessment/Plan
Assessment
Acute toxic metabolic encephalopathy due to septic shock, respiratory failure - will take time for mental status to recover
would obtain EEG sunday if not improving.
certainly may have underlying dementia which would slow her mental status recovery, however unable to assess for dementia
Consultation
Order
Date of Consultation: 12/12/24
Requesting Provider: Maria Elena Boyer
Reason for Consult: AMS
Subjective/Objective
Subjective Data
Date of Service: December 12, 2024
from h&p
89-year-old female with history of persistent atrial fibrillation, CAD, cognitive dysfunction presented with decreased responsiveness. Patient's daughter at bedside who was providing history as patient is minimally responsive. Patient lives with
the daughter and daughter states that patient was relatively unresponsive this morning. She also states that patient was has been restless for the past 2 nights. She had a fall on 12/05/2024 and was seen and endorsed on ED, CT scan was negative for
hemorrhage. She notes in the past week since the fall patient has become generally weak and with bouts of confusion/hallucination. She also has been sleeping very well. Today's temperature really altered. Daughter notes that she has had similar
episodes in the past, unclear etiology, sent to SNF with subsequent improvement in mental status.
the patient admitted yesterday, treated for septic shock, respiratory failure, pleural effusion, remains unresponsive.
Objective Data
Vital Signs
Temp Pulse Resp BP Pulse Ox
36.4 C 61 22 122/66 98
12/12/24 12:00 12/12/24 14:30 12/12/24 14:30 12/12/24 14:30 12/12/24 14:30
Lab Results
12/12/24 07:40
12/12/24 04:00
PT 20.3 Sec (11.4-14.6) H 12/11/24 21:45
INR 1.68 12/11/24 21:45
APTT 44.3 Sec (23.4-35.0) H 12/11/24 21:45
Sodium 147 mmol/L (135-145) H 12/12/24 04:00
Potassium 3.5 mmol/L (3.5-5.1) 12/12/24 04:00
BUN 17 mg/dl (7-17) 12/12/24 04:00
Glucose 87 mg/dl (70-99) 12/12/24 04:00
Calcium 8.5 mg/dl (8.4-10.2) 12/12/24 04:00
Tnf-M-Ztjsujvpurs Pept 551 pg/ml 12/11/24 13:53
Patient Allergies
amoxicillin Adverse Reaction (Verified 12/11/24 19:05)
Nausea / Vomiting
loratadine [From Claritin] Adverse Reaction (Verified 12/11/24 19:05)
Nausea / Vomiting
Physical Exam
-
On BIPAP
unresponsive
no response to noxious stim
Medications
-
Active Medications
Generic Name Dose Route Start Last Admin
Trade Name Freq PRN Reason Stop Dose Admin
Albuterol/Ipratropium 3 ml 12/12/24 07:38
Ipratropium 0.5/Albuterol 3 Mg (3 Ml Ampul) INH
R Q4HPRN PRN
wheeze
Protocol
Amiodarone HCl 100 mg 12/13/24 08:00
Amiodarone 100 Mg Tablet TUBE 01/10/25 07:59
DAILY DEE
Apixaban 5 mg 12/12/24 12:15 12/12/24 12:33
Apixaban (Eliquis) 5 Mg Tablet TUBE 01/09/25 12:14 5 mg
BID DEE Administration
Artificial Tears 1 drops 12/12/24 07:38 12/12/24 12:33
Artificial Tears Pf (Refresh) 10 Drop Droperette OPHTH 01/09/25 07:37 1 drops
QIDPRN PRN Administration
dry eyes
Carboxymethylcellulose Sodium 1 drops 12/12/24 22:00
Carboxymethylcellulose Ophth Gel (Celluvisc) Droperette BOTH EYES 01/09/25 21:59
HS DEE
Cefepime HCl 1,000 mg 12/12/24 00:00 12/12/24 12:50
Cefepime Hcl 1,000 Mg/11.3 Ml Vial IV 1,000 mg
Q6H DEE Administration
Dextrose 12.5 grams 12/11/24 21:00
Dextrose 50% (0.5 Grams/Ml) 50 Ml Syringe IV 01/08/25 20:59
[id number] PRN
hypoglycemia
Protocol
Glucagon 1 mg 12/11/24 21:00
Glucagon 1 Mg Vial IM 01/08/25 20:59
PRN PRN
hypoglycemia - no IV access
Protocol
Norepinephrine Bitartrate 4 mg in 250 mls @ 0 mls/hr 12/11/24 18:30 12/12/24 07:25
Levophed IV 250 mls
PER PROTOCOL DEE Administration
Protocol
Per Protocol
Lactated Ringer's 1,000 mls @ 100 mls/hr 12/12/24 06:00 12/12/24 15:25
Lr IV 1,000 mls
.Q10H DEE Administration
Levothyroxine Sodium 75 mcg 12/13/24 06:00
Levothyroxine 75 Mcg Tablet TUBE 01/10/25 05:59
DAILY@0600 DEE
Midodrine 5 mg 12/12/24 16:00 12/12/24 15:32
Midodrine 5 Mg Tablet TUBE 01/09/25 15:59 5 mg
TID DEE Administration
Olanzapine 5 mg 12/12/24 15:06
Olanzapine 5 Mg Tablet TUBE 01/09/25 15:05
DAILYPRN PRN
agitation
Olanzapine 5 mg 12/12/24 22:00
Olanzapine 5 Mg Tablet TUBE 01/09/25 21:59
HS DEE
Sodium Chloride 0 flush 12/11/24 21:00
Sodium Chloride 0.9% (Flush) Syringe IV 01/08/25 20:59
PER PROTOCOL DEE
Sterile Water 10 ml 12/12/24 00:00 12/12/24 12:50
Sterile Water For Injection 10 Ml Vial IV 01/09/25 00:00 10 ml
Q6H DEE Administration
Home Medications
�Medication �Instructions �Recorded
multivitamin with folic acid 400 1 tab PO DAILY Supplement ##0 01/05/12
mcg tablet (Tab-A-Mandy)
vit C 226 mg-vit E 90 mg-copper 1 cap PO BID Supplement 06/25/23
0.8 mg-zinc oxide-lutein 5 mg
capsule (PreserVision Lutein)
calcium carbonate (Calcium 600) 600 mg PO DAILY Supplement 10/03/23
alendronate 70 mg tablet (Fosamax) 70 mg PO MEMBRENO osteoporosis 12/30/23
atorvastatin 10 mg tablet 10 mg PO DAILY High Cholesterol 12/30/23
furosemide 40 mg tablet (Lasix) 80 mg PO DAILY Fluid 12/30/23
Retention/Swelling
levothyroxine 75 mcg tablet 75 mcg PO DAILY Thyroid 12/30/23
(Synthroid)
melatonin 3 mg tablet 3 mg PO HSPRN PRN sleep 12/30/23
apixaban 5 mg tablet (Eliquis) 5 mg PO BID Blood clot 01/06/24
prevention/tx #0 tabs
acetaminophen 325 mg tablet 650 mg PO Q6HPRN PRN mild pain 12/11/24
(Tylenol)
amiodarone 100 mg tablet 100 mg PO DAILY Arrhythmia 12/11/24
carboxymethylcellulose sodium 1 % 1 drp BOTH EYES HS Eye Condition 12/11/24
eye liquid gel drops
ipratropium 0.5 mg-albuterol 3 mg 3 ml inhalation R BID 12/11/24
(2.5 mg base)/3 mL nebulization Lung/Breathing Issues
soln
midodrine 2.5 mg tablet 2.5 mg PO TID Blood Pressure 12/11/24
olanzapine 5 mg tablet 5 mg PO DAILYPRN PRN afternoon 12/11/24
restlessness
olanzapine 5 mg tablet 5 mg PO HS Mental Health/Anxiety 12/11/24
[2024-12-12 16:01] LABS: Body Fluid Glucose 93 mg/dl; Body Fluid LDH 98 U/L; Body Fluid Protein 2.4 g/dl
--- NOTE | 2024-12-12 16:26 | CM ---
Addendum entered by Angelika Thrasher 12/12/24 17:03:
spoke with patient daughter via phone and patient son and confirmed below information.
Original Note:
Patient seen at bedside with physicians. Patient resting, patient resides with daughter and grandson in a one story house with 12 LAURA. Patient in the past was listed by medical record as having been helped with her ADL's at home. Patient has a
hospital bed and walker and recliner,shower chair, w/c. Patient had [facility] in the past. Patient has been at both [facility] and [facility]. PCP is dr. Payne and they use the [facility] in [place]. Patient will benefit from PT/OT to clarify medical level of
care. CM will continue to follow for discharge planning needs.
Plan; SNF
[2024-12-12 16:31] LABS: Body Fluid Mononuclear 97.1 %; Body Fluid Polymorphonuclear 2.9 %; Body Fluid WBC 601 /CUMM
[2024-12-12 16:36] LABS: Body Fluid Second Tech FB
--- NOTE | 2024-12-12 16:40 | PTCARENOTE ---
Pt having intermittent episodes hr dropping in to 20s, but then recovers to 40s-50s. Remains in afib. IVF now capped, levo adjusted as charted.
[2024-12-12 16:55] LABS: LDH 336 U/L (120-246)
--- NOTE | 2024-12-12 17:01 | WOUNDNOTE ---
RIGHT UPPER ARM
[2024-12-12 17:14] LABS: Glucose - Point of Care 87 mg/dl (70-99)
--- NOTE | 2024-12-12 20:00 | PTCARENOTE ---
Received pt resting in bed, nonverbal. No commands followed. Moans/groans, extremities rigid with care. No meaningful communication. When undisturbed, pt rests calmly. Maintained on levo gtt to maintain SBP>90. Afib on tele. HR dipping to 20s more
frequently. IT TRAINEE notified. Epi gtt started - see titrations. +murmur. Weak DP/radials. On bipap 12/5. Spo2 95-97%. Lungs diminished throughout- poor effort. + bowel sounds. DH tube with jevity 1.5 at 10ml/hr with 25ml/hr h20 flush. Incontinent of
stool. Bladder scanned for 311ml. No urine output via purewick. Will monitor scans. R UE bruised/+2 edema. See wound documentation for all wounds. Turning q2. Mouth care provided. Monitoring
[2024-12-12] MEDS: ADRENALIN 250 IV (20:03)
[2024-12-12 21:36] LABS: Glucose - Point of Care 107 mg/dl (70-99)
[2024-12-12] MEDS: REFRESH CELLUVISC GEL 1 DROPS BOTH EYES (22:26)
[2024-12-12] MEDS: ZYPREXA TUBE (22:27)
[2024-12-13] VITALS (39 sets, daily range): BP systolic 60–132; BP diastolic 46–112; PULSE 2–98; BMI 30.1
[2024-12-13 00:24] LABS: Glucose - Point of Care 151 mg/dl (70-99)
[2024-12-13] MEDS: STERILE WATER FOR INJECTION 10 ML IV ×4 (00:25→18:17)
[2024-12-13] MEDS: MAXIPIME 1000 MG IV ×4 (00:25→18:17)
[2024-12-13] MEDS: ZYPREXA 5 MG TUBE ×2 (00:37→21:01)
--- NOTE | 2024-12-13 00:43 | PTCARENOTE ---
Mouth care performed and pt became very agitated, swinging her arms, trying to rip her bipap mask off. Not redirectable. Bipap removed at this time, placed on 4L NC. Mitts applied to hands as pt reaching for beth tube and O2 NC. Attempted to
orient pt. She is able to speak some words, garbled speech, difficult to understand. Encouraged her to go back to sleep. HS Zyprexa administered at this time.
[2024-12-13] MEDS: LEVOPHED 250 IV (02:22)
[2024-12-13 04:26] LABS: % Basophils 0.6 % (0-2); % Eosinophils 0.5 % (0-6); % Immature Granulocytes 1.2 % (0-0.5); % Monocytes 7.3 % (1.7-9.3); % Neutrophils 79.4 % (42.2-75.2); Absolute Immature Granulocytes 0.1 10^3/uL (0-0.05); Absolute Lymphocytes 0.7 10^3/uL (1.2-3.4); Absolute Monocytes 0.5 10^3/uL (0.1-0.6); Absolute Neutrophils 5.3 10^3/uL (1.4-6.5); Hematocrit 32.6 % (37.0-47.0); Hemoglobin 10.8 g/dL (12.0-16.0); Mean Corp Hgb Conc. 33.1 g/dL (33.0-37.0); Mean Corpuscular Hgb 31.6 pg (27.0-31.0); Mean Corpuscular Volume 95.3 fL (81.0-99.0); Mean Platelet Volume 12.7 fL (7.4-10.4); Nucleated Red Blood Cells % 0 %; Platelet Count 129 10^3/uL (130-400); Red Blood Cell Count 3.42 10^6/uL (4.20-5.40); Red Cell Dist. Width 17.1 % (11.5-14.5); White Blood Cell Count 6.6 10^3/uL (4.8-10.8)
[2024-12-13 04:41] LABS: Blood Urea Nitrogen 14 mg/dl (7-17); Calcium 8.9 mg/dl (8.4-10.2); Carbon Dioxide 27 mmol/L (22-30); Chloride 113 mmol/L (98-107); Estimated Creatinine Clearance 59 ml/min; Glucose 131 mg/dl (70-99); Magnesium 2.5 mg/dl (1.6-2.3); Phosphorus 2.9 mg/dl (2.5-4.5); Potassium 4.4 mmol/L (3.5-5.1); Sodium 143 mmol/L (135-145); eGFR > 60.00
--- NOTE | 2024-12-13 05:30 | W.PN.UPDATE ---
Update Note
Progress Note Update
Started on low dose epi drip for frequent episode of bradycardia in the 30s, also contributing factor is hypothermia = (richelle mccracken). Pauses resolved with epi drip.
[2024-12-13] MEDS: SYNTHROID 75 MCG TUBE (06:35)
--- NOTE | 2024-12-13 07:36 | W.PN.INTV ---
Today's Communication / Plan
Recommendations
Remains clinically unchanged, on BIPAP/MS depressed--hold all sedation
Bradycardia noted, will change pressors to dopamine--ECHO unchanged
Abx continued, wounds noted/following
Unclear etiology for her MS, family discussion had and family feels she has done this before, agree she is DNR
Continue observation
Assessment
-
Patient is an 89-year-old female with previous history of COPD, CAD status post stents, A-fib, EFRAIN on CPAP, heart failure, dementia presenting with decreased responsiveness per family. The family has noticed that the patient has become
progressively more weak with more falls at home. She had sustained a fall on 12/05/2024 and was seen in the ER with negative CONSUMER EDUCATOR imaging. On evaluation in the ER, patient was notably hypotensive and hypothermic. She is being evaluated for suspected
septic shock, placed on pressors. She is admitted to ICU.
Shock, septic vs other
Hypothermia
Bradycardia
Increasing confusion, TME
Progressive weakness with falls
Hypernatremia, mild
Chronic hypercarbia, compensated-7.41/48
Pleural effusions s/p thora 12/12
Conditions present COURT USHER
Recently diagnosed AFib, status post STEPHANIE/cardioversion on 11/20/17
CAD s/p stents
Moderate aortic stenosis
Chronic diastolic heart failure
Pulmonary hypertension
COPD
Obstructive sleep apnea, on CPAP
Osteoporosis.
Hypertension.
Acute lymphoblastic leukemia, in remission
History of superficial thrombophlebitis.
History of endometrial cancer, s/p JOSEPH treated with radiation and chemotherapy.
History of multiple orthopedic surgeries.
Ambulatory dysfunction.
History of shingles
Radiation-induced polyneuropathy
Hypothyroidism/Multinodular goiter
GERD without esophagitis
Moderate multi-infarct dementia
Plan
Somnolent and unresponsive, family notes this is common for her with sedation
Hold all sedation
Tylenol as needed for pain
RASS score -4 with goal 0
Hypotension with bradycardia, will change pressors to dopamine
Unclear if this is related to sepsis, but she does have multiple wounds
Persistent AFib--EKG showed pulmonary disease pattern (rightward Mcdonald) and ST+T wave abnormalities with possible septal infarct
Amiodarone+Eliquis resumed via DHT
Troponin+Probnp negative
H/o Severe Aortic Stenosis
Restrictive filling pattern on previous echo, repeat ECHO w/o significant change
Requiring supplemental oxygen (3L at the moment), intermittently on BIPAP
CXR showed chronic elevation of right hemidiaphragm. Hazy opacity at the right lung base, suggestive of subsegmental atelectasis or pneumonia.
CT showing large loculated right pleural effusion s/p thora 12/12 (transudative fluid, culture pending)
Continue supplementation with O2 as needed
On Duo/Neb at home, started again
History of obstructive sleep apnea with questionable compliance with CPAP
ABG- resp acidosis with metabolic compensation, most likely chronic process due to sleep apnea
NPO for now, DHT placed
Had one bowel movement yesterday
Home oral meds resumed via DHT
Speech consult
Creatinine at baseline of 0.7
Continue monitoring for urinary retention
Replete electrolytes as needed
Wounds present on admission (Coccyx, Left Hand, Bilateral Feet, Bilateral lower leg, Right upper elbow, Right upper arm)
Lactate within normal range, on abx
Blood cultures pending, Legionella/Strep Pneumo pending
No Fevers but persistent hypothermia
Continue Cefepime until cultures come back
Vancomycin discontinued due to negative MRSA screen
Will change from Cefepime to Ceftriaxone + Azithromycin pending CT scan results
DVT prophylaxis with Lovenox -> Will switch to Eliquis when able
Chronic anemia
No Leukocytosis
TSH normal limits, Will resume Levothyroxine when DHT in place
Random Cortisol within normal limits (Not high suspicion for Adrenal insufficiency)
Sugars well controlled, insulin SS as needed
Diagnostic Data:
CT Head & Neck Angio W/wo IV (12/11/2024): No acute intracranial abnormalities. Small old infarcts, as detailed above. Findings again seen compatible with diffuse cortical atrophy with nonspecific white matter changes as described above.
Atherosclerotic plaque within the carotid arterial system bilaterally, left greater than right without findings to suggest hemodynamically significant stenosis. No findings to suggest internal carotid artery or vertebral artery dissection
bilaterally. Mildly dominant right vertebral artery. Calcified atherosclerotic plaque within the distal left vertebral artery with mild to moderate stenosis.
CR Chest Portable - 1 View
1. Chronic elevation of right hemidiaphragm. Hazy opacity at the right lung base, suggestive of subsegmental atelectasis or pneumonia.
2. Small right pleural effusion may also be present, consider PA and lateral views when possible.
ECHO 12/12-Normal left ventricular size and systolic function. No regional wall motion abnormalities are seen. LV ejection fraction is 55-60% by visual assessment. Mild left ventricular hypertrophy. Diastolic function not assessed.
Normal right ventricular size. Normal right ventricular systolic function. Moderate mitral regurgitation. Severe aortic stenosis; paradoxical low-flow low-gradient. Peak/mean gradients are 59/32 mmHg. The valve area by continuity equation is 0.6
cm sq. Mild to moderate tricuspid regurgitation. Estimated pulmonary artery pressure of 50-55 mmHg. Assuming a right atrial pressure of 15 mmHg. Compared to prior study dated 05/01/2024, there is no significant change
Echocardiogram (05/01/2024): Normal left ventricular size and systolic function. No regional wall motion abnormalities are seen. LV ejection fraction is 60-65% by José's method of discs. Mild concentric left ventricular hypertrophy. Stage III
diastolic dysfunction suggestive of restrictive filling pattern and increased filling pressures. Normal right ventricular size. Normal right ventricular systolic function. Structurally normal mitral valve. Mitral valve opens normally. Mild to
moderate mitral regurgitation. Thickened aortic valve with restricted leaflet motion. Severe aortic stenosis. Peak/mean gradients are 50/37mmHg. The valve area by continuity equation is 0.6cm sq, using a LVOT of 1.9cm. Trace aortic regurgitation.
Structurally normal tricuspid valve. Tricuspid valve opens normally. Moderate tricuspid regurgitation. Estimated pulmonary artery pressure of 50-55 mmHg. Assuming a right atrial pressure of 3 mmHg. Compared to prior study 12/31/2023 aortic valve
gradients have increased from prior peak/mean 43/24 mmHg to now 50/37 mmHg and aortic valve area has decreased from prior 0.7 cm2 to now 0.6 cm2
Critical Care time 51 mins -- The patient is admitted for acute critical illness for the treatment of vital organ failure and/or prevention of further life-threatening conditions. Total care includes time spent in review of history, physical exam,
medications, hemodynamic/ventilator parameters, laboratory data, imaging and discussion with house staff, pharmacy, respiratory therapy, internal communications intern, and nursing.
Subjective Dataa
Subjective Data
Date of Service:
Date of Service: December 13, 2024
Chief Complaint: Scientist Electronics Follow Up
Subjective:
Remains on pressors, overnight had bradycardia
On CPAP, MS remains unchanged
Objective Data
Data Reviewed
Vital Signs / I&O / Oxygen:
Vital Signs
Temp Pulse Resp BP Pulse Ox
96.4 F L 78 24 83/55 97
12/13/24 06:00 12/13/24 06:32 12/13/24 06:32 12/13/24 06:32 12/13/24 06:32
Intake and Output
12/12/24 12/13/24 12/14/24
06:59 06:59 06:59
Intake Total 2477.6 / 2477.6
Output Total 200 / 200 625 / 625
Balance -200 / -10.0 1852.6 / 1852.6
SaO2 97
Nasal Cannula flow liters per 3
minute
Physical Exam
General: Comfortable and Other (NAD, somnolent)
HEENT: Normocephalic, Anicteric and Moist Mucous Membranes
Cardiovascular: S1-S2 and Regular Rhythm
Respiratory: Clear and Non-Labored Respirations
GI: Soft, Non Distended and Non Tender
Neurology: Unresponsive, Lethargic and Non Verbal
Skin: Warm and Dry
Labs/Micro/Reports
Lab Data
12/13/24 04:09
12/13/24 04:09
Microbiology
12/11/24 18:57 Blood/Venous Blood Culture - Preliminary
No Growth in 24 hours- Final report to follow
12/11/24 18:57 Blood/Venous Blood Culture - Preliminary
No Growth in 24 hours- Final report to follow
12/12/24 15:04 Pleural Fluid Gram Stain - Preliminary
12/12/24 10:51 Nasal Swab Influenza Types A & B (MARC) - Final
Negative for Influenza A & B, NAAT
Negative results must be combined with clinical observations
and patient history.
Nucleic Acid Amplification test (NAAT)performed on the
[employer] platform.
12/11/24 21:45 Nose Nasal Screen MRSA (PCR) - Final
MRSA not detected - performed by PCR methodology.
12/12/24 07:47 Urine Legionella Urinary Antigen - Final
Negative for Legionella pneumophila Serogroup 1 antigen.
A negative result does not rule out the possiblity of
Legionella infection due to other serogroups or species of
Legionella. Clinical correlation is recommended.
12/12/24 07:47 Urine Streptococcus pneumoniae Antigen (M - Final
Negative for Streptococcus pneumoniae antigen.
A negative result does not exclude infection with
Streptococcus pneumoniae. Clinical correlation is
recommended.
[2024-12-13] MEDS: ProAmatine 5 MG TUBE ×3 (07:44→21:01)
[2024-12-13] MEDS: ELIQUIS 5 MG TUBE ×2 (07:44→21:02)
--- NOTE | 2024-12-13 08:18 | PTCARENOTE ---
0700assumed care patient in bed. Mitts to b/l hands to prevent removing Dobbhoff; Dophoff Right nares: Javity 20cc/25 H2O flush Q 1 H; Left wrist peripheral lines : Levophed at 4mcg. Epinephrine on Hold since 5am RT peripheral line flushed + blood
return. Patient on 4L via nasal canula BIPAP off.
- patient open her eyes to painful stimuli. Not following simple commends. Uncoordination b/L UE movements; Mitts to b/l hands.
-VS: Rectal temp 96.9; (richelle huger off ); Afib 66; RR 17; BP via left upper arm 105/64;
- Afib 71 on telemetry; S1/S2, +Murmur; No ankle edema +1 non-pitting edema to b/l LE; Pedal pulses present to palpation.
-oxygen decreased from 4l/99% to 2L via nasal canula current POx 93% Lungs diminished thought
-Abdomen soft, non-tender Incontinent of bowel movement
-Have not voided patient required straight cath during previous shift . Bladder will be scanned to check on urinal retention
-skin : Left sacrum wound : slough center; bright red surrounding area; dressing to b/l le. Arms and pillows elevated on pillows HOB elevated
-Placed on bipap
--- NOTE | 2024-12-13 09:09 | W.PN.HOSP.TC ---
Today's Communication/Plan
-
consult cards
dopamine
consider stopping ABX--no signs of infection
ongoing GOC discussions with family
Assessment / Plan
Assessment / Plan
pt is an 89 year old female
shock physiology--? septic with hypotension, hypothermia, and possible PNA as source--hypovolemia due to insensible losses?--cardiogenic with afib/pauses?-- adrenal insufficiency and hypothyroid ruled out as cortisol and TSH WNL---apprec
ceramist--culture essentially neg, consider stopping ABX (cefepime)--wean pressors to off--on BiPAP--CT scan chest with large right pleural effusion, s/p thoracentesis 1500mls (await studies)
Persistent atrial fibrillation-- Eliquis and amiodarone per tube--now with long pauses--was started on epi drip--consult cards
Acute hypoxic respiratory failure--possible due to shock due to PNA--cont O2--on BiPAP- abx
agitation--on PRN olanzapine (zyprexa)
Hypothyroidism--WNL
nutrition--Dobhoff placed--can use for meds/tube feeds
Cognitive dysfunction vs vascular dementia--no signs of acute stroke--History of delirium and prior hospitalization--restart olanzapine
History of CAD--stent placement to LAD and RCA in August 2023--HOLD furosemide, statin
History of prior stroke--Brain MRI 10/05/2023- Multiple small chronic infarcts in both cerebellar hemispheres (left greater than right). Small chronic lacunar infarcts in the caudate nuclei--restart aspirin
Ambulatory dysfunction--eventually PT/OT when more stable
History of osteoporosis--noted
code status--DNR/DNI --spoke with daughter re: next steps (hospice/palliative care) if pt does not improve
DVT proph--Lovenox
Total Critical Care Time 33 minutes. I was immediately available to the patient and staff. I personally examined, reviewed labs, diagnostic images/reports, interpretations, treatment plans, discussed patient care with other providers and family
or caregivers (if patient is unable to make decisions), entered orders as appropriate and documented the medical record.
Anticipated Discharge: > 48 hours
Subjective/Interval History
-
Date of Service: December 13, 2024
pt very hard of hearing but acknowledges me
Objective Data
-
Labs:
Laboratory Results
12/13/24
04:09
WBC 6.6
Hgb 10.8 L
Hct 32.6 L
Plt Count 129 L
Sodium 143
Potassium 4.4 D
Chloride 113 H
Carbon Dioxide 27
BUN 14
Creatinine 0.6
Glucose 131 H
Calcium 8.9
Vital Signs:
max temp for 24 hours
12/13/24
04:00
Temp 97.5 F
Vital Signs
Temp Pulse Resp BP Pulse Ox
96.9 F L 78 24 110/70 97
12/13/24 08:19 12/13/24 07:44 12/13/24 06:32 12/13/24 07:44 12/13/24 06:32
I&O
12/12/24 12/13/24 12/14/24
06:59 06:59 06:59
Intake Total 2477.6 / 2532.6 62.5 / 62.5
Output Total 200 / 200 625 / 625
Balance -200 / -10.0 1852.6 / 1907.6 62.5 / 62.5
Review of Systems
-
Unable to obtain full review of systems at this time due to: Acuity and Other (hard of hearing)
Physical Exam
-
General: Appears Chronically Ill
HEENT: Normocephalic and Other (on BiPAP--dobhoff tube for feeds)
Respiratory: Clear to Auscultation
Cardiac: Irregular Rhythm
GI: Soft, Nontender, Nondistended and Normal Bowel Sounds
Musculoskeletal: No Clubbing, No Cyanosis and No Edema
Skin: Ulcers (sacral decub --reviewed picture from nurse--pressure injury)
Neuro: Negative Awake
Psych: Calm
--- NOTE | 2024-12-13 10:19 | CON.CAR ---
Addendum entered and electronically signed by Karon Greene MD 12/13/24 12:23:
I saw and examined the patient.
The Credit Authorizer's note was reviewed and I agree with the note.
Comment:
Exam
General: Unresponsive
Heart: Distant heart sounds irregular
Lungs: BiPAP mask in place
Extremities: Bandaged
Neuro: Unresponsive which which is intermittent predominantly left arm right leg.
She is well-known to me with critical aortic valve stenosis and coronary artery disease status post prior stents 08/2023. Given prior mental status changes and dementia she was not a TAVR candidate. At multiple office visits with myself she has
requested conservative management of health related issues understanding sequelae. She now presents with unresponsiveness of unclear etiology. Does not appear to be infected grossly. Remains with critical aortic valve stenosis. Intermittent
bradycardia with pauses up to 4.5 seconds and hypothermia (93.5). Now temperature improved to 96.9. Few pauses in atrial fibrillation 2.6 seconds.
Plan:
Unlikely that cardiac status is the sole contributor to sedation and agitation. She has afib with slow vent response and pauses up to 4.5 seconds in the setting of hypothermia. Amiodarone which she was on previously for rate control has been
held/discontinued. Agree.
Currently on dopamine to improve heart rate. Avoid AV arsalan blocking agents. Eventually will discontinue if recovers from acute on chronic illness.
Continue oral anticoagulation for atrial fibrillation as tolerates. Thyroid function testing normal stable.
Critical aortic valve stenosis with conservative management only given complex medical conditions.
Was given Zyprexa given that she was agitated with restraints in place. Neurology following. Recent head CT without acute abnormalities. for possible EEG Friday 12/15.
Agree with continuing neurological workup. Of note she does have underlying dementia. Try to avoid sedation if possible.
Pulmonary status per pulmonary/sustainability communicator and hospitalist. Currently on BiPAP. Discussed with hospitalist service.
Dobbhoff in place
Continue ongoing discussions with family given patient is wanted conservative management as an outpatient. Currently DNR CODE STATUS. Agree.
Poor overall prognosis.
Treated potential infection per primary service.
- follow mental status. patient/family has previously wanted to be conservative with her care. is DNR/DNI. will need continued goal of care conversations pending clinical progress
- echo this admission with results as above, EF remains preserved, severe-critical .
- Chest CT showed large R pleural effusion s/p thoracentesis for 1500cc 12/12. fluid appears transudative although proBNP only 551.
- wean supp O2 as able
- with dobhoff in place
- repeat ABG
- remains on OP eliquis through tube
- follow mental status. patient/family has previously wanted to be conservative with her care. is DNR/DNI. will need continued goal of care conversations pending clinical progress
Original Note:
Consultation
Consultation Request
Date/Time Consultation Performed: 12/13/24
Requesting Provider: Dr. Boyer
Performing Provider: Kate Bach PA-C for Dr. Karon Greene
Reason for Consultation: hypotension/bradycardia
Medical History
-
Chief Complaint: unresponsiveness
History of Present Illness:
Patient is an 89-year-old female with past medical history of severe aortic stenosis, and was previously worked up for TAVR undergoing complex LAD and RCA PCI 08/2023, however then had admission 09/2023 for confusion and TAVR was pushed off
indefinitely. Patient and family since have continued to opt for conservative management of severe aortic stenosis. She has known heart failure with preserved EF. She also has known dementia. She had a prior admission for bradycardia in the
setting of hypothermia and Toprol was stopped with subsequent improvement and she was placed on Amio 100 mg daily for rate control of permanent atrial fibrillation. She presented to the ER on 12/11 due to decreased responsiveness noted by patient's
daughter. There was initial concern for pneumonia and was treated with antibiotics. She was also noted by chest CT to have evidence of large right pleural effusion and underwent thoracentesis for 1500 cc on 12/12/2024. She remains with decreased
responsiveness and confusion. Currently requiring restraints, BiPAP, Dobbhoff tube. Overnight patient was noted to have bradycardia with pauses of up to 4.5 seconds and hypothermic and was started on epi with improvement. Cardiology consulted for
evaluation. She is DNR. Of note she did have recent fall evaluated in ER 12/05/[address] negative for acute abnormalities.
PMH:
Severe/critical
Chronic HFpEF
Permanent Afib
Chronic Eliquis OAC
Previously stopped amiodarone due to hair loss, but now patient has no recollection and currently tolerating
CAD s/p 3.0 mm Xience to mid LAD and orbital atherectomy and shockwave lithotripsy with 3.5 mm Xience to ostial RCA 08/21/23
Chronic hypotension on midodrine
Osteoporosis
Hypertension
Sleep apnea
Hx superficial thrombophlebitis
Hx endometrial cancer, treated with XRT and chemotherapy
s/p skin cancer resection left medial ankle 01/2021
CLL
h/o CVA 07/2023
Dementia
Past Medical History
Past Medical History: Other (in HPI)
Past Surgical History: Appendectomy, Cardiac (LAD and RCA PCI 08/21/23), Cholecystectomy and Orthopedic
Social History
Tobacco: Former Smoker
Alcohol: Occasional
Drug: None
Personal:
Family History
Family History: CAD, Cancer and Diabetes
Allergies / Home Medications
Allergy/AdvReac Type Severity Reaction Status Date / Time
amoxicillin AdvReac Nausea / Verified 12/11/24 19:05
Vomiting
loratadine [From Claritin] AdvReac Nausea / Verified 12/11/24 19:05
Vomiting
�Medication �Instructions �Recorded �Confirmed �Type
multivitamin with folic acid 400 1 tab PO DAILY Supplement ##0 01/05/12 12/11/24 History
mcg tablet (Tab-A-Mandy)
vit C 226 mg-vit E 90 mg-copper 1 cap PO BID Supplement 06/25/23 12/11/24 History
0.8 mg-zinc oxide-lutein 5 mg
capsule (PreserVision Lutein)
calcium carbonate (Calcium 600) 600 mg PO DAILY Supplement 10/03/23 12/11/24 History
alendronate 70 mg tablet (Fosamax) 70 mg PO MEMBRENO osteoporosis 12/30/23 12/11/24 History
atorvastatin 10 mg tablet 10 mg PO DAILY High Cholesterol 12/30/23 12/11/24 History
furosemide 40 mg tablet (Lasix) 80 mg PO DAILY Fluid 12/30/23 12/11/24 History
Retention/Swelling
levothyroxine 75 mcg tablet 75 mcg PO DAILY Thyroid 12/30/23 12/11/24 History
(Synthroid)
melatonin 3 mg tablet 3 mg PO HSPRN PRN sleep 12/30/23 12/11/24 History
apixaban 5 mg tablet (Eliquis) 5 mg PO BID Blood clot 01/06/24 12/11/24 Rx
prevention/tx #0 tabs
acetaminophen 325 mg tablet 650 mg PO Q6HPRN PRN mild pain 12/11/24 12/11/24 History
(Tylenol)
amiodarone 100 mg tablet 100 mg PO DAILY Arrhythmia 12/11/24 12/11/24 History
carboxymethylcellulose sodium 1 % 1 drp BOTH EYES HS Eye Condition 12/11/24 12/11/24 History
eye liquid gel drops
ipratropium 0.5 mg-albuterol 3 mg 3 ml inhalation R BID 12/11/24 12/11/24 History
(2.5 mg base)/3 mL nebulization Lung/Breathing Issues
soln
midodrine 2.5 mg tablet 2.5 mg PO TID Blood Pressure 12/11/24 12/11/24 History
olanzapine 5 mg tablet 5 mg PO DAILYPRN PRN afternoon 12/11/24 12/11/24 History
restlessness
olanzapine 5 mg tablet 5 mg PO HS Mental Health/Anxiety 12/11/24 12/11/24 History
Review of Systems
-
Unable to obtain full review of systems at this time due to: Other (patient mental status)
Physical Exam
Vital Signs
Temp Pulse Resp BP Pulse Ox
96.9 F L 60 17 98/72 97
12/13/24 08:19 12/13/24 09:30 12/13/24 09:30 12/13/24 09:01 12/13/24 09:30
Lab Results
12/13/24 04:09
12/13/24 04:09
Troponin I < 0.012 ng/ml 12/11/24 13:53
Ppm-H-Axwjwdawpdb Pept 551 pg/ml 12/11/24 13:53
Physical Exam
General: Other (agitated. in restraints. BIPAP in place. dobhoff tube in place)
HEENT: Normocephalic
Respiratory: Other (decreased RLB, no wheezes)
Cardiac: S1/S2, Irregular Rhythm and Murmur
GI: Soft, Non Tender, Non Distended and Normal Bowel Sounds
Musculoskeletal: No Clubbing, No Cyanosis and No Edema
Skin: Warm, Dry and Other (dressing to RLE)
Neuro: Other (intermittently agitated, moving all 4 extremities. does not open eyes. occasionally mumbles )
Impression / Plan
-
Primary Machine Lead Burner: Dr. Karon Greene
Assessment:
Presentation with unresponsiveness/altered mental status
Bradycardia
Hypotension
Severe/critical
Chronic HFpEF
Permanent Afib
Chronic Eliquis OAC
Previously stopped amiodarone due to hair loss, but now patient has no recollection and currently tolerating
CAD s/p 3.0 mm Xience to mid LAD and orbital atherectomy and shockwave lithotripsy with 3.5 mm Xience to ostial RCA 08/21/23
Chronic hypotension on midodrine
Osteoporosis
Hypertension
Sleep apnea
Hx superficial thrombophlebitis
Hx endometrial cancer, treated with XRT and chemotherapy
s/p skin cancer resection left medial ankle 01/2021
CLL
h/o CVA 07/2023
Dementia
ECHO 05/01/24: EF 60 to 65%, no regional wall motion abnormalities noted, mild concentric LVH, stage III diastolic dysfunction, mild to moderate MR, severe with peak/mean gradients 50/37 mmHg, LIANNE 0.6 cm�, moderate TR, PAP 50 to 55 mmHg
ECHO 12/12/24: EF 55 to 60%, mild LVH, moderate MR, severe , paradoxical low-flow low gradient with peak/mean gradients 59/32 mmHg, LIANNE 0.6 cm�, mild to moderate TR, PAP 50 to 55 mmHg
Plan:
- Patient presents with unresponsiveness and altered mental status of unclear etiology. remains agitated with restraints in place. Neurology following. Recent head CT 12/05 without acute abnormalities. for possible EEG Friday 12/15.
- overnight patient with afib with slow vent response and pauses up to 4.5 seconds, also hypothermia. started on epi with some improvement. holding OP amiodarone 100mg daily.
- echo this admission with results as above, EF remains preserved, severe-critical .
- Chest CT showed large R pleural effusion s/p thoracentesis for 1500cc 12/12. fluid appears transudative although proBNP only 551.
- wean supp O2 as able
- with dobhoff in place
- repeat ABG
- remains on OP eliquis through tube
- follow mental status. patient/family has previously wanted to be conservative with her care. is DNR/DNI. will need continued goal of care conversations pending clinical progress
- d/w nursing
- CCT 32 minutes
Data Reviewed
-
EKG: Tracing Personally Visualized and interpreted
CT Scan: Report Reviewed by me
Medical Tests (Nuc Med, Echo etc): Report Reviewed by me
Labs: Labs Reviewed by me
Old Records: Reviewed
[2024-12-13] MEDS: DOPamine 400 MG 250 IV (10:38)
--- NOTE | 2024-12-13 10:46 | PTCARENOTE ---
Levophed and Epi off . Dopamine started per order will be titrated per protocol for MAP >65
[2024-12-13 10:50] LABS: B.E. 4.3 mmol/L; HCO3 30.6 mmol/L (21-28); O2 Saturation % 89.2 % (94-98); PCO2 53 mmHg (32-35); pH 7.37 (7.35-7.45)
[2024-12-13 10:52] LABS: PO2 59 mmHg (83-108)
[2024-12-13 12:26] LABS: Glucose - Point of Care 114 mg/dl (70-99)
--- NOTE | 2024-12-13 18:27 | PTCARENOTE ---
Bipap taking off at 16:30; Patient on 6L via nasal canula . Drowsy but waking up to voice . Able to stay awake. Aflutter 124; BP via left upper arm 101/71; RR 15 POX 99%/6L Dopamine decreased from 5 to 2.5 mcg Current Heart rate 103 Aflutter. TF:
javity 40/25 H2O flushed. Patient unable to void . Bladder scanned >500/ bladder empty via straight cath 650 aniket urine HOB elevated
[2024-12-13 18:32] LABS: Glucose - Point of Care 118 mg/dl (70-99)
[2024-12-13] MEDS: REFRESH CELLUVISC GEL 1 DROPS BOTH EYES (21:01)
--- NOTE | 2024-12-13 23:32 | PTCARENOTE ---
bipap placed on pt by RT. pt oriented to name, , place. dopamine gtt continues. DHT w/ TF at goal. pt denies pain. CHG bath complete. care continues
[2024-12-14] VITALS (32 sets, daily range): BP systolic 80–124; BP diastolic 41–101; BMI 29.4
[2024-12-14] MEDS: MAXIPIME 1000 MG IV ×5 (00:08→23:52)
[2024-12-14] MEDS: ZYPREXA 5 MG TUBE (00:08)
[2024-12-14] MEDS: STERILE WATER FOR INJECTION 10 ML IV ×5 (00:08→23:52)
--- NOTE | 2024-12-14 00:37 | PTCARENOTE ---
bladder scan for >700ml, ICU MUTUAL FUND ACCOUNTANT made aware that this would be 3rd straight cath and of BS amount. romo ordered and placed for acute urinary retention. care continues
--- NOTE | 2024-12-14 04:15 | PTCARENOTE ---
assumed care of pt at 0100, pt agitated- pulling at IVs & tele monitor, attempts made to reorient/redirect. no further changes.
[2024-12-14 04:29] LABS: Hematocrit 33.9 % (37.0-47.0); Mean Corp Hgb Conc. 32.4 g/dL (33.0-37.0); Mean Corpuscular Hgb 31.3 pg (27.0-31.0); Mean Corpuscular Volume 96.6 fL (81.0-99.0); Mean Platelet Volume 11.8 fL (7.4-10.4); Platelet Count 126 10^3/uL (130-400); Red Blood Cell Count 3.51 10^6/uL (4.20-5.40); White Blood Cell Count 5.6 10^3/uL (4.8-10.8)
[2024-12-14 04:46] LABS: Blood Urea Nitrogen 14 mg/dl (7-17); Calcium 9.1 mg/dl (8.4-10.2); Carbon Dioxide 31 mmol/L (22-30); Chloride 110 mmol/L (98-107); Estimated Creatinine Clearance 59 ml/min; Glucose 114 mg/dl (70-99); Potassium 4.2 mmol/L (3.5-5.1); Sodium 144 mmol/L (135-145); eGFR > 60.00
[2024-12-14] MEDS: SYNTHROID 75 MCG TUBE (05:48)
[2024-12-14] MEDS: ELIQUIS 5 MG TUBE ×2 (07:13→20:07)
[2024-12-14] MEDS: REFRESH EYE DROPS (PF) 1 DROPS OPHTH (07:13)
[2024-12-14] MEDS: ProAmatine 5 MG TUBE (07:13)
--- NOTE | 2024-12-14 07:15 | PTCARENOTE ---
0700 patient in bed.
> Awake, confused; Restraints soft to b/l UE to prevent patient remove Dophoff
> Aflutter on telemetry 81bmp;Murmur; S1/S2; BP via left upper arm 90/59 MAP 68; Murmur; S1/S2; Dopamine 2.5mcg via left peripheral line
> RR 17; POx 96%/6L of oxygen via nasal canula; lungs diminished b/l
> Abdomen soft non-tender Incontinent bowel Dophoff RT nares; Jevity 40 (at goal)/H2O 25/hr ; Diet: NPO
> Accu check Q 6 hrs
> Werner inserted during previous shift for urinary retention draining aniket clear urine
> Peripheral lines left and right; Skin: b/l LE; left sacrum : open area (yellow center; red surround area )
> HoB elevated call [place] within reach. Werner care, oral care, AM hygiene
--- NOTE | 2024-12-14 07:44 | W.PN.INTV ---
Today's Communication / Plan
Recommendations
Unclear cause for shock and hypothermia, clements culture negative
Can stop abx and observe
May need more in-depth DISTRIBUTOR OF DIRECTORIES w/u as well
Increase midodrine, wean dopamine to off
GOC discussions ongoing with family
Assessment
-
Patient is an 89-year-old female with previous history of COPD, CAD status post stents, A-fib, EFRAIN on CPAP, heart failure, dementia presenting with decreased responsiveness per family. The family has noticed that the patient has become
progressively more weak with more falls at home. She had sustained a fall on 12/05/2024 and was seen in the ER with negative DISTRIBUTOR OF DIRECTORIES imaging. On evaluation in the ER, patient was notably hypotensive and hypothermic. She is being evaluated for suspected
septic shock, placed on pressors. She is admitted to ICU.
Shock, septic vs other
Hypothermia
Bradycardia
Increasing confusion, TME
Progressive weakness with falls
Hypernatremia, mild
Chronic hypercarbia, compensated-7.41/48
Pleural effusions s/p thora 12/12
Conditions present GRANTS ASSISTANT
Recently diagnosed AFib, status post STEPHANIE/cardioversion on 11/20/17
CAD s/p stents
Moderate aortic stenosis
Chronic diastolic heart failure
Pulmonary hypertension
COPD
Obstructive sleep apnea, on CPAP
Osteoporosis.
Hypertension.
Acute lymphoblastic leukemia, in remission
History of superficial thrombophlebitis.
History of endometrial cancer, s/p JOSEPH treated with radiation and chemotherapy.
History of multiple orthopedic surgeries.
Ambulatory dysfunction.
History of shingles
Radiation-induced polyneuropathy
Hypothyroidism/Multinodular goiter
GERD without esophagitis
Moderate multi-infarct dementia
Plan
Somnolent and unresponsive, family notes this is common for her with sedation
Hold all sedation
Tylenol as needed for pain
RASS score -1 with goal 0
May need more intense neuro w/u for cause of MS change
Hypotension with bradycardia, will change pressors to dopamine--intermittently on/pff
Unclear if this is related to sepsis, but she does have multiple wounds--does not seem to be responding to treatment
Persistent AFib--EKG showed pulmonary disease pattern (rightward [place]) and ST+T wave abnormalities with possible septal infarct
Amiodarone+Eliquis resumed via DHT
Troponin+Probnp negative
H/o Severe Aortic Stenosis
Restrictive filling pattern on previous echo, repeat ECHO w/o significant change
Increase midodrine TID
Requiring supplemental oxygen (3L at the moment), intermittently on BIPAP
CXR showed chronic elevation of right hemidiaphragm. Hazy opacity at the right lung base, suggestive of subsegmental atelectasis or pneumonia.
CT showing large loculated right pleural effusion s/p thora 12/12 (transudative fluid, culture negative)
Continue supplementation with O2 as needed
On Duo/Neb at home, started again
History of obstructive sleep apnea with questionable compliance with CPAP
ABG- resp acidosis with metabolic compensation, most likely chronic process due to sleep apnea
Repeat CXR
NPO for now, DHT placed
Had one bowel movement yesterday
Home oral meds resumed via DHT
Speech consult
Creatinine at baseline of 0.7
Continue monitoring for urinary retention
Replete electrolytes as needed
Wounds present on admission (Coccyx, Left Hand, Bilateral Feet, Bilateral lower leg, Right upper elbow, Right upper arm)
Lactate within normal range, on abx
Cultures and Flu swab negative to date
No Fevers but persistent hypothermia
Vancomycin discontinued due to negative MRSA screen
Can stop abx at this point and observe off
DVT prophylaxis with Lovenox -> Will switch to Eliquis when able
Chronic anemia
No Leukocytosis
TSH normal limits, Will resume Levothyroxine when DHT in place
Random Cortisol within normal limits (Not high suspicion for Adrenal insufficiency)
Sugars well controlled, insulin SS as needed
Diagnostic Data:
CT Head & Neck Angio W/wo IV (12/11/2024): No acute intracranial abnormalities. Small old infarcts, as detailed above. Findings again seen compatible with diffuse cortical atrophy with nonspecific white matter changes as described above.
Atherosclerotic plaque within the carotid arterial system bilaterally, left greater than right without findings to suggest hemodynamically significant stenosis. No findings to suggest internal carotid artery or vertebral artery dissection
bilaterally. Mildly dominant right vertebral artery. Calcified atherosclerotic plaque within the distal left vertebral artery with mild to moderate stenosis.
CR Chest Portable - 1 View
1. Chronic elevation of right hemidiaphragm. Hazy opacity at the right lung base, suggestive of subsegmental atelectasis or pneumonia.
2. Small right pleural effusion may also be present, consider PA and lateral views when possible.
ECHO 12/12-Normal left ventricular size and systolic function. No regional wall motion abnormalities are seen. LV ejection fraction is 55-60% by visual assessment. Mild left ventricular hypertrophy. Diastolic function not assessed.
Normal right ventricular size. Normal right ventricular systolic function. Moderate mitral regurgitation. Severe aortic stenosis; paradoxical low-flow low-gradient. Peak/mean gradients are 59/32 mmHg. The valve area by continuity equation is 0.6
cm sq. Mild to moderate tricuspid regurgitation. Estimated pulmonary artery pressure of 50-55 mmHg. Assuming a right atrial pressure of 15 mmHg. Compared to prior study dated 05/01/2024, there is no significant change
Echocardiogram (05/01/2024): Normal left ventricular size and systolic function. No regional wall motion abnormalities are seen. LV ejection fraction is 60-65% by José's method of discs. Mild concentric left ventricular hypertrophy. Stage III
diastolic dysfunction suggestive of restrictive filling pattern and increased filling pressures. Normal right ventricular size. Normal right ventricular systolic function. Structurally normal mitral valve. Mitral valve opens normally. Mild to
moderate mitral regurgitation. Thickened aortic valve with restricted leaflet motion. Severe aortic stenosis. Peak/mean gradients are 50/37mmHg. The valve area by continuity equation is 0.6cm sq, using a LVOT of 1.9cm. Trace aortic regurgitation.
Structurally normal tricuspid valve. Tricuspid valve opens normally. Moderate tricuspid regurgitation. Estimated pulmonary artery pressure of 50-55 mmHg. Assuming a right atrial pressure of 3 mmHg. Compared to prior study 12/31/2023 aortic valve
gradients have increased from prior peak/mean 43/24 mmHg to now 50/37 mmHg and aortic valve area has decreased from prior 0.7 cm2 to now 0.6 cm2
Critical Care time 41 mins -- The patient is admitted for acute critical illness for the treatment of vital organ failure and/or prevention of further life-threatening conditions. Total care includes time spent in review of history, physical exam,
medications, hemodynamic/ventilator parameters, laboratory data, imaging and discussion with house staff, pharmacy, respiratory therapy, management consultant, and nursing.
Subjective Dataa
Subjective Data
Date of Service:
Date of Service: December 14, 2024
Chief Complaint: Sewer Pipe Cleaner Follow Up
Subjective:
More awake this AM but still on/off dopamine
Very confused
Objective Data
Data Reviewed
Vital Signs / I&O / Oxygen:
Vital Signs
Temp Pulse Resp BP Pulse Ox
97.7 F 85 21 90/59 99
12/14/24 03:51 12/14/24 07:13 12/14/24 06:31 12/14/24 07:13 12/14/24 03:32
Intake and Output
12/13/24 12/14/24 12/15/24
06:59 06:59 06:59
Intake Total 2477.6 / 2532.6 1255.8 / 1255.8
Output Total 625 / 625 2190 / 2190
Balance 1852.6 / 1907.6 -934.2 / -934.2
SaO2 99
Nasal Cannula flow liters per 6
minute
Physical Exam
General: Comfortable and Other (NAD)
HEENT: Normocephalic, Anicteric and Moist Mucous Membranes
Cardiovascular: S1-S2 and Regular Rhythm
Respiratory: Clear and Non-Labored Respirations
GI: Soft, Non Distended and Non Tender
Neurology: Awake, No Motor Deficits and Lethargic (confused)
Skin: Warm and Dry
Labs/Micro/Reports
Lab Data
12/14/24 03:57
12/14/24 03:57
Laboratory Results
12/13/24 12/13/24 12/13/24
10:27 10:44 10:47
pH Cancelled 7.37 Cancelled
pCO2 Cancelled 53 H Cancelled
pO2 Cancelled 59 L* Cancelled
HCO3 Cancelled 30.6 H Cancelled
O2 Delivery Level Cancelled Cancelled
Microbiology
12/11/24 18:57 Blood/Venous Blood Culture - Preliminary
No Growth in 48 hours- Final report to follow
12/11/24 18:57 Blood/Venous Blood Culture - Preliminary
No Growth in 48 hours- Final report to follow
12/12/24 15:04 Pleural Fluid Body Fluid Culture - Preliminary
No Growth After 18-24 Hours
12/12/24 15:04 Pleural Fluid Gram Stain - Preliminary
12/12/24 10:51 Nasal Swab Influenza Types A & B ([facility]) - Final
Negative for Influenza A & B, NAAT
Negative results must be combined with clinical observations
and patient history.
Nucleic Acid Amplification test (NAAT)performed on the
[employer] platform.
12/11/24 21:45 Nose Nasal Screen MRSA (PCR) - Final
MRSA not detected - performed by PCR methodology.
12/12/24 07:47 Urine Legionella Urinary Antigen - Final
Negative for Legionella pneumophila Serogroup 1 antigen.
A negative result does not rule out the possiblity of
Legionella infection due to other serogroups or species of
Legionella. Clinical correlation is recommended.
12/12/24 07:47 Urine Streptococcus pneumoniae Antigen (M - Final
Negative for Streptococcus pneumoniae antigen.
A negative result does not exclude infection with
Streptococcus pneumoniae. Clinical correlation is
recommended.
--- NOTE | 2024-12-14 08:03 | W.PN.HOSP.TC ---
Today's Communication/Plan
-
consider stopping ABX (day 3) with negative cultures
PT/OT/speech
cont tube feeds for now
ongoing GOC discussion with family
Assessment / Plan
Assessment / Plan
pt is an 89 year old female
shock physiology--adrenal insufficiency/hypothyroid/septic essentially ruled out with neg cultures, normal TFTs, normal cortisol --? cardiogenic with pauses?-- will recheck CXR--apprec risk tech--culture essentially neg, consider stopping ABX
(cefepime)--wean pressors to off--off BiPAP--CT scan chest with large right pleural effusion, s/p thoracentesis 1500mls --no signs of infection
Persistent atrial fibrillation-- Eliquis and amiodarone per tube--now with long pauses--was started on epi drip, changed to dopamine--apprec cards
Acute hypoxic respiratory failure--possible due to shock due to PNA--cont O2--on BiPAP- consider stopping abx
agitation--on PRN olanzapine (zyprexa)
Hypothyroidism--WNL
nutrition--Dobhoff placed--can use for meds/tube feeds
Cognitive dysfunction vs vascular dementia--no signs of acute stroke--History of delirium and prior hospitalization--restart olanzapine
History of CAD--stent placement to LAD and RCA in August 2023--HOLD furosemide, statin
History of prior stroke--Brain MRI 10/05/2023- Multiple small chronic infarcts in both cerebellar hemispheres (left greater than right). Small chronic lacunar infarcts in the caudate nuclei--restart aspirin
Ambulatory dysfunction--eventually PT/OT when more stable
History of osteoporosis--noted
code status--DNR/DNI --spoke with daughter re: next steps (hospice/palliative care) if pt does not improve
DVT proph--Lovenox
Anticipated Discharge: > 48 hours
Subjective/Interval History
-
Date of Service: December 14, 2024
pt awake but confused
Objective Data
-
Labs:
Laboratory Results
12/14/24
03:57
WBC 5.6
Hgb 11.0 L
Hct 33.9 L
Plt Count 126 L
Sodium 144
Potassium 4.2
Chloride 110 H
Carbon Dioxide 31 H
BUN 14
Creatinine 0.6
Glucose 114 H
Calcium 9.1
Vital Signs:
max temp for 24 hours
12/14/24
03:51
Temp 97.7 F
Vital Signs
Temp Pulse Resp BP Pulse Ox
97.7 F 85 21 90/59 99
12/14/24 03:51 12/14/24 07:13 12/14/24 06:31 12/14/24 07:13 12/14/24 03:32
I&O
12/13/24 12/14/24 12/15/24
06:59 06:59 06:59
Intake Total 2477.6 / 2532.6 1255.8 / 1255.8
Output Total 625 / 625 2190 / 2190
Balance 1852.6 / 1907.6 -934.2 / -934.2
Review of Systems
-
Unable to obtain full review of systems at this time due to: Dementia
Physical Exam
-
General: Appears Chronically Ill
HEENT: Normocephalic, Atraumatic, Oxygen and Other (bilateral lower eyelid drooping)
Respiratory: Clear to Auscultation; Negative Wheezes, Rales or Rhonchi
Cardiac: Irregular Rhythm and Murmur
GI: Soft, Nontender, Nondistended and Normal Bowel Sounds
Genito-urinary: Werner
Musculoskeletal: No Clubbing and No Cyanosis; Negative No Edema (edema bilateral upper extremities)
Neuro: Awake; Negative Alert
Psych: Calm
--- NOTE | 2024-12-14 10:21 | PTOTSP ---
Speech therapy
Presentation: Patient was alert but confused. Patient intermittently followed commands but appeared to have difficulty with tasks.
MAINTENANCE TECHNICIAN 3RD SHIFT performed oral care in which patient required oral suctioning to assist with secretion management.
Swallowing function: MAINTENANCE TECHNICIAN 3RD SHIFT trialed ice chips x3 in which patient's confusion appeared to be a barrier as she had difficulty with acceptance and coordination. Patient's oral secretions increased with the ice chip trials, requiring oral suctioning and
intermittent weak coughing. Patient expelled all ice chip trials from the oral cavity (independently) prior to swallow initiation.
Given the above information, her wax/wane cognitive status, and clinical presentation, recommend NPO at this time with trials at a later time in hopes her cognitive status improves.
recommendations:
1) NPO at this time
2) Aspiration precautions
3) Medications not by mouth
4) Oral care
Plan: MAINTENANCE TECHNICIAN 3RD SHIFT will continue to follow for clinical trials; pending hospitalization.
--- NOTE | 2024-12-14 12:20 | W.PN.CARDCBS ---
Today's Communication / Plan
-
Continue conservative measures. Continue supportive care.
Consider discontinuation of dopamine in the a.m. now that she is no longer hypothermic.
Discontinue amiodarone and follow telemetry.
Poor overall prognosis.
Impression / Plan
-
Primary Collection Correspondent: Dr. Karon Greene
Assessment:
Presentation with unresponsiveness/altered mental status
Bradycardia
Hypotension
Severe/critical
Chronic HFpEF
Permanent Afib
Chronic Eliquis OAC
Previously stopped amiodarone due to hair loss, but now patient has no recollection and currently tolerating
CAD s/p 3.0 mm Xience to mid LAD and orbital atherectomy and shockwave lithotripsy with 3.5 mm Xience to ostial RCA 08/21/23
Chronic hypotension on midodrine
Osteoporosis
Hypertension
Sleep apnea
Hx superficial thrombophlebitis
Hx endometrial cancer, treated with XRT and chemotherapy
s/p skin cancer resection left medial ankle 01/2021
CLL
h/o CVA 07/2023
Dementia
Thrombocytopenia
ECHO 05/01/24: EF 60 to 65%, no regional wall motion abnormalities noted, mild concentric LVH, stage III diastolic dysfunction, mild to moderate MR, severe with peak/mean gradients 50/37 mmHg, LIANNE 0.6 cm�, moderate TR, PAP 50 to 55 mmHg
ECHO 12/12/24: EF 55 to 60%, mild LVH, moderate MR, severe , paradoxical low-flow low gradient with peak/mean gradients 59/32 mmHg, LIANNE 0.6 cm�, mild to moderate TR, PAP 50 to 55 mmHg
Plan:
- Patient presents with unresponsiveness and altered mental status of unclear etiology. She is a little bit more awake today but remains agitated and unable to have a conversation. Primary service, print designer and neurology following. Recent head
CT 12/05 without acute abnormalities. for possible EEG Friday 12/15.
-Atrial fibrillation usually rate controlled with amiodarone which has been on hold. Previous pauses noted. On 12/12/2024 pauses up to 4.5 seconds, also hypothermia at that time. She was started on epinephrine and then transition to dopamine. She
is also on midodrine for blood pressure
Telemetry reviewed consider discontinuation of dopamine tomorrow. A-fib with acceptable rates and no significant pauses of concern at this time.
No longer hypothermic
Continue Eliquis through the 2
-Known critical aortic valve stenosis. Echo this admission with results as above, EF remains preserved, severe-critical which has been known and previously she was declined for TAVR given multiple infections, dementia and issues with
intermittent change in mental status. Previously in the office I have had long discussions with patient and her family in the office and she has wanted conservative management only.
This admission given pleural effusion she underwent thoracentesis. Large right pleural effusion s/p thoracentesis for 1500cc 12/12. Fluid appears transudative although proBNP only 551.
-Known dementia
-Currently dobhoff in place
-As noted prior patient/family has previously wanted to be conservative with her care. She is DNR/DNI. Continue goals of care discussion.
- d/w nursing
Given multiple significant medical issues poor overall prognosis.
Progress Note - Collection Correspondent
Subjective
Date of Service: December 14, 2024
Agitated unable to answer questions.
Objective
Labs:
12/14/24 03:57
12/14/24 03:57
Labs
Hgb 11.0 g/dL (12.0-16.0) L 12/14/24 03:57
Hct 33.9 % (37.0-47.0) L 12/14/24 03:57
Plt Count 126 10^3/uL (130-400) L 12/14/24 03:57
PT 20.3 Sec (11.4-14.6) H 12/11/24 21:45
INR 1.68 12/11/24 21:45
APTT 44.3 Sec (23.4-35.0) H 12/11/24 21:45
Sodium 144 mmol/L (135-145) 12/14/24 03:57
Potassium 4.2 mmol/L (3.5-5.1) 12/14/24 03:57
BUN 14 mg/dl (7-17) 12/14/24 03:57
Creatinine 0.6 mg/dL (0.6-1.0) 12/14/24 03:57
Glucose 114 mg/dl (70-99) H 12/14/24 03:57
Troponins
12/11/24
13:53
Troponin I < 0.012
Vital Signs and I&O:
Vital Signs
Temp Pulse Resp BP Pulse Ox
97.0 F 81 15 98/73 98
12/14/24 07:00 12/14/24 10:07 12/14/24 10:07 12/14/24 10:07 12/14/24 09:46
Vital Signs
Temp Pulse Resp BP Pulse Ox
97.0 F 81 15 98/73 98
12/14/24 07:00 12/14/24 10:07 12/14/24 10:07 12/14/24 10:07 12/14/24 09:46
Intake & Output
12/12/24 12/13/24 12/14/24 12/15/24
06:59 06:59 06:59 06:59
Intake Total 2477.6 / 2532.6 1255.8 / 1262.6 13.6 / 13.6
Output Total 200 / 200 625 / 625 2190 / 2220 60 / 60
Balance -200 / -10.0 1852.6 / 1907.6 -934.2 / -957.4 -46.4 / -46.4
Physical Exam
Physical Exam
General: Elderly woman confused and agitated
Heart: Distant heart sounds irregular
Lungs: Oxygen in place coarse breath sound on-distended.
Extremities: No clubbing, cyanosis or edema bilaterally.
Neuro: Agitated
[2024-12-14] MEDS: ProAmatine 10 MG TUBE ×2 (15:26→20:05)
[2024-12-14] MEDS: DOPamine 400 MG 250 IV (15:26)
--- NOTE | 2024-12-14 17:11 | PTCARENOTE ---
patient on bedrest. Awake, confused .
>A/flutter 82 Murmur S1/S2;
> VS: BP via left calf 102/41 MAP 56 Dopamine 2.5 mcg RR 18; POX 96%6L; Aflutter 86
>Indwelling Werner draining blood tinge urine
>Incontinent of stool. Dophoff RT: jevity 40/25water flush
> HOB elevated . Repostion Q 2 hrs oral care done
[2024-12-14 17:53] LABS: Glucose - Point of Care 117 mg/dl (70-99)
--- NOTE | 2024-12-14 19:26 | PTCARENOTE ---
VS captured for previous shift, cannot verify accuracy prior to 1900.
[2024-12-14] MEDS: REFRESH CELLUVISC GEL 1 DROPS BOTH EYES (20:07)
[2024-12-14] MEDS: ZYPREXA 2.5 MG TUBE (20:07)
--- NOTE | 2024-12-14 20:30 | PTCARENOTE ---
assessment as documented. pt confused, restless, fidgety, b/l wrist restraints in place. on 6L NC, O2 sat 97% and above. pt NPO per speech, DHT with TF infusing at goal. pt with BM, CHG bath, romo care and oral care provided. care continues
--- NOTE | 2024-12-14 22:04 | PTCARENOTE ---
wound care done per orders
[2024-12-15] VITALS (35 sets, daily range): BP systolic 77–132; BP diastolic 44–97; BMI 29.4
[2024-12-15 00:06] LABS: Glucose - Point of Care 110 mg/dl (70-99)
--- NOTE | 2024-12-15 00:09 | PTCARENOTE ---
0- ICU PATTERN GENERATOR OPERATOR made aware of UOP <30ml/hr, continue to monitor
0000- UOP 15ml/hr last two hrs, ICU PATTERN GENERATOR OPERATOR notified, IVF bolus ordered
[2024-12-15] MEDS: NSS 500 IV (00:17)
[2024-12-15 03:29] LABS: Hematocrit 30.3 % (37.0-47.0); Hemoglobin 9.9 g/dL (12.0-16.0); Mean Corp Hgb Conc. 32.7 g/dL (33.0-37.0); Mean Corpuscular Hgb 31.8 pg (27.0-31.0); Mean Corpuscular Volume 97.4 fL (81.0-99.0); Mean Platelet Volume 10.8 fL (7.4-10.4); Platelet Count 109 10^3/uL (130-400); Red Blood Cell Count 3.11 10^6/uL (4.20-5.40); Red Cell Dist. Width 17.3 % (11.5-14.5); Venous Blood Gas B.E. 8.1 mmol/L (-4 to +4); Venous Blood Gas HCO3 34.5 mmol/L (22-27); Venous Blood Gas O2 Sat % 96.9 %; Venous Blood Gas pCO2 57 mmHg (35-48); Venous Blood Gas pH 7.39 (7.32-7.43); Venous Blood Gas pO2 145 mmHg (30-50); White Blood Cell Count 4.7 10^3/uL (4.8-10.8)
--- NOTE | 2024-12-15 03:36 | PTCARENOTE ---
bloody urine noted at 0300, ICU BARGE MASTER made aware. AM labs sent. TF set up changed. restraints continue. pt continues to be restless. care ongoing
[2024-12-15 03:43] LABS: ALT (SGPT) 21 U/L (0-35); AST (SGOT) 32 U/L (14-36); Albumin 2.4 g/dl (3.5-5.0); Alkaline Phosphatase 95 U/L (38-126); Blood Urea Nitrogen 18 mg/dl (7-17); Calcium 8.9 mg/dl (8.4-10.2); Carbon Dioxide 31 mmol/L (22-30); Chloride 110 mmol/L (98-107); Direct Bilirubin 0.2 mg/dl (0.0-0.4); Estimated Creatinine Clearance 59 ml/min; Glucose 114 mg/dl (70-99); Potassium 4.5 mmol/L (3.5-5.1); Sodium 143 mmol/L (135-145); Total Bilirubin 0.8 mg/dl (0.2-1.3); Total Protein 4.6 g/dl (6.3-8.2); eGFR > 60.00
[2024-12-15] MEDS: SYNTHROID 75 MCG TUBE (05:04)
[2024-12-15] MEDS: STERILE WATER FOR INJECTION 10 ML IV (05:04)
[2024-12-15] MEDS: MAXIPIME 1000 MG IV (05:04)
[2024-12-15 05:17] LABS: Glucose - Point of Care 106 mg/dl (70-99)
[2024-12-15] MEDS: ELIQUIS TUBE (07:28)
[2024-12-15] MEDS: ProAmatine 10 MG TUBE ×3 (07:48→21:36)
--- NOTE | 2024-12-15 08:01 | W.PN.INTV ---
Today's Communication / Plan
Recommendations
Possible lumbar puncture/MRI today depending on Neuro evaluation. Continue Midodrine. Continue monitoring urine for resolution of hematuria, repeat H&H in the afternoon. Eliquis held. Antibiotics discontinued. Continue monitoring heart rhythm.
Patient cleared to be downgraded from ICU level care as she does not have any need for pressors.
Assessment
-
Assessment:
89 year old female with a past medical history of persistent atrial fibrillation, aortic stenosis, CLL, and CHF presented to the hospital due to decreased responsiveness for the past week or so. She was found to be hypothermic and in shock and was
admitted to the ICU for further management.
#Shock, septic vs other
#Hypothermia
#Bradycardia
#Increasing confusion, TME
#Progressive weakness with falls
#Hypernatremia, mild
#Chronic hypercarbia, compensated-7.
#Pleural effusions s/p thora 12/12
#Hematuria
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
Recently diagnosed AFib, status post STEPHANIE/cardioversion on 11/20/17
CAD s/p stents
Moderate aortic stenosis
Chronic diastolic heart failure
Pulmonary hypertension
COPD
Obstructive sleep apnea, on CPAP
Osteoporosis.
Hypertension.
Acute lymphoblastic leukemia, in remission
History of superficial thrombophlebitis.
History of endometrial cancer, s/p JOSEPH treated with radiation and chemotherapy.
History of multiple orthopedic surgeries.
Ambulatory dysfunction.
History of shingles
Radiation-induced polyneuropathy
Hypothyroidism/Multinodular goiter
GERD without esophagitis
Moderate multi-infarct dementia
Plan:
#Shock-like symptoms from possible sepsis versus cardiogenic shock
-Persistent hypotension
-Was on Dopamine for pressors (400mg in 250mL)- off of the pressors now
-Given 500ml bolus of NSS last night
-Cefepime discontinued: Most likely not related to infectious process (Pro-john negative as well)
-History of severe Aortic Stenosis
-Restrictive filling pattern on repeat echo, same as before
-Midodrine was increased to 10mg TID
-Pleural Effusion s/p thoracentesis 1500cc (12/12) -> Transudative fluid with proBNP 551
-Okay to be downgraded to IMU level care as no need for pressors at this time
#Continued altered mental status with history of dementia
-EEG today showed generalized slowing bihemispherically -> moderate bihemispheric cortical dysfunction -> No epileptiform features
-Olanzapine was restarted as she was taking the medication at home
-Possible MRI Head/Lumbar Puncture as per Neuro
-Continued Neuro followup
#Persistent A-Fib
-Amiodarone discontinued
-Eliquis resumed through DHT but discontinued due to blood in the urine
-Continue monitoring telemetry
-Cardiology following
#Hematuria
-Possible due to trauma via Werner insertion
-Continue monitoring for Urine output
-Monitor CBC (Mild loss in Hgb seen today)
-Repeat H&H today
#Chronic Hypercarbia with compensation
-History of Obstructive Sleep Apnea with questionable compliance with CPAP
-Continue BiPAP as tolerated (Not been tolerating it)
-Repeat CXR tomorrow if any worsening of symptoms
-Continue DuoNebs
-Continue supplementation with O2 (2L alicja)
Diagnostic Data:
CT Head & Neck Angio W/wo IV (12/11/2024): No acute intracranial abnormalities. Small old infarcts, as detailed above. Findings again seen compatible with diffuse cortical atrophy with nonspecific white matter changes as described above.
Atherosclerotic plaque within the carotid arterial system bilaterally, left greater than right without findings to suggest hemodynamically significant stenosis. No findings to suggest internal carotid artery or vertebral artery dissection
bilaterally. Mildly dominant right vertebral artery. Calcified atherosclerotic plaque within the distal left vertebral artery with mild to moderate stenosis.
CR Chest Portable - 1 View
1. Chronic elevation of right hemidiaphragm. Hazy opacity at the right lung base, suggestive of subsegmental atelectasis or pneumonia.
2. Small right pleural effusion may also be present, consider PA and lateral views when possible.
ECHO 12/12-Normal left ventricular size and systolic function. No regional wall motion abnormalities are seen. LV ejection fraction is 55-60% by visual assessment. Mild left ventricular hypertrophy. Diastolic function not assessed.
Normal right ventricular size. Normal right ventricular systolic function. Moderate mitral regurgitation. Severe aortic stenosis; paradoxical low-flow low-gradient. Peak/mean gradients are 59/32 mmHg. The valve area by continuity equation is 0.6
cm sq. Mild to moderate tricuspid regurgitation. Estimated pulmonary artery pressure of 50-55 mmHg. Assuming a right atrial pressure of 15 mmHg. Compared to prior study dated 05/01/2024, there is no significant change
Echocardiogram (05/01/2024): Normal left ventricular size and systolic function. No regional wall motion abnormalities are seen. LV ejection fraction is 60-65% by José's method of discs. Mild concentric left ventricular hypertrophy. Stage III
diastolic dysfunction suggestive of restrictive filling pattern and increased filling pressures. Normal right ventricular size. Normal right ventricular systolic function. Structurally normal mitral valve. Mitral valve opens normally. Mild to
moderate mitral regurgitation. Thickened aortic valve with restricted leaflet motion. Severe aortic stenosis. Peak/mean gradients are 50/37mmHg. The valve area by continuity equation is 0.6cm sq, using a LVOT of 1.9cm. Trace aortic regurgitation.
Structurally normal tricuspid valve. Tricuspid valve opens normally. Moderate tricuspid regurgitation. Estimated pulmonary artery pressure of 50-55 mmHg. Assuming a right atrial pressure of 3 mmHg. Compared to prior study 12/31/2023 aortic valve
gradients have increased from prior peak/mean 43/24 mmHg to now 50/37 mmHg and aortic valve area has decreased from prior 0.7 cm2 to now 0.6 cm2
Subjective Dataa
Subjective Data
Date of Service:
Date of Service: December 15, 2024
Chief Complaint: Government Relations Analyst Follow Up
Subjective:
Patient continues to be restless and unresponsive. Reacted somewhat to commands this morning but went back to being sedated following that. Bloody urine seen coming from the Werner as well as some redness in the eyes. Still unable to communicate any
discomfort or pain.
Review of Systems
General: Unobtainable - Pat Unresp
Objective Data
Data Reviewed
Vital Signs / I&O / Oxygen:
Vital Signs
Temp Pulse Resp BP Pulse Ox
96.5 F L 66 15 82/57 99
12/15/24 07:44 12/15/24 07:48 12/15/24 07:00 12/15/24 07:48 12/15/24 07:00
Intake and Output
12/14/24 12/15/24 12/16/24
06:59 06:59 06:59
Intake Total 1255.8 / 1262.6 798.6 / 863.6 65 / 65
Output Total 2190 / 2220 365 / 375
Balance -934.2 / -957.4 433.6 / 488.6 55 / 55
SaO2 99
Nasal Cannula flow liters per 4
minute
Physical Exam
General: Comfortable and Other (NAD)
HEENT: Normocephalic, Anicteric, Moist Mucous Membranes and Other (erythematous eyes bilateral)
Cardiovascular: S1-S2 and Irregular Rhythm
Respiratory: Wheeze (Mild wheezes) and Non-Labored Respirations
GI: Soft, Non Distended and Non Tender
Neurology: Awake and Lethargic (Restless)
Skin: Warm and Dry
Labs/Micro/Reports
Lab Data
12/15/24 03:07
12/15/24 03:07
Microbiology
12/11/24 18:57 Blood/Venous Blood Culture - Preliminary
No Growth in 72 hours- Final report to follow
12/11/24 18:57 Blood/Venous Blood Culture - Preliminary
No Growth in 72 hours- Final report to follow
12/12/24 15:04 Pleural Fluid Body Fluid Culture - Preliminary
No Growth After 48 Hours
12/12/24 15:04 Pleural Fluid Gram Stain - Preliminary
12/12/24 10:51 Nasal Swab Influenza Types A & B (MARC) - Final
Negative for Influenza A & B, NAAT
Negative results must be combined with clinical observations
and patient history.
Nucleic Acid Amplification test (NAAT)performed on the
[employer] platform.
12/11/24 21:45 Nose Nasal Screen MRSA (PCR) - Final
MRSA not detected - performed by PCR methodology.
12/12/24 07:47 Urine Legionella Urinary Antigen - Final
Negative for Legionella pneumophila Serogroup 1 antigen.
A negative result does not rule out the possiblity of
Legionella infection due to other serogroups or species of
Legionella. Clinical correlation is recommended.
12/12/24 07:47 Urine Streptococcus pneumoniae Antigen (M - Final
Negative for Streptococcus pneumoniae antigen.
A negative result does not exclude infection with
Streptococcus pneumoniae. Clinical correlation is
recommended.
--- NOTE | 2024-12-15 08:33 | PTCARENOTE ---
Received pt. @ change of shift. Pt. drowsy w intermittent restlessness; opens eyes spontaneously w tactile stim. Oriented to self only; required reorientation to time/place. B/L soft limb restraints and [address]- see flow sheet. Pupils 3mm
b/l/ sluggish; orbital mucosa red/irritated. Slow/garbled speech. A fib on monitor; rate controlled. SpO2 99% on 4LNC, weaned down to 2LNC, tolerating. R nare dobhoff secured @ 65cm w jevity 1.5 @ 40mL/hr and 25mL/hr H20 flush. Inc BM; víctor
hygiene provided. Werner in place w bloody urine. Dr. Alfredo and resident team made aware; order received to hold Eliquis this AM. Mx wound dressings c/d/i. Pt. repositioned per protocol. health information systems technician to bedside this AM, procedure in progress.
--- NOTE | 2024-12-15 09:33 | EEG.RPT ---
Electroencephalogram Report
Recording
Date of EE12/15/24
Type of EEG: Routine
Length of EEG recordin minutes
Done with Video Recording: Yes
Patient Status: Inpatient
Recording Conditions: Awake and Drowsy
Hyperventilation Performed: No
Photic Stimulation Performed: Yes
Report
LESS THAN 1 HOUR EEG REPORT
LESS THAN 1 HOUR EEG INTERPRETATION:
Moderately abnormal study for age based on low amplitude even for age, generalized slowing demonstrated bihemispherically equally
CLINICAL CORRELATION:
Although normative values not been established for a person of this advanced age the patient�s symmetry of the background suggests that this study was suggestive of moderate bihemispheric cortical dysfunction. No epileptiform features were
demonstrated.
If concerns remain regarding epilepsy, prolonged monitoring may be of assistance.
Clinical correlation is advised.
METHODS:
A 21-channel digital electroencephalogram (EEG) was performed at the bedside in the ICU. The 10/20 international system of electrode placement was used with ECG and lateral/vertical eye movements recorded. Persyst quantitative EEG analysis was
performed.
IMPRESSION(S):
Quality of study
Good
Background
Medium amplitude
Anterior-posterior voltage gradient differentiation: Fair
Theta frequency maximal background demonstrated
Sleep
Drowsiness present
Hyperventilation
Not performed
Photic Stimulation
Failed to activate the record
ECG
No clear arrhythmias; irregular
Abnormal Activity
None
--- NOTE | 2024-12-15 11:06 | CM ---
Patient with Hx dementia, CVA with Dx altered mental status, shock, hypotension. O2 2L. EEG today. NPO/Dobhoff - tube feeds. Receiving midodrine. GOC discussions ongoing with family. Seen by wound care nurse. Per nursing; confused, forgetful,
restless, soft limb restraints.
CM continuing to follow.
Plan TBD.
[2024-12-15] MEDS: STERILE WATER FOR INJECTION IV ×4 (11:14→21:36)
[2024-12-15] MEDS: FLEXBUMIN 100 IV (11:45)
--- NOTE | 2024-12-15 12:00 | PTCARENOTE ---
Werner flushed per orders utilizing flush port; seal remains intact. S/P flushing urine in tubing appears punch colored; urine in bag dark/red. Output remains inadequate <30mL/hr. MD team aware.
[2024-12-15 12:01] LABS: Glucose - Point of Care 105 mg/dl (70-99)
--- NOTE | 2024-12-15 12:54 | W.PN.CARDCBS ---
Today's Communication / Plan
-
Continue supportive care
Eliquis on hold because of significant hematuria
Atrial fibrillation control stable. Previously required dopamine given pauses in the setting of hypothermia
Poor prognosis
Impression / Plan
-
Primary Western Philosophy Professor: Dr. Karon Greene
Assessment:
Presentation with unresponsiveness/altered mental status
Bradycardia
Hypotension
Severe/critical
Chronic HFpEF
Permanent Afib
Chronic Eliquis OAC
Previously stopped amiodarone due to hair loss, but now patient has no recollection and currently tolerating
CAD s/p 3.0 mm Xience to mid LAD and orbital atherectomy and shockwave lithotripsy with 3.5 mm Xience to ostial RCA 08/21/23
Chronic hypotension on midodrine
Osteoporosis
Hypertension
Sleep apnea
Hx superficial thrombophlebitis
Hx endometrial cancer, treated with XRT and chemotherapy
s/p skin cancer resection left medial ankle 01/2021
CLL
h/o CVA 07/2023
Dementia
Thrombocytopenia
ECHO 05/01/24: EF 60 to 65%, no regional wall motion abnormalities noted, mild concentric LVH, stage III diastolic dysfunction, mild to moderate MR, severe with peak/mean gradients 50/37 mmHg, LIANNE 0.6 cm�, moderate TR, PAP 50 to 55 mmHg
ECHO 12/12/24: EF 55 to 60%, mild LVH, moderate MR, severe , paradoxical low-flow low gradient with peak/mean gradients 59/32 mmHg, LIANNE 0.6 cm�, mild to moderate TR, PAP 50 to 55 mmHg
Plan:
- Patient presents with unresponsiveness and altered mental status of unclear etiology. She is still agitated and essentially unresponsive. Her blood pressures currently on the low side. She now is also having blood in her urine and oral
anticoagulation has been held. Primary service, sales mgr and neurology following. Recent head CT 12/05 without acute abnormalities. EEG performed today. Defer to neurology. Agree given no improvement with changing mental status likely
proceeding with lumbar puncture. Defer to sales mgr and primary service.
-From a cardiac point of view she has had atrial fibrillation during hospital stay. EKG has been abnormal. She has critical aortic valve stenosis which is conservatively managed.
-Atrial fibrillation usually rate controlled with amiodarone which has been on hold. Previous pauses noted. On 12/12/2024 pauses up to 4.5 seconds, also hypothermia at that time. She was started on epinephrine and then transitioned to dopamine.
She is also on midodrine for blood pressure
Telemetry reviewed and pressors currently discontinued. A-fib with acceptable rates and no significant pauses of concern at this time. Increased pauses were predominant noted with hypothermia.
No longer hypothermic
Was on Eliquis on hold now given significant hematuria which is being evaluated.
-Known critical aortic valve stenosis. Echo this admission with results as above, EF remains preserved, severe-critical which has been known and previously she was declined for TAVR given multiple infections, dementia and issues with
intermittent change in mental status. Previously in the office I have had long discussions with patient and her family in the office and she has wanted conservative management only.
This admission given pleural effusion she underwent thoracentesis. Large right pleural effusion s/p thoracentesis for 1500cc 12/12. Fluid appears transudative although proBNP only 551.
-Known dementia
-Currently dobhoff in place
-As noted prior patient/family has previously wanted to be conservative with her care. She is DNR/DNI. Continue goals of care discussion.
- d/w nursing
Given multiple significant medical issues poor overall prognosis.
Progress Note - Western Philosophy Professor
Subjective
Date of Service: December 15, 2024
Unable to participate in conversation
Objective
Labs:
12/15/24 03:07
Labs
Hgb 9.9 g/dL (12.0-16.0) L 12/15/24 03:07
Hct 30.3 % (37.0-47.0) L 12/15/24 03:07
Plt Count 109 10^3/uL (130-400) L 12/15/24 03:07
PT 20.3 Sec (11.4-14.6) H 12/11/24 21:45
INR 1.68 12/11/24 21:45
APTT 44.3 Sec (23.4-35.0) H 12/11/24 21:45
Sodium 143 mmol/L (135-145) 12/15/24 03:07
Potassium 4.5 mmol/L (3.5-5.1) 12/15/24 03:07
BUN 18 mg/dl (7-17) H 12/15/24 03:07
Creatinine 0.5 mg/dL (0.6-1.0) L 12/15/24 03:07
Glucose 114 mg/dl (70-99) H 12/15/24 03:07
Vital Signs and I&O:
Vital Signs
Temp Pulse Resp BP Pulse Ox
96.1 F L 77 23 116/65 97
12/15/24 11:20 12/15/24 12:00 12/15/24 12:00 12/15/24 11:58 12/15/24 12:00
Vital Signs
Temp Pulse Resp BP Pulse Ox
96.1 F L 77 23 116/65 97
12/15/24 11:20 12/15/24 12:00 12/15/24 12:00 12/15/24 11:58 12/15/24 12:00
Intake & Output
12/13/24 12/14/24 12/15/24 12/16/24
06:59 06:59 06:59 06:59
Intake Total 2477.6 / 2532.6 1255.8 / 1262.6 798.6 / 863.6 490 / 490
Output Total 625 / 625 2190 / 2220 365 / 375 135 / 135
Balance 1852.6 / 1907.6 -934.2 / -957.4 433.6 / 488.6 355 / 355
Physical Exam
Physical Exam
General: Ill elderly woman
Heart: Distant heart sounds irregular
Lungs: Coarse anterior breath sounds
Extremities: No clubbing, cyanosis or edema bilaterally.
Neuro: Sedate/agitated
--- NOTE | 2024-12-15 13:04 | W.PN.HOSP.TC ---
Addendum entered and electronically signed by Opal Alfredo MD 12/15/24 14:11:
total DC time 51 min
Addendum entered and electronically signed by Opal Alfredo MD 12/15/24 14:10:
I saw and evaluated the patient. I reviewed the resident�s note and agree with findings and plan as documented in the resident�s note.
A/P:
# hypotension unclear etiology
adrenal insufficiency/hypothyroidism/septic shock ruled out
neg cultures, procal negative, normal TFTs, normal cortisol
empiric Abx discontinued
weaned off pressor
Continue midodrine 10 mg 3 times daily via tube feed
# large right pleural effusion s/p thoracentesis 1500mls
no signs of infection
# Persistent atrial fibrillation
Off amiodarone
Holding Eliquis with now gross hematuria
# Acute urinary retention
# Gross hematuria, likely traumatic
Werner placed this admission
Hematuria started 12/14
Holding Eliquis
Monitor Hgb
Check urine culture
# Acute hypoxic respiratory failure
Now on 4L NC oxygen, wean as able
# agitation on PRN olanzapine (Zyprexa)
# Hypothyroidism
WNL
# nutrition
Dobhoff placed for tube feed and meds
# Cognitive impairment vs vascular dementia
# History of delirium and prior hospitalization
Monitor MS
Check MRI brain
EEG unrevealing
Neuro on board
SPL
# History of CAD, stent placement to LAD and RCA in August 2023
HOLD furosemide, statin
# History of prior stroke
Brain MRI 10/05/2023 noted Multiple small chronic infarcts in both cerebellar hemispheres (left greater than right). Small chronic lacunar infarcts in the caudate nuclei
Aspirin
# Ambulatory dysfunction
eventual PT/OT when more stable
History of osteoporosis--noted
code status--DNR/DNI --spoke with daughter re: next steps (hospice/palliative care) if pt does not improve
DVT proph--Lovenox
Original Note:
Today's Communication/Plan
-
Downgrade to IMU
Off pressors
Hematuria--- hold Eliquis, repeat CBC
Check urine culture
Ordered brain MRI
Plan on discussing goals of care with family
Assessment / Plan
Assessment / Plan
IMPRESSION:
Hypothermia/hypotension
Acute urinary retention
Moderate to large right pleural effusion
Acute hypoxic respiratory failure
Right lower lobe pneumonia
Hypothyroidism
Orthostatic hypotension
Persistent atrial fibrillation
Cognitive dysfunction/vascular dementia
History of CAD
History of prior stroke
PLAN:
Hypothermia/hypotension-- unsure d/t cardiogenic shock/ pneumonia??
Unsure why the patient is minimally responsive/confused
Downgrade to IMU
Off pressors, continue IV fluids
Stop antibiotics because blood/urine cultures are negative
DHT placement today
Blood culture negative till date
TSH and cortisol are unremarkable
Monitor temperature curve and WBC
Maintain MAP above 65, SBP above 90
Ordered MRI
EEG shows bihemispheric dysfunction
Acute urinary retention
Straight cathed earlier, now on Werner
Hematuria started last night--likely traumatic due to Werner
Hold Eliquis
Repeat CBC
Check urine culture
Moderate to large pleural effusion
Chest CT shows large right pleural effusion accompanied by compressive partial atelectasis.
Consult IR
Pleural fluid culture negative for infection
Repeat chest x-ray shows decrease in right pleural effusion with improved compressive partial atelectasis in the right lower lobe
Acute hypoxic respiratory failure
Unlikely pneumonia.
On 4L of oxygen, wean as able
Off antibiotics
Continue DuoNeb
Hypothyroidism
TSH 4.20
Hold all oral medications
Orthostatic hypotension
Continue midodrine through DHT
Persistent atrial fibrillation
On telemetry
Restart Eliquis
Hold amiodarone due to hypotension
Cognitive impairment/delirium/encephalopathy
History of delirium and prior hospitalization
Hold olanzapine
Appreciate neurology input
Ordered MRI
EEG shows bihemispheric dysfunction
History of CAD
History of stent placement to LAD and RCA in August 2023
Hold furosemide, statin
History of prior stroke
Brain MRI 10/05/2023- Multiple small chronic infarcts in both cerebellar hemispheres (left greater than right). Small chronic lacunar infarcts in the caudate nuclei.
Hold aspirin
# Ambulatory dysfunction
#History of osteoporosis
On tube feeds
DNR/DNI
Hold Eliquis
Anticipated Discharge: > 48 hours
Subjective/Interval History
-
Date of Service: December 15, 2024
Started to drain bloody urine on Werner, hemoglobin down to 9.9.
Objective Data
-
Labs:
Laboratory Results
12/15/24 12/15/24
03:07 12:00
WBC 4.7 L Pending
Hgb 9.9 L Pending
Hct 30.3 L Pending
Plt Count 109 L Pending
Sodium 143
Potassium 4.5
Chloride 110 H
Carbon Dioxide 31 H
BUN 18 H
Creatinine 0.5 L
Glucose 114 H
Calcium 8.9
Total Bilirubin 0.8
AST 32
ALT 21
Alkaline Phosphatase 95
Vital Signs:
Vital Signs
Temp Pulse Resp BP Pulse Ox
96.1 F L 77 23 116/65 97
12/15/24 11:20 12/15/24 12:00 12/15/24 12:00 12/15/24 11:58 12/15/24 12:00
I&O
04/13/25 04/14/25 04/15/25
06:59 06:59 06:59
Intake Total 1255.8 / 1262.6 798.6 / 863.6 490 / 490
Output Total 2190 / 2220 365 / 375 135 / 135
Balance -934.2 / -957.4 433.6 / 488.6 355 / 355
Review of Systems
-
All other systems: Reviewed and negative
Physical Exam
-
General: Appears Chronically Ill
HEENT: Normocephalic and Atraumatic
Respiratory: Clear to Auscultation
Cardiac: Irregular Rhythm and Murmur (systolic )
GI: Nondistended
Genito-urinary: Werner (Draining bloody urine)
Skin: Warm and Dry
Neuro: Negative Awake, Alert or Oriented
Psych: Confused
Data Reviewed
-
Labs: Labs Reviewed by me and Discussed with Physician
--- NOTE | 2024-12-15 14:37 | W.PN.UPDATE ---
Update Note
Progress Note Update
Discussed in length about goals of care with daughter at bedside and son via phone. Family expressed the need for some time to consider options and will f/u with us regarding next steps.
[2024-12-15 14:46] LABS: Urine Albumin 4+ (Neg - Trace); Urine Bilirubin Negative (Negative); Urine Character Bloody (Clear); Urine Color Red; Urine Glucose Negative (Negative); Urine Ketone 1+ (Negative); Urine Leukocyte Negative (Negative); Urine Nitrite Negative (Negative); Urine Occult Blood 4+ (Negative); Urine Urobilinogen Negative (Neg - 1+); Urine pH 6.5 (5.0-9.0)
[2024-12-15 14:47] LABS: Hematocrit 28.8 % (37.0-47.0); Hemoglobin 9.2 g/dL (12.0-16.0); Mean Corp Hgb Conc. 31.9 g/dL (33.0-37.0); Mean Corpuscular Hgb 31.3 pg (27.0-31.0); Mean Platelet Volume 11.4 fL (7.4-10.4); Platelet Count 109 10^3/uL (130-400); Red Blood Cell Count 2.94 10^6/uL (4.20-5.40); Red Cell Dist. Width 17.2 % (11.5-14.5); White Blood Cell Count 4.2 10^3/uL (4.8-10.8)
[2024-12-15] MEDS: LEVOPHED 250 IV (14:49)
[2024-12-15 15:19] LABS: Urine Red Blood Cell >100 /HPF (0-2)
[2024-12-15 15:20] LABS: Urine Hyaline Cast SEEN /LPF (0-2)
--- NOTE | 2024-12-15 15:20 | PTCARENOTE ---
Pt.'s mentation remains unchanged. Family to bedside this afternoon. Dr. Garcia to bedside and [facility] discussed w family. No change in care plan @ this time. Pt. hypotensive w SBP's in 80's and MAPs in high 50's. MD team made aware and further
orders to initiated levo- see flow sheet. Pt. also difficult to obtain ax/oral temp. Rectal temp obtained- 95.9. Warm blankets applied. Pt. repositioned per protocol. Daughter remains @ bedside.
[2024-12-15 15:21] LABS: Urine Squamous Cell None seen /LPF (Few)
[2024-12-15] MEDS: CORTROSYN 0.25 MG IV (17:41)
[2024-12-15 17:42] LABS: Glucose - Point of Care 113 mg/dl (70-99)
[2024-12-15 19:40] LABS: Cortisol, Random 24.1 ug/dl
[2024-12-15 20:46] LABS: Hematocrit 29.6 % (37.0-47.0); Hemoglobin 9.8 g/dL (12.0-16.0); Mean Corp Hgb Conc. 33.1 g/dL (33.0-37.0); Mean Corpuscular Hgb 32.1 pg (27.0-31.0); Mean Platelet Volume 11.6 fL (7.4-10.4); Platelet Count 113 10^3/uL (130-400); Red Blood Cell Count 3.05 10^6/uL (4.20-5.40); Red Cell Dist. Width 17.1 % (11.5-14.5); White Blood Cell Count 5.6 10^3/uL (4.8-10.8)
--- NOTE | 2024-12-15 21:15 | PTCARENOTE ---
rec'd patient. assessment as documented. IMU level of care. goals of care discussed with son at bedside. he wishes to have conversation about options regarding hospice care tomorrow during dayshift, will pass this on to day team in AM. care continues
[2024-12-15] MEDS: REFRESH CELLUVISC GEL 1 DROPS BOTH EYES (21:36)
[2024-12-16] VITALS (24 sets, daily range): BP systolic 91–154; BP diastolic 52–101; BMI 29.5
[2024-12-16 00:56] LABS: Glucose - Point of Care 118 mg/dl (70-99)
[2024-12-16 04:29] LABS: Hematocrit 29.2 % (37.0-47.0); Hemoglobin 9.6 g/dL (12.0-16.0); Mean Corp Hgb Conc. 32.9 g/dL (33.0-37.0); Mean Corpuscular Hgb 31.6 pg (27.0-31.0); Mean Corpuscular Volume 96.1 fL (81.0-99.0); Mean Platelet Volume 11.5 fL (7.4-10.4); Platelet Count 112 10^3/uL (130-400); Red Blood Cell Count 3.04 10^6/uL (4.20-5.40); Red Cell Dist. Width 16.7 % (11.5-14.5); White Blood Cell Count 5.4 10^3/uL (4.8-10.8)
[2024-12-16 04:55] LABS: Blood Urea Nitrogen 23 mg/dl (7-17); Calcium 9.3 mg/dl (8.4-10.2); Carbon Dioxide 30 mmol/L (22-30); Chloride 107 mmol/L (98-107); Estimated Creatinine Clearance 59 ml/min; Glucose 121 mg/dl (70-99); Phosphorus 3.7 mg/dl (2.5-4.5); Potassium 4.7 mmol/L (3.5-5.1); Sodium 142 mmol/L (135-145); eGFR > 60.00
[2024-12-16] MEDS: ProAmatine 10 MG TUBE ×3 (06:04→22:33)
[2024-12-16] MEDS: SYNTHROID 75 MCG TUBE (06:04)
[2024-12-16 07:07] LABS: Glucose - Point of Care 126 mg/dl (70-99)
--- NOTE | 2024-12-16 08:30 | PTCARENOTE ---
Received pt. @ change of shift. Pt. more awake this AM; eyes open to verbal stim; intermittently able to follow simple commands. Oriented to self only; required reorientation to time/place. Soft limb restaints removed and b/l mitts applied- see
order/flow sheet. Pupils 3mm b/l/ sluggish; orbital mucosa red/irritated. Slow/garbled speech. A fib on monitor; rate controlled. SpO2 98% on 2LNC. R lan dobhoff secured @ 65cm w jevity 1.5 @ 40mL/hr and 25mL/hr H20 flush. Inc BM; víctor hygiene
provided. Werner in place w bloody urine; UOP improved. Mx wound dressings c/d/i. Pt. repositioned per protocol. #20 L FA removed. #18 L AC and #20 R FA patent w +BR; dressing c/d/i. Safe environment maintained.
--- NOTE | 2024-12-16 08:30 | W.PN.PUL3 ---
Today's Communication / Plan
-
Aspiration precautions
Continue restraints until no longer deemed a threat to removing tubes/lines per nursing
She is much more awake today, if mental status continues to improve then would restart CPAP at 10 cmH2O with sleep (which is her home setting)
She carries a Hx of COPD that I believe is associated with asthma --> starting DuoNebs with Budesonide BID for now
Recheck CXR to re-assess if fluid has re-accumulated since her last thora on 12/12
Aortic valve is severely stenotic, believe that this is a major cause of her fluid overload and BP issues - would be high risk to do a TAVR on her - defer this decision to cardiology
If CXR today shows stable lung gaming compared to prior CXR, then we will sign off at that time. She has been off of vasopressors for >9 hours and remains hemodynamically stable, is much more awake today, and in no acute distress, protecting airway
on minimal O2. Continue monitoring hematuria and hopefully she will continue to improve mentally with goals of care being a major topic of discussion going forward. Please call our service back if there are any additional questions or concerns.
She follows with us in the office, and I will arrange for outpatient follow up with MICHELLE Carrero if she survives this hospitalization.
Assessment
-
Impression:
#Acute encephalopathy
#Circulatory shock
#Atrial fibrillation
#Bilateral pleural effusions likely due to acute decompensated heart failure/acute HFpEF s/p R-sided thoracentesis on 12/12/2024 by IR (removed 1.5L of transudative fluid)
#Severe low-flow, low gradient aortic stenosis (per echo from 12/12/2024)
#Pulmonary hypertension with moderately elevated PASP at 50-55 mmHg per TTE from 12/12/2024
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
#EFRAIN on CPAP @ [id number]
#CLL
#Hx of COPD, likely with asthma as DLco normalizes when accounting for alveolar volume, and I do not see emphysema on CT chest imaging although there are scattered bronchial wall thickening seen on CT TAVR from 07/2023
Plan:
- Patient remains encephalopathic, but she is much more awake as of 12/16/2024, and still protecting her airway and on minimal oxygen
- EEG from AM of 12/15/2024 showed no epileptiform features, with moderate bihemispheric cortical dysfunction. Consider LP if AMS persists -considering she is more awake today, would defer for now
- TSH WNL at 4.2 on 12/11/2024
- DC'd scheduled Olanzapine on 12/15 given she was still altered; use prn olanzapine instead
- Blood gas yesterday AM (12/15) showed stable chronic hypercapnia with pH 7.39, pCO2 57
- Continue with supplemental oxygen and titrate to keep SpO2 >90-94%
- Check CXR to assess for pleural fluid re-accumulation
- Continue aspiration precautions
- Unable to take PO meds or eat due to aspiration risk � continue with Dobbhoff tube; now that she is more awake, would have FINISHED YARN EXAMINER re-eval her
- Follow up pleural fluid cytopathology from [facility] on 12/12; fluid Cx show NGTD
- Given her Hx of COPD with suspected asthma, I will start her on DuoNebs BID with budesonide
- She is supposed to be on CPAP with sleep, but would hold off until she is more towards baseline as she is an aspiration risk currently
- Although proBNP was only 551 on 12/11/24, I do believe that her hypotension and bilateral pleural effusions is related to her critical aortic stenosis
- Currently on midodrine now at 10 mg TID (raised on 12/14)
- Continue tube feeds
- Low threshold to resume pressors with levophed - has been off Levophed since midnight last night
- Keep MAP>65
- Random cortisol level was 18.7 on 12/12/2024 --> checked co-syntropin stim test on 12/15, and there was a unimpressive rise in serum cortisol, but still values remain >18, thus ruling out adrenal dysfx
- She is s/p Abx with cefepime from 12/11 - 12/15/2024; also s/p IV vanco x1 dose on 12/11
- She developed hematuria overnight from 12/14-12/15 with reduced UOP and 500cc bolus given
- Cr stable as of 12/16
- Continue to trend sCr, UOP and I/O
- Low threshold to consult Urology; no clots seen for now in romo bag
- Continue to hold Eliquis for now given continued hematuria, and trend H/H with serial CBC
- Transfuse if needed for goal Hb>7, plt>50k
- INR was 1.68 on 12/11/2024
- Cardiology on board - recs appreciated
- Goal HR<110
- Keep K>4, Mg>2
- Goal BG>100 and <180
- SCDs for now while holding Eliquis
If CXR today shows stable lung gaming compared to prior CXR, then we will sign off at that time. She has been off of vasopressors for >9 hours and remains hemodynamically stable, is much more awake today, and in no acute distress. He to continue
monitoring hematuria and hopefully she will continue to improve mentally with goals of care being a major topic of discussion going forward. Please call our service back if there are any additional questions or concerns. Thank you for allowing us
to be involved in the care of this patient. She follows with us in the office, and I will arrange for outpatient follow up with MICHELLE Carrero if she survives this hospitalization.
Total time spent today was 37 minutes for this encounter. Time includes reviewing laboratory test/imaging results, reviewing pertinent medical records, obtaining and reviewing medical history, performing an appropriate exam, ordering medications,
tests and procedures. Time also includes documentation of this encounter, coordinating patient care and communicating with other healthcare professionals. Total time does not include separately billed tests performed on this date of service.
Subjective Data
-
Date of Service:
Date of Service: December 16, 2024
Chief Complaint: Pulmonary Follow Up
Subjective:
Patient was seen and evaluated this morning. She is much more awake compared to yesterday, albeit still confused and difficult to understand her words. Heart rate 70, BP 165 and saturating 96% on 2 L/min nasal cannula. She is currently not in
acute distress. Remains restrained.
Review of Systems
General: Other (Unable to obtain given patient's acute clinical status)
Objective Data
Data Reviewed
Vital Signs / I&O / Oxygen:
Vital Signs
Temp Pulse Resp BP Pulse Ox
97.6 F 68 23 100/53 99
12/16/24 07:38 12/16/24 08:00 12/16/24 08:00 12/16/24 08:00 12/16/24 09:02
Intake and Output
12/15/24 12/16/24 12/17/24
06:59 06:59 06:59
Intake Total 798.6 / 863.6 1795.0 / 1860.0 195 / 195
Output Total 365 / 375 800 / 850 150 / 150
Balance 433.6 / 488.6 995.0 / 1010.0 45 / 45
SaO2 99
Nasal Cannula flow liters per 2
minute
Physical Exam
General: Respiratory Distress (negative), Comfortable, Chills (negative) and Sweats (negative)
HEENT: Normocephalic and Anicteric
Cardiovascular: Irregular Rhythm (Irregularly irregular), Murmur (JANNETTE heard diffusely across precordium) and Peripheral Edema (negative)
Respiratory: Wheeze (negative), Crackles (Bibasilar), Rhonchi (negative), Non-Labored Respirations and Stridor (negative)
GI: Soft, Non Distended, Non Tender and Normal Bowel Sounds
Neurology: Awake, Alert and Tremors (negative)
Skin: Warm, Dry, Cyanosis (negative) and Jaundice (negative)
Labs/Micro/Reports
Lab Data
12/16/24 04:10
12/16/24 04:10
Microbiology
12/11/24 18:57 Blood/Venous Blood Culture - Preliminary
No Growth in 4 days- Final report to follow
12/11/24 18:57 Blood/Venous Blood Culture - Preliminary
No Growth in 4 days- Final report to follow
12/12/24 15:04 Pleural Fluid Body Fluid Culture - Final
No Growth After 72 Hours
12/12/24 15:04 Pleural Fluid Gram Stain - Final
--- NOTE | 2024-12-16 08:33 | W.PN.CARDCBS ---
Today's Communication / Plan
-
Transition to hospice appropriate if family agrees
We will sign off, please call if questions
Impression / Plan
-
Primary Professor Of Political Science: Dr. Karon Greene
Assessment:
Presentation with unresponsiveness/altered mental status
Bradycardia
Hypotension
Severe/critical
Chronic HFpEF
Permanent Afib
Chronic Eliquis OAC
Previously stopped amiodarone due to hair loss, but now patient has no recollection and currently tolerating
CAD s/p 3.0 mm Xience to mid LAD and orbital atherectomy and shockwave lithotripsy with 3.5 mm Xience to ostial RCA 08/21/23
Chronic hypotension on midodrine
Osteoporosis
Hypertension
Sleep apnea
Hx superficial thrombophlebitis
Hx endometrial cancer, treated with XRT and chemotherapy
s/p skin cancer resection left medial ankle 01/2021
CLL
h/o CVA 07/2023
Dementia
Thrombocytopenia
ECHO 05/01/24: EF 60 to 65%, no regional wall motion abnormalities noted, mild concentric LVH, stage III diastolic dysfunction, mild to moderate MR, severe with peak/mean gradients 50/37 mmHg, LIANNE 0.6 cm�, moderate TR, PAP 50 to 55 mmHg
ECHO 12/12/24: EF 55 to 60%, mild LVH, moderate MR, severe , paradoxical low-flow low gradient with peak/mean gradients 59/32 mmHg, LIANNE 0.6 cm�, mild to moderate TR, PAP 50 to 55 mmHg
Plan:
She is more comfortable. She is off norepinephrine
Given all her comorbidities, and the fact that she is not a candidate for TAVR which means she has a terminal condition, transition to hospice is appropriate.
We will sign off, please call if questions.
Progress Note - Professor Of Political Science
Subjective
Date of Service: December 16, 2024:
More awake today, does not complain of specific issues, still very confused.
Likely transition to hospice per primary service.
Medications: Levothyroxine 75 mcg daily via tube, midodrine 10 mg 3 times daily via tube, norepinephrine has been stopped, Zyprexa as needed: On hold: Apixaban, amiodarone,
97/57, pulse 79, resprate 20, afebrile, 97%, weight is 70.8 kg, was 70.5 kg, frail, chronically ill, no acute distress, lungs relatively clear, aortic stenosis murmur, Dannie on legs, not much edema, JVD probably okay
Last chest x-ray post-thoracentesis on the , still with vascular congestion
Hemoglobin 9.6, platelets 112, BUN/creatinine 23 and 0.5, potassium 4.7, random cortisol 24
Objective
Labs:
12/16/24 04:10
12/16/24 04:10
Labs
Hgb 9.6 g/dL (12.0-16.0) L 12/16/24 04:10
Hct 29.2 % (37.0-47.0) L 12/16/24 04:10
Plt Count 112 10^3/uL (130-400) L 12/16/24 04:10
PT 20.3 Sec (11.4-14.6) H 12/11/24 21:45
INR 1.68 12/11/24 21:45
APTT 44.3 Sec (23.4-35.0) H 12/11/24 21:45
Sodium 142 mmol/L (135-145) 12/16/24 04:10
Potassium 4.7 mmol/L (3.5-5.1) 12/16/24 04:10
BUN 23 mg/dl (7-17) H 12/16/24 04:10
Creatinine 0.5 mg/dL (0.6-1.0) L 12/16/24 04:10
Glucose 121 mg/dl (70-99) H 12/16/24 04:10
Vital Signs and I&O:
Vital Signs
Temp Pulse Resp BP Pulse Ox
36.4 C 79 20 97/57 97
12/16/24 07:38 12/16/24 06:04 12/16/24 06:00 12/16/24 06:04 12/16/24 06:00
Vital Signs
Temp Pulse Resp BP Pulse Ox
36.4 C 79 20 97/57 97
12/16/24 07:38 12/16/24 06:04 12/16/24 06:00 12/16/24 06:04 12/16/24 06:00
Intake & Output
12/14/24 12/15/24 12/16/24 12/17/24
07:59 07:59 07:59 07:59
Intake Total 1207.6 / 1214.4 856.8 / 921.8 1730.0 / 1730.0
Output Total 2220 / 2250 345 / 370 790 / 790
Balance -1012.4 / -1035.6 511.8 / 551.8 940.0 / 940.0
Physical Exam
Physical Exam
See above
--- NOTE | 2024-12-16 09:02 | W.PN.HOSP.TC ---
Addendum entered and electronically signed by Opal Alfredo MD 12/16/24 12:29:
I saw and evaluated the patient. I reviewed the resident�s note and agree with findings and plan as documented in the resident�s note.
A/P:
# hypotension unclear etiology
adrenal insufficiency/hypothyroidism/septic shock ruled out
neg cultures, procal negative, normal TFTs, normal cortisol
empiric Abx discontinued
BP improved and currently stable off pressor
Continue midodrine 10 mg 3 times daily via tube feed
# Acute metabolic encephalopathy, unclear etiology, but suspect underlying severe dementia contributing
# suspect vascular dementia
# History of delirium
Mental status improved today, patient awake, conversant, but remained confused
Speech eval for consideration of initiating diet
Continue to monitor mental status
With improved mental status, no longer needs MRI brain
Of note, EEG unrevealing
Neuro on board
# Severe clinical decompensation
goals of care discussion with family ongoing
# large right pleural effusion s/p thoracentesis 1500mls
no signs of infection
# Persistent atrial fibrillation
Off amiodarone
Holding Eliquis with now gross hematuria
# Acute urinary retention
# Gross hematuria, likely traumatic, improving
Werner placed this admission
Hematuria started 12/14
Holding Eliquis
Monitor Hgb
Hematuria improving, continue to monitor
# Acute hypoxic respiratory failure
Weaned to 2L NC oxygen, continue to wean as tolerated
# agitation on PRN olanzapine (Zyprexa)
# Hypothyroidism
WNL
# nutrition
Dobhoff placed for tube feed and meds
# History of CAD, stent placement to LAD and RCA in August 2023
HOLD furosemide, statin
# History of prior stroke
Brain MRI 10/05/2023 noted Multiple small chronic infarcts in both cerebellar hemispheres (left greater than right). Small chronic lacunar infarcts in the caudate nuclei
Aspirin
# Ambulatory dysfunction
eventual PT/OT when more stable
# History of osteoporosis
code status: DNR/DNI
DVT proph: Eliquis on hold with gross hematuria
Discussed with nurse
Total time spent 51 minutes
Original Note:
Today's Communication/Plan
-
Speech eval/treat
Hold brain MRI
Will revisit discussion with family about goals of care
Assessment / Plan
Assessment / Plan
IMPRESSION:
Hypothermia/hypotension
Acute urinary retention
Moderate to large right pleural effusion
Acute hypoxic respiratory failure
Right lower lobe pneumonia
Hypothyroidism
Orthostatic hypotension
Persistent atrial fibrillation
Cognitive dysfunction/vascular dementia
History of CAD
History of prior stroke
PLAN:
Hypothermia/hypotension-- unsure d/t cardiogenic shock/ pneumonia??
Patient is awake, following simple commands, but confused
Downgrade to IMU
On/off pressors, continue IV fluids
Stop antibiotics because blood/urine cultures are negative
DHT placement today
Blood culture negative till date
TSH and cortisol are unremarkable
Monitor temperature curve and WBC
Maintain MAP above 65, SBP above 90
EEG shows bihemispheric dysfunction
Hold brain MRI as she is awake
Speech eval/treat
Acute urinary retention
Straight cathed earlier, now on Werner
Hematuria started last night--likely traumatic due to Werner
Hold Eliquis
Hb improving
UA
Moderate to large pleural effusion
Chest CT shows large right pleural effusion accompanied by compressive partial atelectasis.
Consult IR
Pleural fluid culture negative for infection
Acute hypoxic respiratory failure
Unlikely pneumonia.
On 2L of oxygen, wean as able
Off antibiotics
Continue DuoNeb
Hypothyroidism
TSH 4.20
Hold all oral medications
Orthostatic hypotension
Continue midodrine through DHT
Persistent atrial fibrillation
On telemetry
Restart Eliquis
Hold amiodarone due to hypotension
Cognitive impairment/delirium/encephalopathy
History of delirium and prior hospitalization
Hold olanzapine
Appreciate neurology input
Ordered MRI
EEG shows bihemispheric dysfunction
History of CAD
History of stent placement to LAD and RCA in August 2023
Hold furosemide, statin
History of prior stroke
Brain MRI 10/05/2023- Multiple small chronic infarcts in both cerebellar hemispheres (left greater than right). Small chronic lacunar infarcts in the caudate nuclei.
Hold aspirin
# Ambulatory dysfunction
#History of osteoporosis
On tube feeds
DNR/DNI
Hold Eliquis
Anticipated Discharge: > 48 hours
Subjective/Interval History
-
Date of Service: December 16, 2024
Patient is awake, following simple commands but confused
Objective Data
-
Labs:
Laboratory Results
12/16/24
04:10
WBC 5.4
Hgb 9.6 L
Hct 29.2 L
Plt Count 112 L
Sodium 142
Potassium 4.7
Chloride 107
Carbon Dioxide 30
BUN 23 H
Creatinine 0.5 L
Glucose 121 H
Calcium 9.3
Vital Signs:
Vital Signs
Temp Pulse Resp BP Pulse Ox
97.6 F 68 23 100/53 97
12/16/24 07:38 12/16/24 08:00 12/16/24 08:00 12/16/24 08:00 12/16/24 08:00
I&O
12/15/24 12/16/24 12/17/24
06:59 06:59 06:59
Intake Total 798.6 / 863.6 1795.0 / 1860.0 130 / 130
Output Total 365 / 375 800 / 850 100 / 100
Balance 433.6 / 488.6 995.0 / 1010.0
Review of Systems
-
All other systems: Reviewed and negative
Data Reviewed
-
Labs: Labs Reviewed by me and Discussed with Physician
[2024-12-16] MEDS: STERILE WATER FOR INJECTION IV ×3 (11:01→23:24)
[2024-12-16 11:48] LABS: Glucose - Point of Care 115 mg/dl (70-99)
--- NOTE | 2024-12-16 15:52 | CM ---
CM following re: discharge planning.
Reviewed pt's chart, met with pt.
CM had a long family meeting with pt's son and daughter, they brought different aspect of care to their mother. Per daughter and son stated that their mother has been improving, expressed their appreciation to all team. Both pt's son and daughter
asked questions regarding palliative care, hospice care, aggressive care. Information regarding different type of care provided and they will talk with MD team regarding plan of care. Per son, he was told 1.5 years ago that his mother needs hospice
and per son he thinks his mother is getting better.
Both pt's daughter and pt's son stated if their mother will continue getting better then they requested [facility] for a short term rehab.
CM will make a referral to [facility] when pt seen by PT and OT.
D/C plan: at this time [facility] for a short term rehab.
CM will follow with discharge plan updates as hospitalization progresses
[2024-12-16 18:42] LABS: Glucose - Point of Care 123 mg/dl (70-99)
[2024-12-16] MEDS: DUONEB 3 ML INH (19:11)
[2024-12-16] MEDS: PULMICORT 0.5 MG INH (19:11)
--- NOTE | 2024-12-16 19:15 | PTCARENOTE ---
Patient received lying in bed, awake and alert but confused to time and place. Oriented to self and family members. Bilateral soft mitt restraints on, checked and redonned every 2 hours. Skin color sallow, cool and dry. Right elbow and upper arm
dressings CDI, BLE kerlix dressings CDI. Coccyx/buttock dressing CDI. SL sites x 2 with good blood return and flush easily. Patient repositioned every 2 hours. Denies pain. Respirations nonlabored. BBS clear. S1S2 irregular with positive loud
murmur. Positive pulses x 4 extremities, bilateral ankle edema trace. RUE edema 3+. Right nare with Dobhoff NGT clamped, flushes easily. Takes po intake without difficulty. Werner catheter patent with blood tinged aniket urine output. Bed in low and
locked position, bed alarm on. Call [place] valle within reach. Hourly rounds and prn.
--- NOTE | 2024-12-16 22:00 | PTCARENOTE ---
Complete cares rendered, CHG cloth bath, romo care. Complete linen change.
[2024-12-16] MEDS: REFRESH CELLUVISC GEL 1 DROPS BOTH EYES (22:33)
[2024-12-17] VITALS (28 sets, daily range): BP systolic 65–131; BP diastolic 48–85; BMI 30.2
[2024-12-17 00:35] LABS: Glucose - Point of Care 84 mg/dl (70-99)
[2024-12-17] MEDS: ZYPREXA 2.5 MG TUBE (01:09)
--- NOTE | 2024-12-17 01:20 | PTCARENOTE ---
Addendum entered by Kendra Woodruff RN 12/17/24 01:35:
Patient very agitated at this time. Trying to pull off bilateral mitts, scratching at NGT, pulling off clothing and linens. Prn Zyprexa po given. Emotional support and encouragement given.
Original Note:
Urine very bloody, bright red in tubing. Irrigated romo with 50cc sterile saline, pink urine retrieved. Patient tolerated well.
--- NOTE | 2024-12-17 04:00 | PTCARENOTE ---
Ceci is very restless. She is talking nonsensically nonstop. She has upper airway wheezes audible. RML and right base now very diminished. Sats 86-91% on 4L/nc. Increased to 6L/nc and HOB up 90degrees. Sats improved. Respiratory therapy
contacted for treatment. Aneta SIDHU made aware.
[2024-12-17] MEDS: DUONEB 3 ML INH ×3 (04:25→19:39)
[2024-12-17 05:38] LABS: Glucose - Point of Care 94 mg/dl (70-99)
[2024-12-17] MEDS: STERILE WATER FOR INJECTION IV ×2 (06:35→11:26)
[2024-12-17] MEDS: SYNTHROID 75 MCG TUBE (07:19)
--- NOTE | 2024-12-17 07:22 | PTCARENOTE ---
Report given verbally to oncoming Shanta woods RN. Questions answered.
[2024-12-17] MEDS: PULMICORT 0.5 MG INH ×2 (07:29→19:39)
[2024-12-17 07:46] LABS: Hemoglobin 9.9 g/dL (12.0-16.0); Mean Corpuscular Volume 97.1 fL (81.0-99.0); Mean Platelet Volume 11.5 fL (7.4-10.4); Platelet Count 112 10^3/uL (130-400); Red Blood Cell Count 3.09 10^6/uL (4.20-5.40); White Blood Cell Count 7.4 10^3/uL (4.8-10.8)
[2024-12-17] MEDS: ProAmatine 10 MG TUBE ×3 (08:20→21:56)
--- NOTE | 2024-12-17 08:30 | W.PN.PUL3 ---
Today's Communication / Plan
-
Pending hospice
DC all meds unless tailored for comfort
Stop blood draws
Emotional support provided
DC thora
Patient is hospice appropriate, which the family has agreed for. No additional recommendations at this time. Pulmonary service will now sign off. Please reconsult if there are any additional questions/concerns.
Assessment
-
Impression:
#Acute encephalopathy
#Circulatory shock - resolved since 12/16
#Atrial fibrillation
#Bilateral pleural effusions likely due to acute decompensated heart failure/acute HFpEF s/p R-sided thoracentesis on 12/12/2024 by IR (removed 1.5L of transudative fluid)
#Severe low-flow, low gradient aortic stenosis (per echo from 12/12/2024)
#Pulmonary hypertension with moderately elevated PASP at 50-55 mmHg per TTE from 12/12/2024
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
#EFRAIN on CPAP @ [id number]
#CLL
#Hx of COPD, likely with asthma as DLco normalizes when accounting for alveolar volume, and I do not see emphysema on CT chest imaging although there are scattered bronchial wall thickening seen on CT TAVR from 07/2023
Plan:
- Patient remains encephalopathic, although she was more on 12/16/2024, but now is back to being minimally responsive again; she isl protecting her airway and remains on minimal oxygen
- Of note she did get zyprexa overnight (2.5mg)
- Family came to hospital today and are going to transition to hospice
- EEG from AM of 12/15/2024 showed no epileptiform features, with moderate bihemispheric cortical dysfunction. Consider LP if AMS persists -considering she was more awake on 12/16,defer for now
- TSH WNL at 4.2 on 12/11/2024
- DC'd scheduled Olanzapine on 12/15 given she was still altered; use prn olanzapine instead
- Blood gas on AM of 12/15 showed stable chronic hypercapnia with pH 7.39, pCO2 57
In interim until pt is TRX to hospice/comfort care:
- Continue with supplemental oxygen and titrate to keep SpO2 >90-94%
- CXR shows worsening right-sided pleural effusion � IR thoracentesis was pending, but now that she is being TRX to comfort care/hospice, this order should be DC'd
- Continue aspiration precautions
- Unable to take PO meds or eat due to aspiration risk � continue with Dobbhoff tube
- Follow up pleural fluid cytopathology from [facility] on 12/12; fluid Cx show NGTD
- Given her Hx of COPD with suspected asthma, I started DuoNebs BID with budesonide on 12/16
- She is supposed to be on CPAP with sleep, but would hold off until she is back at baseline as she is an aspiration risk currently
- Although proBNP was only 551 on 12/11/24, I do believe that her hypotension and bilateral pleural effusions is related to her critical aortic stenosis
- Currently on midodrine now at 10 mg TID (raised on 12/14)
- Continue tube feeds until she is official TRX to hospice
- Low threshold to resume pressors with levophed - has been off Levophed since midnight on 12/16
- Keep MAP>65
- Random cortisol level was 18.7 on 12/12/2024 --> checked co-syntropin stim test on 12/15, and there was a unimpressive rise in serum cortisol, but still values remain >18, thus ruling out adrenal dysfx
- She is s/p Abx with cefepime from 12/11 - 12/15/2024; also s/p IV vanco x1 dose on 12/11
- She developed hematuria overnight from 12/14-12/15 with reduced UOP and 500cc bolus given
- Cr stable as of 12/16
- Continue to trend sCr, UOP and I/O
- No clots seen for now in romo bag
- Continue to hold Eliquis for now given continued hematuria, and trend H/H with serial CBC
- Transfuse if needed for goal Hb>7, plt>50k
- INR was 1.68 on 12/11/2024
- Cardiology on board - recs appreciated
- Goal HR<110
- Keep K>4, Mg>2
- Goal BG>100 and <180
- SCDs for now while holding Eliquis
Patient is hospice appropriate, which the family has agreed for. No additional recommendations at this time. Pulmonary service will now sign off. Thank you for allowing us to be involved in the care of this patient. Please reconsult if there are
any additional questions/concerns.
Total time spent today was 26 minutes for this encounter. Time includes reviewing laboratory test/imaging results, reviewing pertinent medical records, obtaining and reviewing medical history, performing an appropriate exam, ordering medications,
tests and procedures. Time also includes documentation of this encounter, coordinating patient care and communicating with other healthcare professionals. Total time does not include separately billed tests performed on this date of service.
Subjective Data
-
Date of Service:
Date of Service: December 17, 2024
Chief Complaint: Pulmonary Follow Up
Subjective:
Patient was seen and evaluated today at bedside. Much less responsive today than yesterday. Hypothermic overnight to 96.4 �F.
Review of Systems
General: Other (Unable to obtain as patient is minimally responsive)
Objective Data
Data Reviewed
Vital Signs / I&O / Oxygen:
Vital Signs
Temp Pulse Resp BP Pulse Ox
96.6 F L 77 20 90/60 96
12/17/24 11:17 12/17/24 12:03 12/17/24 12:03 12/17/24 12:03 12/17/24 12:03
Intake and Output
12/16/24 12/17/24 12/18/24
06:59 06:59 06:59
Intake Total 1795.0 / 1860.0 1045 / 1075 30 / 30
Output Total 800 / 850 1280 / 1315 150 / 150
Balance 995.0 / 1010.0 -235 / -240 -120 / -120
SaO2 96
Nasal Cannula flow liters per 2
minute
Physical Exam
General: Respiratory Distress (negative), Comfortable, Chills (negative) and Sweats (negative)
HEENT: Normocephalic and Anicteric
Cardiovascular: Irregular Rhythm (Irregularly irregular), Murmur (JANNETTE heard diffusely across precordium) and Peripheral Edema (negative)
Respiratory: Wheeze (negative), Crackles (Left hemithorax), Rhonchi (negative), Non-Labored Respirations, Stridor (negative) and Other (Greatly diminished breath sounds in the right hemithorax)
GI: Soft, Non Distended, Non Tender and Normal Bowel Sounds
Neurology: Tremors (negative), Unresponsive (Minimally responsive although she does grimace to tactile stimulation) and Other (Pupils 2 mm bilaterally and sluggish)
Skin: Warm, Dry, Cyanosis (negative) and Jaundice (negative)
Labs/Micro/Reports
Lab Data
12/17/24 07:26
12/17/24 07:26
Microbiology
12/11/24 18:57 Blood/Venous Blood Culture - Final
No Growth - Final Report
12/11/24 18:57 Blood/Venous Blood Culture - Final
No Growth - Final Report
12/12/24 15:04 Pleural Fluid Body Fluid Culture - Final
No Growth After 72 Hours
12/12/24 15:04 Pleural Fluid Gram Stain - Final
--- NOTE | 2024-12-17 08:30 | PTCARENOTE ---
Rec'd care of patient at 0700. Patient alert. Confused/forgetful. Oriented only to self. Speech slow, garbled at times. Anxious and restless with care. B/l mitts removed, music turned on and repositioned for comfort. Afib on tele monitor. Rate
controlled. +Murmur. Trace edema in b/l LE. Palpable pulses. Pulse ox 94-95% on 2L nc. Lung sounds shallow/diminished throughout. Crackles in left base. Tachypneic, labored breathing. GRIJALVA. +BS. Incontinent of smear of brown stool. Right nare DHT
remains in place. TFs off. Medications administered through DHT. Werner maintained d/t hematuria, frequent clots. Resident notified. Order for renal/bladder US placed.
[2024-12-17 08:54] LABS: Blood Urea Nitrogen 18 mg/dl (7-17); Calcium 9.1 mg/dl (8.4-10.2); Carbon Dioxide 30 mmol/L (22-30); Chloride 104 mmol/L (98-107); Estimated Creatinine Clearance 60 ml/min; Glucose 90 mg/dl (70-99); Magnesium 1.8 mg/dl (1.6-2.3); Potassium 4.8 mmol/L (3.5-5.1); Sodium 142 mmol/L (135-145); eGFR > 60.00
--- NOTE | 2024-12-17 10:57 | W.PN.HOSP.TC ---
Addendum entered and electronically signed by Opal Alfredo MD 12/17/24 12:57:
I saw and evaluated the patient. I reviewed the resident�s note and agree with findings and plan as documented in the resident�s note.
A/P:
# hypotension unclear etiology
adrenal insufficiency/hypothyroidism/septic shock ruled out
neg cultures, procal negative, normal TFTs, normal cortisol
empiric Abx discontinued
BP was improving but now hypotensive again
Continue midodrine 10 mg 3 times daily via tube feed
# Acute metabolic encephalopathy, unclear etiology, but suspect underlying severe dementia contributing
# suspect vascular dementia
# History of delirium
Worsening mental status (more lethargic) today suspect due to Zyprexa given overnight. Hold further Zyprexa as pt has not been overly aggressive.
NPO today with increased lethargy
GOC discussion ongoing, hospice CS placed per family request
Of note, EEG unrevealing
# Severe clinical decompensation
GOC discussion ongoing, hospice CS placed per family request
# large right pleural effusion s/p thoracentesis 1500mls
no signs of infection
# Persistent atrial fibrillation
Off amiodarone
Holding Eliquis with now gross hematuria
# Acute urinary retention
# Gross hematuria, likely traumatic, improving
Werner placed this admission
Hematuria started 12/14
Holding Eliquis
Monitor Hgb
Check renal US but this may not be necessary anymore if proceeding with hospice
# Acute hypoxic respiratory failure
Weaned to 2L NC oxygen, continue to wean as tolerated
# agitation
Hold further Zyprexa
# Hypothyroidism
WNL
# nutrition
Dobhoff placed for tube feed and meds
# History of CAD, stent placement to LAD and RCA in August 2023
HOLD furosemide, statin
# History of prior stroke
Brain MRI 10/05/2023 noted Multiple small chronic infarcts in both cerebellar hemispheres (left greater than right). Small chronic lacunar infarcts in the caudate nuclei
Aspirin
# Ambulatory dysfunction
# History of osteoporosis
code status: DNR/DNI
DVT proph: Eliquis on hold with gross hematuria
Discussed with nurse, [employer]
Total time spent 51 minutes
Original Note:
Today's Communication/Plan
-
Hold olanzapine as patient is more confused than yesterday
Palliative care consult on daughter's request
Renal ultrasound for gross hematuria
Consult IR for repeat thoracentesis
Assessment / Plan
Assessment / Plan
IMPRESSION:
Hypothermia/hypotension
Acute urinary retention
Moderate to large right pleural effusion
Acute hypoxic respiratory failure
Right lower lobe pneumonia
Hypothyroidism
Orthostatic hypotension
Persistent atrial fibrillation
Cognitive dysfunction/vascular dementia
History of CAD
History of prior stroke
PLAN:
Hypothermia/hypotension-- unsure d/t cardiogenic shock/ pneumonia??
Patient is very confused, cannot follow simple commands
Downgrade to IMU
On/off pressors, continue IV fluids
Stop antibiotics because blood/urine cultures are negative
DHT placement today
Blood culture negative till date
Maintain MAP above 65, SBP above 90
EEG shows bihemispheric dysfunction
NPO due to risk of aspiration
Hold olanzapine-cannot determine baseline
Consult palliative care on daughter's request
Overall poor prognosis
Acute urinary retention/gross hematuria
Straight cathed earlier, now on Werner
Ongoing gross hematuria
Check renal ultrasound
Hold Eliquis
Hb improving
UA
Right pleural effusion-- new
Chest x-ray on 12/16 shows right pleural effusion which is new, increasing
Consult IR for repeat thoracentesis
Previous tap on 12/12 drained 1500 cc of clear yellow pleural fluid with negative pleural fluid cultures.
Acute hypoxic respiratory failure
Unlikely pneumonia.
On 2L of oxygen, wean as able
Off antibiotics
Continue DuoNeb
Hypothyroidism
TSH 4.20
Hold all oral medications
Orthostatic hypotension
Continue midodrine through DHT
Persistent atrial fibrillation
On telemetry
Restart Eliquis
Hold amiodarone due to hypotension
Cognitive impairment/delirium/encephalopathy
History of delirium and prior hospitalization
Hold olanzapine
Appreciate neurology input
Ordered MRI
EEG shows bihemispheric dysfunction
History of CAD
History of stent placement to LAD and RCA in August 2023
Hold furosemide, statin
History of prior stroke
Brain MRI 10/05/2023- Multiple small chronic infarcts in both cerebellar hemispheres (left greater than right). Small chronic lacunar infarcts in the caudate nuclei.
Hold aspirin
# Ambulatory dysfunction
#History of osteoporosis
On tube feeds
DNR/DNI
Hold Eliquis
Anticipated Discharge: > 48 hours
Subjective/Interval History
-
Date of Service: December 17, 2024
Sats dropped to 80s patient was put on 6 L of oxygen. She became tachycardic as well. Gross hematuria despite flushing 2 times.
Objective Data
-
Labs:
Laboratory Results
12/17/24
07:26
WBC 7.4
Hgb 9.9 L
Hct 30.0 L
Plt Count 112 L
Sodium 142
Potassium 4.8
Chloride 104
Carbon Dioxide 30
BUN 18 H
Creatinine 0.5 L
Glucose 90
Calcium 9.1
Vital Signs:
Vital Signs
Temp Pulse Resp BP Pulse Ox
97.8 F 87 18 94/53 95
12/17/24 07:44 12/17/24 10:00 12/17/24 10:00 12/17/24 10:00 12/17/24 10:00
I&O
12/16/24 12/17/24 12/18/24
06:59 06:59 06:59
Intake Total 1795.0 / 1860.0 1045 / 1075
Output Total 800 / 850 1280 / 1315 120 / 120
Balance 995.0 / 1010.0 -235 / -240 -90 / -90
Review of Systems
-
Unable to obtain full review of systems at this time due to: Patient Non-verbal
Physical Exam
-
General: Appears Chronically Ill and Other (confused, cannot follow simple commands)
HEENT: Normocephalic and Atraumatic
Respiratory: Clear to Auscultation
Cardiac: Irregular Rhythm and Murmur (Systolic)
GI: Nondistended
Genito-urinary: Werner (Hematuria)
Musculoskeletal: No Edema
Neuro: Negative Awake, Alert or Oriented
Psych: Confused and Agitated
Data Reviewed
-
Labs: Labs Reviewed by me and Discussed with Physician
[2024-12-17 11:54] LABS: Glucose - Point of Care 94 mg/dl (70-99)
--- NOTE | 2024-12-17 12:08 | W.CON.PAL ---
Consultation
-
Date/Time Consultation Requested: 12/17
Date/Time Consultation Performed: 12/17
Performing Provider: Tonie Mayorga
Reason for Consult: Goals of Care Discussion
Reason for Admission
Illness Course/HPI
89 year old F with PMH of dementia, CAD admitted with AMS/unresponsiveness. Initially treated for shock - likely septic but of unclear cause. Imaging revealed large loculated effusions s/p thora on the R side. Echo also with severe . Required
pressors on and off. Now with gross hematuria, eliquis on hold and renal ultrasound pending. Initially family leaning towards hospice but then had some improvement.
Seen at bedside. Declining again with hematuria and confusion. Has dobhoff, unable to take PO due to mental status. ALso with recurrence of R effusion requiring repeat thora. No family at bedside.
Called and spoke with patients daughter Maria Elena Whipple who had questions about palliative care. Answered her questions and disucssed with her that given her overall condition, hospice is more appropriate at this time and palliative care would not provide
the support that is likely needed for her. She is open to hearing from hospice about options - may meet criteria for GIP given her need for repeat thora, hematuria, confusion. High risk for decompensation if interventions are stopped.
Order placed for hospice consult and CM and management liaison aware as well as team
Objective Data
-
Objective Data:
Vital Signs
Temp Pulse Resp BP Pulse Ox
96.6 F L 77 20 90/60 96
12/17/24 11:17 12/17/24 12:03 12/17/24 12:03 12/17/24 12:03 12/17/24 12:03
Laboratory Results
12/17/24 07:26
12/17/24 07:26
PT 20.3 Sec (11.4-14.6) H 12/11/24 21:45
INR 1.68 12/11/24 21:45
APTT 44.3 Sec (23.4-35.0) H 12/11/24 21:45
Ammonia < 9 umol/L (9-30) L 12/12/24 10:13
Total Protein 4.6 g/dl (6.3-8.2) L 12/15/24 03:07
Albumin 2.4 g/dl (3.5-5.0) L 12/15/24 03:07
Urine Color Red 12/15/24 14:20
Urine Clarity Bloody (Clear) 12/15/24 14:20
Urine pH 6.5 (5.0-9.0) 12/15/24 14:20
Ur Specific [place] 1.020 (<1.030) 12/15/24 14:20
Urine Ketones 1+ (Negative) A 12/15/24 14:20
Urine Bilirubin Negative (Negative) 12/15/24 14:20
Palliative Performance Scale
Palliative Performance Scale:
PPS Level Ambulation Activity & Evidence of Disease Self Care Intake Conscious Level
100% Full Normal Activity & Work; Full Intake Full
No Evidence of Disease
90% Full Normal Activity & Work; Full Normal Full
Some Evidence of Disease
80% Full Normal Activity with Effort Full Normal or Full
Some Evidence of Disease Reduced
70% Reduced Unable Normal Job/Work Full Normal or Full
Significant Disease Reduced
60% Reduced Unable Hobby/Housework Occasional Normal or Full or Confusion
Significant Disease Assistance Reduced
50% Mainly Sit/Lie Unable to do Any Work Considerable Normal or Full or Confusion
Extensive Disease Assistance Req'd Reduced
40% Mainly in Bed Unable to do Most Activity Mainly Assistance Normal or Full or Drowsy;
Extensive Disease Reduced +/- Confusion
30% Totally Bed Unable to do Any Activity Total Care Normal or Full or Drowsy;
Bound Extensive Disease Reduced +/- Confusion
20% Totally Bed Bound Unable to do Any Activity Total Care Minimal to Full or Drowsy;
Extensive Disease Sips +/- Confusion
10% Totally Bed Bound Unable to do Any Activity Total Care Mouth Care Drowsy or Coma;
Extensive Disease Only +/- Confusion
0%
PPS Score Level:
Palliative Performance Score Response
Palliative Performance Score Response: 30%
Physical Exam
-
General: Appears Chronically Ill and Cachectic
HEENT: Normocephalic and Other (dobhoff )
Respiratory: Decreased Breath Sounds
Cardiac: Regular Rhythm
GI: Soft
Psych: Confused
Assessment / Plan
-
Assessment/Plan:
89 year old F with dementia, admitted with ?septic shock with recurrent R pleural effusion and now with hematuria. +dobhoff, AMS.
- hospice appropriate and daughter open to consult
- likely GIP appropriate at this time
Care Reviewed
Data Reviewed
Echocardiogram: Image Reviewed
Radiology procedure: Image Reviewed
Medical Tests: I reviewed
Reviewed with: Patient, Family, Physician and Nurse
--- NOTE | 2024-12-17 12:55 | W.PN.UPDATE ---
Update Note
Progress Note Update
Family agreed on hospice care. Hospice nurse in discussion with family for likely inpatient hospice
--- NOTE | 2024-12-17 12:59 | HOSPNOTE ---
Spoke with son and daughter and explained hospice and the philosophy. The family would like to discuss this evening and will call me tomorrow with an answer. If family agrees to hospice then we will admit inpatient for management of agitation and
discomfort. Family will call me tomorrow with an answer.
--- NOTE | 2024-12-17 13:15 | CM ---
CM following re: discharge planning.
Reviewed pt's chart, met with pt.
Hospice consult noted. Per family request, a referral made to hospice.
Per rn liaison, son and daughter will decide tomorrow.
D/C plan: hospice with hospice, probably inpatient hospice with GIP.
CM is available for emotional support.
--- NOTE | 2024-12-17 13:46 | PTCARENOTE ---
US completed. Patient's son at bedside. Requested Resident to come to bedside to discuss GOC.
--- NOTE | 2024-12-17 14:55 | PTCARENOTE ---
Patient transported to IR for thoracentesis.
--- NOTE | 2024-12-17 15:05 | W.PN.UPDATE ---
Update Note
Progress Note Update
Spoke with the son, he wants to hold hospice until tomorrow, Will discuss again. Overall prognosis remains poor.
--- NOTE | 2024-12-17 15:51 | PTCARENOTE ---
Patient back in room s/p right thoracentesis. Hypotensive post removal of 1500 mL. BP improving. Scheduled Midodrine administered. Repositioned for comfort.
[2024-12-17 15:59] LABS: Body Fluid pH 7.52
[2024-12-17 16:15] LABS: Body Fluid Glucose 91 mg/dl; Body Fluid LDH 103 U/L; Body Fluid Protein < 2.0 g/dl
[2024-12-17 16:54] LABS: Body Fluid WBC 377 /CUMM
[2024-12-17 16:59] LABS: Body Fluid Second Tech FB
[2024-12-17 18:24] LABS: Glucose - Point of Care 89 mg/dl (70-99)
--- NOTE | 2024-12-17 20:00 | PTCARENOTE ---
Pt received start of shift, HR afib on telemetry. Disoriented, drowsy. POX 93-96% 1L NC. DHT remains in place at R nare. Clots still present in urine, aniket blood tinged.
[2024-12-17] MEDS: REFRESH CELLUVISC GEL 1 DROPS BOTH EYES (21:56)
[2024-12-18] VITALS (16 sets, daily range): BP systolic 86–128; BP diastolic 52–91; BMI 29.0
[2024-12-18 01:11] LABS: Glucose - Point of Care 93 mg/dl (70-99)
--- NOTE | 2024-12-18 04:18 | PTCARENOTE ---
Pt remains disoriented to time, place, and self. Pt w/ confused conversation, does not answer appropriately. x2 smear BM overnight. BP stable.
[2024-12-18 04:41] LABS: Blood Urea Nitrogen 19 mg/dl (7-17); Calcium 8.9 mg/dl (8.4-10.2); Carbon Dioxide 29 mmol/L (22-30); Chloride 106 mmol/L (98-107); Estimated Creatinine Clearance 59 ml/min; Glucose 77 mg/dl (70-99); Potassium 4.8 mmol/L (3.5-5.1); Sodium 141 mmol/L (135-145); eGFR > 60.00
[2024-12-18 06:14] LABS: Glucose - Point of Care 72 mg/dl (70-99)
[2024-12-18] MEDS: SYNTHROID 75 MCG TUBE (06:27)
[2024-12-18] MEDS: PULMICORT 0.5 MG INH (07:13)
[2024-12-18] MEDS: DUONEB 3 ML INH (07:13)
[2024-12-18] MEDS: ProAmatine 10 MG TUBE (08:43)
--- NOTE | 2024-12-18 10:30 | PTCARENOTE ---
Pulse ox dropping to low 70's for brief periods before returning to high 80-low 90's. Oxygen reapplied. Pulse ox currently 98% on 2L nc.
--- NOTE | 2024-12-18 10:48 | W.PN.HOSP.TC ---
Addendum entered and electronically signed by Opal Alfredo MD 12/19/24 12:24:
total DC time 40 min
Addendum entered and electronically signed by Opal Alfredo MD 12/18/24 13:14:
I saw and evaluated the patient. I reviewed the resident�s note and agree with findings and plan as documented in the resident�s note.
A/P:
# hypotension unclear etiology
adrenal insufficiency/hypothyroidism/septic shock ruled out
neg cultures, procal negative, normal TFTs, normal cortisol
empiric Abx discontinued
BP remain borderling
Continue midodrine 10 mg 3 times daily via tube feed
# Acute metabolic encephalopathy, unclear etiology, but suspect underlying severe dementia contributing
# suspect vascular dementia
# History of delirium
MS waxes and wanes,
Stopped all Zyprexa
GOC discussion ongoing,
Of note, EEG unrevealing
# Severe clinical decompensation
GOC discussion ongoing, hospice on board
# large right pleural effusion s/p thoracentesis 1500mls
no signs of infection
# Persistent atrial fibrillation
Off amiodarone
Holding Eliquis with now gross hematuria
# Acute urinary retention
# Gross hematuria, likely traumatic, improving
Werner placed this admission
Hematuria started 12/14
TOV 12/18
Holding Eliquis
Monitor Hgb
Renal US no longer necessary with anticipation of hospice
# Acute hypoxic respiratory failure
Weaned to 2L NC oxygen, continue to wean as tolerated
# agitation
Hold further Zyprexa
# Hypothyroidism
WNL
# nutrition
Dobhoff placed for tube feed and meds
# History of CAD, stent placement to LAD and RCA in August 2023
HOLD furosemide, statin
# History of prior stroke
Brain MRI 10/05/2023 noted Multiple small chronic infarcts in both cerebellar hemispheres (left greater than right). Small chronic lacunar infarcts in the caudate nuclei
Aspirin
# Ambulatory dysfunction
# History of osteoporosis
code status: DNR/DNI
DVT proph: Eliquis on hold with gross hematuria
Original Note:
Today's Communication/Plan
-
S/p thoracentesis 12/17, drained 1.5 L of cloudy aniket pleural fluid. Await cultures
Renal ultrasound shows no hydronephrosis
Voiding trial
Ongoing discussion about hospice with family
Assessment / Plan
Assessment / Plan
IMPRESSION:
Hypothermia/hypotension
Acute urinary retention
Moderate to large right pleural effusion
Acute hypoxic respiratory failure
Right lower lobe pneumonia
Hypothyroidism
Orthostatic hypotension
Persistent atrial fibrillation
Cognitive dysfunction/vascular dementia
History of CAD
History of prior stroke
PLAN:
Hypothermia/hypotension-- unsure d/t cardiogenic shock/ pneumonia??
Patient is very confused, cannot follow simple commands
Downgrade to IMU
On/off pressors, continue IV fluids
Stop antibiotics because blood/urine cultures are negative
DHT placement today
Blood culture negative till date
Maintain MAP above 65, SBP above 90
EEG shows bihemispheric dysfunction
NPO due to risk of aspiration
Hold olanzapine-cannot determine baseline
Hospice appropriate per palliative care.
Overall poor prognosis
Acute urinary retention/gross hematuria--- improving
Start voiding trial
Renal ultrasound shows no hydronephrosis
Holding Eliquis
Hb improving
Right pleural effusion-- new
Chest x-ray on 12/16 shows right pleural effusion which is new, increasing
S/p thoracentesis 12/17, drained 1.5 L of cloudy aniket pleural fluid. Await cultures
Previous tap on 12/12 drained 1500 cc of clear yellow pleural fluid with negative pleural fluid cultures.
Acute hypoxic respiratory failure
Unlikely pneumonia.
On 2L of oxygen, wean as able
Off antibiotics
Continue DuoNeb
Hypothyroidism
TSH 4.20
Hold all oral medications
Orthostatic hypotension
Continue midodrine through DHT
Persistent atrial fibrillation
On telemetry
Restart Eliquis
Hold amiodarone due to hypotension
Cognitive impairment/delirium/encephalopathy
History of delirium and prior hospitalization
Hold olanzapine
Appreciate neurology input
Ordered MRI
EEG shows bihemispheric dysfunction
History of CAD
History of stent placement to LAD and RCA in August 2023
Hold furosemide, statin
History of prior stroke
Brain MRI 10/05/2023- Multiple small chronic infarcts in both cerebellar hemispheres (left greater than right). Small chronic lacunar infarcts in the caudate nuclei.
Hold aspirin
# Ambulatory dysfunction
#History of osteoporosis
On tube feeds
DNR/DNI
Hold Eliquis
Ongoing discussion about hospice with family
Anticipated Discharge: > 48 hours
Subjective/Interval History
-
Date of Service: December 18, 2024
No overnight events
Objective Data
-
Labs:
Laboratory Results
12/18/24
04:03
Sodium 141
Potassium 4.8
Chloride 106
Carbon Dioxide 29
BUN 19 H
Creatinine 0.5 L
Glucose 77
Calcium 8.9
Vital Signs:
Vital Signs
Temp Pulse Resp BP Pulse Ox
97.9 F 94 22 96/62 98
12/18/24 08:07 12/18/24 10:05 12/18/24 10:05 12/18/24 10:05 12/18/24 10:33
I&O
12/17/24 12/18/24 12/19/24
06:59 06:59 06:59
Intake Total 1045 / 1075 240 / 240 95 / 95
Output Total 1280 / 1315 790 / 790 0 / 0
Balance -235 / -240 -550 / -550 95 / 95
Review of Systems
-
Unable to obtain full review of systems at this time due to: Dementia
Physical Exam
-
General: Appears Chronically Ill
HEENT: Normocephalic and Atraumatic
Respiratory: Clear to Auscultation
Cardiac: Irregular Rhythm and Murmur
GI: Soft, Nontender and Nondistended
Musculoskeletal: No Edema
Neuro: Awake; Negative Alert or Oriented
Psych: Confused and Apparent Dementia
Data Reviewed
-
Labs: Labs Reviewed by me and Discussed with Physician
--- NOTE | 2024-12-18 11:27 | HOSPNOTE ---
Spoke to daughter again and she will be here at 12:30 and will make the final decision about hospice. Admissions was called to start hospice chart since family is almost sure hospice is needed. Patient will remain inpatient. Attending and CM updated
with plan. More information to follow once final decision.
[2024-12-18 11:44] LABS: Glucose - Point of Care 71 mg/dl (70-99)
--- NOTE | 2024-12-18 12:53 | PTCARENOTE ---
Rec'd care of patient at 0700. Patient confused. Nonsensical speech. Oriented only to self. Drowsy with periods of alertness with anxiety. Diversional activities provided. Afib on tele. Rate in the 80-90's. +Murmur. Pulse ox 97-98% on 2L nc. Weaned
to RA. Dr. Alfredo at bedside. Requesting O2 to be removed; goal of sat >88%. Pulse ox 88-91% initially. Around 1030, pulse ox down to low 70's. 2L nc placed back on. Lung sounds diminished throughout. Fine crackles in right base. GRIJALVA. +BS. No BM.
Remains NPO. DHT in place for medications. Werner removed in am. Voiding trial. Peripheral sites flushed and capped. Repositioned for comfort. Safe environment maintained. manager utilization management at bedside, wounds assessed and redressed.
--- NOTE | 2024-12-18 14:14 | HOSPNOTE ---
Consents signed for [facility] level of care for hospice. Anxiety and pain are active problems but not treated due to low blood pressure. Patient also has dobhoff tube that could be discontinued so patient can enjoy comfort foods although intact will be
scant, she is asking intermittently for food or drink. Much time spent with family as they are struggling but also understand this decline is not easily reversible. Requested 2 north bed and notified admissions.
--- NOTE | 2024-12-18 14:26 | PTCARENOTE ---
Patient's family agreeable to hospice. DHT removed. Patient repositioned for comfort. Sipping on clears. No s/s aspiration.
--- NOTE | 2024-12-18 14:31 | CM ---
CM following re: discharge planning.
Reviewed pt's chart, met with pt and her family.
Pt's family agrees with hospice care. Emotional support offered and provided.
Per physician liaison, pt is accepted for inpatient hospice.
D/C plan: Inpatient hospice with hospice GIP.
--- NOTE | 2024-12-18 14:52 | W.DCSUMMARY ---
Documented by User: Greg Garcia MD, Resident 12/18/24 17:53
Discharge Summary
Discharge Data
Date of Admission: 12/11/24
Date of Discharge: 12/18/24
-
Pending Results: No
Hospital Course
Discharging Physician : Dr Greg Garcia, Opal Love.H
Disposition : Inpatient Hospice
Primary care physician : Unknown
Principal Discharge diagnosis :
Hypothermia/hypotension
Acute urinary retention
Moderate to large right pleural effusion
Acute hypoxic respiratory failure
Right lower lobe pneumonia
Chronic Discharge diagnosis :
Hypothyroidism
Orthostatic hypotension
Persistent atrial fibrillation
Cognitive dysfunction/vascular dementia
History of CAD
History of prior stroke
Hospital Course :
89 year old female presented with hypothermia/hypotension, acute hypoxic respiratory failure, unresponsiveness.� This is patient's third episode that happened in 1 year.� Pressors were started on the patient to maintain the blood pressure with warm
blankets to maintain body temperature.� She was transferred to the ICU.� However the blood pressure remained low than normal given with 2 pressors.� Patient remained unresponsive for about 3 to 4 days.� Cardiology was consulted for persistent atrial
fib with amiodarone held due to� hypotension.� She was started on dopamine to improve heart rate.� Unfortunately patient continued to decline.� Patient was responsive on the fourth day of hospitalization however with waxing and waning of mental
status. For acute metabolic encephalopathy with unclear etiology, neurology recommended EEG which was unrevealing.� She had 3 L of pleural fluid drained with no signs of infection. Patient also had gross hematuria maybe related to trauma with
Werner's catheter (acute urinary retention).� ��
This is the patient�s third presentation with the same constellation of symptoms and care plan. She has hypotension of unclear etiology and acute metabolic encephalopathy. Her long-term prognosis remains poor, and even with temporary improvement,
she is expected to return to a baseline characterized by persistent hypotension and� encephalopathy. She has been hospitalized twice within the past year for similar issues, indicating a chronic and progressive clinical course. After discussion, the
family has elected to pursue hospice care. All curative and maintenance medications have been discontinued, and the patient will receive comfort-focused, symptomatic management moving forward.
Important imaging findings :
12/11/[address] head
CT Head:
No acute intracranial abnormalities. Small old infarcts, as detailed above. Findings again seen compatible with diffuse cortical atrophy with nonspecific white matter changes as described above.
CTA Head and Neck:
Atherosclerotic plaque within the carotid arterial system bilaterally, left greater than right without findings to suggest hemodynamically significant stenosis. No findings to suggest internal carotid artery or vertebral artery dissection
bilaterally. Mildly dominant right vertebral artery. Calcified atherosclerotic plaque within the distal left vertebral artery with mild to moderate stenosis. No significant proximal intracranial arterial stenosis bilaterally.
12/12/[address]
Large right pleural effusion. This is accompanied by compressive partial atelectasis in the right lower lobe and medial right upper lobe. Minimal amount of heterogeneous left basilar opacity, likely partial atelectasis. This is accompanied by small
left pleural effusion Severe coronary arterial calcifications. Marked deformity of left humeral head/neck. This is probably related to old trauma. Advanced osteoarthritis of left glenohumeral joint. Multiple loose bodies in left glenohumeral joint
. Advanced osteoarthritis of right glenohumeral joint. Loose bodies also noted in right glenohumeral joint.
Procedure findings :
12/12/24 Thoracentesis
Successful ultrasound-guided thoracentesis, yielding 1500 cc of clear yellow pleural fluid.
12/17/24 Thoracentesis
Successful ultrasound-guided thoracentesis, yielding 1500 cc of cloudy aniket pleural fluid.
Discharge Plan
-
Patient Disposition: Hospice - Inpatient
Discharge Diagnosis/Procedures: Hypothermia/hypotension
Acute urinary retention
Moderate to large right pleural effusion
Acute hypoxic respiratory failure
Right lower lobe pneumonia
Hypothyroidism
Orthostatic hypotension
Persistent atrial fibrillation
Cognitive dysfunction/vascular dementia
History of CAD
History of prior stroke
Condition: Critical
Diet: No restrictions
Activity: No restrictions
Activity Restrictions/Additional Instructions:
Wound Care Instructions Left Elbow and Left Upper Arm skin tears- Clean with normal saline or soap and water. Apply Xeroform and dry dressing. Change Q 48 hours and PRN.
Left Coccyx/Buttock- Clean with normal saline or soap and water. Apply Honey Gel and cover with adaptic and silicone foam dressing. Change daily and PRN drainage.
Stage 2 of coccyx- Keep covered with silicone border foam. Change Q 48 hours or PRN with incontinence care.
Scattered wounds of bilateral LE- Clean with saline, apply adaptic to open areas and cover with 4x4 and natalie. Change Q 48 hours.
Bilateral Heels- No-sting barrier and adhesive foam. Change Q 72 hours.
Air surface
Turning schedule
Keep heels off-loaded with pillow or air cushion under calves.
Referrals:
Will Payne MD [Family Provider] -
Shahla Oliver NP [Specified Professional Personl] - in three to four weeks
Prescriptions:
Discontinued
multivitamin with folic acid [Tab-A-Mandy] 1 TABLET tablet
1 tab PO DAILY Qty: 0
PreserVision Lutein 226-90-0.8-5 mg Capsule
1 cap PO BID
calcium carbonate [Calcium 600] 600 mg calcium (1,500 mg) Tablet
600 mg PO DAILY
furosemide [Lasix] 40 mg Tablet
80 mg PO DAILY
atorvastatin 10 mg Tablet
10 mg PO DAILY
melatonin 3 mg Tablet
3 mg PO HSPRN PRN (Reason: sleep)
alendronate [Fosamax] 70 mg Tablet
70 mg PO MEMBRENO
levothyroxine [Synthroid] 75 mcg Tablet
75 mcg PO DAILY
Eliquis 5 mg Tablet
5 mg PO BID Qty: 0 0RF
acetaminophen [Tylenol] 325 mg Tablet
650 mg PO Q6HPRN PRN (Reason: mild pain)
ipratropium-albuterol [DuoNeb] 0.5 mg-3 mg(2.5 mg base)/3 mL Solution For Nebulization
3 ml INHALATION R BID
olanzapine 5 mg Tablet
5 mg PO HS
olanzapine 5 mg Tablet
5 mg PO DAILYPRN PRN (Reason: afternoon restlessness)
midodrine 2.5 mg Tablet
2.5 mg PO TID
carboxymethylcellulose sodium [Refresh] 1 % Drops, Liquid Gel
1 drp BOTH EYES HS
amiodarone 100 mg Tablet
100 mg PO DAILY
Discharge Orders:
Discharge Patient (As Directed); Ordered 12/18/24
Ordered By: Greg Garcia
Discharge Date and Time
Discharge Date/Time: 12/18/24 15:30
Print Language: SAMI

Documented by User: Opal Alfredo MD 12/19/24 12:23
Discharge Summary
Discharge Data
Date of Admission: 12/11/24
Date of Discharge: 12/19/24
Hospital Course
Discharging Physician : Dr Greg Garcia, Opal Love.Marie
Disposition : Inpatient Hospice
Primary care physician : Unknown
Principal Discharge diagnosis :
Hypothermia/hypotension
Acute urinary retention
Moderate to large right pleural effusion
Acute hypoxic respiratory failure
Right lower lobe pneumonia
Chronic Discharge diagnosis :
Hypothyroidism
Orthostatic hypotension
Persistent atrial fibrillation
Cognitive dysfunction/vascular dementia
History of CAD
History of prior stroke
Hospital Course :
89 year old female presented with hypothermia/hypotension, acute hypoxic respiratory failure, unresponsiveness.�This is patient's third episode that happened in 1 year.�Pressors and stress dose steroid were started to help improve her hypotension;
richelle hugger was used for her low body temperature.� She was transferred to the ICU.�Patient was unresponsive for about 3 to 4 days.� Cardiology was consulted for persistent atrial fib; her amiodarone was held due to hypotension.� She was started on
dopamine drip which improved her heart rate.� Unfortunately patient continued to decline.� Patient was responsive on the fourth day of hospitalization (her mental status waxes and wanes). Neurology was consulted for her metabolic encephalopathy and
EEG was obtained which was unrevealing. Of note, she had 3 L of pleural fluid drained with no signs of infection. Patient also had gross hematuria which may be related to traumatic Werner insertion for acute urinary retention.� ��
She remained clinically debilitated and decompensated, hence goals of care discussion was initiated. Her family agreed to transition the patient to inpatient hospice. Therapeutic medications were discontinued. Comfort medicines was started for
symptom relief.
Important imaging findings :
12/11/[address] head
CT Head:
No acute intracranial abnormalities. Small old infarcts, as detailed above. Findings again seen compatible with diffuse cortical atrophy with nonspecific white matter changes as described above.
CTA Head and Neck:
Atherosclerotic plaque within the carotid arterial system bilaterally, left greater than right without findings to suggest hemodynamically significant stenosis. No findings to suggest internal carotid artery or vertebral artery dissection
bilaterally. Mildly dominant right vertebral artery. Calcified atherosclerotic plaque within the distal left vertebral artery with mild to moderate stenosis. No significant proximal intracranial arterial stenosis bilaterally.
12/12/[address]
Large right pleural effusion. This is accompanied by compressive partial atelectasis in the right lower lobe and medial right upper lobe. Minimal amount of heterogeneous left basilar opacity, likely partial atelectasis. This is accompanied by small
left pleural effusion Severe coronary arterial calcifications. Marked deformity of left humeral head/neck. This is probably related to old trauma. Advanced osteoarthritis of left glenohumeral joint. Multiple loose bodies in left glenohumeral joint
. Advanced osteoarthritis of right glenohumeral joint. Loose bodies also noted in right glenohumeral joint.
Procedure findings :
12/12/24 Thoracentesis
Successful ultrasound-guided thoracentesis, yielding 1500 cc of clear yellow pleural fluid.
12/17/24 Thoracentesis
Successful ultrasound-guided thoracentesis, yielding 1500 cc of cloudy aniket pleural fluid.
Discharge Plan
-
Patient Disposition: Hospice - Inpatient
Discharge Diagnosis/Procedures: Hypothermia/hypotension
Acute urinary retention
Moderate to large right pleural effusion
Acute hypoxic respiratory failure
Right lower lobe pneumonia
Hypothyroidism
Orthostatic hypotension
Persistent atrial fibrillation
Cognitive dysfunction/vascular dementia
History of CAD
History of prior stroke
Condition: Critical
Diet: No restrictions
Activity: No restrictions
Activity Restrictions/Additional Instructions:
Wound Care Instructions Left Elbow and Left Upper Arm skin tears- Clean with normal saline or soap and water. Apply Xeroform and dry dressing. Change Q 48 hours and PRN.
Left Coccyx/Buttock- Clean with normal saline or soap and water. Apply Honey Gel and cover with adaptic and silicone foam dressing. Change daily and PRN drainage.
Stage 2 of coccyx- Keep covered with silicone border foam. Change Q 48 hours or PRN with incontinence care.
Scattered wounds of bilateral LE- Clean with saline, apply adaptic to open areas and cover with 4x4 and natalie. Change Q 48 hours.
Bilateral Heels- No-sting barrier and adhesive foam. Change Q 72 hours.
Air surface
Turning schedule
Keep heels off-loaded with pillow or air cushion under calves.
Referrals:
Will Payne MD [Family Provider] -
Shahla Oliver NP [Specified Professional Personl] - in three to four weeks
Prescriptions:
Discontinued
multivitamin with folic acid [Tab-A-Mandy] 1 TABLET tablet
1 tab PO DAILY Qty: 0
PreserVision Lutein 226-90-0.8-5 mg Capsule
1 cap PO BID
calcium carbonate [Calcium 600] 600 mg calcium (1,500 mg) Tablet
600 mg PO DAILY
furosemide [Lasix] 40 mg Tablet
80 mg PO DAILY
atorvastatin 10 mg Tablet
10 mg PO DAILY
melatonin 3 mg Tablet
3 mg PO HSPRN PRN (Reason: sleep)
alendronate [Fosamax] 70 mg Tablet
70 mg PO MEMBRENO
levothyroxine [Synthroid] 75 mcg Tablet
75 mcg PO DAILY
Eliquis 5 mg Tablet
5 mg PO BID Qty: 0 0RF
acetaminophen [Tylenol] 325 mg Tablet
650 mg PO Q6HPRN PRN (Reason: mild pain)
ipratropium-albuterol [DuoNeb] 0.5 mg-3 mg(2.5 mg base)/3 mL Solution For Nebulization
3 ml INHALATION R BID
olanzapine 5 mg Tablet
5 mg PO HS
olanzapine 5 mg Tablet
5 mg PO DAILYPRN PRN (Reason: afternoon restlessness)
midodrine 2.5 mg Tablet
2.5 mg PO TID
carboxymethylcellulose sodium [Refresh] 1 % Drops, Liquid Gel
1 drp BOTH EYES HS
amiodarone 100 mg Tablet
100 mg PO DAILY
Discharge Orders:
Discharge Patient (As Directed); Ordered 12/18/24
Ordered By: Greg Garcia
Discharge Date and Time
Discharge Date/Time: 12/18/24 15:30
Print Language: SAMI
== END 2024-12-18 15:30 | disposition hospice, inpatient (51) | DRG 306 ==
LOC: ICU 19:27
PROVIDERS: Internal Medicine Critical Care Medicine; Nurse Practitioner Family; Nurse Practitioner Primary Care; Physician Assistant; Radiology Diagnostic Radiology; Radiology Vascular & Interventional Radiology; Student in an Organized Health Care Education/Training Program; ADMITTING PHYSICIAN Internal Medicine; ATTENDING PHYSICIAN Internal Medicine; CONSULT PHYSICIAN Internal Medicine; CONSULT PHYSICIAN Internal Medicine Cardiovascular Disease; CONSULT PHYSICIAN Nurse Practitioner Gerontology; CONSULT PHYSICIAN Psychiatry & Neurology Clinical Neurophysiology; EMERGENCY PHYSICIAN Student in an Organized Health Care Education/Training Program; FAMILY PHYSICIAN Family Medicine
PROC: 0W993ZZ Drainage of Right Pleural Cavity, Percutaneous Approach (ICD-10-PCS; 2024-12-12)
PROC: 5A09357 Assistance with Respiratory Ventilation, Less than 24 Consecutive Hours, Continuous Positive Airway Pressure (ICD-10-PCS; 2024-12-12)
DX: I35.0 Nonrheumatic aortic (valve) stenosis (principal); G92.8 Other toxic encephalopathy; J18.9 Pneumonia, unspecified organism; J96.01 Acute respiratory failure with hypoxia; I50.32 Chronic diastolic (congestive) heart failure; F01.54 Vascular dementia, unspecified severity, with anxiety; I48.21 Permanent atrial fibrillation; J98.11 Atelectasis; C91.11 Chronic lymphocytic leukemia of B-cell type in remission; E87.0 Hyperosmolality and hypernatremia; R64 Cachexia; I11.0 Hypertensive heart disease with heart failure; E03.9 Hypothyroidism, unspecified; R31.0 Gross hematuria; I25.10 Atherosclerotic heart disease of native coronary artery without angina pectoris; Z95.5 Presence of coronary angioplasty implant and graft; Z86.73 Personal history of transient ischemic attack (TIA), and cerebral infarction without residual deficits; M81.0 Age-related osteoporosis without current pathological fracture; Z66 Do not resuscitate; I95.1 Orthostatic hypotension; M19.012 Primary osteoarthritis, left shoulder; M24.012 Loose body in left shoulder; M19.011 Primary osteoarthritis, right shoulder; Z85.42 Personal history of malignant neoplasm of other parts of uterus; G47.33 Obstructive sleep apnea (adult) (pediatric); Z90.49 Acquired absence of other specified parts of digestive tract; Z96.652 Presence of left artificial knee joint; Z87.891 Personal history of nicotine dependence; E78.00 Pure hypercholesterolemia, unspecified; Z79.890 Hormone replacement therapy; Z79.01 Long term (current) use of anticoagulants; Z88.0 Allergy status to penicillin; Z79.899 Other long term (current) drug therapy; E87.6 Hypokalemia; D64.9 Anemia, unspecified; Z86.0100 Personal history of colon polyps, unspecified; R68.0 Hypothermia, not associated with low environmental temperature; Z51.5 Encounter for palliative care; Z78.1 Physical restraint status; Z79.83 Long term (current) use of bisphosphonates; Z85.828 Personal history of other malignant neoplasm of skin; Z86.72 Personal history of thrombophlebitis; Z92.3 Personal history of irradiation; Z68.29 Body mass index [BMI] 29.0-29.9, adult
CPT/HCPCS: 88305; 32555; 36600; 51701; 70496; 70498; 71045; 71250; 74018; 76770; 80048; 80053; 80076; 80202; 81003; 81015; 82140; 82533; 82805; 82945; 82962; 83605; 83615; 83735; 83880; 83986; 84100; 84145; 84157; 84443; 84484; 85025; 85027; 85379; 85610; 85730; 87015; 87040; 87070; 87205; 87449; 87502; 87641; 87899; 88112; 89051; 92526; 92610; 93005; 93306; 94640; 94660; 95816; 96361; 96365; 96366; 96375; 99291; P9047; Q9967

== ENCOUNTER 2024-12-18 15:31 | Inpatient (IN) | payer OTHER, SELFPAY ==
--- NOTE | 2024-12-18 16:45 | PTCARENOTE ---
Patient transitioned to inpatient hospice. Sitting in bed talking with family. Pleasantly confused. Denies pain. Assisted in ordering ice cream for dinner.
[2024-12-18] MEDS: TYLENOL 650 MG PO (17:21)
--- NOTE | 2024-12-18 17:53 | HPS.HSE ---
Family Physician
-
Family Physician: NOT KNOW UNKNOWN - PT DOES
Chief Complaint
-
comfort care
History of Present Illness
89 year old female presented with hypothermia/hypotension, acute hypoxic respiratory failure, unresponsiveness.� This is patient's third episode that happened in 1 year.� Pressors were started on the patient to maintain the blood pressure with warm
blankets to maintain body temperature.� She was transferred to the ICU.� However the blood pressure remained low than normal given with 2 pressors.� Patient remained unresponsive for about 3 to 4 days.� Cardiology was consulted for persistent atrial
fib with amiodarone held due to� hypotension.� She was started on dopamine to improve heart rate.� Unfortunately patient continued to decline.� Patient was responsive on the fourth day of hospitalization however with waxing and waning of mental
status. For acute metabolic encephalopathy with unclear etiology, neurology recommended EEG which was unrevealing.� She had 3 L of pleural fluid drained with no signs of infection. Patient also had gross hematuria maybe related to trauma with
Werner's catheter (acute urinary retention).� ��
This is the patient�s third presentation with the same constellation of symptoms and care plan. She has hypotension of unclear etiology and acute metabolic encephalopathy. Her long-term prognosis remains poor, and even with temporary improvement,
she is expected to return to a baseline characterized by persistent hypotension and� encephalopathy. She has been hospitalized twice within the past year for similar issues, indicating a chronic and progressive clinical course. After discussion, the
family has elected to pursue hospice care. Patient is now being admitted to inpatient hospice.
Medical History
Past Medical History
Past Medical History: Reports Arrhythmia
Additional Past Medical History:
A-fib
Aortic stenosis
HTN
CLL
Hx uterine cancer
EFRAIN
Arthritis
Past Surgical History: Reports Appendectomy and Cholecystectomy
Additional Past Surgical History:
Left total knee replacement
Lysis of adhesions
Social History
Unable to obtain full social history at this time due to: Dementia
Tobacco: Non-smoker
Alcohol: None
Drug: None
Personal:
Living: With Family
Employment: Retired
Family History
Family History: Not pertinent
Allergies / Home Medications
Allergies reflects when Allergies were last updated in [email or web address].
Home Medications with original date entered in [email or web address]
Allergy/Medication List:
Allergies
Allergy/AdvReac Type Severity Reaction Status Date / Time
amoxicillin AdvReac Nausea / Verified 12/11/24 19:05
Vomiting
loratadine [From Claritin] AdvReac Nausea / Verified 12/11/24 19:05
Vomiting
Review of Systems
-
Unable to obtain full review of systems at this time due to: Dementia
Physical Exam
Physical Exam
General: Appears Chronically Ill
HEENT: NormoCephalic
Respiratory: Clear
Cardiac: S1/S2 and Regular Rhythm
GI: Non Distended
Neuro: Awake; No Alert or Oriented
Psych: Confused and Apparent Dementia
Data Reviewed
-
Lab Data: Labs Reviewed by me and Discussed with Physician
Impression/Plan
-
PLAN:
Hypotension with unclear etiology
Admit to inpatient hospice
Hold all medications. only comfort measures.
Continue morphine IV
Zofran as needed for nausea
Pain control
Robinul for increased secretions.
Acute metabolic encephalopathy, unclear etiology, but suspect underlying severe dementia contributing
suspect vascular dementia
History of delirium
Severe clinical decompensation
Inpatient hospice
Comfort measures
#Large right pleural effusion s/p thoracentesis 1500mls
#Acute hypoxic respiratory failure
#Hypothyroidism
#Orthostatic hypotension
#Persistent atrial fibrillation
#History of CAD
#History of prior stroke
DNR/DNI
regular diet
[2024-12-18 20:40] VITALS: BP 97/60
[2024-12-18] MEDS: ATIVAN 0.5 MG PO (23:53)
[2024-12-19] MEDS: MORPHINE SULFATE 2 MG IV ×7 (00:40→21:52)
[2024-12-19] MEDS: ATIVAN 0.5 MG PO (01:59)
[2024-12-19 07:30] VITALS: BP 105/69
--- NOTE | 2024-12-19 08:34 | HOSPNOTE ---
Director Employee Safety And Health visited with 89 year old patient to conduct Initial PERFORMANCE TEST ARCHITECT Assessment. Patient admitted onto [facility] Level of Care and Hospice Services with the Primary Diagnosis of CCL. Nurse reported patient was a little restless over night,
otherwise doing good, medications to be administered as directed. PERFORMANCE TEST ARCHITECT knocked on patient's door while entering the room. Patient observed lying in bed asleep and appears to be resting comfortably. PERFORMANCE TEST ARCHITECT greeted and called patient's name several times,
patient sighed and move her leg. Patient did not show signs of pain and/or distress. There was no family present at patient's bedside and/or in family room. PERFORMANCE TEST ARCHITECT contacted patient's daughter Maria Elena Whipple to introduced herself. Maria Elena Whipple reported she left
the hospital last evening as patient was in the ER and hadn't been moved to her room. Maria Elena Whipple reported she was getting ready to come to the hospital. Maria Elena Whipple reported her and patient's son Evan are the Primary Caregivers and POA. Patient has 5
grandchildren that she spoils and adores. Maria Elena Whipple reported family is active and supportive in caring for patient and they are coping appropriately. 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 Patient enjoyed riding her bike, loved
her family, very social/had plenty of friends, played cards, and board games. Patient wishes to be buried and is [facility] and affiliated with [facility] and will utilize [facility] in [place].
Patient meets [facility] criteria for SN assessment, management of pain, dyspnea, and anxiety that could not be managed at home and/or in an Outpatient setting. Discharge planning continues.
PERFORMANCE TEST ARCHITECT will continue to visit once a week to provide supportive services and monitor for additional services.
--- NOTE | 2024-12-19 08:54 | CM ---
CM following re: discharge planning.
Reviewed pt's chart.
Pt is admitted to hospice [facility] yesterday.
CM is available for emotional support.
--- NOTE | 2024-12-19 08:59 | HOSPNOTE ---
School Bus Driver/Custodian visited with 89 year old patient to conduct Initial CROP SCOUT Assessment. Patient admitted onto [facility] Level of Care and Hospice Services with the Primary Diagnosis of CCL. Nurse reported patient was a little restless over night,
otherwise doing good, medications to be administered as directed. CROP SCOUT knocked on patient's door while entering the room. Patient observed lying in bed asleep and appears to be resting comfortably. CROP SCOUT greeted and called patient's name several times,
patient sighed and move her leg. Patient did not show signs of pain and/or distress. There was no family present at patient's bedside and/or in family room. CROP SCOUT contacted patient's daughter Maria Elena Whipple to introduced herself. Maria Elena Whipple reported she left
the hospital last evening as patient was in the ER and hadn't been moved to her room. Maria Elena Whipple reported she was getting ready to come to the hospital. Maria Elena Whipple reported her and patient's son Evan are the Primary Caregivers and POA. Patient has 5
grandchildren that she spoils and adores. Maria Elena Whipple reported family is active and supportive in caring for patient and they are coping appropriately. 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 Patient enjoyed riding her bike, loved
her family, very social/had plenty of friends, played cards, and board games. Patient wishes to be buried and is [facility] and affiliated with [facility] and will utilize [facility] in [place]. Emotional
Support Provided.
Patient meets [facility] criteria for SN assessment, management of pain, dyspnea, and anxiety that could not be managed at home and/or in an Outpatient setting. Discharge planning continues.
CROP SCOUT will continue to visit once a week to provide supportive services and monitor for additional services.
--- NOTE | 2024-12-19 11:21 | W.PN.HOSP.TC ---
Addendum entered and electronically signed by Opal Alfredo MD 12/19/24 13:24:
I saw and evaluated the patient. I reviewed the resident�s note and agree with findings and plan as documented in the resident�s note.
A/P:
# Hypotension with unclear etiology
# metabolic encephalopathy, unclear etiology, but suspect underlying severe dementia contributing
# suspect vascular dementia
# Severe clinical decompensation
Continue inpatient hospice with comfort meds
DNR/DNI
D/w DIL at bedside. Provided emotional support
Original Note:
Today's Communication/Plan
-
Continue comfort measures
Assessment / Plan
Assessment / Plan
PLAN:
Hypotension with unclear etiology
Admit to inpatient hospice
Hold all medications. only comfort measures.
Continue morphine IV
Zofran as needed for nausea
Pain control
Robinul for increased secretions.
Acute metabolic encephalopathy, unclear etiology, but suspect underlying severe dementia contributing
suspect vascular dementia
History of delirium
Severe clinical decompensation
Inpatient hospice
Comfort measures
#Large right pleural effusion s/p thoracentesis 1500mls
#Acute hypoxic respiratory failure
#Hypothyroidism
#Orthostatic hypotension
#Persistent atrial fibrillation
#History of CAD
#History of prior stroke
DNR/DNI
regular diet
Anticipated Discharge: > 48 hours
Subjective/Interval History
-
Date of Service: December 19, 2024
No overnight events
Objective Data
-
Vital Signs:
Vital Signs
Temp Pulse Resp BP Pulse Ox
98.6 F 102 18 105/69 88
12/19/24 07:30 12/19/24 07:30 12/19/24 07:30 12/19/24 07:30 12/19/24 07:30
I&O
12/18/24 12/19/2412/20/25
06:59 06:59 06:59
Output Total 1000 / 1000
Balance -1000 / -1000
Review of Systems
-
Unable to obtain full review of systems at this time due to: Dementia
Physical Exam
-
General: Comfortable
HEENT: Normocephalic and Atraumatic
Respiratory: Clear to Auscultation
Cardiac: Regular Rhythm
Data Reviewed
-
Labs: Labs Reviewed by me and Discussed with Physician
--- NOTE | 2024-12-19 13:15 | HOSPNOTE ---
Patient was agitated and will be medicated with ativan, patient was turned and repositioned, no family was present in the room. The patient continues to be inpatient appropriate for management of agitation and pain. The patient will be seen daily by
hospice.
[2024-12-19] MEDS: ATIVAN 0.5 MG IV ×2 (13:31→22:48)
[2024-12-19] MEDS: NSS (PRESERVATIVE FREE) 0.25 ML IV ×2 (13:32→22:47)
[2024-12-19 20:33] VITALS: BP 88/74
[2024-12-19] MEDS: FLUSH (NSS) 2 FLUSH IV ×2 (21:54→22:48)
[2024-12-20] MEDS: ATIVAN 0.5 MG IV ×5 (05:11→21:24)
[2024-12-20] MEDS: NSS (PRESERVATIVE FREE) 0.25 ML IV ×5 (05:12→21:24)
[2024-12-20 07:15] VITALS: BP 90/61
--- NOTE | 2024-12-20 08:16 | W.PN.HOSP.TC ---
Today's Communication/Plan
-
cont inpt hospice
Assessment / Plan
Assessment / Plan
I saw and evaluated the patient. I reviewed the resident�s note and agree with findings and plan as documented in the resident�s note.
A/P:
# Hypotension with unclear etiology
# metabolic encephalopathy, unclear etiology, but suspect underlying severe dementia contributing
# suspect vascular dementia
# Severe clinical decompensation
Continue inpatient hospice with comfort meds
DNR/DNI
Anticipated Discharge: 24 - 48 hours
Subjective/Interval History
-
Date of Service: December 20, 2024
Objective Data
-
Vital Signs:
Vital Signs
Temp Pulse Resp BP Pulse Ox
37.3 C 103 18 90/61 87
12/20/24 07:15 12/20/24 07:15 12/20/24 07:15 12/20/24 07:15 12/20/24 07:15
I&O
12/19/24 12/20/24 12/21/24
06:59 06:59 06:59
Intake Total 0 / 0
Output Total 1000 / 1000 500 / 500
Balance -1000 / -1000 -500 / -500
Review of Systems
-
Unable to obtain full review of systems at this time due to: Dementia and Patient Non-verbal
Physical Exam
-
General: Comfortable
HEENT: Normocephalic and Atraumatic
Respiratory: Non Labored Respirations; Negative Accessory Resp Muscle Use
Cardiac: Regular Rhythm
Psych: Calm
Data Reviewed
-
Labs: Labs Reviewed by me and Discussed with Physician
[2024-12-20] MEDS: MORPHINE SULFATE 2 MG IV ×4 (09:18→18:23)
--- NOTE | 2024-12-20 11:30 | CHAP ---
Ceci was sleeping peacefully, non-responsive, did not show signs of pain. No family was present. Natural Resources Technician provided emotional and spiritual support through presence and prayer. Spoke by phone with daughter Maria Elena Whipple, who is in touch with
Ceci's [facility] Representative. Emotional and spiritual support provided to Maria Elena Whipple as well. Natural Resources Technician will continue support through weekly visits, remaining available as needed.
--- NOTE | 2024-12-20 13:16 | HOSPNOTE ---
Patient minimally responsive to verbal or tactile stimuli. Hr tachycardiac 100-110 Blood pressure 90/60 low grade fever. Patient remains GIP appropriate level of care for the management of pain and sob. Morphine IV x 6 in last 24 hours. Patient
with secretions and restlessness in addition to pain. Is not eating or drinking. Family at bedside, daughter and grandchildren. Support provided to family and they are aware patient has hours to days of life remaining.
[2024-12-20 19:57] VITALS: BP 88/58
[2024-12-20] MEDS: FLUSH (NSS) 2 FLUSH IV (21:25)
[2024-12-21] MEDS: ATIVAN 0.5 MG IV ×6 (01:25→18:09)
[2024-12-21] MEDS: NSS (PRESERVATIVE FREE) 0.25 ML IV ×6 (01:25→18:10)
[2024-12-21] MEDS: FLUSH (NSS) 2 FLUSH IV ×3 (01:26→05:35)
[2024-12-21] MEDS: MORPHINE SULFATE 2 MG IV ×5 (03:37→18:09)
[2024-12-21 07:15] VITALS: BP 96/52
--- NOTE | 2024-12-21 11:37 | HOSPNOTE ---
Patient remains GIP appropriate level of care requiring frequent IV medications for symptom management of pain, sob and anxiety. Morphine IV x 7 and Ativan x6 in last [address] Alfredo contacted to consider a continuous Morphine infusion for
improved comfort. Dr Alfredo will see patient and decide later in day. Parvin her nurse is aware.
--- NOTE | 2024-12-21 12:14 | W.PN.HOSP.TC ---
Today's Communication/Plan
-
see A/P
Assessment / Plan
Assessment / Plan
I saw and evaluated the patient. I reviewed the resident�s note and agree with findings and plan as documented in the resident�s note.
A/P:
# Hypotension with unclear etiology
# metabolic encephalopathy, unclear etiology, but suspect underlying severe dementia contributing
# suspect vascular dementia
# Severe clinical decompensation
Continue inpatient hospice with comfort meds
DNR/DNI
Anticipated Discharge: 24 - 48 hours
Subjective/Interval History
-
Date of Service: December 21, 2024
Objective Data
-
Vital Signs:
Vital Signs
Temp Pulse Resp BP Pulse Ox
37.4 C 99 20 96/52 88
12/21/24 07:15 12/21/24 07:15 12/21/24 07:15 12/21/24 07:15 12/21/24 12:03
I&O
12/20/24 12/21/24 12/22/24
06:59 06:59 06:59
Intake Total 0 / 0 0 / 0
Output Total 500 / 500 300 / 300
Balance -500 / -500 -300 / -300
Review of Systems
-
Unable to obtain full review of systems at this time due to: Dementia and Patient Non-verbal
Physical Exam
-
General: Comfortable
HEENT: Normocephalic and Atraumatic
Respiratory: Non Labored Respirations; Negative Accessory Resp Muscle Use
Cardiac: Regular Rhythm
Psych: Calm
Data Reviewed
-
Labs: Labs Reviewed by me and Discussed with Physician
--- NOTE | 2024-12-21 18:29 | PTCARENOTE ---
pt receiving prn ativan and morphine for end of life dyspnea and pain management. pt has scant amount of bloody drainage coming from the b/l eyes. eyes cleaned multiple time during shift by this RN. patient wounds changed by this RN. pt with no oral
intake and is unresponsive at this time. pt inc of stool. see worklist for proper documentation of all care on this shift.
--- NOTE | 2024-12-21 20:33 | W.PN.DEATH ---
Pronouncement of
-
Called to see patient to pronounce.
No spontaneous heart tones or respirations noted.
Patient not responsive to verbal stimuli.
Patient is pronounced .
Time of : 20:20
Date of : 12/21/24
Cause of : hypotension, metabolic encephalopathy, vascular dementia
Family Notified: Yes (daughter present)
--- NOTE | 2024-12-22 01:02 | PTCARENOTE ---
Pt's family notified this RN that patient was no longer breathing. This RN went in and assessed pt and listened to pt's chest and was not able to detect a heart beat or auscultate breath sounds. Notified LINOLEUM INSTALLER and she came up to pronounce pt. Family
was able to visit with pt and notified of next steps. Pt's time of was 20:20, post mortem care was performed, and gift of life was called.
--- NOTE | 2024-12-23 11:51 | W.DCSUMMARY ---
Discharge Summary
Discharge Data
Date of Admission: 12/18/24
Date of Discharge: 12/21/24
-
Pending Results: No
Hospital Course
Clinical course:�
89 year old female with history of vascular dementia, presented with hypothermia/hypotension, acute hypoxic respiratory failure, lethargy/unresponsiveness.�
She has undergone extensive workup, results were unrevealing.
She remained critically ill and goals of care was discussed with her family.
The decision was to transfer to inpatient hospice to continue comfort meds.
She on 12/21/2024, and the time of was at 20:20.
Her family was at bedside during pronouncement.
Discharge Plan
-
Patient Disposition:
Date/Time
Date/Time: 12/21/24 20:20
Discharge Date and Time
Discharge Date/Time: 12/21/24 20:20
Print Language: DJIBOUTIAN
== END 2024-12-21 20:20 | disposition expired | DRG 951 ==
LOC: 2 NORTH 15:31
PROVIDERS: ADMITTING PHYSICIAN Internal Medicine; ATTENDING PHYSICIAN Internal Medicine
DX: Z51.5 Encounter for palliative care (principal); G93.41 Metabolic encephalopathy; J96.01 Acute respiratory failure with hypoxia; I48.19 Other persistent atrial fibrillation; I10 Essential (primary) hypertension; I35.0 Nonrheumatic aortic (valve) stenosis; Z66 Do not resuscitate; G47.33 Obstructive sleep apnea (adult) (pediatric); Z86.73 Personal history of transient ischemic attack (TIA), and cerebral infarction without residual deficits; E03.9 Hypothyroidism, unspecified; F01.C0 Vascular dementia, severe, without behavioral disturbance, psychotic disturbance, mood disturbance, and anxiety; I25.10 Atherosclerotic heart disease of native coronary artery without angina pectoris; I95.1 Orthostatic hypotension; Z85.42 Personal history of malignant neoplasm of other parts of uterus; Z96.652 Presence of left artificial knee joint